=== PATIENT | male | born 1940 | race Caucasian/White ===

== ENCOUNTER → 2017-02-02 | Outpatient (REF) | payer MEDICARE, OTHER ==
[2017-02-02 15:57] LABS: BLOOD UREA NITROGEN 11 MG/DL (7-18); CREATININE FOR GFR 0.94 MG/DL (0.70-1.30); GLOMERULAR FILTRATION RATE > 60.0 (>42)
== END ==
LOC: M LABDRWAD 15:32
PROVIDERS: ATTEND Surgery Vascular Surgery
DX: R94.4 Abnormal results of kidney function studies (principal)

== ENCOUNTER → 2017-05-02 | Outpatient (REF) | payer MEDICARE, OTHER ==
[2017-05-02 14:24] LABS: ALBUMIN 3.5 GM/DL (3.2-5.2); ALBUMIN/GLOBULIN RATIO 1.13 (1.00-1.93); ALKALINE PHOSPHATASE 110 U/L (45-117); ALT/SGPT 22 U/L (12-78); ANION GAP 9 MEQ/L (8-16); AST/SGOT 16 U/L (15-37); BLOOD UREA NITROGEN 10 MG/DL (7-18); CALCIUM LEVEL 9.2 MG/DL (8.8-10.2); CARBON DIOXIDE LEVEL 31 MEQ/L (21-32); CHLORIDE LEVEL 93 MEQ/L (98-107); CHOLESTEROL LEVEL 127 MG/DL (<200); CREATININE FOR GFR 1.02 MG/DL (0.70-1.30); GLOMERULAR FILTRATION RATE > 60.0 (>42); GLUCOSE, FASTING 117 MG/DL (83-110); POTASSIUM SERUM 4.6 MEQ/L (3.5-5.1); SODIUM LEVEL 133 MEQ/L (136-145); TOTAL PROTEIN 6.6 GM/DL (6.4-8.2); TRIGLYCERIDES LEVEL 124 MG/DL (<150)
== END ==
LOC: M LABDRWAD 12:09
PROVIDERS: ATTEND Emergency Medicine
DX: I10 Essential (primary) hypertension (principal); E78.2 Mixed hyperlipidemia; E55.9 Vitamin D deficiency, unspecified; R73.01 Impaired fasting glucose; N18.3 Chronic kidney disease, stage 3 (moderate)

== ENCOUNTER 2017-07-26 07:16 | Inpatient (IN) | payer MEDICARE, OTHER ==
[~2017-07-26] VITALS: Ht 177.8 cm; Wt 99.0 kg
[2017-07-26] MEDS ORDERED: AMIT25TA PO ×2 (07:33→09:34)
[2017-07-26] MEDS ORDERED: SIMV20TA2 PO ×2 (07:33→09:34)
[2017-07-26] MEDS ORDERED: ASPI325T28 PO (07:33)
[2017-07-26] MEDS ORDERED: POTA1TAB23 PO (07:33)
[2017-07-26] MEDS ORDERED: GLUC500T53 PO (07:33)
[2017-07-26] MEDS ORDERED: ADV250INH INH ×2 (07:33→09:34)
[2017-07-26] MEDS ORDERED: GABA600T PO ×2 (07:33→09:34)
[2017-07-26] MEDS ORDERED: LISI-538 PO ×2 (07:33→09:34)
[2017-07-26] MEDS ORDERED: MULTCAP11 PO (07:33)
[2017-07-26 08:33] LABS: BASO % 0.2 % (0.0-1.0); EOS # 0.2 K/mm3 (0.0-0.50); EOS % 1.5 % (0.0-3.0); LARGE UNSTAINED CELL # 0.2 K/mm3 (0.0-0.4); LARGE UNSTAINED CELL % 1.4 % (0.0-4.0); LYMPH # 0.7 K/mm3 (1.5-4.5); LYMPH % 6.3 % (24.0-44.0); MEAN CORPUSCULAR HEMOGLOBIN 34.2 pg (27.0-33.0); MEAN CORPUSCULAR HGB CONC 35.5 g/dl (32.0-36.5); MEAN CORPUSCULAR VOLUME 96.3 fl (80.0-96.0); MONO # 0.8 K/mm3 (0.0-0.8); MONO % 7.6 % (0.0-5.0); NEUTROPHILS # 9.1 K/mm3 (1.8-7.7); PLATELET COUNT, AUTOMATED 187 k/mm3 (150-450); RED CELL DISTRIBUTION WIDTH 11.7 % (11.5-14.5); WHITE BLOOD COUNT 10.9 K/mm3 (4.0-10.0)
--- NOTE | 2017-07-26 08:53 | REP ---
Clinical: Acute abdominal pain. Findings: Small bowel obstruction is appreciated with dilated fluid-filled small bowel measuring up to 4.4 cm diameter with an area of transition along the nondependent midline anterior abdominal wall suggesting adhesions from prior surgery (images 95 - 105). The more distal small bowel extending to the right lower quadrant and terminal ileum appear collapsed and relatively normal. Small amount of ascites is appreciated. No free air to suggest perforation. No drainable collection/abscess. Large bowel demonstrate scattered diverticulosis without acute diverticulitis. Liver demonstrates multiple hypodensities likely representing cysts. Spleen, pancreas, gallbladder, bilateral adrenal glands are normal. The left kidney is severely atrophic and the right kidney demonstrates renovascular calcifications as well as at 2 cm complex hypodense lesion along the lateral aspect which cannot be further characterized. Pelvis demonstrates normal bladder. Prostate gland is mildly enlarged and includes parenchymal calcifications. 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 Skeletal structures demonstrate degenerative changes without focal osseous abnormality. Surgical clips are identified in the anterior abdominal wall and right groin suggesting prior surgery. Impression: 1. Acute small bowel obstruction as described above with transition along the lower midline anterior abdominal wall suggesting adhesions related to prior surgeries. 2. 2 cm right renal lesion requires further investigation and differential diagnosis includes complex cyst and small mass. Consider ultrasound examination as first line of follow-up. 3. Further chronic and postsurgical changes as described above. Signed by Jose Francisco Raymundo MD 07/26/2017 08:44 A
[2017-07-26] MEDS ORDERED: SODIUM CHLORIDE 0.9% 1000 ML IV ONE (09:00)
[2017-07-26 09:14] LABS: ALBUMIN/GLOBULIN RATIO 0.83 (1.00-1.93); ALKALINE PHOSPHATASE 85 U/L (45-117); ALT/SGPT 17 U/L (12-78); ANION GAP 11 MEQ/L (8-16); AST/SGOT 15 U/L (15-37); BILIRUBIN,DIRECT 0.4 MG/DL (0.0-0.2); BILIRUBIN,TOTAL 1.5 MG/DL (0.2-1.0); BLOOD UREA NITROGEN 18 MG/DL (7-18); CALCIUM LEVEL 8.8 MG/DL (8.8-10.2); CARBON DIOXIDE LEVEL 32 MEQ/L (21-32); CHLORIDE LEVEL 91 MEQ/L (98-107); CREATININE FOR GFR 1.21 MG/DL (0.70-1.30); GLOMERULAR FILTRATION RATE > 60.0 (>42); GLUCOSE, FASTING 152 MG/DL (83-110); POTASSIUM SERUM 3.7 MEQ/L (3.5-5.1); SODIUM LEVEL 134 MEQ/L (136-145); TOTAL PROTEIN 6.6 GM/DL (6.4-8.2)
[2017-07-26] MEDS ORDERED: ASPI325T PO (09:34)
[2017-07-26] MEDS ORDERED: VITMTA PO (09:34)
[2017-07-26] MEDS ORDERED: POTA10CA PO (09:34)
[2017-07-26] MEDS: LR 1,000 ML IV SCH ×2 (13:41→21:41)
[2017-07-26] MEDS ORDERED: ONDANSETRON 4MG/2ML VIAL (J2405) IV PRN (13:45)
[2017-07-26] MEDS ORDERED: MORPHINE 2 MG/ML 1ML SYRINGE IV PRN (13:45)
[2017-07-26] MEDS ORDERED: METOCLOPRAMIDE INJ 10MG/2ML VIAL (J2765) IV PRN (13:45)
[2017-07-26 16:15] VITALS: BP 121/58
[2017-07-26] MEDS: PANTOPRAZOLE 40MG INJ (PROTONIX) (C9113) IV SCH (17:18)
[2017-07-26 22:00] VITALS: BP 147/71
[2017-07-27 02:00] VITALS: BP 141/67
[2017-07-27 06:00] VITALS: BP 142/73
[2017-07-27 06:43] LABS: BASO % 0.4 % (0.0-1.0); EOS # 0.4 K/mm3 (0.0-0.50); EOS % 5.7 % (0.0-3.0); LARGE UNSTAINED CELL # 0.1 K/mm3 (0.0-0.4); LYMPH # 0.8 K/mm3 (1.5-4.5); LYMPH % 11.6 % (24.0-44.0); MEAN CORPUSCULAR HGB CONC 34.6 g/dl (32.0-36.5); MEAN CORPUSCULAR VOLUME 98.3 fl (80.0-96.0); MONO # 0.7 K/mm3 (0.0-0.8); MONO % 9.8 % (0.0-5.0); NEUTROPHILS % 70.6 % (36.0-66.0); PLATELET COUNT, AUTOMATED 153 k/mm3 (150-450); RED CELL DISTRIBUTION WIDTH 11.7 % (11.5-14.5); WHITE BLOOD COUNT 7.1 K/mm3 (4.0-10.0)
[2017-07-27 06:56] LABS: ANION GAP 8 MEQ/L (8-16); BLOOD UREA NITROGEN 12 MG/DL (7-18); CALCIUM LEVEL 8.1 MG/DL (8.8-10.2); CARBON DIOXIDE LEVEL 32 MEQ/L (21-32); CHLORIDE LEVEL 101 MEQ/L (98-107); CREATININE FOR GFR 0.83 MG/DL (0.70-1.30); GLOMERULAR FILTRATION RATE > 60.0 (>42); GLUCOSE, FASTING 110 MG/DL (83-110); SODIUM LEVEL 141 MEQ/L (136-145)
[2017-07-27] MEDS: PANTOPRAZOLE 40MG INJ (PROTONIX) (C9113) IV SCH (08:16)
[2017-07-27] MEDS: LR 1,000 ML IV SCH (08:16)
[2017-07-27 10:00] VITALS: BP 144/65
[2017-07-27] MEDS: LISINOPRIL 20 MG TAB PO SCH (10:21)
[2017-07-27] MEDS: GABAPENTIN 400 MG CAP PO SCH ×2 (10:21→21:06)
[2017-07-27] MEDS: ADVAIR HFA 230/21MCG INHALER INH SCH ×2 (10:22→19:49)
--- NOTE | 2017-07-27 13:06 | IPN ---
DATE: 07/27/2017 Patient reports that he is feeling pretty good this morning. He denies any significant abdominal pain. He reports that he has been passing much flatus and his urine output has picked up with the IV fluid. He has had no nausea or vomiting. Vital signs reveal that he has been afebrile all night. Pulses ranged between 68-75 with a respiratory rate 18 and a good blood pressure. Room air saturations are fine. Intake and output is incomplete. Yesterday it shows 700 mL of IV intake and there is no urine output recorded. Overnight, he has had 650 mL of urine output recorded. Physical exam: Patient is alert and appears comfortable. Skin is warm and dry. The abdomen is mildly protuberant and obese. He has active bowel sounds present. The abdomen is soft throughout and there is no discrete tenderness. Laboratory studies: His CBC today shows a white count of 7, which is diminished from 11,000 yesterday. Hemoglobin and hematocrit of 15 and 44 with a platelet count of 153,000. Differential shows 71% neutrophils, 12% lymphocytes and 10% monocytes. Chemistry profile shows normal electrolytes with a BUN of 12 and a creatinine of 0.83. Impression is improved from possible partial small bowel obstruction. He has no nausea or vomiting. He has been passing flatus and his abdomen is soft and less distended today with active bowel sounds. I suspect that his symptoms yesterday represented a partial obstruction, which has improved. Plan: Patient will be started on clear liquids. His IV fluids will be diminished. He will be started back on his lisinopril, gabapentin and Advair as per his usual routine. We will monitor him as to his response to the clear liquids and if he tolerates these his diet will be advanced. SUPA
[2017-07-27 14:00] VITALS: BP 153/86
[2017-07-27 18:00] VITALS: BP 151/93
[2017-07-27 20:00] VITALS: BP 161/82
[2017-07-27] MEDS: AMITRIPTYLINE 25 MG TAB PO SCH (21:06)
[2017-07-28] VITALS: BP 118/62
[2017-07-28 04:00] VITALS: BP 120/60
[2017-07-28] MEDS: ADVAIR HFA 230/21MCG INHALER INH SCH ×2 (08:15→19:37)
[2017-07-28] MEDS: GABAPENTIN 400 MG CAP PO SCH ×2 (08:31→21:26)
[2017-07-28] MEDS: LISINOPRIL 20 MG TAB PO SCH (08:31)
[2017-07-28] MEDS: PANTOPRAZOLE 40MG INJ (PROTONIX) (C9113) IV SCH (08:31)
[2017-07-28 10:00] VITALS: BP 123/61
[2017-07-28 14:00] VITALS: BP 140/84
[2017-07-28 18:00] VITALS: BP 145/80
[2017-07-28] MEDS: LR 1,000 ML IV SCH (18:39)
[2017-07-28] MEDS: MORPHINE 4 MG/ML 1ML SYRINGE IV PRN (18:40)
[2017-07-28 20:00] VITALS: BP 162/84
[2017-07-28] MEDS: AMITRIPTYLINE 25 MG TAB PO SCH (21:27)
[2017-07-29] MEDS: LR 1,000 ML IV SCH ×2 (05:50→18:30)
[2017-07-29 06:00] VITALS: BP 113/67
[2017-07-29 06:46] LABS: BASO % 0.3 % (0.0-1.0); EOS # 0.1 K/mm3 (0.0-0.50); EOS % 0.9 % (0.0-3.0); LARGE UNSTAINED CELL # 0.1 K/mm3 (0.0-0.4); LARGE UNSTAINED CELL % 1.6 % (0.0-4.0); LYMPH # 0.7 K/mm3 (1.5-4.5); LYMPH % 7.9 % (24.0-44.0); MEAN CORPUSCULAR HEMOGLOBIN 33.3 pg (27.0-33.0); MEAN CORPUSCULAR HGB CONC 33.5 g/dl (32.0-36.5); MEAN CORPUSCULAR VOLUME 99.6 fl (80.0-96.0); MONO # 0.7 K/mm3 (0.0-0.8); MONO % 9.4 % (0.0-5.0); NEUTROPHILS # 5.9 K/mm3 (1.8-7.7); NEUTROPHILS % 79.8 % (36.0-66.0); PLATELET COUNT, AUTOMATED 206 k/mm3 (150-450); WHITE BLOOD COUNT 7.4 K/mm3 (4.0-10.0)
[2017-07-29 07:03] LABS: ALBUMIN 2.8 GM/DL (3.2-5.2); ALKALINE PHOSPHATASE 75 U/L (45-117); ALT/SGPT 18 U/L (12-78); ANION GAP 11 MEQ/L (8-16); AST/SGOT 20 U/L (15-37); BILIRUBIN,TOTAL 1.2 MG/DL (0.2-1.0); BLOOD UREA NITROGEN 12 MG/DL (7-18); CALCIUM LEVEL 8.5 MG/DL (8.8-10.2); CARBON DIOXIDE LEVEL 28 MEQ/L (21-32); CHLORIDE LEVEL 98 MEQ/L (98-107); CREATININE FOR GFR 0.76 MG/DL (0.70-1.30); GLOMERULAR FILTRATION RATE > 60.0 (>42); GLUCOSE, FASTING 134 MG/DL (83-110); POTASSIUM SERUM 3.4 MEQ/L (3.5-5.1); SODIUM LEVEL 137 MEQ/L (136-145); TOTAL PROTEIN 6.3 GM/DL (6.4-8.2)
[2017-07-29] MEDS: ADVAIR HFA 230/21MCG INHALER INH SCH ×2 (08:09→19:58)
[2017-07-29] MEDS: LISINOPRIL 20 MG TAB PO SCH (09:39)
[2017-07-29] MEDS: GABAPENTIN 400 MG CAP PO SCH ×2 (09:39→21:03)
[2017-07-29] MEDS: PANTOPRAZOLE 40MG INJ (PROTONIX) (C9113) IV SCH (09:39)
[2017-07-29 10:00] VITALS: BP 147/75
[2017-07-29] MEDS: ACETAMINOPHEN TAB 650MG DOSE (2X325MG) PO PRN (10:59)
--- NOTE | 2017-07-29 11:11 | IPN ---
DATE: 07/28/2017 SUBJECTIVE: The patient had started clear liquids on July 27. He tolerated these well with an excellent intake. His urine output was excellent and he also reported two bowel movements during the course of the day on 07/27. Vital signs showed that he remained afebrile. His pulse ranged from the mid 60s up to about 80. Blood pressure was good and his room air oxygen saturations were fine. Physical exam in the morning showed that his abdomen was soft. He had active bowel sounds. There was no significant tenderness to palpation. There were no new laboratories obtained on 07/28. IMPRESSION Small bowel obstruction with evidence for improvement. PLAN: The patient was advanced to a regular diet. His intravenous (IV) had been saline locked when he tolerated his liquids well. Unfortunately, during the course of the day on 07/28, after eating a full breakfast and a full lunch he developed some significant abdominal pain in the afternoon of the 07/28. He developed some nausea and vomited at least once. Because of this, he was converted back to nothing by mouth status and his IV fluids were restarted. He was offered Zofran for nausea. We will continue to monitor him see if he will again resolve his bowel obstruction. A KUB will be obtained on the morning of the 07/29, and we can consider obtaining a small bowel follow-through study. SUPA
--- NOTE | 2017-07-29 11:46 | REP ---
Clinical: Small bowel obstruction. Technique: Two supine views of the abdomen and pelvis. Findings: Dilated air filled loops of small bowel are appreciated and consistent with high-grade obstruction. No obvious free air. Surgical clips overlie the abdomen and right groin as well as embolic device in the region of the left iliac vessels. Skeletal structures demonstrate age-related changes. Impression: Findings suggest high-grade small bowel obstruction. Signed by Jose Francisco Raymundo MD 07/29/2017 11:38 A
[2017-07-29 14:00] VITALS: BP 147/90
[2017-07-29 18:00] VITALS: BP 114/77
[2017-07-29 20:00] VITALS: BP 141/68
[2017-07-29] MEDS: AMITRIPTYLINE 25 MG TAB PO SCH (21:03)
[2017-07-30] VITALS: BP 97/39
[2017-07-30 04:11] VITALS: BP 111/54
[2017-07-30 06:49] LABS: BASO % 0.4 % (0.0-1.0); EOS # 0.2 K/mm3 (0.0-0.50); EOS % 3.2 % (0.0-3.0); LARGE UNSTAINED CELL # 0.1 K/mm3 (0.0-0.4); LARGE UNSTAINED CELL % 1.9 % (0.0-4.0); LYMPH % 13.7 % (24.0-44.0); MEAN CORPUSCULAR HEMOGLOBIN 34.7 pg (27.0-33.0); MEAN CORPUSCULAR HGB CONC 34.9 g/dl (32.0-36.5); MEAN CORPUSCULAR VOLUME 99.6 fl (80.0-96.0); MONO # 0.7 K/mm3 (0.0-0.8); MONO % 10.9 % (0.0-5.0); NEUTROPHILS # 4.4 K/mm3 (1.8-7.7); NEUTROPHILS % 69.8 % (36.0-66.0); PLATELET COUNT, AUTOMATED 201 k/mm3 (150-450); WHITE BLOOD COUNT 6.3 K/mm3 (4.0-10.0)
[2017-07-30 07:26] LABS: ANION GAP 10 MEQ/L (8-16); BLOOD UREA NITROGEN 16 MG/DL (7-18); CALCIUM LEVEL 8.6 MG/DL (8.8-10.2); CARBON DIOXIDE LEVEL 27 MEQ/L (21-32); CHLORIDE LEVEL 101 MEQ/L (98-107); CREATININE FOR GFR 0.71 MG/DL (0.70-1.30); GLOMERULAR FILTRATION RATE > 60.0 (>42); GLUCOSE, FASTING 97 MG/DL (83-110); POTASSIUM SERUM 3.3 MEQ/L (3.5-5.1); SODIUM LEVEL 138 MEQ/L (136-145)
[2017-07-30] MEDS: ADVAIR HFA 230/21MCG INHALER INH SCH ×2 (07:30→21:00)
--- NOTE | 2017-07-30 08:08 | REP ---
Clinical: Small bowel obstruction. Technique: Two supine views of the abdomen and pelvis. Comparison: 07/29/2017. Findings: Continued evidence for significantly dilated loops of small bowel are appreciated. Small bowel obstruction as well as ileus cannot definitively be excluded. No obvious free air. A nasogastric tube is identified with its side port above the level of the diaphragm and requiring repositioning. Remainder examination appears stable. Impression: 1. Continued evidence for dilated air filled small bowel suggesting small bowel obstruction. Ileus cannot be excluded. No free air identified. 2. Nasogastric tube requires reevaluation and repositioning. Signed by Jose Francisco Raymundo MD 07/30/2017 08:00 A
[2017-07-30] MEDS: PANTOPRAZOLE 40MG INJ (PROTONIX) (C9113) IV SCH (08:15)
[2017-07-30] MEDS: GABAPENTIN 400 MG CAP PO SCH ×2 (08:15→20:52)
[2017-07-30] MEDS: LISINOPRIL 20 MG TAB PO SCH (08:16)
[2017-07-30] MEDS: LR 1,000 ML IV SCH (08:16)
[2017-07-30] MEDS: KCL 10MEQ IN 100ML SWI (KRUN) 10 MEQ in APPROPRIATE DILUENT 1 EA IV SCH ×8 (08:59→11:56)
[2017-07-30 10:00] VITALS: BP 146/84
[2017-07-30 14:00] VITALS: BP 145/84
--- NOTE | 2017-07-30 17:12 | IPN ---
DATE: 07/30/2017 SUBJECTIVE: The patient reports again that his symptoms have resolved. He has been passing a lot of gas. He has no abdominal pain now. His nasogastric (NG) tube has had some output but decreased from yesterday. OBJECTIVE: Vital signs this morning show a temperature of 99 with a pulse of 82, respirations of 18 and a blood pressure of 146/84. Room air saturation is 94%. Intake and output shows intake yesterday of 1060, with output of 2675 from his NG tube and 400 of emesis. He had 1000 mL from the NG tube today overnight. PHYSICAL EXAMINATION: Physical exam reveals a pleasant man lying quietly on the hospital bed. Skin is warm and dry. Sclerae are anicteric. Heart exam shows a regular rhythm. Lungs are clear. The abdomen shows his old midline scar. The abdomen is flatter than yesterday. He has positive bowel sounds in all four quadrants. The abdomen is soft and without significant tenderness throughout. LABORATORY DATA: White count is six with hemoglobin 15, hematocrit 42 and platelet count of 201,000. Differential shows 70% neutrophils. Chemistry shows normal electrolytes except for a potassium of 3.3. KUB today shows improvement but not complete resolution of his pattern of distended small bowel loops. This appears improved to me from 07/29. There is still no free air. IMPRESSION: Resolved symptoms of obstruction with large nasogastric output yesterday. PLAN: The patient was counseled that he appears to be resolving his obstruction again. I recommended that we continue the NG tube for today and monitor for continuing resolution. If he continues to do well with persistent flatus and an absence of pain, we will discontinue the NG tube and start him on liquids. He had an opportunity to ask questions and these were answered to the best my ability. SUPA
--- NOTE | 2017-07-30 17:16 | IPN ---
DATE: 07/29/2017 The patient had continued problems with vomiting on the evening of 07/28/2017 and a nasogastric tube was ordered by the covering physician. He was placed back on some intravenous (IV) fluids. He complains of abdominal pain and distension again this morning. Vital signs show that he has had a temperature of 101.3 in 10 o'clock. Pulse is 94, respirations are 20 and his blood pressure is 147/75. Room air oxygen saturations are fine. Intake and output on 07/28/2017: He had 720 oral, and no IV fluid recorded, though he had received an IV. His urine output was 850 with emesis recorded of 500. PHYSICAL EXAMINATION: The patient appears a little bit more uncomfortable and apprehensive. SKIN: Is warm and dry. Sclerae are anicteric. HEART EXAM: Shows a regular rhythm. LUNGS: Clear. ABDOMEN: Mildly distended. The abdomen is somewhat firm and he has some fairly diffuse mild to moderate tenderness across the lower abdomen. He does have some bowel sounds present. His laboratory studies show a white count of 7, with a hemoglobin 15, hematocrit 45, with a platelet count of 206,000. Chemistry shows sodium 137, potassium 3.4, chloride 98, CO2 of 28, BUN of 12, creatinine 0.7 and a glucose of 134. Total protein is 6.3, with an albumin of 2.8. Kidneys, ureter, bladder (KUB) shows a fairly distinct pattern of dilated loops of small bowel, particularly in the left mid and upper abdomen. There is no free air. Surgical mary are noted in the abdominal wall consistent with his prior hernia repair. The nasogastric (NG) tube remains in place. IMPRESSION: Recurrent obstructive symptoms with abdominal discomfort, nausea and vomiting and x-ray consistent with small-bowel obstruction. PLAN: The patient and I discussed options for management. Because he had done so well with initial resolution of his obstruction, I have recommended that we give him a little time to see if he will again resolve. His nasogastric (NG) tube will be continued to low intermittent suction. He will be kept on IV fluids. I will order a repeat KUB in the morning. We will see if this resolves, and if not, we will need to proceed with an exploratory laparotomy. SUPA
[2017-07-30 20:00] VITALS: BP 150/80
[2017-07-30] MEDS: AMITRIPTYLINE 25 MG TAB PO SCH (20:52)
[2017-07-31] MEDS: LR 1,000 ML IV SCH ×2 (01:18→15:00)
[2017-07-31] MEDS: MORPHINE 4 MG/ML 1ML SYRINGE IV PRN (01:27)
[2017-07-31] MEDS: ADVAIR HFA 230/21MCG INHALER INH SCH ×2 (07:40→20:14)
--- NOTE | 2017-07-31 07:59 | REP ---
Clinical: Follow up small bowel obstruction. Technique: Two supine views of the abdomen and pelvis. Comparison: 07/30/2017. Findings: Current examination demonstrates improved appearance of the bowel gas pattern with decreased distension to the small bowel approaching a relatively normal and nonspecific appearance. The nasogastric tube is again identified with its side port in the distal esophagus and may warrant repositioning. Impression: 1. Improved appearance to the small bowel with the current examination approaching a relatively normal, nonspecific appearance. 2. Nasogastric tube warrants reevaluation and possible repositioning. Signed by Jose Francisco Raymundo MD 07/31/2017 07:50 A
[2017-07-31 08:55] VITALS: BP 121/59
[2017-07-31] MEDS: PANTOPRAZOLE 40MG INJ (PROTONIX) (C9113) IV SCH (08:57)
[2017-07-31] MEDS: GABAPENTIN 400 MG CAP PO SCH ×2 (08:57→20:44)
[2017-07-31] MEDS: LISINOPRIL 20 MG TAB PO SCH (08:57)
[2017-07-31] MEDS: ACETAMINOPHEN TAB 650MG DOSE (2X325MG) PO PRN (08:58)
[2017-07-31 14:15] VITALS: BP 151/60
[2017-07-31 20:00] VITALS: BP 160/84
[2017-07-31] MEDS: POTASSIUM CHLORIDE 10 MEQ SR TABLET PO SCH (20:44)
--- NOTE | 2017-07-31 21:32 | IPN ---
DATE: 07/31/2017 SUBJECTIVE: The patient has done well overnight. He reports that he continues to pass flatus and denies any abdominal pain. He has remained afebrile over the last 24 hours. Vital signs most recently show a temperature of 98 degrees with a pulse is 66, respirations of 18 and blood pressure of 151/60. Pulse oximetry on room air is 95%. Intake and output yesterday showed an intake of 895, though this would seem to under report the intravenous (IV) intake, and output of 3100. PHYSICAL EXAMINATION: The patient is sitting up on the side of the bed with his nasogastric (NG) tube clamped at the moment, talking with his spouse. Sclerae are anicteric. Neck is supple. Heart exam shows a regular rhythm in the 60s. Lungs are clear to auscultation bilaterally. The abdomen shows active bowel sounds. The abdomen is soft and without tenderness. LABORATORY DATA: He had no new labs today. KUB was done this morning which showed decreased distension of small bowel loops in the left upper quadrant, still with some fairly normal-size appearing air-filled loops present but with more air on the right side of the abdomen. IMPRESSION: Resolved small bowel obstruction with positive flatus and resolution of abdominal pain. The patient has had good bowel function with flatus and resolution of his discomfort and distension over the last day. PLAN I have advised the patient that I would recommend removing his nasogastric tube and starting him back on clear liquids. If he tolerates these well. I may be a little slower to advance him to a regular diet than we did several days ago when he showed rapid evidence of recurrent obstruction. I have also recommended that we obtain a small bowel follow-through study to see if there is any persistent narrowing that we should be concerned about. I will also order a renal ultrasound because of the finding of a small nodule on the right kidney. This could be particularly important given the fact that the patient appears on CT to have only one functional kidney with basically complete atrophy of the left kidney. We will repeat laboratory studies in the morning. SUPA
[2017-07-31] MEDS: AMITRIPTYLINE 25 MG TAB PO SCH (22:07)
[2017-08-01] VITALS: BP 164/78
[2017-08-01 04:00] VITALS: BP 148/66
[2017-08-01] MEDS: LR 1,000 ML IV SCH ×2 (05:47→16:14)
[2017-08-01] MEDS: ACETAMINOPHEN TAB 650MG DOSE (2X325MG) PO PRN ×2 (06:03→16:14)
[2017-08-01 07:33] LABS: BASO % 0.2 % (0.0-1.0); EOS # 0.2 K/mm3 (0.0-0.50); EOS % 2.6 % (0.0-3.0); LARGE UNSTAINED CELL # 0.1 K/mm3 (0.0-0.4); LARGE UNSTAINED CELL % 1.6 % (0.0-4.0); LYMPH # 0.7 K/mm3 (1.5-4.5); LYMPH % 7.1 % (24.0-44.0); MEAN CORPUSCULAR HEMOGLOBIN 33.8 pg (27.0-33.0); MEAN CORPUSCULAR HGB CONC 34.1 g/dl (32.0-36.5); MONO # 0.7 K/mm3 (0.0-0.8); MONO % 8.2 % (0.0-5.0); NEUTROPHILS # 6.8 K/mm3 (1.8-7.7); NEUTROPHILS % 80.3 % (36.0-66.0); PLATELET COUNT, AUTOMATED 235 k/mm3 (150-450); RED CELL DISTRIBUTION WIDTH 11.7 % (11.5-14.5); WHITE BLOOD COUNT 8.5 K/mm3 (4.0-10.0)
[2017-08-01 08:00] VITALS: BP 153/71
[2017-08-01 08:15] LABS: ALBUMIN 2.4 GM/DL (3.2-5.2); ALBUMIN/GLOBULIN RATIO 0.65 (1.00-1.93); ALKALINE PHOSPHATASE 70 U/L (45-117); ALT/SGPT 13 U/L (12-78); ANION GAP 11 MEQ/L (8-16); AST/SGOT 12 U/L (15-37); BILIRUBIN,TOTAL 0.8 MG/DL (0.2-1.0); BLOOD UREA NITROGEN 9 MG/DL (7-18); CALCIUM LEVEL 8.2 MG/DL (8.8-10.2); CARBON DIOXIDE LEVEL 25 MEQ/L (21-32); CHLORIDE LEVEL 100 MEQ/L (98-107); CREATININE FOR GFR 0.55 MG/DL (0.70-1.30); GLOMERULAR FILTRATION RATE > 60.0 (>42); GLUCOSE, FASTING 104 MG/DL (83-110); POTASSIUM SERUM 3.5 MEQ/L (3.5-5.1); SODIUM LEVEL 136 MEQ/L (136-145); TOTAL PROTEIN 6.1 GM/DL (6.4-8.2)
--- NOTE | 2017-08-01 09:44 | REP ---
URINARY TRACT SONOGRAPHY: HISTORY: Nodule in the right kidney on CT study from July 26, 2017. That CT study also showed marked atrophy of the left kidney. SONOGRAPHIC FINDINGS: Scanning at the level of the urinary bladder shows no abnormality. There is no evidence of hydronephrosis on either side. Renal cortical echogenicity pattern is normal. The left kidney is markedly atrophic as seen on CT measuring 5.9 x 3.7 x 3.7 cm sonographically. No mass lesion is seen on the left. The right kidney has dimensions of 12.6 x 7.0 x 5.6 cm. There is a 1.9 x 1.5 x 1.2 cm cyst in the right kidney which appears benign by ultrasound. There are vascular calcifications in the right renal hilus. No perirenal disease is seen. IMPRESSION: 1.9 cm cyst lower pole right kidney. Vascular calcification. Marked atrophy left kidney. Signed by Merrill Sadler MD 08/01/2017 03:50 P
[2017-08-01] MEDS: GABAPENTIN 400 MG CAP PO SCH ×2 (09:53→20:38)
[2017-08-01] MEDS: PANTOPRAZOLE 40MG INJ (PROTONIX) (C9113) IV SCH (09:53)
[2017-08-01] MEDS: POTASSIUM CHLORIDE 10 MEQ SR TABLET PO SCH (09:53)
[2017-08-01] MEDS: LISINOPRIL 20 MG TAB PO SCH (09:55)
[2017-08-01] MEDS ORDERED: E-Z-PAQUE 96% w/w SUSP 176GM BTL As Ordered ONE (11:48)
[2017-08-01 14:15] VITALS: BP 136/78
[2017-08-01] MEDS: ADVAIR HFA 230/21MCG INHALER INH SCH ×2 (14:17→21:09)
[2017-08-01 16:00] VITALS: BP 134/85
--- NOTE | 2017-08-01 16:40 | REP ---
Clinical: Resolving small bowel obstruction evaluate for possible stricture. Technique: Single contrast barium small bowel follow-through. Findings: Distended loops of small bowel are appreciated in the left mid abdomen. However, contrast passes through the entire small bowel into the colon over an appropriate and normal duration. No definitive stricture or fixed narrowing was appreciated during the examination or during compression spot view evaluation. Total fluoroscopic time 1 minute 11 seconds. Impression: Distended loops of small bowel in the left mid abdomen with appropriate passage through the colon suggests a chronic partial bowel obstruction possibly related to adhesions for multiple prior surgical interventions. No discrete fixed narrowing or stricture was appreciated. Signed by Jose Francisco Raymundo MD 08/01/2017 04:32 P
[2017-08-01] MEDS ORDERED: MORPHINE 4 MG/ML 1ML SYRINGE IV PRN (18:15)
--- NOTE | 2017-08-01 18:52 | IPN ---
DATE: 08/01/2017 The patient has been down for his right renal ultrasound to assess the CT abnormality and also has had a small bowel follow-through study. He has been on clear liquids today and has tolerated those without problem. His urine output has been excellent. He denies any pain currently. Vital signs show he has been afebrile for the last 24 hours. MOST RECENT VITALS: Temperature 98, pulse 87, respirations 20, blood pressure 134/85 with a room air pulse oximetry of 96. Intake and output yesterday 1815 in and 1550 out with a bowel movement listed and two additional voids. Intake so far today is 1320. PHYSICAL EXAMINATION: The patient is alert, oriented and comfortable. Heart exam shows a regular rhythm. The lungs are clear and his abdomen is mildly obese, but soft with active bowel sounds and he is nontender to palpation. LABORATORY STUDIES: White count 8.5, hemoglobin 14, hematocrit 41 and his platelet count 235,000. Differential count shows 80% neutrophils, 7 lymphocytes and 8 monocytes. Chemistry profile: Shows normal electrolytes with BUN of 9, creatinine 0.55 and a glucose of 104. Total protein is 6.1 with an albumin of 2.4. IMAGING: Renal ultrasound: Showed that the nodule seen in the right kidney on CT of July 26 is a small cyst maximally 1.9 cm in diameter. Marked atrophy of the left kidney was confirmed. The small bowel study showed some distended loops of small bowel in the left midabdomen although the contrast passed through the entire small bowel and into the colon in an appropriate and normal duration as described by the radiologist. No definite stricture or fixed narrowing was identified. IMPRESSION: Small bowel obstruction secondary to adhesions, now resolving with good tolerance of clear liquids. No definite stricture was identified on small-bowel follow-through study, although he did have some persistent mild enlargement of his proximal jejunum. PLAN: The patient will be advanced to full liquids. His IV will be saline locked. We will see how he does with the full liquids and if he does well with these for a time we will advance him to regular diet. SUPA
[2017-08-01 20:00] VITALS: BP 158/74
[2017-08-01] MEDS: AMITRIPTYLINE 25 MG TAB PO SCH (20:38)
[2017-08-01] MEDS: ENOXAPARIN 30 MG/0.3 ML SYR (J1650) SC SCH (20:39)
[2017-08-02] VITALS: BP 149/70
[2017-08-02 04:00] VITALS: BP 152/70
[2017-08-02] MEDS: ACETAMINOPHEN TAB 650MG DOSE (2X325MG) PO PRN ×3 (04:28→23:13)
[2017-08-02] MEDS: ADVAIR HFA 230/21MCG INHALER INH SCH ×2 (07:36→19:26)
[2017-08-02 08:00] VITALS: BP 155/70
--- NOTE | 2017-08-02 08:20 | REP ---
Supine abdomen single AP view: Comparison 07/31/2017. There is barium throughout the ascending colon, transverse colon and descending colon, not present on the comparison study. Barium is also noted in distal nondistended small bowel loops and in the appendix. Numerous surgical mary are noted throughout the abdomen as previously. There is no bowel distension or obstruction. However, there is luminal narrowing of bowel loops in the left lower quadrant. I cannot determine whether these are colonic or small bowel loops that are narrowed. The narrowing is nonspecific and could be peristalsis, stricture or neoplasm. Signed by Kimo Thao MD 08/02/2017 08:12 A
[2017-08-02] MEDS: GABAPENTIN 400 MG CAP PO SCH ×2 (09:38→20:20)
[2017-08-02] MEDS: PANTOPRAZOLE 40MG TAB (PROTONIX) PO SCH (09:38)
[2017-08-02] MEDS: LISINOPRIL 20 MG TAB PO SCH (09:40)
[2017-08-02 12:00] VITALS: BP 150/72
[2017-08-02 16:00] VITALS: BP 154/80
[2017-08-02 20:00] VITALS: BP 165/72
[2017-08-02] MEDS: ENOXAPARIN 30 MG/0.3 ML SYR (J1650) SC SCH (20:20)
[2017-08-02] MEDS: AMITRIPTYLINE 25 MG TAB PO SCH (20:20)
--- NOTE | 2017-08-02 20:46 | IPN ---
DATE: 08/02/2017 The patient reports that he is feeling fine. He is sitting up on the edge of the bed and has been taking full liquids without difficulty since yesterday evening. Most recent vital signs: Temperature 97.5, pulse 81, respirations 18, blood pressure 154/80 and pulse oximetry is 98%. Intake and output yesterday showed 3800 in and 2800 out with one bowel movement and two unrecorded voids. PHYSICAL EXAMINATION: Physical exam reveals a pleasant, older man in no distress. Heart and lung exam is unremarkable. The abdomen is mildly protuberant but soft with active bowel sounds and it is nontender. LABORATORY STUDIES: He has no new labs today. A KUB was done this morning and shows that the contrast from his small bowel follow-through study has all progressed into the colon and extends all the way to the distal sigmoid at least. IMPRESSION: Resolved small bowel obstruction. PLAN: The patient and I discussed our approach to advancing his diet. When we had advanced his diet previously, he rapidly reobstructed. We will advance him to a soft diet. He was encouraged to chew his foods well and to avoid stringy vegetables, like green beans or snow peas. We will see how he does for a meal or two and then consider discharge. SUPA
[2017-08-03] VITALS: BP 174/85
[2017-08-03] MEDS: ADVAIR HFA 230/21MCG INHALER INH SCH ×2 (07:40→22:12)
[2017-08-03 08:00] VITALS: BP 139/74
[2017-08-03] MEDS: GABAPENTIN 400 MG CAP PO SCH ×2 (08:44→21:25)
[2017-08-03] MEDS: PANTOPRAZOLE 40MG TAB (PROTONIX) PO SCH (08:44)
[2017-08-03] MEDS: LISINOPRIL 20 MG TAB PO SCH (08:45)
[2017-08-03] MEDS: ACETAMINOPHEN TAB 650MG DOSE (2X325MG) PO PRN ×2 (09:16→21:31)
[2017-08-03 12:00] VITALS: BP 139/75
[2017-08-03 15:28] VITALS: BP 144/65
[2017-08-03 20:00] VITALS: BP 141/85
[2017-08-03] MEDS: ENOXAPARIN 30 MG/0.3 ML SYR (J1650) SC SCH (21:24)
[2017-08-03] MEDS: AMITRIPTYLINE 25 MG TAB PO SCH (21:25)
[2017-08-04] VITALS: BP 166/83
[2017-08-04 04:00] VITALS: BP 144/68
[2017-08-04] MEDS: ADVAIR HFA 230/21MCG INHALER INH SCH (08:02)
[2017-08-04 09:20] VITALS: BP 148/78
[2017-08-04 09:21] VITALS: BP 148/78
[2017-08-04] MEDS: PANTOPRAZOLE 40MG TAB (PROTONIX) PO SCH (09:21)
[2017-08-04] MEDS: LISINOPRIL 20 MG TAB PO SCH (09:21)
[2017-08-04] MEDS: GABAPENTIN 400 MG CAP PO SCH (09:21)
--- NOTE | 2017-08-04 12:34 | IPN ---
DATE: 08/03/2017 The patient has tolerated his soft diet for the last several meals. He denies any significant abdominal pain. He has had bowel movements recorded. Vital signs showed that he has been afebrile for the past 24 hours. His pulse ranges from the 60s into the 70s. Blood pressure has been within normal limits. His intake and output on 08/02/2017 was 2400 in and 3700 out. Physical exam shows a pleasant older man in no distress. He is alert, oriented and cooperative. Sclerae are anicteric. Heart exam shows a regular rhythm. The lungs are clear, and his abdomen remains somewhat obese but soft and without tenderness and with active bowel sounds. He has no new laboratory studies this morning and no imaging. Impression is resolved small bowel obstruction secondary to adhesions. Plan: As patient had a recurrence of his obstruction on initial attempts at re-feeding last week, I will keep him in the hospital until tomorrow and monitor him further while on a soft diet. If he is doing well tomorrow, he will be discharged. SUPA
--- NOTE | 2017-08-04 12:52 | IPN ---
DATE: 08/04/2017 The patient has done well in the last 24 hours. He has eaten a regular diet without any recurrence of his abdominal pain. He reports having had a good bowel movement this morning. Vital signs show a T-max of 100.1 only and he has been afebrile today. His pulse is in the 60s to 90s and his respiratory rate is 18 with a good blood pressure. Intake and output yesterday showed 2900 mL in and 3700 mL out. PHYSICAL EXAMINATION: The patient is alert, oriented and cooperative. Sclerae are anicteric. He appears in no discomfort. Abdomen is mildly obese but soft and nontender. There are no new labs or imaging. IMPRESSION: Resolved bowel obstruction, tolerating a regular diet. PLAN: The patient will be discharged home. He and his daughter were counseled that there is no way to predict if or when he might have a recurrence and there is also nothing to do to prevent recurrent obstruction. I did advise him to try avoiding stringy vegetables for the next week or so. He can return to the emergency department as needed if he notes a recurrence of symptoms. There is no need for him to followup in my office. He should continue his preadmission medications and followup with his primary physician. SUPA
--- NOTE | 2017-09-21 17:01 | DSES ---
DATE OF ADMISSION: 07/26/2017 DATE OF DISCHARGE: 08/04/2017 ADMITTING DIAGNOSIS: Small intestinal obstruction secondary to adhesions. HISTORY OF PRESENT ILLNESS: The patient is a 76-year-old man who presented to the emergency department with signs and symptoms consistent with a small intestinal obstruction. 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 He had physical exam and radiologic evidence for intestinal obstruction. His white count was minimally elevated at the time of admission, though his neutrophil count was high. A CT scan showed what the radiologist described as an acute small-bowel obstruction with transition along the lower midline anterior abdominal wall. There was a 2 cm lesion in the right kidney with evidence for chronic atrophy of the left kidney. The patient had an nasogastric (NG) tube placed and was maintained on intravenous hydration. He was monitored closely, primarily by clinical means. He passed some flatus, and his abdominal distension diminished and then resolved. His pain resolved. His NG tube was discontinued, and he was started on clear liquids and his diet was advanced. Unfortunately, the patient had a recurrence of abdominal pain with nausea and vomiting. His nasogastric tube was reinserted. He was monitored closely, and his pain again resolved. He had a return of bowel function. His NG tube was again discontinued, and his diet was more slowly advanced. He was encouraged to chew his foods well and avoid particularly fibrous or stringy foods. His symptoms completely resolved, and he tolerated a diet well and was discharged home on August 04. FINAL DIAGNOSES: 1. Small intestinal obstruction secondary to adhesions. 2. Status post abdominal aortic aneurysm repair. 3. Hypertension. 4. Hypercholesterolemia. 5. Asthma and chronic obstructive pulmonary disease. DISPOSITION: The patient was discharged home in good condition on August 04. He was advised to return to the hospital as needed for any recurrence of his obstructive symptoms. He was to resume his usual medications as before admission. He was to follow a regular diet and was to avoid stringy fibrous vegetables for the next week. DISCHARGE MEDICATIONS: Included amitriptyline, aspirin, gabapentin, lisinopril, a multivitamin, potassium chloride, Advair Diskus, and simvastatin.
== END 2017-08-04 13:40 | disposition home or self-care (01) | DRG 390 ==
LOC: M ED 07:16 → M ED INP 13:41 → M MS4PR 16:15 → M PED 07-31 18:35
PROVIDERS: ADMIT Surgery; ATTEND Surgery
DX: K56.5 Intestinal adhesions [bands] with obstruction (postinfection) (principal); Z79.899 Other long term (current) drug therapy

== ENCOUNTER → 2017-11-15 | Outpatient (REF) | payer MEDICARE, OTHER ==
[~2017-11-15] MED LIST: ADV250INH INH; AMIT25TA PO; ASPI325T PO; ASPI325T28 PO; GABA600T PO; GLUC500T53 PO; LISI-538 PO; MULTCAP11 PO; POTA10CA PO; POTA1TAB23 PO; SIMV20TA2 PO; VITMTA PO
[2017-11-15 13:00] LABS: ALBUMIN 3.8 GM/DL (3.2-5.2); ALBUMIN/GLOBULIN RATIO 1.27 (1.00-1.93); ALKALINE PHOSPHATASE 101 U/L (45-117); ALT/SGPT 20 U/L (12-78); ANION GAP 7 MEQ/L (8-16); AST/SGOT 15 U/L (7-37); BILIRUBIN,TOTAL 0.6 MG/DL (0.2-1.0); BLOOD UREA NITROGEN 13 MG/DL (7-18); CARBON DIOXIDE LEVEL 32 MEQ/L (21-32); CHLORIDE LEVEL 101 MEQ/L (98-107); CHOLESTEROL LEVEL 140 MG/DL (<200); CREATININE FOR GFR 0.92 MG/DL (0.70-1.30); GLOMERULAR FILTRATION RATE > 60.0 (>42); GLUCOSE, FASTING 125 MG/DL (83-110); POTASSIUM SERUM 4.2 MEQ/L (3.5-5.1); SODIUM LEVEL 140 MEQ/L (136-145); TOTAL PROTEIN 6.8 GM/DL (6.4-8.2); TRIGLYCERIDES LEVEL 160 MG/DL (<150)
== END ==
LOC: M LAB REF 12:25
PROVIDERS: ATTEND Emergency Medicine
DX: E78.2 Mixed hyperlipidemia (principal); I10 Essential (primary) hypertension; R73.01 Impaired fasting glucose; E55.9 Vitamin D deficiency, unspecified

== ENCOUNTER 2017-12-03 20:18 | Emergency (ER) | payer MEDICARE, OTHER ==
[2017-12-03 21:16] LABS: BEDSIDE GLUCOSE 120 MG/DL (83-110)
== END 2017-12-03 21:27 | disposition home or self-care (01) ==
LOC: M ED 20:18
DX: S00.83XA Contusion of other part of head, initial encounter (principal); W01.0XXA Fall on same level from slipping, tripping and stumbling without subsequent striking against object, initial encounter; Y92.018 Other place in single-family (private) house as the place of occurrence of the external cause; F10.220 Alcohol dependence with intoxication, uncomplicated; J44.9 Chronic obstructive pulmonary disease, unspecified; N28.9 Disorder of kidney and ureter, unspecified; Z79.899 Other long term (current) drug therapy; Z79.82 Long term (current) use of aspirin
CPT/HCPCS: 70450

== ENCOUNTER → 2018-05-15 | Outpatient (REF) | payer MEDICARE, OTHER ==
[2018-05-16 09:29] LABS: ALBUMIN 3.5 GM/DL (3.2-5.2); ALBUMIN/GLOBULIN RATIO 1.09 (1.00-1.93); ALKALINE PHOSPHATASE 109 U/L (45-117); ALT/SGPT 35 U/L (12-78); ANION GAP 9 MEQ/L (8-16); AST/SGOT 45 U/L (7-37); BILIRUBIN,TOTAL 0.8 MG/DL (0.2-1.0); BLOOD UREA NITROGEN 10 MG/DL (7-18); CALCIUM LEVEL 8.3 MG/DL (8.8-10.2); CARBON DIOXIDE LEVEL 31 MEQ/L (21-32); CHLORIDE LEVEL 104 MEQ/L (98-107); CHOLESTEROL LEVEL 139 MG/DL (<200); CHOLESTEROL RISK RATIO 2.673 (<5); CREATININE FOR GFR 0.96 MG/DL (0.70-1.30); GLOMERULAR FILTRATION RATE > 60.0 (>42); GLUCOSE, FASTING 119 MG/DL (70-100); HDL CHOLESTEROL 52 MG/DL (>40); NON-HDL-C 87 MG/DL; POTASSIUM SERUM 4.1 MEQ/L (3.5-5.1); SODIUM LEVEL 144 MEQ/L (136-145); TOTAL PROTEIN 6.7 GM/DL (6.4-8.2); TRIGLYCERIDES LEVEL 160 MG/DL (<150)
[2018-05-16 09:32] LABS: TOTAL 25(OH) VITAMIN D 36.1 NG/ML (30.0-100.0)
[2018-05-16 09:43] LABS: ESTIMATED AVERAGE GLUCOSE 123 MG/DL (60-110); HEMOGLOBIN A1c 5.9 %
== END ==
LOC: M LABDRWAD 08:58
DX: E78.2 Mixed hyperlipidemia (principal); I10 Essential (primary) hypertension; R73.01 Impaired fasting glucose; E55.9 Vitamin D deficiency, unspecified; Z79.899 Other long term (current) drug therapy
CPT/HCPCS: 80053

== ENCOUNTER → 2018-09-11 | Outpatient (REF) | payer MEDICARE, OTHER ==
[2018-09-11 14:36] LABS: FOLATE 7.4 NG/ML; TOTAL PROTEIN 6.1 GM/DL (6.4-8.2)
[2018-09-13 09:51] LABS: ALBUMIN 3.22 GM/DL (3.29-5.55); ALBUMIN % 52.8 % (55.8-66.1); ALPHA-1-GLOBULINS 0.37 GM/DL (0.17-0.41); ALPHA-2-GLOBULINS 0.74 GM/DL (0.42-0.99); ALPHA-2-GLOBULINS % 12.1 % (7.1-11.8); BETA-1-GLOBULINS 0.37 GM/DL (0.28-0.60); BETA-2-GLOBULINS 0.43 GM/DL (0.19-0.55); GAMMA GLOBULIN % 16.1 % (11.1-18.8); GAMMA GLOBULINS 0.98 GM/DL (0.65-1.58)
[2018-09-14 17:43] LABS: CERULOPLASMIN 16.8 mg/dL (16.0-31.0); COPPER PLASMA 66 ug/dL (72-166); VITAMIN B1 LEVEL WHOLE BLOOD 139.6 nmol/L (66.5-200.0); VITAMIN B6,PYRIDOXAL PHOSPHATE 3.4 ug/L (5.3-46.7); VITAMIN E(ALPHA TOCOPHEROL) 12.7 mg/L (9.0-29.0); VITAMIN E(GAMMA TOCOPHEROL) 1.7 mg/L (0.5-4.9)
== END ==
LOC: M LABNEURO 09:37
DX: G62.9 Polyneuropathy, unspecified (principal); E51.9 Thiamine deficiency, unspecified; E53.8 Deficiency of other specified B group vitamins; E61.0 Copper deficiency
CPT/HCPCS: 82525

== ENCOUNTER 2018-12-01 15:43 | Inpatient (IN) | payer MEDICARE, OTHER ==
[~2018-12-01] VITALS: Ht 170.2 cm; Wt 98.4 kg
[~2018-12-01 15:43] MED LIST changes: +ASPI-222 PO; -ASPI325T28 PO; -GABA600T PO; +GABA600T4 PO; +KLOR10TA76 PO; -POTA10CA PO
[2018-12-01] MEDS ORDERED: NS 1,000 ML IV SCH ×2 (16:01→21:15)
[2018-12-01] MEDS ORDERED: AMOX-CLAV (16:07)
[2018-12-01 16:37] LABS: BASO % 0.4 % (0.0-1.0); EOS # 0.4 10^3/uL (0.0-0.50); EOS % 5.3 % (0.0-3.0); HEMATOCRIT 31.5 % (42.0-52.0); HEMOGLOBIN 11.1 g/dl (13.5-17.5); LYMPH # 0.6 10^3/uL (1.5-4.5); MEAN CORPUSCULAR HEMOGLOBIN 36.4 pg (27.0-33.0); MEAN CORPUSCULAR HGB CONC 35.2 g/dl (32.0-36.5); MEAN CORPUSCULAR VOLUME 103.3 fl (80.0-96.0); MONO # 0.8 10^3/uL (0.0-0.8); MONO % 10.5 % (0.0-5.0); NEUTROPHILS # 5.4 10^3/uL (1.8-7.7); NEUTROPHILS % 75.2 % (36.0-66.0); PLATELET COUNT, AUTOMATED 127 10^3/uL (150-450); RED BLOOD COUNT 3.05 10^6/uL (4.30-6.10); WHITE BLOOD COUNT 7.2 10^3/uL (4.0-10.0)
[2018-12-01 17:06] LABS: INR 1.1; PROTHROMBIN TIME 14.4 SECONDS (12.1-14.4)
[2018-12-01 17:09] LABS: ALBUMIN 2.3 GM/DL (3.2-5.2); ALT/SGPT 41 U/L (12-78); BILIRUBIN,DIRECT 0.8 MG/DL (0.0-0.2); BILIRUBIN,TOTAL 1.2 MG/DL (0.2-1.0); BLOOD UREA NITROGEN 23 MG/DL (7-18); CALCIUM LEVEL 7.8 MG/DL (8.8-10.2); CARBON DIOXIDE LEVEL 29 MEQ/L (21-32); CHLORIDE LEVEL 90 MEQ/L (98-107); CPK CREATINE PHOSPHOKINASE 68 U/L (39-308); CREATININE FOR GFR 1.76 MG/DL (0.70-1.30); ETHYL ALCOHOL (ETHANOL) < 0.003 % (0.000-0.010); GLUCOSE, FASTING 159 MG/DL (70-100); MB/CK RELATIVE INDEX 1.47 (< OR =4); POTASSIUM SERUM 3.6 MEQ/L (3.5-5.1); SODIUM LEVEL 127 MEQ/L (136-145); TROPONIN I < 0.02 NG/ML (< 0.10)
[2018-12-01] MEDS ORDERED: AUGM875T28 PO (19:40)
[2018-12-01] MEDS ORDERED: TESS100C PO (19:42)
[2018-12-01] MEDS ORDERED: THIAMINE 100 MG TAB PO STA (19:52)
--- NOTE | 2018-12-01 19:53 | REP ---
Oral chest x-ray: Single view. History: Altered mental status. Comparison chest x-ray: 10/11/2007. Findings: EKG monitoring electrodes overlie the chest. The lungs are symmetrically aerated and free of infiltrate. Interstitial markings are prominent in the bases suggesting some degree of interstitial fibrosis. Heart is not enlarged. Pulmonary vasculature is not increased. No significant bony abnormality. Impression: No acute disease. Bibasilar interstitial prominence consistent with fibrosis. Electronically Signed by Merrill Sadler MD 12/02/2018 08:12 A
[2018-12-01] MEDS: AMITRIPTYLINE 25 MG TAB PO SCH (21:00)
[2018-12-01] MEDS: THIAMINE 100 MG TAB PO SCH (21:00)
--- NOTE | 2018-12-01 21:05 | REPVR ---
EXAM: CT Head Without Contrast EXAM DATE/TIME: 12/01/2018 8:34 PM CLINICAL HISTORY: 77 years old, male; Injury or trauma; Fall; Initial encounter; Blunt trauma (contusions or hematomas); Consciousness not specified; Additional info: Frequent falls TECHNIQUE: Axial computed tomography images of the head/brain without contrast. All CT scans at this facility use at least one of these dose optimization techniques: automated exposure control; mA and/or kV adjustment per patient size (includes targeted exams where dose is matched to clinical indication); or iterative reconstruction. COMPARISON: CT Head without contrast 12/03/2017 8:38 PM FINDINGS: Brain: Periventricular and deep white matter hypodensities are in keeping with of chronic microvascular ischemic changes. There is age-related diffuse cortical atrophy with compensatory ventricular and sulcal enlargement. Ventricles: Normal. No ventriculomegaly. Bones/joints: Normal. No acute fracture. Sinuses: There is mucosal thickening of the paranasal sinuses. Mastoid air cells: Normal as visualized. No mastoid effusion. Soft tissues: Normal. Vasculature: Intracranial vascular calcifications are present. IMPRESSION: No acute intracranial abnormality. Electronically signed by: Ellie Krause On 12/01/2018 21:04:56 PM
[2018-12-01] MEDS ORDERED: LORazepam 2 MG TAB PO PRN (21:15)
[2018-12-01] MEDS: ASPIRIN 325 MG TAB PO SCH (22:05)
[2018-12-01] MEDS: GABAPENTIN 400 MG CAP PO SCH (22:05)
[2018-12-02] LABS: CPK CREATINE PHOSPHOKINASE 109 U/L (39-308); MB/CK RELATIVE INDEX 1.28 (< OR =4); TROPONIN I < 0.02 NG/ML (< 0.10)
[2018-12-02] MEDS ORDERED: LORazepam 2 MG/ML VIAL (J2060) IV STA (00:01)
[2018-12-02] MEDS: ADVAIR HFA 115/21MCG INHALER INH SCH ×3 (00:41→20:48)
[2018-12-02] MEDS: LORazepam 2 MG/ML VIAL (J2060) IV PRN ×4 (01:47→07:43)
[2018-12-02 06:45] LABS: BASO % 0.4 % (0.0-1.0); EOS # 0.4 10^3/uL (0.0-0.50); EOS % 7.9 % (0.0-3.0); HEMATOCRIT 31.5 % (42.0-52.0); HEMOGLOBIN 10.9 g/dl (13.5-17.5); LYMPH # 0.8 10^3/uL (1.5-4.5); LYMPH % 16.9 % (24.0-44.0); MEAN CORPUSCULAR HEMOGLOBIN 36.1 pg (27.0-33.0); MEAN CORPUSCULAR HGB CONC 34.6 g/dl (32.0-36.5); MEAN CORPUSCULAR VOLUME 104.3 fl (80.0-96.0); MONO # 0.5 10^3/uL (0.0-0.8); MONO % 11.3 % (0.0-5.0); NEUTROPHILS % 62.7 % (36.0-66.0); PLATELET COUNT, AUTOMATED 101 10^3/uL (150-450); RED BLOOD COUNT 3.02 10^6/uL (4.30-6.10); WHITE BLOOD COUNT 4.8 10^3/uL (4.0-10.0)
[2018-12-02 07:11] LABS: ALBUMIN 2.1 GM/DL (3.2-5.2); ALT/SGPT 33 U/L (12-78); BLOOD UREA NITROGEN 17 MG/DL (7-18); CALCIUM LEVEL 7.3 MG/DL (8.8-10.2); CARBON DIOXIDE LEVEL 26 MEQ/L (21-32); CHLORIDE LEVEL 100 MEQ/L (98-107); CPK CREATINE PHOSPHOKINASE 153 U/L (39-308); CREATININE FOR GFR 1.15 MG/DL (0.70-1.30); GLOMERULAR FILTRATION RATE > 60.0 (>42); GLUCOSE, FASTING 95 MG/DL (70-100); MAGNESIUM LEVEL 1.3 MG/DL (1.8-2.4); MB/CK RELATIVE INDEX 1.05 (< OR =4); POTASSIUM SERUM 3.3 MEQ/L (3.5-5.1); SODIUM LEVEL 136 MEQ/L (136-145); TOTAL PROTEIN 4.7 GM/DL (6.4-8.2); TROPONIN I < 0.02 NG/ML (< 0.10)
--- NOTE | 2018-12-02 07:58 | ECGEPIP ---
Stationary ECG Study [facility] - ED Test Date: 2018-12-01 Pat Name: NOE VEGA Department: Room: 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
[2018-12-02] MEDS ORDERED: LORazepam 2 MG TAB PO PRN (09:00)
[2018-12-02] MEDS ORDERED: LISINOPRIL 20 MG TAB PO SCH (09:00)
[2018-12-02 09:15] LABS: C REACTIVE PROTEIN QUANTITATIV 6.82 MG/DL (0.00-0.30); FERRITIN 569 NG/ML (26-388); FREE T3 2.6 PG/ML (2.2-4.0); FREE T4 1.01 NG/DL (0.76-1.46); IRON (FE) 46 UG/DL (65-175); TOTAL IRON BINDING CAPACITY 121 UG/DL (250-450)
[2018-12-02] MEDS: MAG SULF 1GM/100ML (MAG RUN) 1 GM in APPROPRIATE DILUENT 1 EA IV SCH ×3 (09:28→23:37)
[2018-12-02] MEDS: ENOXAPARIN 40 MG/0.4 ML SYRINGE (J1650) SC SCH (09:28)
[2018-12-02 09:39] LABS: ABG BASE EXCESS 1.4 (-2.0-2.0); ABG HCO3 27.6 MEQ/L (22.0-26.0); ABG O2 SATURATION 98.8 % (95.0-99.0); ABG PARTIAL PRESSURE CO2 50.5 mmHg (35.0-45.0); ABG PARTIAL PRESSURE O2 133.4 mmHg (75.0-100.0); ABG STANDARD HCO3 25.8 MEQ/L (22.0-26.0); ABG TOTAL CO2 29.2 MEQ/L (23.0-31.0); ABG pH (ARTERIAL) 7.356 UNITS (7.350-7.450)
[2018-12-02] MEDS: THIAMINE 100 MG TAB PO SCH ×2 (11:29→20:53)
[2018-12-02] MEDS: GABAPENTIN 400 MG CAP PO SCH ×3 (11:29→20:54)
[2018-12-02] MEDS: MULTIVITAMINS/MINERALS THERAP 1 TAB PO SCH (11:29)
[2018-12-02] MEDS: FOLIC ACID 1 MG TAB PO SCH (11:29)
[2018-12-02] MEDS: POTASSIUM CHLORIDE 10 MEQ SR TABLET PO SCH (11:29)
[2018-12-02] MEDS: OXAZEPAM 15 MG CAP PO SCH ×3 (11:35→20:55)
[2018-12-02 14:25] VITALS: BP 142/70
[2018-12-02 15:14] VITALS: BP 142/70
[2018-12-02 15:44] LABS: CPK CREATINE PHOSPHOKINASE 128 U/L (39-308); MB/CK RELATIVE INDEX 1.09 (< OR =4); TROPONIN I < 0.02 NG/ML (< 0.10)
--- NOTE | 2018-12-02 16:40 | IPNPDOC ---
Text Note Date of Service The patient was seen on 12/02/18. NOTE Subjective: Patient confused this morning, with intermittent hallucinations, with last drink 4 days ago. This discussed with daughter bedside, patient was abstinent from alcohol for greater than 40 years, however his and he was remarried, and his second recently . He recently also lost his dog. He is back to drinking again. Objective: Vitals: (see below) General: No acute distress, laying comfortably in bed. HEENT: Moist mucous membranes. Neck: No JVD or lymphadenopathy Cardiac: RRR, No murmurs Pulm: Clear to auscultation b/l. No wheezing, rhonchi Abd: NT/ND + BS Ext: No edema or cyanosis Tremulous, disoriented, moving all extremities, no focal weakness. Labs (see below) Images: Chest x-ray on 12/01/18 Impression: No acute disease. Bibasilar interstitial prominence consistent with fibrosis. CT head on 12/01/18 IMPRESSION: No acute intracranial abnormality. Assessment/Plan 1. Delirium tremens- patient with heavy alcohol abuse, last drink 4 days prior to admission. On Serax/Ativan as needed. CIWA protocol. Thiamine/MVI/folate a nat. 2. Recurrent falls- ? Secondary to alcohol withdrawal. We will obtain CT of the lumbar spine. Daughter noted that patient has "metal" in his abdomen, which may be referring to the abdominal aortic aneurysm repair, and stenting. She is also concerned that the patient may have Parkinson's as the patient is tremulous at times. The patient will need a thorough evaluation once he has improved. 3. Hypertension controlled continue current meds 4. History of COPD continue nebs as needed 5. History of AAA repair and stenting- no abdominal pain at this point. Will need outpatient follow-up. DVT prophy: Enoxaparin Daughter is undecided on whether she would like to make her father DNR/DNI, and would like to hold off on filling out the MOLST form at this time. Will proceed with Full code for now. Prognosis guarded. VS,Fishbone, I+O VS, Fishbone, I+O Laboratory Tests 12/02/18 05:59 Red Blood Count 3.02 L, Mean Corpuscular Volume 104.3 H, Mean Corpuscular Hemoglobin 36.1 H, Mean Corpuscular Hemoglobin Concent 34.6, Red Cell Distribution Width 11.9, Neutrophils (%) (Auto) 62.7, Lymphocytes (%) (Auto) 16.9 L, Monocytes (%) (Auto) 11.3 H, Eosinophils (%) (Auto) 7.9 H, Basophils (%) (Auto) 0.4, Neutrophils # (Auto) 3.0, Lymphocytes # (Auto) 0.8 L, Monocytes # (Auto) 0.5, Eosinophils # (Auto) 0.4, Basophils # (Auto) 0.0, Calcium Level 7.3 L, Aspartate Amino Transf (AST/SGOT) 45 H, Alanine Aminotransferase (ALT/SGPT) 33, Total Creatine Kinase 153, Alkaline Phosphatase 140 H, Total Bilirubin 1.0, Total Protein 4.7 L, Albumin 2.1 L Vital Signs Date Time Temp Pulse Resp B/P (MAP) Pulse Ox O2 Delivery O2 Flow Rate FiO2 12/02/18 15:14 81 142/70 12/02/18 14:25 98.6 18 100 Nasal Cannula 2.0 I&O- Last 24 Hours up to 6 AM 12/02/18 06:00 Intake Total 1360 ml Balance 1360 ml JERMAINE MAX MD Dec 02, 2018 16:40
[2018-12-02 20:00] VITALS: BP 153/87
[2018-12-02] MEDS ORDERED: LORazepam 1 MG TAB PO ONE (20:30)
[2018-12-02] MEDS: ASPIRIN 325 MG TAB PO SCH (20:54)
[2018-12-02 22:28] LABS: BLOOD UREA NITROGEN 13 MG/DL (7-18); CALCIUM LEVEL 7.5 MG/DL (8.8-10.2); CARBON DIOXIDE LEVEL 28 MEQ/L (21-32); CHLORIDE LEVEL 101 MEQ/L (98-107); CREATININE FOR GFR 0.88 MG/DL (0.70-1.30); GLOMERULAR FILTRATION RATE > 60.0 (>42); GLUCOSE, FASTING 148 MG/DL (70-100); POTASSIUM SERUM 3.6 MEQ/L (3.5-5.1); SODIUM LEVEL 136 MEQ/L (136-145)
--- NOTE | 2018-12-02 22:32 | REPVR ---
EXAM: CT Head Without Contrast EXAM DATE/TIME: 12/02/2018 10:21 PM CLINICAL HISTORY: 77 years old, male; Signs and symptoms; Altered mental status/memory loss; Confusion or disorientation; Additional info: AMS, unequal pupils TECHNIQUE: Axial computed tomography images of the head/brain without contrast. All CT scans at this facility use at least one of these dose optimization techniques: automated exposure control; mA and/or kV adjustment per patient size (includes targeted exams where dose is matched to clinical indication); or iterative reconstruction. COMPARISON: CT Head without contrast 12/01/2018 8:28 PM FINDINGS: Brain: There is volume loss. There is white matter lucency indicating chronic microvascular disease. There is no acute infarct. There is no hemorrhage or extra-axial collection. There is no mass. Ventricles: Ventricular size is proportionate to the prominence of the sulci. Bones/joints: Normal. No acute fracture. Sinuses: There is right frontal sinus opacification with an air-fluid level unchanged from prior scan. Mastoid air cells: Normal as visualized. No mastoid effusion. Soft tissues: Normal. Vasculature: There are carotid and vertebral artery calcifications. IMPRESSION: There is chronic microvascular disease. There is no acute lesion or injury. There is no change from prior scan. Electronically signed by: Stevo Mark On 12/02/2018 22:32:14 PM
[2018-12-02] MEDS: AMITRIPTYLINE 25 MG TAB PO SCH (23:03)
[2018-12-02 23:09] LABS: MAGNESIUM LEVEL 1.4 MG/DL (1.8-2.4)
[2018-12-02 23:59] VITALS: BP 125/58
[2018-12-03] VITALS (9 sets, daily range): BP systolic 112–180; BP diastolic 60–88
[2018-12-03] MEDS: MAG SULF 1GM/100ML (MAG RUN) 1 GM in APPROPRIATE DILUENT 1 EA IV SCH (00:51)
[2018-12-03] MEDS: NYSTATIN 100,000 UNITS/GM TOPICAL PWD 15 GM TOP PRN ×2 (03:51→10:06)
[2018-12-03] MEDS: OXAZEPAM 15 MG CAP PO SCH ×3 (05:09→21:42)
[2018-12-03 05:18] LABS: BASO # 0.1 10^3/uL (0.0-0.2); BASO % 0.9 % (0.0-1.0); EOS # 0.5 10^3/uL (0.0-0.50); EOS % 8.3 % (0.0-3.0); LYMPH # 0.9 10^3/uL (1.5-4.5); LYMPH % 15.6 % (24.0-44.0); MEAN CORPUSCULAR HEMOGLOBIN 36.1 pg (27.0-33.0); MEAN CORPUSCULAR HGB CONC 33.3 g/dl (32.0-36.5); MEAN CORPUSCULAR VOLUME 108.4 fl (80.0-96.0); MONO # 0.8 10^3/uL (0.0-0.8); MONO % 14.3 % (0.0-5.0); NEUTROPHILS # 3.3 10^3/uL (1.8-7.7); NEUTROPHILS % 59.8 % (36.0-66.0); PLATELET COUNT, AUTOMATED 117 10^3/uL (150-450); RED BLOOD COUNT 3.32 10^6/uL (4.30-6.10); WHITE BLOOD COUNT 5.5 10^3/uL (4.0-10.0)
[2018-12-03 05:50] LABS: ALBUMIN 2.1 GM/DL (3.2-5.2); ALT/SGPT 34 U/L (12-78); BILIRUBIN,TOTAL 0.9 MG/DL (0.2-1.0); BLOOD UREA NITROGEN 11 MG/DL (7-18); CALCIUM LEVEL 7.7 MG/DL (8.8-10.2); CARBON DIOXIDE LEVEL 26 MEQ/L (21-32); CHLORIDE LEVEL 103 MEQ/L (98-107); CREATININE FOR GFR 0.88 MG/DL (0.70-1.30); GLOMERULAR FILTRATION RATE > 60.0 (>42); GLUCOSE, FASTING 132 MG/DL (70-100); POTASSIUM SERUM 3.9 MEQ/L (3.5-5.1); SODIUM LEVEL 139 MEQ/L (136-145); TOTAL PROTEIN 5.8 GM/DL (6.4-8.2)
--- NOTE | 2018-12-03 06:48 | REP ---
CT study of the lumbar spine without contrast: History: Falls. Lower extremity weakness. Comparison is made with imaging from CT study of the abdomen dated July 26, 2017. Findings: Lumbar vertebral body heights are preserved. Alignment is normal. There are degenerative disc disease changes at L4-5, L2-3, and L1-2 with vacuum phenomenon at each of these levels. Reactive anterior spurring is seen. No fracture or collapse is seen. Pedicles and posterior elements are intact. There is no evidence of spondylolysis or spondylolisthesis. There is diffuse bulging of the L4-5 disc with central canal stenosis, moderate in degree and right-sided neural foraminal encroachment. There is mild central canal stenosis at L3-4 and L2-3. Diffuse disc bulging is seen at the L2-3 disc level and at L1-2. Impression: No traumatic bony abnormality. Degenerative disc disease at multiple levels most pronounced at L4-5. At L4-5, there is moderate central canal stenosis and right-sided neural foraminal narrowing due to disc bulging. Electronically Signed by Merrill Sadler MD 12/03/2018 09:06 A
[2018-12-03 06:54] LABS: MAGNESIUM LEVEL 1.8 MG/DL (1.8-2.4)
[2018-12-03] MEDS: ADVAIR HFA 115/21MCG INHALER INH SCH ×2 (07:43→22:32)
[2018-12-03] MEDS ORDERED: D5W 1,000 ML IV ONE (07:45)
[2018-12-03] MEDS ORDERED: D5W 1,000 ML IV SCH (08:45)
[2018-12-03] MEDS: ENOXAPARIN 40 MG/0.4 ML SYRINGE (J1650) SC SCH (10:04)
[2018-12-03] MEDS: POTASSIUM CHLORIDE 10 MEQ SR TABLET PO SCH (10:04)
[2018-12-03] MEDS: FOLIC ACID 1 MG TAB PO SCH (10:04)
[2018-12-03] MEDS: MULTIVITAMINS/MINERALS THERAP 1 TAB PO SCH (10:05)
[2018-12-03] MEDS: THIAMINE 100 MG TAB PO SCH ×2 (10:05→20:19)
[2018-12-03] MEDS: GABAPENTIN 400 MG CAP PO SCH ×3 (10:05→20:19)
--- NOTE | 2018-12-03 11:27 | IPNPDOC ---
Text Note Date of Service The patient was seen on 12/03/18. NOTE Subjective: Patient is awake and oriented this morning, still tremulous. Denies any active complaints. No radiculopathy or back pain today. Objective: Vitals: (see below) General: No acute distress, laying comfortably in bed. HEENT: Moist mucous membranes. Neck: No JVD or lymphadenopathy Cardiac: RRR, No murmurs Pulm: Clear to auscultation b/l. No wheezing, rhonchi Abd: NT/ND + BS Ext: No edema or cyanosis. Tremulous. Fungal rash groin/folds. Neuro: Strength 5/5 BUE and BLE. CN 2-12 intact. F to N intact Negative pronator drift. Alert and oriented 3. Labs (see below) Images: Chest x-ray on 12/01/18 Impression: No acute disease. Bibasilar interstitial prominence consistent with fibrosis. CT head on 12/01/18 IMPRESSION: No acute intracranial abnormality. CT lumbar spine on 12/02/18 Impression: No traumatic bony abnormality. Degenerative disc disease at multiple levels most pronounced at L4-5. At L4-5, there is moderate central canal stenosis and right-sided neural foraminal narrowing due to disc bulging. Assessment/Plan 1. Delirium tremens- patient with heavy alcohol abuse, last drink 4 days prior to admission. Improving. On Serax/Ativan as needed. CIWA protocol. Thiamine/MVI/folate acid. 2. Recurrent falls- ? Secondary to alcohol withdrawal. CT of the lumbar spine. (See above). Daughter noted that patient has "metal" in his abdomen, which may be referring to the abdominal aortic aneurysm repair, and stenting. Patient states he has been evaluated by Dr. Olivo outpatient for Parkinson's however notes that he does not have it. We will obtain physical therapy consult when patient is more stable on his feet. 3. Hypertension controlled continue current meds 4. History of COPD continue nebs as needed 5. History of AAA repair and stenting- no abdominal pain at this point. Will need outpatient follow-up. 6. Groin/skinfold fungal - nystatin powder DVT prophy: Enoxaparin . Full code Prognosis guarded, daughter aware. I have had an extensive conversation with the daughter bedside, and answered her questions her satisfaction. VS,Fishbone, I+O VS, Fishbone, I+O Laboratory Tests 12/02/18 22:02 Calcium Level 7.5 L 12/03/18 04:34 Calcium Level 7.7 L, Red Blood Count 3.32 L, Mean Corpuscular Volume 108.4 H, Mean Corpuscular Hemoglobin 36.1 H, Mean Corpuscular Hemoglobin Concent 33.3, Red Cell Distribution Width 12.1, Neutrophils (%) (Auto) 59.8, Lymphocytes (%) (Auto) 15.6 L, Monocytes (%) (Auto) 14.3 H, Eosinophils (%) (Auto) 8.3 H, Basophils (%) (Auto) 0.9, Neutrophils # (Auto) 3.3, Lymphocytes # (Auto) 0.9 L, Monocytes # (Auto) 0.8, Eosinophils # (Auto) 0.5, Basophils # (Auto) 0.1, Aspartate Amino Transf (AST/SGOT) 55 H, Alanine Aminotransferase (ALT/SGPT) 34, Alkaline Phosphatase 142 H, Total Bilirubin 0.9, Total Protein 5.8 #L, Albumin 2.1 L Vital Signs Date Time Temp Pulse Resp B/P (MAP) Pulse Ox O2 Delivery O2 Flow Rate FiO2 12/03/18 08:00 97.9 65 20 152/88 (109) 94 Nasal Cannula 2.0 I&O- Last 24 Hours up to 6 AM 12/03/18 06:00 Intake Total 2100 ml Output Total 1890 ml Balance 210 ml JERMAINE MAX MD Dec 03, 2018 11:27
[2018-12-03 12:05] LABS: BLOOD UREA NITROGEN 9 MG/DL (7-18); CALCIUM LEVEL 7.4 MG/DL (8.8-10.2); CARBON DIOXIDE LEVEL 32 MEQ/L (21-32); CHLORIDE LEVEL 97 MEQ/L (98-107); CREATININE FOR GFR 0.86 MG/DL (0.70-1.30); GLOMERULAR FILTRATION RATE > 60.0 (>42); GLUCOSE, FASTING 170 MG/DL (70-100); POTASSIUM SERUM 3.3 MEQ/L (3.5-5.1); SODIUM LEVEL 134 MEQ/L (136-145)
[2018-12-03] MEDS ORDERED: POTASSIUM CHLORIDE 10 MEQ SR TABLET PO ONE ×2 (12:45→15:00)
--- NOTE | 2018-12-03 15:57 | ECGEPIP ---
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
[2018-12-03] MEDS: AMITRIPTYLINE 25 MG TAB PO SCH (20:19)
[2018-12-03] MEDS: ASPIRIN 325 MG TAB PO SCH (20:19)
[2018-12-04] VITALS: BP 128/64
[2018-12-04 04:00] VITALS: BP 126/67
[2018-12-04 05:09] LABS: BASO # 0.1 10^3/uL (0.0-0.2); BASO % 0.8 % (0.0-1.0); EOS # 0.5 10^3/uL (0.0-0.50); EOS % 7.2 % (0.0-3.0); HEMATOCRIT 32.3 % (42.0-52.0); HEMOGLOBIN 10.9 g/dl (13.5-17.5); LYMPH % 15.5 % (24.0-44.0); MEAN CORPUSCULAR HEMOGLOBIN 36.2 pg (27.0-33.0); MEAN CORPUSCULAR HGB CONC 33.7 g/dl (32.0-36.5); MEAN CORPUSCULAR VOLUME 107.3 fl (80.0-96.0); MONO # 1.1 10^3/uL (0.0-0.8); MONO % 16.6 % (0.0-5.0); NEUTROPHILS # 3.9 10^3/uL (1.8-7.7); NEUTROPHILS % 59.1 % (36.0-66.0); PLATELET COUNT, AUTOMATED 124 10^3/uL (150-450); RED BLOOD COUNT 3.01 10^6/uL (4.30-6.10); WHITE BLOOD COUNT 6.6 10^3/uL (4.0-10.0)
[2018-12-04 05:41] LABS: ALT/SGPT 30 U/L (12-78); BILIRUBIN,TOTAL 0.8 MG/DL (0.2-1.0); BLOOD UREA NITROGEN 8 MG/DL (7-18); CALCIUM LEVEL 7.7 MG/DL (8.8-10.2); CARBON DIOXIDE LEVEL 28 MEQ/L (21-32); CHLORIDE LEVEL 101 MEQ/L (98-107); CREATININE FOR GFR 0.76 MG/DL (0.70-1.30); GLOMERULAR FILTRATION RATE > 60.0 (>42); GLUCOSE, FASTING 113 MG/DL (70-100); POTASSIUM SERUM 4.2 MEQ/L (3.5-5.1); SODIUM LEVEL 134 MEQ/L (136-145); TOTAL PROTEIN 5.2 GM/DL (6.4-8.2)
[2018-12-04] MEDS: OXAZEPAM 15 MG CAP PO SCH ×2 (05:44→20:46)
[2018-12-04] MEDS: ADVAIR HFA 115/21MCG INHALER INH SCH ×2 (07:36→21:30)
--- NOTE | 2018-12-04 07:56 | HPE ---
DATE OF ADMISSION: 12/01/2018 CHIEF COMPLAINT: Weakness of legs, frequent falls. HISTORY OF PRESENT ILLNESS: This is a 77-year-old male who states that over the last several days he has been having increasing falls and his legs have felt weakened. He has had some edema of his lower extremities. He was feeling unsteady and shakiness. He came to the emergency room. Upon arrival, he had an electrocardiogram (EKG) done that showed sinus rhythm with occasional supraventricular premature complex, moderate intraventricular conduction delay, nonspecific ST-T wave abnormality, rate was 71. Initial blood pressure was low at (muffled), recheck was 83/39. Pulse was 81. Respirations 16. Temperature 98.3. IV fluids was started. Blood pressure improved to 114/ (muffled). Pulse was 88. White count was 7.2, hemoglobin/hematocrit 11.1 and 31.5. Platelets slightly low at 127. Sodium was low at 127. Chloride 90. BUN 23 and creatinine 1.76. Total bilirubin 1.2, direct bilirubin 0.8. TSH was slightly elevated at 6.57. ETOH was less than 0.03. IV fluids were given normal saline. CT of the head was ordered and done stat with no acute intracranial abnormality. No acute disease on chest x-ray, bibasilar (muffled). The patient had difficulty standing and was unsteady. Assessment was done. The patient stated that he had been a heavy drinker years ago and then he quit and then four or five years ago his second passed and he started drinking again. He states he has been drinking at least a pint of nevaeh denise every day and he quit approximately four days ago. Assessment was done and the patient will be admitted to the hospitalist service for hyponatremia, (muffled). ETOH was drawn. ALLERGIES: No known allergies. SOCIAL HISTORY: He is a . He quit drinking a pint of denise a day four to five days ago and he had been doing it for the last four to five years. Smoking - He quit in 1999. Recreational drug - he states none. PAST MEDICAL HISTORY: Unsteady gait. Weakness in his legs. Peripheral neuropathy. Hypertension. Chronic obstructive pulmonary disease (COPD). (muffled). Alcoholism. PAST SURGICAL HISTORY: Four aneurysm repairs, one an aortic aneurysm repair. Right inguinal hernia repair. Removal of skin cancer from face. Removal of melanoma from breast. He sees a specialist in [place] for followup every 6 months. HOME MEDICATIONS: - (muffled) - gabapentin 600 mg by mouth four times a day which I will taper to 400 mg three times a day, it may be part of the cause of his 2+ pitting lower extremity pedal and ankle edema - multivitamin one a day - simvastatin 20 mg by mouth daily - amitriptyline 25 mg by mouth at bedtime - aspirin 325 mg by mouth at bedtime - lisinopril 20 mg by mouth daily - potassium chloride 10 mEq by mouth daily - Advair Diskus 250/50 one inhalation twice a day REVIEW OF SYSTEMS: Was done and was positive for some slight tremors of the hands. Complaint of weakness of the legs. No loss of bowel or bladder control, tingling or numbness of his feet and legs. Lower extremity edema. Otherwise unremarkable. No chest pain, shortness of breath, or palpitations. PHYSICAL EXAMINATION: Blood pressure 90/53. Pulse 80. Respirations 20. Oxygen saturation 96% on room air. The patient is currently alert and oriented times three. Pupils equal and react to light. Extraocular movements intact. Cornea and sclera clear. Conjunctiva normal. No facial asymmetry. Pharynx, tongue and gums pink and moist. Tongue is midline. Neck is supple, without lymphadenopathy. No thyromegaly. No goiter. Carotids 2+, without bruit. Chest clear to auscultation, without wheeze or retraction. Heart is regular. Abdomen benign. Bowel sounds positive. Extremities show 1-2+ pitting pedal and ankle edema bilaterally. Peripheral pulses equal and palpable bilaterally. (muffled). He will be admitted to the hospitalist service, Dr. Saunders. IMPRESSION AND PLAN: 1. Admit for hyponatremia, weakness of legs, ETOH withdrawal. Monitor for withdrawal. Patient last drank four days prior to admission, before that was drinking at least a pint of denise a day if not more. Place on CIWA protocol. 2. Recurrent falls. Possibly secondary to alcohol withdrawal. CT of the brain was negative. Get physical therapy (PT), occupational therapy (OT) evaluation. 3. History of hypertension. Currently controlled. 4. History of COPD. Continue Nebs. 5. History of abdominal aortic aneurysm repair and stenting. No abdominal pain. 6. Deep vein thrombosis (DVT) prophylaxis, on Lovenox. 7. Elevated liver function tests. Followup hepatic panel. 8. Elevated TSH. Will get a thyroid panel. 9. Chest pain, no return at present. Will get serial enzymes.
[2018-12-04 08:00] VITALS: BP 143/68
[2018-12-04] MEDS: FOLIC ACID 1 MG TAB PO SCH (09:46)
[2018-12-04] MEDS: THIAMINE 100 MG TAB PO SCH (09:46)
[2018-12-04] MEDS: MULTIVITAMINS/MINERALS THERAP 1 TAB PO SCH (09:46)
[2018-12-04] MEDS: GABAPENTIN 400 MG CAP PO SCH ×3 (09:46→20:46)
[2018-12-04] MEDS: ENOXAPARIN 40 MG/0.4 ML SYRINGE (J1650) SC SCH (09:47)
--- NOTE | 2018-12-04 10:55 | IPNPDOC ---
Text Note Date of Service The patient was seen on 12/04/18. NOTE Subjective: Patient is awake and oriented this morning. Less tremulous. Denies any active complaints. No acute changes overnight. Objective: Vitals: (see below) General: No acute distress, laying comfortably in bed. HEENT: Moist mucous membranes. Neck: No JVD or lymphadenopathy Cardiac: RRR, No murmurs Pulm: Clear to auscultation b/l. No wheezing, rhonchi Abd: NT/ND + BS Ext: No edema or cyanosis. Tremulous. Fungal rash groin/folds. Neuro: Strength 5/5 BUE and BLE. Mild pain left foot. No significant swelling. Full ROM. CN 2-12 intact. F to N intact Negative pronator drift. Alert and oriented 3. Less tremulous today. Labs (see below) Images: Chest x-ray on 12/01/18 Impression: No acute disease. Bibasilar interstitial prominence consistent with fibrosis. CT head on 12/01/18 IMPRESSION: No acute intracranial abnormality. CT lumbar spine on 12/02/18 Impression: No traumatic bony abnormality. Degenerative disc disease at multiple levels most pronounced at L4-5. At L4-5, there is moderate central canal stenosis and right-sided neural foraminal narrowing due to disc bulging. Assessment/Plan 1. s/p Delirium tremens- patient with heavy alcohol abuse, last drink 4 days prior to admission. Improving. Taper Serax. Not requiring Ativan. CIWA protocol. Thiamine/MVI/folate acid. 2. Recurrent falls- ? Secondary to alcohol withdrawal. CT of the lumbar spine. (See above). Daughter noted that patient has "metal" in his abdomen, which may be referring to the abdominal aortic aneurysm repair, and stenting. Patient states he has been evaluated by Dr. Olivo outpatient for Parkinson's however notes that he does not have it. We will obtain physical therapy consult today as pt is less tremulous. 3. Hypertension controlled continue current meds 4. History of COPD continue nebs as needed 5. History of AAA repair and stenting- no abdominal pain at this point. Will need outpatient follow-up. 6. Groin/skinfold fungal - nystatin powder 7. Left foot pain with ambulation. X ray foot/ankle pending. DVT prophy: Enoxaparin . Full code Prognosis guarded, daughter aware. I have had an extensive conversation with the daughter bedside, and answered her questions her satisfaction. Daughter would like eval for parkinson's once he is weaned off serax and back to his baseline. VS,Fishbone, I+O VS, Fishbone, I+O Laboratory Tests 12/03/18 11:24 Calcium Level 7.4 L 12/04/18 04:26 Calcium Level 7.7 L, Red Blood Count 3.01 L, Mean Corpuscular Volume 107.3 H, Mean Corpuscular Hemoglobin 36.2 H, Mean Corpuscular Hemoglobin Concent 33.7, Red Cell Distribution Width 12.2, Neutrophils (%) (Auto) 59.1, Lymphocytes (%) (Auto) 15.5 L, Monocytes (%) (Auto) 16.6 H, Eosinophils (%) (Auto) 7.2 H, B asophils (%) (Auto) 0.8, Neutrophils # (Auto) 3.9, Lymphocytes # (Auto) 1.0 L, Monocytes # (Auto) 1.1 H, Eosinophils # (Auto) 0.5, Basophils # (Auto) 0.1, Aspartate Amino Transf (AST/SGOT) 35, Alanine Aminotransferase (ALT/SGPT) 30, Alkaline Phosphatase 143 H, Total Bilirubin 0.8, Total Protein 5.2 L, Albumin 2.0 L Vital Signs Date Time Temp Pulse Resp B/P (MAP) Pulse Ox O2 Delivery O2 Flow Rate FiO2 12/04/18 08:03 2.0 12/04/18 08:00 99.5 80 22 143/68 (93) 96 Nasal Cannula I&O- Last 24 Hours up to 6 AM 12/04/18 05:59 Intake Total 4010 ml Output Total 2800 ml Balance 1210 ml JERMAINE MAX MD Dec 04, 2018 10:55
[2018-12-04 11:05] LABS: VITAMIN B12 LEVEL 596 PG/ML
[2018-12-04 11:06] LABS: FOLATE 7.1 NG/ML
--- NOTE | 2018-12-04 14:07 | REP ---
LEFT ANKLE: Four views. HISTORY: Left ankle and foot pain. FINDINGS: Four views of the left ankle demonstrate plantar and Achilles calcaneal spurring. Vascular calcifications noted. Ankle mortise is intact. No fracture is seen. There is diffuse soft tissue swelling. Soft tissue swelling is seen involving the pre-Achilles fat and disrupting interface of the Achilles tendon. This should be correlated clinically for evidence of Achilles tendon rupture or tendinosis. IMPRESSION: Heel spurring. Vascular calcification. Diffuse posterior swelling question Achilles tendon disruption. Electronically Signed by Merrill Sadler MD 12/04/2018 08:14 P
--- NOTE | 2018-12-04 14:07 | REP ---
LEFT FOOT SERIES: Four views. HISTORY: Foot pain. FINDINGS: Four views of the left foot demonstrate overall normal mineralization. There is osteoarthritis at the 1st MTP joint. Achilles calcaneal spurring is noted. No fracture or subluxation is seen. IMPRESSION: Achilles calcaneal spurring. Vascular calcification. 1st MTP joint osteoarthritis. Electronically Signed by Merrill Sadler MD 12/04/2018 08:17 P
[2018-12-04 16:00] VITALS: BP 139/65
--- NOTE | 2018-12-04 18:35 | ECHO ---
DATE OF PROCEDURE: 12/04/2018 Date of : 1940 Age: 77 Gender: Male Height: 67 inches Weight: 218 pounds Body surface area: 2.1 meters squared Inpatient: U, room 3229 REFERRING PHYSICIAN: Dr. Saulo Saunders INDICATION: Abnormal EKG. MEASUREMENTS: 2D measurements: RV: 5.0 cm LV: 4.4 cm Septum: 1.2 cm Posterior wall: 1.2 cm Aortic root: 3.4 cm LA: 4.1 cm LVEF: 65%. Doppler measurements: AV: 2.18 meters per second LVOT: 0.96 meters per second LVOT diameter: 2.0 cm Mean AV systolic gradient: 11 mmHg Dimensionless index: 0.46 MV-E: 72, A: 79, EA ratio: 0.9 Early mitral deceleration time: 211 milliseconds E prime: 7.1, A prime: 10, E/E prime ratio: 10 Pulmonary capillary wedge pressure: 12.5 mmHg PV: 0.75 meters per second PA acceleration time: 100 milliseconds RVSP: 38 mmHg IVC: 2.2 cm COMMENTS: Normal sinus rhythm without intraventricular conduction disturbance. Technically difficult study in light of the patient's body habitus but diagnostically useful information was still obtained. M-mode and two-dimensional echocardiography was performed with pulsed, continuous wave, color flow and tissue Doppler studies. Borderline concentric left ventricular hypertrophy with normal wall motion. Mildly dilated left atrium with impairment of LV diastolic function and current mean left atrial pressure upper limits of normal. Mild to moderately dilated right heart chambers with normal wall motion and Doppler evidence of at least mild pulmonary hypertension. Normal IVC size and collapse against an elevated central venous pressure. Aortic valvular thickening with three equal size cusps and mild aortic stenosis but no insufficiency. Normal aortic root size. Mild degenerative changes of the mitral valvular apparatus without functional abnormality. Normal appearing tricuspid valve with at least mild insufficiency. No apparent intracardiac mass or pericardial effusion.
[2018-12-04 20:00] VITALS: BP 156/70
[2018-12-04] MEDS: ASPIRIN 325 MG TAB PO SCH (20:46)
[2018-12-04] MEDS: AMITRIPTYLINE 25 MG TAB PO SCH (20:46)
[2018-12-04] MEDS ORDERED: SLF 3 ML SYR IV PRN (23:45)
[2018-12-04 23:59] VITALS: BP 131/63
[2018-12-05] VITALS (8 sets, daily range): BP systolic 127–168; BP diastolic 62–80
[2018-12-05] MEDS: SLF 3 ML SYR IV SCH ×3 (05:29→20:37)
[2018-12-05 05:42] LABS: BASO % 0.7 % (0.0-1.0); EOS # 0.5 10^3/uL (0.0-0.50); EOS % 7.5 % (0.0-3.0); HEMATOCRIT 31.8 % (42.0-52.0); HEMOGLOBIN 10.8 g/dl (13.5-17.5); LYMPH % 17.2 % (24.0-44.0); MEAN CORPUSCULAR HEMOGLOBIN 35.3 pg (27.0-33.0); MEAN CORPUSCULAR VOLUME 103.9 fl (80.0-96.0); MONO # 1.1 10^3/uL (0.0-0.8); MONO % 18.7 % (0.0-5.0); NEUTROPHILS # 3.3 10^3/uL (1.8-7.7); NEUTROPHILS % 55.4 % (36.0-66.0); PLATELET COUNT, AUTOMATED 154 10^3/uL (150-450); RED BLOOD COUNT 3.06 10^6/uL (4.30-6.10)
[2018-12-05 06:06] LABS: ALT/SGPT 25 U/L (12-78); BLOOD UREA NITROGEN 8 MG/DL (7-18); CALCIUM LEVEL 7.6 MG/DL (8.8-10.2); CARBON DIOXIDE LEVEL 27 MEQ/L (21-32); CHLORIDE LEVEL 103 MEQ/L (98-107); CREATININE FOR GFR 0.75 MG/DL (0.70-1.30); GLOMERULAR FILTRATION RATE > 60.0 (>42); GLUCOSE, FASTING 105 MG/DL (70-100); SODIUM LEVEL 138 MEQ/L (136-145); TOTAL PROTEIN 5.3 GM/DL (6.4-8.2)
--- NOTE | 2018-12-05 07:15 | ECGEPIP ---
Stationary ECG Study [facility] - ED Test Date: 2018-12-01 Pat Name: NOE VEGA Department: Room: [facility] Gender: M Technical Translator: kolby : 1940 Requested By: MITALI LAZO Order Number: [id number] Reading MD: Ruby Jung Measurements Intervals [place] Rate: 74 P: OK: 0 QRS: 32 QRSD: 122 T: 63 QT: 385 QTc: 429 Interpretive Statements PROBABLE NSR W PACS MODERATE INTRAVENTRICULAR CONDUCTION DELAY ABNORMAL RHYTHM ECG LOW QRS VOLTAGE DELAYED R WAVE PROGRESSION CW 12/02/18 RATE DECREASED QRS DURATION LONGER NONSPECIFIC ST T WAVE CHANGES Electronically Signed On 12-05-2018 7:14:57 EST by Ruby Jung
[2018-12-05] MEDS: ADVAIR HFA 115/21MCG INHALER INH SCH ×2 (08:43→21:42)
[2018-12-05] MEDS: AUGMENTIN 875 MG TAB PO SCH ×2 (09:00→20:36)
[2018-12-05] MEDS: OXAZEPAM 15 MG CAP PO SCH ×2 (09:19→20:36)
[2018-12-05] MEDS: FOLIC ACID 1 MG TAB PO SCH (09:19)
[2018-12-05] MEDS: MULTIVITAMINS/MINERALS THERAP 1 TAB PO SCH (09:19)
[2018-12-05] MEDS: ENOXAPARIN 40 MG/0.4 ML SYRINGE (J1650) SC SCH (09:19)
[2018-12-05] MEDS: GABAPENTIN 400 MG CAP PO SCH ×3 (09:19→20:36)
--- NOTE | 2018-12-05 14:00 | REPVR ---
EXAM: CT Left Lower Extremity Without IV Contrast, Ankle EXAM DATE/TIME: 12/04/2018 5:57 PM CLINICAL HISTORY: 77 years old, male; Pain; Ankle; Left; Additional info: Without contrast please. Achilles tendon, swelling/ pain TECHNIQUE: CT of the Left lower extremity without intravenous contrast was performed. Exam focused on the ankle. All CT scans at this facility use at least one of these dose optimization techniques: automated exposure control; mA and/or kV adjustment per patient size (includes targeted exams where dose is matched to clinical indication); or iterative reconstruction. Coronal and sagittal reformatted images were created and reviewed. COMPARISON: CR Ankle, complete 12/04/2018 1:08 PM FINDINGS: Bones/joints: There is no acute fracture. Chopart and Lisfranc joint alignment is anatomic. No joint dislocation. Enthesopathy is present at the dorsal calcaneus. Minor enthesopathy is present at the medial plantar calcaneus. The peroneal tubercle is atypically enlarged with a linear or rectangular rather than rounded morphology, and concavity at the posterior margin. Soft tissues: At the distal leg, the peroneus longus and brevis tendons are anatomically located and are intact. At the inframalleolar segment, the peroneus brevis tendon is thickened and indistinct with hypodense attenuation. The brevis tendon courses atypically anterior to the enlarged peroneal tubercle and intrasubstance tear is apparent at the segment just distal to the tubercle. There is no complete peroneus brevis tendon tear and the tendon is seen in continuity to the insertion. The peroneus longus tendon courses posteriorly along the concave portion of the peroneal tubercle. There is subtle induration of the peritendinous fat planes but the tendon is not torn. Generalized subcutaneous edema is present near circumferentially at the distal leg, ankle, and visualized foot. The Achilles tendon is thickened and there is peritendinous edema, with punctate subtle foci of intratendinous mineralization at the insertion however the tendon is not torn. Dorsal extensor tendons are intact. Flexor tendons are intact. Trace perimuscular edema is seen within the visualized plantar hind foot musculature. The Lisfranc ligament is intact. As visualized the anterior and posterior talofibular ligaments are intact. Visualized anterior and posterior tibiofibular ligaments are intact. Vasculature: Superficial venous varicosities are present in the medial distal leg. Peroneal, anterior, and posterior tibial artery atherosclerotic calcifications are noted. IMPRESSION: 1. Findings consistent with Achilles tendinopathy with thickened appearance of the tendon and peritendinous edema but no evidence of tendon tear. Enthesopathy involves the Achilles tendon insertion at the calcaneus. 2. Partial thickness tear of the peroneus brevis tendon in association with an anatomically enlarged peroneal tubercle, and with anterior dislocation of the tendon relative to the tubercle as described. 3. Mild peroneus longus tendinosis. 4. Nonspecific subcutaneous edema of the distal leg, ankle, and hindfoot. 5. Atherosclerotic calcification of the trifurcation arteries at the ankle. Electronically signed by: Selin Worley On 12/05/2018 14:00:33 PM
--- NOTE | 2018-12-05 17:20 | CR ---
DATE OF CONSULTATION: 12/05/2018 REASON FOR CONSULTATION: Left foot pain. HISTORY OF PRESENT ILLNESS: He is a 77-year-old male who has been admitted for apparently hyponatremia and possible delirium tremens and alcohol withdrawal with weakness in his legs, who was recovering. He has been in the hospital since 12/01/2018. He was being advanced with physical therapy yesterday when he went to step down and he felt a sharp pain in his foot area and ankle area on the left side. He was unable to bear weight for awhile, so the pain studies of x-rays of his foot and ankle and CT scans, and I was asked to see him to evaluate these studies and give advice on diagnosis and recommendations for treatment. Since he has been in the hospital, he says his weakness has improved. He is feeling better but he still has some soreness. When I ask him where the localized pain is, he predominantly feels that it is in his foot and he points to the outside part of his foot. He does not have heel pain or pain in his Achilles tendon per se or the bottom of his foot necessarily. He does not describe pain in the ankle. 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 Coleman in [facility] is his vascular surgeon. He has recently seen him a few months ago and is due to go back in few weeks. He also has a history of high blood pressure, hypercholesterolemia, chronic obstructive pulmonary disease (COPD), and chronic back pain. HOME MEDICATIONS: Vitamins, simvastatin, amitriptyline, baby aspirin, lisinopril, potassium, Advair Diskus. He also takes gabapentin. PAST SURGICAL HISTORY: He has had a right inguinal hernia repair in the 1960s. 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 Other surgical history, he has had melanoma excised and skin cancer from a breast as well as skin cancer of his face removed. 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 Otherwise, he has not had any loss of bowel or bladder problems and he does not describe having tingling or numbness into his toes or feet consistent with a neuropathy. No recent chest pains or shortness of breath. REVIEW OF SYSTEMS: Otherwise unremarkable. The note from Tiesha Santos NP, the admitting provider was reviewed. When I examine him, he is a pleasant, alert male. He is lying in his bed with his daughter and friend. His temperature is 99.2, blood pressure 127/73, oxygen saturation is 96% on room air, respiratory rate of 20. His pulse most recently was 100. His upper extremity examination is unremarkable. He has a healed large abdominal scare and some scars in both groins. Nontender belly. Lower extremity examination: His feet are actually well-perfused and warm. However, I was unable to palpate dorsalis or posterior tibialis pulses. I was able to obtain a Doppler and I was able to get monophasic dopplerable pulses, dorsalis pedis and a posterior tibialis bilaterally. He could dorsiflex and plantar flex his ankles fine without any obvious weakness and he had a negative Roman's sign bilaterally. No tenderness over his Achilles tendons posteriorly on either side. His left foot, however, did have tenderness with medial and lateral squeeze of the forefoot and tenderness over the lateral border of his foot, not medially. Again, sensation to light touch was intact. He could do straight leg raises bilaterally. There is no focal weakness in the proximal hip flexors or quadriceps tendons. STUDIES: Radiographic studies were reviewed showing on the CT scan of his foot there appears to be some tearing of the peroneus brevis tendon, some subluxation dorsally near the peroneal tubercle. No fractures are noted. There is some spurring of his calcaneal insertion of the Achilles tendon. Ankle and foot x-rays showed some mid foot arthritis but no acute fractures are noted. LABORATORY STUDIES: He has an elevated CRP at 6.82 on 12/02/2018. White count has been normal. Sodium has corrected now to 138, it was 127 on admission. Hematocrit is 31.8, platelets are 154, white count 6. 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 This could be a chronic condition that has been exacerbated. I think to help him with pain, with weightbearing, it may be best to have a equalizer-type CAM walking boot and allow weightbearing as pain allows with the assistance of therapy to advance him from bedrest for overall generalized conditioning and health and follow this along clinically. I discussed this with him and he is happy with that plan. We will consult our marketing program manager to see if we can get that arranged.
--- NOTE | 2018-12-05 18:59 | IPN ---
DATE: 12/05/2018 Patient seen and examined. Reported pain left foot with any ambulation. Denies any chest pain, pressure, or discomfort. Denies any nausea or vomiting. VITAL SIGNS: Temperature 99.2, pulse 108, respirations 20, blood pressure 127/73, pulse oximetry 96% on room air. LABORATORY DATA: WBC 6, hemoglobin and hematocrit 10.8 over 31.8, platelets 154. Chemistry: Sodium 138, potassium 4, chloride 103, bicarbonate 27, BUN 8, creatinine 0.75. PHYSICAL EXAMINATION: GENERAL: Patient in no acute distress, comfortable. HEENT: Moist mucous membranes. NECK: Supple. CARDIAC: Regular, S1, S2. PULMONARY: Bilateral clear. ABDOMEN: Soft, nontender. Positive bowel sounds. EXTREMITIES: Tremulous. Lower - mild left foot pain. No significant swelling. Full range of motion. ASSESSMENT AND PLAN: This is a 77-year-old male patient with underlying medical history of alcohol abuse, unsteady gait, hypertension, chronic obstructive pulmonary disease (COPD), presented with bilateral lower extremity weakness and frequent falls. PROBLEMS: 1. Status post Delirium Tremens. Patient has a history of heavy alcohol use. Last drink was 4 days prior to admission. Taper Serax. Not requiring Ativan. Clinical [place] Withdrawal Assessment (CIWA) protocol. Add thiamine, folate, multivitamin. 2. Recurrent falls. Alcohol withdrawal versus gait instability, versus lumbar spine disease. Patient has symmetrical strength bilateral lower extremities with no numbness or tingling sensation. CT of the lumbar spine has been appreciated with degenerative disc disease. X-ray of the left ankle shows possible Achilles tendon disease. CT of the left ankle has been appreciated. Orthopedics has been on consult, was diagnosed with probable peroneus brevis partial tendon rupture. CAM walking boot and weightbearing as tolerated, as recommended by orthopedics. Further recommendation as per orthopedics. 3. Hypertension. Continue current medication. 4. Chronic obstructive pulmonary disease (COPD). Continue current medication. 5. History of abdominal aortic aneurysm repair and stenting. Currently does not have any pain. Outpatient followup. 6. Skin candidiasis, superficial candidiasis. Nystatin powder. 7. Gait instability. Physical therapy has been ordered. 8. Dental infection. Continue Augmentin as per recommended by patient's outpatient dentist. 9. Deep vein thrombosis (DVT) prophylaxis. Lovenox subcu. DISPOSITION: Pending physical therapy. MTDD
[2018-12-05] MEDS: ASPIRIN 325 MG TAB PO SCH (20:35)
[2018-12-05] MEDS: AMITRIPTYLINE 25 MG TAB PO SCH (20:36)
[2018-12-05] MEDS ORDERED: IBUPROFEN 600 MG TAB PO ONE (23:45)
[2018-12-06 03:48] VITALS: BP 142/82
[2018-12-06] MEDS: SLF 3 ML SYR IV SCH ×3 (05:29→20:46)
[2018-12-06 06:22] LABS: HEMOGLOBIN 10.9 g/dl (13.5-17.5); MEAN CORPUSCULAR HEMOGLOBIN 35.5 pg (27.0-33.0); MEAN CORPUSCULAR HGB CONC 34.1 g/dl (32.0-36.5); MEAN CORPUSCULAR VOLUME 104.2 fl (80.0-96.0); PLATELET COUNT, AUTOMATED 162 10^3/uL (150-450); RED BLOOD COUNT 3.07 10^6/uL (4.30-6.10); WHITE BLOOD COUNT 6.2 10^3/uL (4.0-10.0)
[2018-12-06 06:51] LABS: BLOOD UREA NITROGEN 7 MG/DL (7-18); CALCIUM LEVEL 7.5 MG/DL (8.8-10.2); CARBON DIOXIDE LEVEL 25 MEQ/L (21-32); CHLORIDE LEVEL 102 MEQ/L (98-107); GLOMERULAR FILTRATION RATE > 60.0 (>42); GLUCOSE, FASTING 125 MG/DL (70-100); MAGNESIUM LEVEL 1.3 MG/DL (1.8-2.4); POTASSIUM SERUM 3.8 MEQ/L (3.5-5.1); SODIUM LEVEL 138 MEQ/L (136-145)
[2018-12-06] MEDS: OXAZEPAM 15 MG CAP PO SCH ×2 (08:29→20:44)
[2018-12-06] MEDS: MAG SULF 1GM/100ML (MAG RUN) 1 GM in APPROPRIATE DILUENT 1 EA IV SCH ×2 (08:29→10:07)
[2018-12-06] MEDS: MULTIVITAMINS/MINERALS THERAP 1 TAB PO SCH (08:29)
[2018-12-06] MEDS: GABAPENTIN 400 MG CAP PO SCH ×3 (08:29→20:45)
[2018-12-06] MEDS: AUGMENTIN 875 MG TAB PO SCH ×2 (08:29→20:45)
[2018-12-06] MEDS: FOLIC ACID 1 MG TAB PO SCH (08:29)
[2018-12-06] MEDS: ENOXAPARIN 40 MG/0.4 ML SYRINGE (J1650) SC SCH (08:29)
[2018-12-06 08:41] VITALS: BP 118/70
[2018-12-06] MEDS: ADVAIR HFA 115/21MCG INHALER INH SCH ×2 (09:16→21:30)
[2018-12-06] MEDS ORDERED: ONDANSETRON 4MG/2ML VIAL (J2405) IV PRN (11:15)
[2018-12-06 16:00] VITALS: BP 143/76
[2018-12-06] MEDS ORDERED: ACETAMINOPHEN 325 MG TAB PO PRN (16:45)
--- NOTE | 2018-12-06 18:13 | IPNPDOC ---
Text Note Date of Service The patient was seen on 12/06/18. NOTE Patient seen and examined. Reported pain left foot with any ambulation. Denies any chest pain, pressure, or discomfort. Denies any nausea or vomiting. Awaiting cam boots. one episode of fever. PHYSICAL EXAMINATION: GENERAL: Patient in no acute distress, comfortable. HEENT: Moist mucous membranes. NECK: Supple. CARDIAC: Regular, S1, S2. PULMONARY: Bilateral clear. ABDOMEN: Soft, nontender. Positive bowel sounds. EXTREMITIES: Tremulous resolved. mild left foot pain. No significant swelling. Full range of motion. ASSESSMENT AND PLAN: This is a 77-year-old male patient with underlying medical history of alcohol abuse, unsteady gait, hypertension, chronic obstructive pulmonary disease (COPD), presented with bilateral lower extremity weakness and frequent falls. PROBLEMS: 1. Status post Delirium Tremens. Patient has a history of heavy alcohol use. Last drink was 4 days prior to admission. Taper Serax. Not requiring Ativan. Clinical [place] Withdrawal Assessment (CIWA) protocol. c/w thiamine, folate, multivitamin. 2. Recurrent falls. Alcohol withdrawal versus gait instability, vs left peroneus brevis partial tendon rupture. CT of the lumbar spine has been appreciated with degenerative disc disease CT of the left ankle has been appreciated. Orthopedics has been on consult, was diagnosed with peroneus brevis partial tendon rupture. CAM walking boot and weightbearing as tolerated, as recommended by orthopedics. Further recommendation as per orthopedics. PT 3. Hypertension. Continue current medication. 4. Chronic obstructive pulmonary disease (COPD). Continue current medication. 5. History of abdominal aortic aneurysm repair and stenting. Currently does not have any pain. Outpatient followup. 6. Skin candidiasis, superficial candidiasis. Nystatin powder. 7. Gait instability. Physical therapy has been ordered. 8. Dental infection. Continue Augmentin as per recommended by patient's outpatient dentist. 9. Deep vein thrombosis (DVT) prophylaxis. Lovenox subcu. DISPOSITION: Pending physical therapy. SABRINA,Krishna, I+O VS, Krishna, I+O Laboratory Tests 12/06/18 06:04 Red Blood Count 3.07 L, Mean Corpuscular Volume 104.2 H, Mean Corpuscular Hemoglobin 35.5 H, Mean Corpuscular Hemoglobin Concent 34.1, Red Cell Distribution Width 11.8, Calcium Level 7.5 L Vital Signs Date Time Temp Pulse Resp B/P (MAP) Pulse Ox O2 Delivery O2 Flow Rate FiO2 12/06/18 08:41 98.0 71 20 118/70 (86) 95 Room Air 12/04/18 08:03 2.0 I&O- Last 24 Hours up to 6 AM 12/06/18 06:00 Intake Total 2240 ml Output Total 2275 ml Balance -35 ml HEMAL CORTES MD Dec 06, 2018 18:13
[2018-12-06 20:00] VITALS: BP 109/57
[2018-12-06] MEDS: AMITRIPTYLINE 25 MG TAB PO SCH (20:45)
[2018-12-06] MEDS: ASPIRIN 325 MG TAB PO SCH (20:45)
[2018-12-06] MEDS ORDERED: RAMELTEON 8 MG TAB (ROZEREM) PO SCH (21:00)
[2018-12-06 23:59] VITALS: BP 113/55
[2018-12-07 04:00] VITALS: BP 129/64
[2018-12-07] MEDS: SLF 3 ML SYR IV SCH (05:26)
[2018-12-07 06:04] LABS: HEMATOCRIT 32.2 % (42.0-52.0); MEAN CORPUSCULAR HEMOGLOBIN 35.8 pg (27.0-33.0); MEAN CORPUSCULAR HGB CONC 34.2 g/dl (32.0-36.5); MEAN CORPUSCULAR VOLUME 104.9 fl (80.0-96.0); PLATELET COUNT, AUTOMATED 171 10^3/uL (150-450); RED BLOOD COUNT 3.07 10^6/uL (4.30-6.10); WHITE BLOOD COUNT 6.6 10^3/uL (4.0-10.0)
[2018-12-07 06:38] LABS: BLOOD UREA NITROGEN 6 MG/DL (7-18); CALCIUM LEVEL 7.2 MG/DL (8.8-10.2); CARBON DIOXIDE LEVEL 24 MEQ/L (21-32); CHLORIDE LEVEL 100 MEQ/L (98-107); CREATININE FOR GFR 0.68 MG/DL (0.70-1.30); GLOMERULAR FILTRATION RATE > 60.0 (>42); GLUCOSE, FASTING 109 MG/DL (70-100); MAGNESIUM LEVEL 1.6 MG/DL (1.8-2.4); POTASSIUM SERUM 3.6 MEQ/L (3.5-5.1); SODIUM LEVEL 132 MEQ/L (136-145)
[2018-12-07] MEDS ORDERED: MAG SULF 1GM/100ML (MAG RUN) 1 GM in APPROPRIATE DILUENT 1 EA IV ONE (07:30)
[2018-12-07] MEDS: ADVAIR HFA 115/21MCG INHALER INH SCH (07:33)
[2018-12-07] MEDS: GABAPENTIN 400 MG CAP PO SCH (08:59)
[2018-12-07] MEDS: ENOXAPARIN 40 MG/0.4 ML SYRINGE (J1650) SC SCH (08:59)
[2018-12-07] MEDS: AUGMENTIN 875 MG TAB PO SCH (08:59)
[2018-12-07] MEDS: MULTIVITAMINS/MINERALS THERAP 1 TAB PO SCH (08:59)
[2018-12-07] MEDS: OXAZEPAM 15 MG CAP PO SCH (08:59)
[2018-12-07] MEDS: FOLIC ACID 1 MG TAB PO SCH (08:59)
[2018-12-07] MEDS ORDERED: POTASSIUM CHLORIDE 10 MEQ SR TABLET PO SCH (09:00)
[2018-12-07 12:00] VITALS: BP 103/60
[2018-12-07] MEDS ORDERED: MAGIC MOUTHWASH SUSPENSION BTL SSP SCH (12:00)
[2018-12-07] MEDS ORDERED: FOLI1TAB11 PO (12:50)
--- NOTE | 2018-12-08 05:50 | DSES ---
DATE OF ADMISSION: 12/01/2018 DATE OF DISCHARGE: 12/07/2018 PRIMARY CARE PROVIDER: Dimitrios Beebe MD ORTHOPEDIC SURGEON: Tru Rock MD FINAL DIAGNOSES: Delirium tremens (DT). Recurrent falls with gait instability with partial peroneus brevis tendon rupture. History of hypertension. History of chronic obstructive pulmonary disease (COPD). Dental infection. History of abdominal aortic aneurysm. Skin candidiasis. HISTORY OF PRESENT ILLNESS: This is a 77-year-old male patient with underlying medical history of heavy alcohol use, gait instability, COPD, hypertension, peripheral neuropathy, presented with recurrent falls, bilateral lower extremity weakness, he was unsteady, who initially presented hypotensive. Subsequently, patient was admitted to the hospital. Patient went in to DT while in the hospital. Clinical [place] Withdrawal Assessment for Alcohol (CIWA) protocol was observed. Patient was given Serax, thiamine, folate, multivitamin. Physical therapy was ordered. Multiple images have also been done, including CT head, CT lumbar spine, repeat CT head, x-ray of the foot, x-ray of the ankle, and CT of the patient's foot. Initially, patient was thought to have Achilles tendon injury, but orthopedics was consulted. Upon further evaluation, it was determined that patient has partial left peroneus brevis tendon rupture. CAM boot was prescribed by orthopedics. Patient was prescribed oral antibiotics for a dental infection, which was continued. Patient was prescribed oral antibiotics by patient's oral surgeon, which was continued. Patient has an appointment with oral surgeon already for tooth removal. Physical therapy was done. Patient was having gait instability due to the tendon injury mentioned above. Acute rehabilitation evaluation was done. Patient currently is not in withdrawal, comfortable, ready to be transferred to acute rehabilitation for further physical therapy. Patient tolerates oral, and Serax has been tapered off. Patient currently is only on minimum dose. VITAL SIGNS: Temperature 98, pulse 81, respirations 20, blood pressure 103/60, pulse oximetry 95% on room air. LABORATORY: WBC 6.6, hemoglobin and hematocrit 11/32.2, platelets 171. Chemistry: Sodium 132, potassium 3.6, chloride 100, bicarbonate 26, BUN 6, creatinine 0.68. GENERAL: Patient alert, comfortable, in no acute distress. HEENT: Normocephalic, atraumatic. Poor dentition. Moist mucous membranes. NECK: Supple. CARDIAC: Regular, S1, S2. PULMONARY: Bilateral clear. ABDOMEN: Soft, nontender. Positive bowel sounds. EXTREMITIES: Tremulousness has resolved. Mild left foot pain. No significant swelling. DISCHARGE MEDICATION: - folic acid 1 mg by mouth daily - amitriptyline 25 mg by mouth nightly - Augmentin 875 and 125 mg combination by mouth twice a day - aspirin 325 mg by mouth nightly - Tessalon Perles 100 mg by mouth three times a day as needed - gabapentin 600 mg by mouth four times a day - lisinopril 20 mg by mouth daily - multivitamin one tablet by mouth daily - potassium chloride 10 mEq by mouth daily - Advair Diskus 250 and 50 mcg inhalation twice a day - Zocor 20 mg by mouth daily DISCHARGE INSTRUCTIONS: Please see primary care provider in 7 days. Please see oral surgeon in 2 weeks. Patient already has an appointment. Please see orthopedics in 2-4 weeks for followup after discharge. CAM boot as per orthopedics. Avoid alcohol. Return if symptoms worsen. Further care as per acute rehabilitation provider. Patient will also need obstructive sleep apnea workup given patient was placed on obstructive sleep apnea (THERESA) with nocturnal hypoxic episodes. DISPOSITION: Further treatment as per acute rehabilitation provider.
== END 2018-12-07 15:07 | DRG 897 ==
LOC: M ED 15:43 → EDBD 15:43 → M ED INP 22:40 → M PCU 12-02 14:30
PROVIDERS: ADMIT Hospitalist; ATTEND Hospitalist
DX: F10.231 Alcohol dependence with withdrawal delirium (principal); E87.1 Hypo-osmolality and hyponatremia; I10 Essential (primary) hypertension; R53.1 Weakness; J44.9 Chronic obstructive pulmonary disease, unspecified; S86.312A Strain of muscle(s) and tendon(s) of peroneal muscle group at lower leg level, left leg, initial encounter; R29.6 Repeated falls; R26.89 Other abnormalities of gait and mobility; G62.9 Polyneuropathy, unspecified; K04.7 Periapical abscess without sinus; I71.4 Abdominal aortic aneurysm, without rupture; Z79.899 Other long term (current) drug therapy; Z79.82 Long term (current) use of aspirin; Z87.891 Personal history of nicotine dependence; B36.9 Superficial mycosis, unspecified; W18.30XA Fall on same level, unspecified, initial encounter; Y92.009 Unspecified place in unspecified non-institutional (private) residence as the place of occurrence of the external cause

== ENCOUNTER 2018-12-07 14:25 | Inpatient (IN) | payer MEDICARE, OTHER ==
[~2018-12-07] VITALS: Ht 170.2 cm; Wt 96.0 kg
[~2018-12-07 14:25] MED LIST changes: +AMOX-CLAV; +AUGM875T28 PO; +FOLI1TAB11 PO; +TESS100C PO
[2018-12-07 15:15] VITALS: BP 140/68
[2018-12-07] MEDS ORDERED: MAGIC MOUTHWASH SUSPENSION BTL SSP PRN (16:15)
[2018-12-07] MEDS ORDERED: NYSTATIN 100,000 UNITS/GM TOPICAL PWD 15 GM TOP PRN (16:15)
[2018-12-07] MEDS ORDERED: LORazepam 2 MG/ML VIAL (J2060) IV PRN (16:15)
[2018-12-07] MEDS: MAGNESIUM GLUCONATE 500 MG TAB PO SCH ×2 (18:09→20:35)
[2018-12-07] MEDS: ADVAIR HFA 115/21MCG INHALER INH SCH (19:34)
[2018-12-07 20:00] VITALS: BP 126/59
[2018-12-07] MEDS: GABAPENTIN 400 MG CAP PO SCH (20:34)
[2018-12-07] MEDS: SIMVASTATIN 20 MG TAB PO SCH (20:34)
[2018-12-07] MEDS: AMITRIPTYLINE 25 MG TAB PO SCH (20:35)
[2018-12-07] MEDS: ACETAMINOPHEN TAB 650MG DOSE (2X325MG) PO PRN (20:35)
[2018-12-07] MEDS: ASPIRIN 325 MG TAB PO SCH (20:35)
[2018-12-07] MEDS: AUGMENTIN 875 MG TAB PO SCH (20:35)
[2018-12-07] MEDS: RAMELTEON 8 MG TAB (ROZEREM) PO SCH (20:35)
[2018-12-07 22:22] LABS: APPEARANCE, URINE CLEAR (CLEAR); BACTERIA, URINE AUTO NEGATIVE (NEGATIVE); BILIRUBIN, URINE AUTO NEGATIVE (NEGATIVE); BLOOD, URINE BLOOD NEGATIVE (NEGATIVE); COLOR, URINE YELLOW (YELLOW); GLUCOSE, URINE (UA) AUTO NEGATIVE (NEGATIVE); KETONE, URINE AUTO NEGATIVE (NEGATIVE); LEUKOCYTE ESTERASE, URINE AUTO NEGATIVE (NEGATIVE); NITRITE, URINE AUTO NEGATIVE (NEGATIVE); PROTEIN, URINE AUTO NEGATIVE (NEGATIVE); RBC, URINE AUTO 0 /HPF (0-3); SPECIFIC GRAVITY URINE AUTO 1.004 (1.002-1.035); SQUAMOUS EPITHELIAL CELL UR AU 0 /HPF (0-6); UROBILINOGEN, URINE AUTO 0.2 mg/dL (0.0-2.0); WBC, URINE AUTO 0 /HPF (0-3)
[2018-12-08 06:22] VITALS: BP 151/73
[2018-12-08 07:41] LABS: BASO % 0.5 % (0.0-1.0); EOS # 0.7 10^3/uL (0.0-0.50); HEMATOCRIT 35.2 % (42.0-52.0); HEMOGLOBIN 11.7 g/dl (13.5-17.5); LYMPH # 0.8 10^3/uL (1.5-4.5); LYMPH % 12.2 % (24.0-44.0); MEAN CORPUSCULAR HEMOGLOBIN 35.6 pg (27.0-33.0); MEAN CORPUSCULAR HGB CONC 33.2 g/dl (32.0-36.5); MONO # 0.7 10^3/uL (0.0-0.8); MONO % 10.1 % (0.0-5.0); NEUTROPHILS # 4.2 10^3/uL (1.8-7.7); NEUTROPHILS % 65.1 % (36.0-66.0); PLATELET COUNT, AUTOMATED 207 10^3/uL (150-450); RED BLOOD COUNT 3.29 10^6/uL (4.30-6.10); WHITE BLOOD COUNT 6.5 10^3/uL (4.0-10.0)
[2018-12-08] MEDS: IPRATROPIUM 0.5MG/ALBUTEROL 2.5MG INH SOL UD 3ML (DUONEB)(J7620) NEB SCH ×2 (08:00→21:04)
[2018-12-08] MEDS: ADVAIR HFA 115/21MCG INHALER INH SCH ×2 (08:13→21:04)
[2018-12-08] MEDS: THIAMINE HCL 200 MG/2 ML VIAL (J3411) IM SCH (08:50)
[2018-12-08] MEDS: ENOXAPARIN 40 MG/0.4 ML SYRINGE (J1650) SC SCH (08:51)
[2018-12-08] MEDS: MAGNESIUM GLUCONATE 500 MG TAB PO SCH ×4 (08:51→20:39)
[2018-12-08] MEDS: POTASSIUM CHLORIDE 10 MEQ SR TABLET PO SCH (08:52)
[2018-12-08] MEDS: GABAPENTIN 400 MG CAP PO SCH ×3 (08:52→20:39)
[2018-12-08] MEDS: FOLIC ACID 1 MG TAB PO SCH (08:52)
[2018-12-08] MEDS: AUGMENTIN 875 MG TAB PO SCH ×2 (08:52→20:40)
[2018-12-08 08:56] LABS: ALBUMIN 2.1 GM/DL (3.2-5.2); ALT/SGPT 20 U/L (12-78); BILIRUBIN,TOTAL 0.6 MG/DL (0.2-1.0); BLOOD UREA NITROGEN 7 MG/DL (7-18); CALCIUM LEVEL 7.8 MG/DL (8.8-10.2); CARBON DIOXIDE LEVEL 26 MEQ/L (21-32); CHLORIDE LEVEL 104 MEQ/L (98-107); CREATININE FOR GFR 0.73 MG/DL (0.70-1.30); GLOMERULAR FILTRATION RATE > 60.0 (>42); GLUCOSE, FASTING 110 MG/DL (70-100); POTASSIUM SERUM 3.9 MEQ/L (3.5-5.1); SODIUM LEVEL 136 MEQ/L (136-145); TOTAL PROTEIN 5.6 GM/DL (6.4-8.2)
[2018-12-08] MEDS: FLUTICASONE PROP 0.05% NASAL SPRAY 16 GM (FLONASE) NARES SCH (09:00)
[2018-12-08] MEDS: SODIUM CHLORIDE NASAL 0.65% SPRAY BTL (OCEAN) SCH ×3 (09:00→20:40)
[2018-12-08] MEDS: LISINOPRIL 20 MG TAB PO SCH (09:00)
--- NOTE | 2018-12-08 12:32 | IPNPDOC ---
Date Seen The patient was seen on 12/08/18. Progress Note HPI: This is a 77-year-old male who admitted to [facility] 12/01/18-12/07/18 with recurrent falls, bilateral lower extremity weakness, unsteady gait, who initially presented hypotensive. Patient subsequently went in to DT while in the hospital. Clinical [place] Withdrawal Assessment for Alcohol (CIWA) protocol was observed. Patient was given Serax, thiamine, folate, multivitamin. Multiple images were done, including CT head, CT lumbar spine, repeat CT head, x-ray of the foot, x-ray of the ankle, and CT of the patient's foot.Orthopedics was consulted,it was determined that patient has partial left peroneus brevis tendon rupture. CAM boot was prescribed by orthopedics. The pt was started on course of Augmentin for dental infection with plan for F/U with oral surgery as outpt. The pt was transferred to the care of ARU, Dr Estrella, 12/07/18. No acute medical complaints today. The pt states he is eating and drinking well. Denies any fevers, chills, weakness, fatigue, Headache, Chest Pain, Shortness of breath, cough, palpitations, abdominal pain, N/V/D or changes in bowel or bladder habits. PMH Unsteady gait. Weakness in his legs. Peripheral neuropathy. Hypertension. Chronic obstructive pulmonary disease (COPD). Alcohol use TTE 12/09 EF 65%, DD. PAST SURGICAL HISTORY: right inguinal hernia repair in the 1960s. He has had an abdominal aortic aneurysm repair and bilateral groin repair, follows with Dr Coleman [facility]. Removal of skin cancer from face. Removal of melanoma from breast. He sees a specialist in [place] for followup every 6 months,. PE: GEN: 77yoM, appears stated age. . No acute distress. Alert and oriented x 3. HEENT: Normocephalic, atraumatic. Sclera are nonicteric. Conjunctiva without injection. No facial asymmetry. Moist mucous membranes. CHEST: Regular rate and rhythm, +S1, +S2 LUNGS: Clear to auscultation bilaterally. No wheezes, rales, or rhonchi. Breathing appears symmetric and easy. ABD: Round, soft, non-tender, non-distended. +Bowel sounds throughout. No rebound or guarding. EXT: No lower extremity edema appreciated. Orthopedic boot in place LLE. SKIN: [place], dry, warm. No rashes. NEURO: Alert and oriented x 3. No focal deficits appreciated. EKG 12/02/18 SINUS TACHYCARDIA LOW QRS VOLTAGE NON-SPECIFIC STT ABNORMALITIES SIMILAR TO 12/01/18 No acute disease. Bibasilar interstitial prominence consistent with fibrosis. CT head on 12/01/18 No acute intracranial abnormality. CT lumbar spine on 12/02/18 No traumatic bony abnormality. Degenerative disc disease at multiple levels most pronounced at L4-5. At L4-5, there is moderate central canal stenosis and right-sided neural foraminal narrowing due to disc bulging. A&P: This is a 77-year-old male who admitted to [facility] 12/01/18-12/07/18 with recurrent falls, bilateral lower extremity weakness, unsteady gait, who initially presented hypotensive. Patient subsequently went in to DT while in the hospital. Clinical [place] Withdrawal Assessment for Alcohol (CIWA) protocol was observed. Patient was given Serax, thiamine, folate, multivitamin. Multiple images were done, including CT head, CT lumbar spine, repeat CT head, x-ray of the foot, x-ray of the ankle, and CT of the patient's foot.Orthopedics was consulted,it was determined that patient has partial left peroneus brevis tendon rupture. CAM boot was prescribed by orthopedics. The pt was started on course of Augmentin for dental infection with plan for F/U with oral surgery as outpt. The pt was transferred to the care of ARU, Dr Estrella, 12/07/18. 1. Debility. Mgmt as per ARU. PT/OT/ST as per ARU. Pain control as per ARU. Bowel care as per ARU. Disposition as per ARU. DVT prophylaxis as per ARU. Lovenox SQ. 2. Status post Delirium Tremens. Patient has a history of heavy alcohol use. Last drink was 4 days prior to admission 12/01/18. Continue thiamine, folate, multivitamin. Ativan prn. Continue to encourage cessation 2. Recurrent falls. Alcohol withdrawal versus gait instability, vs left peroneus brevis partial tendon rupture. CT of the lumbar spine has been appreciated with degenerative disc disease CT of the left ankle has been appreciated. Orthopedics has been on consult, was diagnosed with peroneus brevis partial tendon rupture. CAM walking boot and weightbearing as tolerated, as recommended by orthopedics. Further recommendation as per orthopedics. Outpt F/U with Orthopedics. 3. Hypertension. Monitor 4. Chronic obstructive pulmonary disease (COPD). Advair Duoneb as needed. 5. History of abdominal aortic aneurysm repair and stenting. Outpatient followup with Dr Coleman. ASA 325 mg daily. 6. Skin candidiasis, superficial candidiasis. Nystatin powder. 7. Peripheral Neuropathy. Elavil 25 mg HS Gabapentin 400mg TID. 8. Dental infection. Continue Augmentin as per recommended by patient's outpatient dentist. Outpt dental appt. 9. DLP. Zocor 10. Hyponatremia. Resolved. Monitor BMP. Continue with F.R. 11. hypokalemia. Continue supplement. Monitor BMP. 12. Obesity. Complicates care. BMI 34.0 TSH elevated 12/02/18. Will recheck TSH/FT4. Add A1c to labs. Patient will also need obstructive sleep apnea workup given patient was placed on obstructive sleep apnea (THERESA) protocol with nocturnal hypoxic episodes. VS, I&O, 24H, [facility] Vital Signs/I&O Vital Signs Date Time Temp Pulse Resp B/P (MAP) Pulse Ox O2 Delivery O2 Flow Rate FiO2 12/08/18 06:22 98.3 73 16 151/73 (99) 96 Room Air I&O- Last 24 Hours up to 6 AM 12/08/18 06:00 Intake Total 300 ml Output Total 800 ml Balance -500 ml Laboratory Data 24H LABS Laboratory Tests 2 12/07/18 22:08: Urine Appearance CLEAR, Urine Color YELLOW, Urine pH 6.0, Urine Specific [place] 1.004, Urine Protein NEGATIVE, Urine Glucose (UA) NEGATIVE, Urine Ketones NEGATIVE, Urine Urobilinogen 0.2, Urine Bilirubin NEGATIVE, Urine Leukocyte Esterase NEGATIVE, Urine Blood NEGATIVE, Urine Nitrite NEGATIVE, Urine WBC (A uto) 0, Urine RBC (Auto) 0, Urine Hyaline Casts (Auto) 0, Urine Bacteria (Auto) NEGATIVE, Urine Squamous Epithelial Cells 0, Urine Sperm (Auto) 12/08/18 07:02: Immature Granulocyte % (Auto) 1.1, White Blood Count 6.5, Red Blood Count 3.29L, Hemoglobin 11.7L, Hematocrit 35.2L, Mean Corpuscular Volume 107.0H, Mean Corpuscular Hemoglobin 35.6H, Mean Corpuscular Hemoglobin Concent 33.2, Red Cell Distribution Width 11.8, Platelet Count 207, Neutrophils (%) (Auto) 65.1, Lymphocytes (%) (Auto) 12.2L, Monocytes (%) (Auto) 10.1H, Eosinophils (%) (Auto) 11.0H, Basophils (%) (Auto) 0.5, Neutrophils # (Auto) 4.2, Lymphocytes # (Auto) 0.8L, Monocytes # (Auto) 0.7, Eosinophils # (Auto) 0.7H, Basophils # (Auto) 0.0, Nucleated Red Blood Cells % (auto) 0.0, Anion Gap 6L, Glomerular Filtration Rate > 60.0, Blood Urea Nitrogen 7, Creatinine 0.73, Sodium Level 136, Potassium Level 3.9, Chloride Level 104, Carbon Dioxide Level 26, Calcium Level 7.8L, Aspartate Amino Transf (AST/SGOT) 26, Alanine Aminotransferase (ALT/SGPT) 20, Alkaline Phosphatase 117, Total Bilirubin 0.6, Total Protein 5.6L, Albumin 2.1L, Albumin/Globulin Ratio 0.60L CBC/BMP Laboratory Tests 12/08/18 07:02 Red Blood Count 3.29 L, Mean Corpuscular Volume 107.0 H, Mean Corpuscular Hemoglobin 35.6 H, Mean Corpuscular Hemoglobin Concent 33.2, Red Cell Distribution Width 11.8, Neutrophils (%) (Auto) 65.1, Lymphocytes (%) (Auto) 12.2 L, Monocytes (%) (Auto) 10.1 H, Eosinophils (%) (Auto) 11.0 H, Basophils (%) (Auto) 0.5, Neutrophils # (Auto) 4.2, Lymphocytes # (Auto) 0.8 L, Monocytes # (Auto) 0.7, Eosinophils # (Auto) 0.7 H, Basophils # (Auto) 0.0, Calcium Level 7.8 L, Aspartate Amino Transf (AST/SGOT) 26, Alanine Aminotransferase (ALT/SGPT) 20, Alkaline Phosphatase 117, Total Bilirubin 0.6, Total Protein 5.6 L, Albumin 2.1 L Microbiology Microbiology 1/17/19 Urine Culture, Received Pending Sugar Robles Dec 08, 2018 12:32
--- NOTE | 2018-12-08 12:39 | REP ---
BILATERAL LOWER EXTREMITY DOPPLER VENOUS ULTRASOUND: Comparison: None. Clinical history: Immobility. Evaluate for DVT. Technique: The deep venous system of the bilateral lower extremities is evaluated with darling scale imaging, compression ultrasound, color imaging and duplex Doppler interrogation. Examination from the groin through the popliteal fossa into the proximal calf. Findings: There is full compressibility from the common femoral vein in the inguinal region through the popliteal vein on both sides. Color imaging confirms patency throughout the course of the deep venous system. There is respiratory variation and augmented flow at all levels. Impression: 1. No Doppler venous ultrasound evidence of DVT in the bilateral lower extremities. Electronically Signed by Harsh Manuel MD 12/08/2018 12:31 P
[2018-12-08] MEDS ORDERED: LORazepam 2 MG/ML VIAL (J2060) IM PRN (14:15)
--- NOTE | 2018-12-08 14:21 | HPEPDOC ---
[employer] Sander Note DATE OF ADMISSION: Dec 07, 2018 at 15:10 SOURCE OF ADMISSION INFORMATION: patient and [facility] records CHIEF COMPLAINT: falls with debility HISTORY OF PRESENT ILLNESS: 77M pmh HTN, COPD, and EOTH abuse with increasing unsteadiness at home with multiple falls presented to [facility] ED on 12-02-18 complaining of feeling unsteady. Initial EKG showed non-specific ST changes with supraventricular premature complexes with CTH showing There is chronic microvascular disease. There is no acute lesion or injury. He reported having had his last drink 5 days prior and was started on Serax and given thiamine, folate, and multivitamins for Delirium Tremens prevention. ECHO showed, Borderline concentric left ventricular hypertrophy with normal wall motion. Mildly dilated left atrium with impairment of LV diastolic function. He complained of left ankle pain, and ankle X-ray revealed a Heel spurring. Vascular calcification. Diffuse posterior swelling question Achilles tendon disruption. CT of the lower extremity showed, Achilles tendinopathyno evidence of tendon tearPartial thickness tear of the peroneus brevis tendon in association with an anatomically enlarged peroneal tubercle, and with anterior dislocation of the tendon relative to the tubercle as described Mild peroneus longus tendinosis. He was evaluated y orthopedics who recommended a CAM boot and WBAT. He had low serum magnesium levels and hyponatremia for which his was given supplementation and fluids. Of note he is also being treated with Augmentin for a dental infection. He was evaluated by therapy and found to have difficulty with ambulation and some ADLs and deemed appropriate for discharge to ARU on 12-07-18. REVIEW OF SYSTEMS: The following is a completed review of systems and has been reviewed. Review of systems otherwise unremarkable. PAIN: Patient self reports no pain EYES: Negative for recent vision changes EARS, NOSE, & THROAT: mild nasal congestion, no dysphagia, no ear pain/hearing loss CARDIOVASCULAR: denies chest pain or palpitations PULMONARY: Negative. Denies shortness of breath. GASTROINTESTINAL: Negative for constipation or diarrhea GENITOURINARY: Negative for dysuria MUSCULOSKELETAL: left Achilles and peroneal tendinopathy NEUROLOGICAL: bilateral essential tremor SKIN: intact PSYCHIATRIC: Unremarkable All other review of systems found to be negative. PAST MEDICAL HISTORY: HTN, ETOH abuse PAST SURGICAL HISTORY: aortic aneurysm repair, inguinal hernia repair , melanoma removal ALLERGIES: Please see below. MEDICATIONS: Please see below. 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 GENERAL: Pleasant and cooperative. No acute distress. HEENT: PERRL. Extraocular movements intact. Clear conjunctiva CARDIOVASCULAR: Regular rate and rhythm. No murmurs, rubs, or gallops LUNGS: Clear to auscultation bilaterally. +scattered wheezes. No rhonchi ABDOMEN: Soft, nontender, nondistended. Positive bowel sounds. Normal active bowel sounds NEUROLOGICAL: Alert and oriented times three. Cranial nerves II through XII grossly intact. Sensation grossly intact EXTREMITIES: 5\5 strength bilateral upper extremities. 5\5 strength right lower extremity. 5/5 strength in left lower extremity. Mild TTP right lateral malleoli SKIN: intact IMAGING: Imaging documentation personally reviewed by record FUNCTIONAL STATUS: Premorbid: Independent with all activities of daily life as well as mobility, occasionally uses a cane. On Admission: Min Assist-Contact Guard ambulation with RW [id number], Min assist for bd mobility and toileting, Max assist for lower body dressing. GOALS: Modified Independent with RW or Cane for ambulation, stairs, dressing, showering, toileting, improve dynamic balance, medical optimization, assess for DME needs, family training. ASSESSMENT:77-year-old M with past medical history of who presents status post falls with left ankle tendinitis and debility. PLAN: 1. Rehab: PT/OT, mechanical soft due to poor dentition, assess for DME needs 2. Ortho: left Achillis and peroneal tendinopathy, CAM boot and WBAT, ortho consulted 3. Neuro: pmh ETOH abuse, Ativan ordered prn, s/p Serax taper, continue folic acid and will start IM thiamine 4. CV: pmh HTN and diastolic CHF, continue Lisinopril and ASA 325mg, medicine consulted 5. Resp: pmh COPD, continue home meds, will add DUonebs and Incentive spirometry 6. : f/u admission UA and Ucx, monitor PVRs 7. DVT ppx: Terrie ryan, will order admission Dopplers and start Lovenox 40mg daily 8. GI ppx: Protonix 9. Electrolyte: will monitor sodium levels, start oral Magnesium 10. Pain: Elavil qHS for pain and/anxiety, on Gabapentin, will consider a taper while here 11. DI- dental infection, continue Augmentin 12. Dispo: TBD POST ADMISSION PHYSICIAN EVALUATION: Medical and functional status: Description of medical status, medical assessment: As above. Rehabilitation diagnosis and current and prior cold morbid medical conditions as above. Risk of complications and plans to mitigate them as above. Description of functional status current status is as above. Prior status as above. Status compared to preadmission: There are no clinically significant differences between the patient's current status and the information described on the preadmission screening document. Treatment plan anticipated: Treatment plan is as described above. Required disciplines including physical therapy, occupational therapy, others as noted above. Intensity of services: 3 hours a day, 6 days a week. Special considerations: There are no specific special or safety considerations that would likely preclude immediate implementation of an intensive rehabilitation program or subsequently influence the plan of care ATTESTATION: Considering all the information above, it is my best judgment that this patient requires intensive rehabilitation therapy as described above and an inpatient hospital environment due to the complexity of nursing, medical, and rehabilitation needs required by the patient. Furthermore, this patient can reasonably be expected to participate in an benefit from an inpatient rehabilitation stay with an interdisciplinary team approach to the delivery of rehabilitation care under the direction and supervision of rehabilitation physician. PROGNOSIS: Excellent ESTIMATED LENGTH OF STAY:7-10 days. PROJECTED DISCHARGE DESTINATION: Home with family support and any durable medical equipment required to increase functional safety and mobility TIME SPENT COUNSELING AND COORDINATING INITIAL CARE: Greater than 70 minutes. Vital Signs Vital Sign - Last 24 Hours 12/07/18 12/07/18 12/08/18 15:15 20:00 06:22 Temp 97.8 98.3 98.3 Pulse 73 72 73 Resp 16 18 16 B/P (MAP) 140/68 (92) 126/59 (81) 151/73 (99) Pulse Ox 97 97 96 O2 Delivery Room Air Room Air Room Air Laboratory Data CBC/BMP Laboratory Tests 12/08/18 07:02 Red Blood Count 3.29 L, Mean Corpuscular Volume 107.0 H, Mean Corpuscular Hemoglobin 35.6 H, Mean Corpuscular Hemoglobin Concent 33.2, Red Cell Distribution Width 11.8, Neutrophils (%) (Auto) 65.1, Lymphocytes (%) (Auto) 12.2 L, Monocytes (%) (Auto) 10.1 H, Eosinophils (%) (Auto) 11.0 H, Basophils (%) (Auto) 0.5, Neutrophils # (Auto) 4.2, Lymphocytes # (Auto) 0.8 L, Monocytes # (Auto) 0.7, Eosinophils # (Auto) 0.7 H, Basophils # (Auto) 0.0, Calcium Level 7.8 L, Aspartate Amino Transf (AST/SGOT) 26, Alanine Aminotransferase (ALT/SGPT) 20, Alkaline Phosphatase 117, Total Bilirubin 0.6, Total Protein 5.6 L, Albumin 2.1 L Labs 24H Laboratory Tests 2 12/07/18 22:08: Urine Appearance CLEAR, Urine Color YELLOW, Urine pH 6.0, Urine Specific [place] 1.004, Urine Protein NEGATIVE, Urine Glucose (UA) NEGATIVE, Urine Ketones NEGATIVE, Urine Urobilinogen 0.2, Urine Bilirubin NEGATIVE, Urine Leukocyte Esterase NEGATIVE, Urine Blood NEGATIVE, Urine Nitrite NEGATIVE, Urine WBC (Auto) 0, Urine RBC (Auto) 0, Urine Hyaline Casts (Auto) 0, Urine Bacteria (Auto) NEGATIVE, Urine Squamous Epithelial Cells 0, Urine Sperm (Auto) 12/08/18 07:02: Immature Granulocyte % (Auto) 1.1, White Blood Count 6.5, Red Blood Count 3.29L, Hemoglobin 11.7L, Hematocrit 35.2L, Mean Corpuscular Volume 107.0H, Mean Corpuscular Hemoglobin 35.6H, Mean Corpuscular Hemoglobin Concent 33.2, Red Cell Distribution Width 11.8, Platelet Count 207, Neutrophils (%) (Auto) 65.1, Lymphocytes (%) (Auto) 12.2L, Monocytes (%) (Auto) 10.1H, Eosinophils (%) (Auto) 11.0H, Basophils (%) (Auto) 0.5, Neutrophils # (Auto) 4.2, Lymphocytes # (Auto) 0.8L, Monocytes # (Auto) 0.7, Eosinophils # (Auto) 0.7H, Basophils # (Auto) 0.0, Nucleated Red Blood Cells % (auto) 0.0, Anion Gap 6L, Glomerular Filtration Rate > 60.0, Blood Urea Nitrogen 7, Creatinine 0.73, Sodium Level 136, Potassium Level 3.9, Chloride Level 104, Carbon Dioxide Level 26, Calcium Level 7.8L, Aspartate Amino Transf (AST/SGOT) 26, Alanine Aminotransferase (ALT/SGPT) 20, Alkaline Phosphatase 117, Total Bilirubin 0.6, Total Protein 5.6L, Albumin 2.1L, Albumin/Globulin Ratio 0.60L Microbiology Microbiology 12/07/18 Urine Culture, Received Pending Home Medications Scheduled Amitriptyline HCl (Amitriptyline HCl) 25 Mg Tab, 25 MG PO QHS, (Reported) Amoxicillin/Clavulanate Potas (Augmentin 875-125 mg) 1 Tab Tab, 875 MG PO BID, (Reported) Aspirin (Aspirin) 325 Mg Tab, 325 MG PO QHS, (Reported) Folic Acid (Folic Acid) 1 Mg Tab, 1 MG PO DAILY Gabapentin (Gabapentin) 600 Mg Tab, 600 MG PO QID, (Reported) Lisinopril (Lisinopril) 20 Mg Tab, 20 MG PO DAILY, (Reported) Multivitamins *[facility] STOCKED* (Thera M Plus *[facility] STOCKED*) 1 Tab Tab, 1 TAB PO DAILY, (Reported) Potassium Chloride (Klor-Con M10) 10 Meq Tabcr, 10 MEQ PO DAILY, (Reported) Salmeterol/Fluticasone (Advair Diskus 250-50 Mcg/Dose) 14 Puff/Inhaler Aerp, 1 PUFF INH BID, (Reported) Simvastatin (Simvastatin) 20 Mg Tab, 20 MG PO DAILY, (Reported) Scheduled PRN Benzonatate (Tessalon Perles) 100 Mg Cap, 100 MG PO TID PRN for COUGH, (Reported) Allergies Coded Allergies: No Known Allergies (Verified , 07/14/04) IGLESIA TIMMONS MD Dec 08, 2018 13:17
[2018-12-08 14:25] VITALS: BP 133/66
[2018-12-08 20:00] VITALS: BP 111/68
[2018-12-08] MEDS: ASPIRIN 325 MG TAB PO SCH (20:39)
[2018-12-08] MEDS: RAMELTEON 8 MG TAB (ROZEREM) PO SCH (20:39)
[2018-12-08] MEDS: SIMVASTATIN 20 MG TAB PO SCH (20:40)
[2018-12-08] MEDS: AMITRIPTYLINE 25 MG TAB PO SCH (20:40)
[2018-12-09 06:00] VITALS: BP 123/59
[2018-12-09 07:31] LABS: HEMATOCRIT 32.2 % (42.0-52.0); HEMOGLOBIN 10.8 g/dl (13.5-17.5); MEAN CORPUSCULAR HEMOGLOBIN 35.3 pg (27.0-33.0); MEAN CORPUSCULAR HGB CONC 33.5 g/dl (32.0-36.5); MEAN CORPUSCULAR VOLUME 105.2 fl (80.0-96.0); PLATELET COUNT, AUTOMATED 212 10^3/uL (150-450); RED BLOOD COUNT 3.06 10^6/uL (4.30-6.10); WHITE BLOOD COUNT 7.3 10^3/uL (4.0-10.0)
[2018-12-09 07:53] LABS: BLOOD UREA NITROGEN 9 MG/DL (7-18); CALCIUM LEVEL 7.6 MG/DL (8.8-10.2); CARBON DIOXIDE LEVEL 27 MEQ/L (21-32); CHLORIDE LEVEL 104 MEQ/L (98-107); GLOMERULAR FILTRATION RATE > 60.0 (>42); GLUCOSE, FASTING 119 MG/DL (70-100); MAGNESIUM LEVEL 1.7 MG/DL (1.8-2.4); POTASSIUM SERUM 4.5 MEQ/L (3.5-5.1); SODIUM LEVEL 136 MEQ/L (136-145)
[2018-12-09] MEDS: IPRATROPIUM 0.5MG/ALBUTEROL 2.5MG INH SOL UD 3ML (DUONEB)(J7620) NEB SCH ×2 (08:00→20:00)
[2018-12-09] MEDS: AUGMENTIN 875 MG TAB PO SCH ×2 (08:49→21:01)
[2018-12-09] MEDS: LISINOPRIL 20 MG TAB PO SCH (08:49)
[2018-12-09] MEDS: GABAPENTIN 400 MG CAP PO SCH ×3 (08:49→21:01)
[2018-12-09] MEDS: ENOXAPARIN 40 MG/0.4 ML SYRINGE (J1650) SC SCH (08:49)
[2018-12-09] MEDS: POTASSIUM CHLORIDE 10 MEQ SR TABLET PO SCH (08:50)
[2018-12-09] MEDS: FOLIC ACID 1 MG TAB PO SCH (08:50)
[2018-12-09] MEDS: MAGNESIUM GLUCONATE 500 MG TAB PO SCH ×4 (08:50→21:01)
[2018-12-09] MEDS: THIAMINE HCL 200 MG/2 ML VIAL (J3411) IM SCH (08:50)
[2018-12-09] MEDS: FLUTICASONE PROP 0.05% NASAL SPRAY 16 GM (FLONASE) NARES SCH (08:51)
[2018-12-09] MEDS: SODIUM CHLORIDE NASAL 0.65% SPRAY BTL (OCEAN) SCH ×3 (08:52→21:02)
[2018-12-09] MEDS: ADVAIR HFA 115/21MCG INHALER INH SCH ×2 (12:02→20:10)
[2018-12-09 14:00] VITALS: BP 118/56
--- NOTE | 2018-12-09 16:13 | IPNPDOC ---
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 He is interested in a trial of a cane. REVIEW OF SYSTEMS: The following is a completed review of systems and has been reviewed. Review of systems otherwise unremarkable. PAIN: Patient self reports no pain EYES: Negative for recent vision changes EARS, NOSE, & THROAT: mild nasal congestion, no dysphagia, no ear pain/hearing loss CARDIOVASCULAR: denies chest pain or palpitations PULMONARY: Negative. Denies shortness of breath. GASTROINTESTINAL: Negative for constipation or diarrhea GENITOURINARY: Negative for dysuria MUSCULOSKELETAL: left Achilles and peroneal tendinopathy NEUROLOGICAL: bilateral essential tremor SKIN: intact PSYCHIATRIC: Unremarkable All other review of systems found to be negative. PHYSICAL EXAMINATION: VITAL SIGNS: Please see below. GENERAL: Pleasant and cooperative. No acute distress. HEENT: PERRL. Extraocular movements intact. Clear conjunctiva CARDIOVASCULAR: Regular rate and rhythm. No murmurs, rubs, or gallops LUNGS: Clear to auscultation bilaterally. +scattered wheezes. No rhonchi ABDOMEN: Soft, nontender, nondistended. Positive bowel sounds. Normal active bowel sounds NEUROLOGICAL: Alert and oriented times three. Cranial nerves II through XII grossly intact. Sensation grossly intact EXTREMITIES: 5\5 strength bilateral upper extremities. 5\5 strength right lower extremity. 5/5 strength in left lower extremity. Mild TTP right lateral malleoli SKIN: intact ASSESSMENT:77-year-old M with past medical history of who presents status post falls with left ankle tendinitis and debility. PLAN: 1. Rehab: PT/OT, mechanical soft due to poor dentition, assess for DME needs, ambulating well with RW 2. Ortho: left Achillis and peroneal tendinopathy, CAM boot and WBAT, ortho consulted 3. Neuro: pmh ETOH abuse, Ativan ordered prn, s/p Serax taper, continue folic acid and will start IM thiamine 4. CV: pmh HTN and diastolic CHF, continue Lisinopril and ASA 325mg, medicine consulted 5. Resp: pmh COPD, continue home meds, will add DUonebs and Incentive spirometry 6. : admission UA and Ucx negative, monitor PVRs 7. DVT ppx: Terrie stocking,admission Dopplers negative, continue Lovenox 40mg daily 8. GI ppx: Protonix 9. Electrolyte: will monitor sodium levels, start oral Magnesium and add vitamin Dto enhance absorption 10. Pain: Elavil qHS for pain and/anxiety, on Gabapentin, will consider a taper while here 11. DI- dental infection, continue Augmentin 12. Dispo: TBD Allergies Coded Allergies: No Known Allergies (Verified , 07/14/04) Vital Signs Vital Signs Date Time Temp Pulse Resp B/P (MAP) Pulse Ox O2 Delivery O2 Flow Rate FiO2 12/09/18 14:00 97.5 81 18 118/56 (76) 94 Room Air Laboratory Data CBC/BMP Laboratory Tests 12/09/18 06:55 Red Blood Count 3.06 L, Mean Corpuscular Volume 105.2 H, Mean Corpuscular Hemoglobin 35.3 H, Mean Corpuscular Hemoglobin Concent 33.5, Red Cell Dis tribution Width 11.7, Calcium Level 7.6 L Labs 24H Laboratory Tests 2 12/09/18 06:55: Nucleated Red Blood Cells % (auto) 0.0, Anion Gap 5L, Glomerular Filtration Rate > 60.0, Blood Urea Nitrogen 9, Creatinine 0.80, Sodium Level 136, Potassium Level 4.5, Chloride Level 104, Carbon Dioxide Level 27, Calcium Level 7.6L, Magnesium Level 1.7L Microbiology Microbiology 12/07/18 Urine Culture - Final, Complete Current Medications Current Medications Current Medications Acetaminophen (Tylenol Tab) 650 mg Q4HP PRN PO MILD PAIN (PS 1-4) Last administered on 12/07/18at 20:35; Start 12/07/18 at 15:30 Albuterol/ Ipratropium (Duoneb (Ipr 0.5mg/Alb 2.5mg)) 3 ml RBID NEB Last administered on 12/08/18at 21:04; Start 12/08/18 at 08:00 Amitriptyline HCl (Elavil) 25 mg QHS PO Last administered on 12/08/18at 20:40; Start 12/07/18 at 21:00 Amoxicillin/ Clavulanate Potassium (Augmentin) 875 mg BID PO Last administered on 12/09/18at 08:49; Start 12/07/18 at 21:00 Aspirin (Aspirin) 325 mg QHS PO Last administered on 12/08/18 20:39; Start 12/07/18 at 21:00 Enoxaparin Sodium (Lovenox) 40 mg DAILY SC Last administered on 12/09/18 08:49; Start 12/08/18 at 09:00 Fluticasone Propionate (Flonase 0.05% Nasal [place]) 2 spray DAILY NARES Last administered on 12/09/18 08:51; Start 12/08/18 at 09:00 Folic Acid (Folic Acid) 1 mg DAILY PO Last administered on 12/09/18 08:50; Start 12/08/18 at 09:00 Gabapentin (Neurontin) 400 mg TID PO Last administered on 12/09/18 08:49; Start 12/07/18 at 21:00 Lidocaine/ Diphenhydr/Alum/ Mg/Simeth (Magic Mouthwash) 5ML TIDP PRN SSP DISCOMFORT; Start 12/07/18 at 16:15 Lisinopril (Prinivil) 20 mg DAILY PO Last administered on 12/09/18 08:49; Start 12/08/18 at 09:00 Lorazepam (Ativan) 2 mg Q4HP PRN IM SEIZURES; Start 12/08/18 at 14:15 Lorazepam (Ativan) 2 mg Q4HP PRN IV SEIZURES; Start 12/07/18 at 16:15; Stop 12/08/18 at 14:15; Status DC Magnesium Gluconate (Magnesium Gluconate) 500 mg QID PO Last administered on 12/09/18at 13:09; Start 12/07/18 at 17:00 Nystatin (Mycostatin Powder, Nystop) groin BIDP PRN TOP RASH; Start 12/07/18 at 16:15 Potassium Chloride (Micro-K Extencaps) 40 meq DAILY PO Last administered on 12/09/18 08:50; Start 12/08/18 at 09:00 Ramelteon (Rozerem) 8 mg QHS PO Last administered on 12/08/18 20:39; Start 12/07/18 at 21:00 Salmeterol Xinafoate/ Fluticasone (Advair Hfa 115/ 21) 2 puff BID INH Last administered on 12/09/18at 12:02; Start 12/07/18 at 21:00 Simvastatin (Zocor) 20 mg QHS PO Last administered on 12/08/18at 20:40; Start 12/07/18 at 21:00 Sodium Chloride ([place] Nasal [place]) 2 spray TID NA Last administered on 12/09/18at 08:52; Start 12/08/18 at 09:00 Thiamine HCl (VITAMIN B1 INJection) 100 mg DAILY IM Last administered on 12/09/18at 08:50; Start 12/08/18 at 09:00 IGLESIA TIMMONS MD Dec 09, 2018 16:13
--- NOTE | 2018-12-09 19:24 | IPNPDOC ---
Text Note Date of Service The patient was seen on 12/09/18. NOTE Patient seen and examined. Denies any chest pain, pressure, or discomfort. Denies any nausea or vomiting. PHYSICAL EXAMINATION: GENERAL: Patient in no acute distress, comfortable. HEENT: Moist mucous membranes. poor dentition NECK: Supple. CARDIAC: Regular, S1, S2. PULMONARY: Bilateral clear. ABDOMEN: Soft, nontender. Positive bowel sounds. EXTREMITIES: Tremulous resolved. mild left foot pain. No significant swelling. Full range of motion. ASSESSMENT AND PLAN: This is a 77-year-old male patient with underlying medical history of alcohol abuse, unsteady gait, hypertension, chronic obstructive pulmonary disease (COPD), presented with bilateral lower extremity weakness and frequent falls. PROBLEMS: 1. gait instability and debility PT, OT as per aru Pain control as per ARU Bowel care as per ARU provider DVT ppx as per ARU provider pt on lovenox SQ 2. Status post Delirium Tremens. Patient has a history of heavy alcohol use. Last drink was 4 days prior to admission 12/01. counseling provided thiamine, folate, multivitamin. 3. Recurrent falls. Alcohol withdrawal versus gait instability, vs left peroneus brevis partial tendon rupture. CT of the lumbar spine has been appreciated with degenerative disc disease CT of the left ankle has been appreciated. Orthopedics has been on consult, was diagnosed with peroneus brevis partial tendon rupture. CAM walking boot and weightbearing as tolerated, as recommended by orthopedics. f/u orthopedic as outpatient further care as per ARU provider 4. Hypertension. Continue current medication. 5. Chronic obstructive pulmonary disease (COPD). Continue current medication. 6. History of abdominal aortic aneurysm repair and stenting. Currently does not have any pain. Outpatient followup Dr Coleman 7. Skin candidiasis, superficial candidiasis. Nystatin powder. 8. Dental infection. Continue Augmentin as per recommended by patient's outpatient dentist. 9. Deep vein thrombosis (DVT) prophylaxis. Lovenox subcu. DISPOSITION: as per ARU provider Krishna BENNETT, I+O VSKrishna, I+O Laboratory Tests 12/09/18 06:55 Red Blood Count 3.06 L, Mean Corpuscular Volume 105.2 H, Mean Corpuscular Hemoglobin 35.3 H, Mean Corpuscular Hemoglobin Concent 33.5, Red Cell Di stribution Width 11.7, Calcium Level 7.6 L Vital Signs Date Time Temp Pulse Resp B/P (MAP) Pulse Ox O2 Delivery O2 Flow Rate FiO2 12/09/18 14:00 97.5 81 18 118/56 (76) 94 Room Air I&O- Last 24 Hours up to 6 AM 12/09/18 06:00 Intake Total 1020 ml Output Total 525 ml Balance 495 ml HEMAL CORTES MD Dec 09, 2018 19:24
[2018-12-09 20:00] VITALS: BP 117/63
[2018-12-09] MEDS: ASPIRIN 325 MG TAB PO SCH (21:01)
[2018-12-09] MEDS: AMITRIPTYLINE 25 MG TAB PO SCH (21:01)
[2018-12-09] MEDS: RAMELTEON 8 MG TAB (ROZEREM) PO SCH (21:01)
[2018-12-09] MEDS: VITAMIN D 1,000 INTERNATIONAL UNITS TABLET PO SCH (21:01)
[2018-12-09] MEDS: SIMVASTATIN 20 MG TAB PO SCH (21:01)
[2018-12-10 06:00] VITALS: BP 127/68
[2018-12-10] MEDS: IPRATROPIUM 0.5MG/ALBUTEROL 2.5MG INH SOL UD 3ML (DUONEB)(J7620) NEB SCH ×2 (08:00→20:00)
[2018-12-10] MEDS: ADVAIR HFA 115/21MCG INHALER INH SCH ×2 (08:14→20:10)
[2018-12-10] MEDS: AUGMENTIN 875 MG TAB PO SCH ×2 (11:16→21:17)
[2018-12-10] MEDS: ENOXAPARIN 40 MG/0.4 ML SYRINGE (J1650) SC SCH (11:17)
[2018-12-10] MEDS: POTASSIUM CHLORIDE 10 MEQ SR TABLET PO SCH (11:17)
[2018-12-10] MEDS: VITAMIN D 1,000 INTERNATIONAL UNITS TABLET PO SCH ×2 (11:17→21:17)
[2018-12-10] MEDS: THIAMINE HCL 200 MG/2 ML VIAL (J3411) IM SCH (11:18)
[2018-12-10] MEDS: FOLIC ACID 1 MG TAB PO SCH (11:18)
[2018-12-10] MEDS: GABAPENTIN 400 MG CAP PO SCH ×3 (11:18→21:17)
[2018-12-10] MEDS: MAGNESIUM GLUCONATE 500 MG TAB PO SCH ×4 (11:18→21:17)
[2018-12-10] MEDS: FLUTICASONE PROP 0.05% NASAL SPRAY 16 GM (FLONASE) NARES SCH (11:19)
[2018-12-10] MEDS: SODIUM CHLORIDE NASAL 0.65% SPRAY BTL (OCEAN) SCH ×3 (11:19→21:18)
[2018-12-10] MEDS: LISINOPRIL 20 MG TAB PO SCH (11:21)
--- NOTE | 2018-12-10 13:17 | IPNPDOC ---
Text Note Date of Service The patient was seen on 12/10/18. NOTE Patient seen and examined. Denies any chest pain, pressure, or discomfort. Denies any nausea or vomiting. showered this am. wanted to be discharged prior to his birthday next week. PHYSICAL EXAMINATION: GENERAL: Patient in no acute distress, comfortable. HEENT: Moist mucous membranes. poor dentition NECK: Supple. CARDIAC: Regular, S1, S2. PULMONARY: Bilateral clear. ABDOMEN: Soft, nontender. Positive bowel sounds. EXTREMITIES: No significant swelling. Full range of motion. CAM boot in place, left LE ASSESSMENT AND PLAN: This is a 77-year-old male patient with underlying medical history of alcohol abuse, unsteady gait, hypertension, chronic obstructive pulmonary disease (COPD), presented with bilateral lower extremity weakness and frequent falls. PROBLEMS: 1. gait instability and debility PT, OT as per aru Pain control as per ARU Bowel care as per ARU provider DVT ppx as per ARU provider pt on lovenox SQ 2. Status post Delirium Tremens. Patient has a history of heavy alcohol use. Last drink was 4 days prior to admission 12/01. counseling provided thiamine, folate, multivitamin. 3. Recurrent falls. Alcohol withdrawal versus gait instability, vs left peroneus brevis partial tendon rupture. CT of the lumbar spine has been appreciated with degenerative disc disease, CT of the left ankle has been appreciated. Orthopedics has been on consult, was diagnosed with peroneus brevis partial tendon rupture. CAM walking boot and weightbearing as tolerated, as recommended by orthopedics. f/u orthopedic as outpatient further care as per ARU provider 4. Hypertension. Continue current medication. 5. Chronic obstructive pulmonary disease (COPD). Continue current medication. 6. History of abdominal aortic aneurysm repair and stenting. Currently does not have any pain. Outpatient followup Dr Coleman 7. Skin candidiasis, superficial candidiasis. Nystatin powder. 8. Dental infection. Continue Augmentin as per recommended by patient's outpatient dentist. f/u oral surgeon as outpatient 9. Deep vein thrombosis (DVT) prophylaxis. Lovenox subcu. DISPOSITION: as per ARU provider VS,Fishbone, I+O VS, Fishbone, I+O Vital Signs Date Time Temp Pulse Resp B/P (MAP) Pulse Ox O2 Delivery O2 Flow Rate FiO2 12/10/18 11:21 126/71 12/10/18 06:00 98.0 71 18 98 Room Air I&O- Last 24 Hours up to 6 AM 12/10/18 05:59 Intake Total 880 ml Output Total 865 ml Balance 15 ml HEMAL CORTES MD Dec 10, 2018 13:17
[2018-12-10 14:00] VITALS: BP 125/64
[2018-12-10] MEDS: AMITRIPTYLINE 25 MG TAB PO SCH (21:17)
[2018-12-10] MEDS: RAMELTEON 8 MG TAB (ROZEREM) PO SCH (21:17)
[2018-12-10] MEDS: SIMVASTATIN 20 MG TAB PO SCH (21:17)
[2018-12-10] MEDS: ASPIRIN 325 MG TAB PO SCH (21:17)
[2018-12-10 22:00] VITALS: BP 134/63
[2018-12-11 06:11] LABS: BASO % 0.4 % (0.0-1.0); EOS % 13.5 % (0.0-3.0); HEMATOCRIT 33.8 % (42.0-52.0); HEMOGLOBIN 11.4 g/dl (13.5-17.5); LYMPH # 1.3 10^3/uL (1.5-4.5); LYMPH % 17.3 % (24.0-44.0); MEAN CORPUSCULAR HEMOGLOBIN 35.2 pg (27.0-33.0); MEAN CORPUSCULAR HGB CONC 33.7 g/dl (32.0-36.5); MEAN CORPUSCULAR VOLUME 104.3 fl (80.0-96.0); MONO # 0.7 10^3/uL (0.0-0.8); MONO % 8.9 % (0.0-5.0); NEUTROPHILS # 4.4 10^3/uL (1.8-7.7); NEUTROPHILS % 59.4 % (36.0-66.0); PLATELET COUNT, AUTOMATED 254 10^3/uL (150-450); RED BLOOD COUNT 3.24 10^6/uL (4.30-6.10); WHITE BLOOD COUNT 7.3 10^3/uL (4.0-10.0)
[2018-12-11 06:27] VITALS: BP 123/68
[2018-12-11 06:42] LABS: BLOOD UREA NITROGEN 6 MG/DL (7-18); CALCIUM LEVEL 8.1 MG/DL (8.8-10.2); CARBON DIOXIDE LEVEL 24 MEQ/L (21-32); CHLORIDE LEVEL 105 MEQ/L (98-107); CREATININE FOR GFR 0.84 MG/DL (0.70-1.30); GLOMERULAR FILTRATION RATE > 60.0 (>42); GLUCOSE, FASTING 103 MG/DL (70-100); MAGNESIUM LEVEL 1.6 MG/DL (1.8-2.4); POTASSIUM SERUM 4.1 MEQ/L (3.5-5.1); SODIUM LEVEL 137 MEQ/L (136-145)
[2018-12-11] MEDS: ADVAIR HFA 115/21MCG INHALER INH SCH ×2 (07:28→20:18)
[2018-12-11] MEDS: IPRATROPIUM 0.5MG/ALBUTEROL 2.5MG INH SOL UD 3ML (DUONEB)(J7620) NEB SCH ×2 (07:28→20:00)
[2018-12-11] MEDS: ENOXAPARIN 40 MG/0.4 ML SYRINGE (J1650) SC SCH (09:19)
[2018-12-11] MEDS: MAGNESIUM GLUCONATE 500 MG TAB PO SCH ×4 (09:19→20:23)
[2018-12-11] MEDS: GABAPENTIN 400 MG CAP PO SCH ×3 (09:19→20:22)
[2018-12-11] MEDS: THIAMINE HCL 200 MG/2 ML VIAL (J3411) IM SCH (09:19)
[2018-12-11] MEDS: LISINOPRIL 20 MG TAB PO SCH (09:20)
[2018-12-11] MEDS: VITAMIN D 1,000 INTERNATIONAL UNITS TABLET PO SCH ×2 (09:20→20:22)
[2018-12-11] MEDS: AUGMENTIN 875 MG TAB PO SCH ×2 (09:20→20:22)
[2018-12-11] MEDS: FOLIC ACID 1 MG TAB PO SCH (09:20)
[2018-12-11] MEDS: POTASSIUM CHLORIDE 10 MEQ SR TABLET PO SCH (09:20)
[2018-12-11] MEDS: SODIUM CHLORIDE NASAL 0.65% SPRAY BTL (OCEAN) SCH ×3 (09:21→20:23)
[2018-12-11] MEDS: FLUTICASONE PROP 0.05% NASAL SPRAY 16 GM (FLONASE) NARES SCH (09:21)
--- NOTE | 2018-12-11 12:04 | IPNPDOC ---
Date Seen The patient was seen on 12/11/18. Progress Note HPI: This is a 77-year-old male who admitted to [facility] 12/01/18-12/07/18 with recurrent falls, bilateral lower extremity weakness, unsteady gait, who initially presented hypotensive. Patient subsequently went in to DT while in the hospital. Clinical [place] Withdrawal Assessment for Alcohol (CIWA) protocol was observed. Patient was given Serax, thiamine, folate, multivitamin. Multiple images were done, including CT head, CT lumbar spine, repeat CT head, x-ray of the foot, x-ray of the ankle, and CT of the patient's foot.Orthopedics was consulted,it was determined that patient has partial left peroneus brevis tendon rupture. CAM boot was prescribed by orthopedics. The pt was started on course of Augmentin for dental infection with plan for F/U with oral surgery as outpt. The pt was transferred to the care of ARU, Dr Estrella, 12/07/18. No acute medical complaints today. The pt states he is eating and drinking well. Denies any fevers, chills, weakness, fatigue, Headache, Chest Pain, Shortness of breath, cough, palpitations, abdominal pain, N/V/D or changes in bowel or bladder habits. PMH Unsteady gait. Weakness in his legs. Peripheral neuropathy. Hypertension. Chronic obstructive pulmonary disease (COPD). Alcohol use TTE 12/09 EF 65%, DD. PAST SURGICAL HISTORY: right inguinal hernia repair in the 1960s. He has had an abdominal aortic aneurysm repair and bilateral groin repair, follows with Dr Coleman [facility]. Removal of skin cancer from face. Removal of melanoma from breast. He sees a specialist in [place] for followup every 6 months,. PE: GEN: 77yoM, appears stated age. . No acute distress. Alert and oriented x 3. HEENT: Normocephalic, atraumatic. Sclera are nonicteric. Conjunctiva without injection. No facial asymmetry. Moist mucous membranes. CHEST: Regular rate and rhythm, +S1, +S2 LUNGS: Clear to auscultation bilaterally. No wheezes, rales, or rhonchi. Breathing appears symmetric and easy. ABD: Round, soft, non-tender, non-distended. +Bowel sounds throughout. No rebound or guarding. EXT: No lower extremity edema appreciated. Orthopedic boot in place LLE. SKIN: [employer], dry, warm. No rashes. NEURO: Alert and oriented x 3. No focal deficits appreciated. EKG 12/02/18 SINUS TACHYCARDIA LOW QRS VOLTAGE NON-SPECIFIC STT ABNORMALITIES SIMILAR TO 12/01/18 No acute disease. Bibasilar interstitial prominence consistent with fibrosis. CT head on 12/01/18 No acute intracranial abnormality. CT lumbar spine on 12/02/18 No traumatic bony abnormality. Degenerative disc disease at multiple levels most pronounced at L4-5. At L4-5, there is moderate central canal stenosis and right-sided neural foraminal narrowing due to disc bulging. A&P: This is a 77-year-old male who admitted to [facility] 12/01/18-12/07/18 with recurrent falls, bilateral lower extremity weakness, unsteady gait, who initially presented hypotensive. Patient subsequently went in to DT while in the hospital. Clinical [place] Withdrawal Assessment for Alcohol (CIWA) protocol was observed. Patient was given Serax, thiamine, folate, multivitamin. Multiple images were done, including CT head, CT lumbar spine, repeat CT head, x-ray of the foot, x-ray of the ankle, and CT of the patient's foot.Orthopedics was consulted,it was determined that patient has partial left peroneus brevis tendon rupture. CAM boot was prescribed by orthopedics. The pt was started on course of Augmentin for dental infection with plan for F/U with oral surgery as outpt. The pt was transferred to the care of ARU, Dr Estrella, 12/07/18. 1. Debility. Mgmt as per ARU. PT/OT/ST as per ARU. Pain control as per ARU. Bowel care as per ARU. Disposition as per ARU. DVT prophylaxis as per ARU. Lovenox SQ. 2. Status post Delirium Tremens. Patient has a history of heavy alcohol use. Last drink was 4 days prior to admission 12/01/18. Continue thiamine, folate, multivitamin. Ativan prn. Continue to encourage cessation 2. Recurrent falls. Alcohol withdrawal versus gait instability, vs left peroneus brevis partial tendon rupture. CT of the lumbar spine has been appreciated with degenerative disc disease CT of the left ankle has been appreciated. Orthopedics has been on consult, was diagnosed with peroneus brevis partial tendon rupture. CAM walking boot and weightbearing as tolerated, as recommended by orthopedics. Further recommendation as per orthopedics. Outpt F/U with Orthopedics. 3. Hypertension. Monitor 4. Chronic obstructive pulmonary disease (COPD). Advair Duoneb as needed. 5. History of abdominal aortic aneurysm repair and stenting. Outpatient followup with Dr Coleman. ASA 325 mg daily. 6. Skin candidiasis, superficial candidiasis. Nystatin powder. 7. Peripheral Neuropathy. Elavil 25 mg HS Gabapentin 400mg TID. 8. Dental infection. Continue Augmentin as per recommended by patient's outpatient dentist. Outpt dental appt. 9. DLP. Zocor 10. Hyponatremia. Resolved. Monitor BMP. Continue with F.R. 11. hypokalemia. Continue supplement. Monitor BMP. 12. Hypomagnesemia. Supplement po QID. Recheck Mag level AM. VS, I&O, 24H, [facility] Vital Signs/I&O Vital Signs Date Time Temp Pulse Resp B/P (MAP) Pulse Ox O2 Delivery O2 Flow Rate FiO2 12/11/18 09:20 123/68 12/11/18 06:27 97.5 64 18 97 Room Air I&O- Last 24 Hours up to 6 AM 12/11/18 06:00 Intake Total 840 ml Output Total 650 ml Balance 190 ml Laboratory Data 24H LABS Laboratory Tests 2 12/11/18 05:45: Immature Granulocyte % (Auto) 0.5, White Blood Count 7.3, Red Blood Count 3.24L, Hemoglobin 11.4L, Hematocrit 33.8L, Mean Corpuscular Volume 104.3H, Mean Corpuscular Hemoglobin 35.2H, Mean Corpuscular Hemoglobin Concent 33.7, Red Cell Distribution Width 11.4L, Platelet Count 254, Neutrophils (%) (Auto) 59.4, Lymphocytes (%) (Auto) 17.3L, Monocytes (%) (Auto) 8.9H, Eosinophils (%) (Auto) 13.5H, Basophils (%) (Auto) 0.4, Neutrophils # (Auto) 4.4, Lymphocytes # (Auto) 1.3L, Monocytes # (Auto) 0.7, Eosinophils # (Auto) 1.0H, Basophils # (Auto) 0.0, Nucleated Red Blood Cells % (auto) 0.0, Anion Gap 8, Glomerular Filtration Rate > 60.0, Blood Urea Nitrogen 6L, Creatinine 0.84, Sodium Level 137, Potassium Level 4.1, Chloride Level 105, Carbon Dioxide Level 24, Calcium Level 8.1L, Ma gnesium Level 1.6L CBC/BMP Laboratory Tests 12/11/18 05:45 Red Blood Count 3.24 L, Mean Corpuscular Volume 104.3 H, Mean Corpuscular Hemoglobin 35.2 H, Mean Corpuscular Hemoglobin Concent 33.7, Red Cell Distribution Width 11.4 L, Neutrophils (%) (Auto) 59.4, Lymphocytes (%) (Auto) 17.3 L, Monocytes (%) (Auto) 8.9 H, Eosinophils (%) (Auto) 13.5 H, Basophils (%) (Auto) 0.4, Neutrophils # (Auto) 4.4, Lymphocytes # (Auto) 1.3 L, Monocytes # (Auto) 0.7, Eosinophils # (Auto) 1.0 H, Basophils # (Auto) 0.0, Calcium Level 8.1 L Microbiology Microbiology 12/07/18 Urine Culture - Final, Complete Sugar Robles Dec 11, 2018 12:04
[2018-12-11 14:00] VITALS: BP 110/58
--- NOTE | 2018-12-11 19:49 | IPNPDOC ---
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 REVIEW OF SYSTEMS: The following is a completed review of systems and has been reviewed. Review of systems otherwise unremarkable. PAIN: Patient self reports no pain EYES: Negative for recent vision changes EARS, NOSE, & THROAT: mild nasal congestion, no dysphagia, no ear pain/hearing loss CARDIOVASCULAR: denies chest pain or palpitations PULMONARY: Negative. Denies shortness of breath. GASTROINTESTINAL: Negative for constipation or diarrhea GENITOURINARY: Negative for dysuria MUSCULOSKELETAL: left Achilles and peroneal tendinopathy NEUROLOGICAL: bilateral essential tremor SKIN: intact PSYCHIATRIC: Unremarkable All other review of systems found to be negative. PHYSICAL EXAMINATION: VITAL SIGNS: Please see below. GENERAL: Pleasant and cooperative. No acute distress. HEENT: PERRL. Extraocular movements intact. Clear conjunctiva CARDIOVASCULAR: Regular rate and rhythm. No murmurs, rubs, or gallops LUNGS: Clear to auscultation bilaterally. +scattered wheezes. No rhonchi ABDOMEN: Soft, nontender, nondistended. Positive bowel sounds. Normal active bowel sounds NEUROLOGICAL: Alert and oriented times three. Cranial nerves II through XII grossly intact. Sensation grossly intact EXTREMITIES: 5\5 strength bilateral upper extremities. 5\5 strength right lower extremity. 5/5 strength in left lower extremity. Mild TTP right lateral malleoli SKIN: intact ASSESSMENT:77-year-old M with past medical history of who presents status post falls with left ankle tendinitis and debility. PLAN: 1. Rehab: PT/OT, mechanical soft due to poor dentition, assess for DME needs, ambulating well with RW- room privileges today 2. Ortho: left Achillis and peroneal tendinopathy, CAM boot and WBAT, ortho consulted 3. Neuro: pmh ETOH abuse, Ativan ordered prn, s/p Serax taper, continue folic acid and will start IM thiamine 4. CV: pmh HTN and diastolic CHF, continue Lisinopril and ASA 325mg, medicine consulted 5. Resp: pmh COPD, continue home meds, will add Duonebs and Incentive spirometry 6. : admission UA and Ucx negative, monitor PVRs 7. DVT ppx: Terrie stocking,admission Dopplers negative, continue Lovenox 40mg daily 8. GI ppx: Protonix 9. Electrolyte: will monitor sodium levels, start oral Magnesium and add vitamin D to enhance absorption 10. Pain: Elavil qHS for pain and/anxiety, on Gabapentin, will consider a taper while here 11. DI- dental infection, continue Augmentin 12. Dispo: 12/14/18, progressing towards goals Allergies Coded Allergies: No Known Allergies (Verified , 07/14/04) Vital Signs Vital Signs Date Time Temp Pulse Resp B/P (MAP) Pulse Ox O2 Delivery O2 Flow Rate FiO2 12/11/18 14:00 98.1 73 20 110/58 (75) 96 12/11/18 06:27 Room Air Laboratory Data CBC/BMP Laboratory Tests 12/11/18 05:45 Red Blood Count 3.24 L, Mean Corpuscular Volume 104.3 H, Mean Corpuscular Hemoglobin 35.2 H, Mean Corpuscular Hemoglobin Concent 33.7, Red Cell Distribution Width 11.4 L, Neutrophils (%) (Auto) 59.4, Lymphocytes (%) (Auto) 17.3 L, Monocytes (%) (Auto) 8.9 H, Eosinophils (%) (Auto) 13.5 H, Basophils (%) (Auto) 0.4, Neutrophils # (Auto) 4.4, Lymphocytes # (Auto) 1.3 L, Monocytes # (Auto) 0.7, Eosinophils # (Auto) 1.0 H, Basophils # (Auto) 0.0, Calcium Level 8.1 L Labs 24H Laboratory Tests 2 12/11/18 05:45: Immature Granulocyte % (Auto) 0.5, White Blood Count 7.3, Red Blood Count 3.24L, Hemoglobin 11.4L, Hematocrit 33.8L, Mean Corpuscular Volume 104.3H, Mean Corpuscular Hemoglobin 35.2H, Mean Corpuscular Hemoglobin Concent 33.7, Red Cell Distribution Width 11.4L, Platelet Count 254, Neutrophils (%) (Auto) 59.4, Lymphocytes (%) (Auto) 17.3L, Monocytes (%) (Auto) 8.9H, Eosinophils (%) (Auto) 13.5H, Basophils (%) (Auto) 0.4, Neutrophils # (Auto) 4.4, Lymphocytes # (Auto) 1.3L, Monocytes # (Auto) 0.7, Eosinophils # (Auto) 1.0H, Basophils # (Auto) 0.0, Nucleated Red Blood Cells % (auto) 0.0, Anion Gap 8, Glomerular Filtration Rate > 60.0, Blood Urea Nitrogen 6L, Creatinine 0.84, Sodium Level 137, Potassium Level 4.1, Chloride Level 105, Carbon Dioxide Level 24, Calcium Level 8.1L, Magnesium Level 1.6L Microbiology Microbiology 12/07/18 Urine Culture - Final, Complete Current Medications Current Medications Current Medications Acetaminophen (Tylenol Tab) 650 mg Q4HP PRN PO MILD PAIN (PS 1-4) Last administered on 12/07/18at 20:35; Start 12/07/18 at 15:30 Albuterol/ Ipratropium (Duoneb (Ipr 0.5mg/Alb 2.5mg)) 3 ml RBID NEB Last a dministered on 12/08/18at 21:04; Start 12/08/18 at 08:00 Amitriptyline HCl (Elavil) 25 mg QHS PO Last administered on 12/10/18at 21:17; Start 12/07/18 at 21:00 Amoxicillin/ Clavulanate Potassium (Augmentin) 875 mg BID PO Last administered on 12/11/18 09:20; Start 12/07/18 at 21:00 Aspirin (Aspirin) 325 mg QHS PO Last administered on 12/10/18 21:17; Start 12/07/18 at 21:00 Enoxaparin Sodium (Lovenox) 40 mg DAILY SC Last administered on 12/11/18 09:19; Start 12/08/18 at 09:00 Fluticasone Propionate (Flonase 0.05% Nasal [place]) 2 spray DAILY NARES Last administered on 12/11/18 09:21; Start 12/08/18 at 09:00 Folic Acid (Folic Acid) 1 mg DAILY PO Last administered on 12/11/18 09:20; Start 12/08/18 at 09:00 Gabapentin (Neurontin) 400 mg TID PO Last administered on 12/11/18at 16:01; Start 12/07/18 at 21:00 Lidocaine/ Diphenhydr/Alum/ Mg/Simeth (Magic Mouthwash) 5ML TIDP PRN SSP DISCOMFORT; Start 12/07/18 at 16:15 Lisinopril (Prinivil) 20 mg DAILY PO Last administered on 12/11/18 09:20; Start 12/08/18 at 09:00 Lorazepam (Ativan) 2 mg Q4HP PRN IM SEIZURES; Start 12/08/18 at 14:15 Lorazepam (Ativan) 2 mg Q4HP PRN IV SEIZURES; Start 12/07/18 at 16:15; Stop 12/08/18 at 14:15; Status DC Magnesium Gluconate (Magnesium Gluconate) 500 mg QID PO Last administered on 12/11/18 18:16; Start 12/07/18 at 17:00 Nystatin (Mycostatin Powder, Nystop) groin BIDP PRN TOP RASH; Start 12/07/18 at 16:15 Potassium Chloride (Micro-K Extencaps) 40 meq DAILY PO Last administered on 12/11/18 09:20; Start 12/08/18 at 09:00 Ramelteon (Rozerem) 8 mg QHS PO Last administered on 12/10/18at 21:17; Start 12/07/18 at 21:00 Salmeterol Xinafoate/ Fluticasone (Advair Hfa 115/ 21) 2 puff BID INH Last administered on 12/11/18 07:28; Start 12/07/18 at 21:00 Simvastatin (Zocor) 20 mg QHS PO Last administered on 12/10/18 21:17; Start 12/07/18 at 21:00 Sodium Chloride ([place] Nasal [place]) 2 spray TID NA Last administered on 12/11/18 09:21; Start 12/08/18 at 09:00 Thiamine HCl (Thiamine HCl) 100 mg DAILY PO ; Start 12/12/18 at 09:00 Thiamine HCl (VITAMIN B1 INJection) 100 mg DAILY IM Last administered on 12/11/18 09:19; Start 12/08/18 at 09:00; Stop 12/11/18 at 10:42; Status DC Vitamin D (Vitamin D) 2,000 units BID PO Last administered on 12/11/18 09:20; Start 12/09/18 at 21:00 IGLESIA TIMMONS MD Dec 11, 2018 19:49
[2018-12-11] MEDS: AMITRIPTYLINE 25 MG TAB PO SCH (20:22)
[2018-12-11] MEDS: ASPIRIN 325 MG TAB PO SCH (20:22)
[2018-12-11] MEDS: SIMVASTATIN 20 MG TAB PO SCH (20:22)
[2018-12-11] MEDS: ACETAMINOPHEN TAB 650MG DOSE (2X325MG) PO PRN (20:22)
[2018-12-11] MEDS: RAMELTEON 8 MG TAB (ROZEREM) PO SCH (20:23)
[2018-12-11 20:30] VITALS: BP 108/53
[2018-12-12 05:56] VITALS: BP 112/56
[2018-12-12 07:21] LABS: HEMATOCRIT 34.7 % (42.0-52.0); HEMOGLOBIN 11.5 g/dl (13.5-17.5); MEAN CORPUSCULAR HEMOGLOBIN 35.8 pg (27.0-33.0); MEAN CORPUSCULAR HGB CONC 33.1 g/dl (32.0-36.5); MEAN CORPUSCULAR VOLUME 108.1 fl (80.0-96.0); PLATELET COUNT, AUTOMATED 252 10^3/uL (150-450); RED BLOOD COUNT 3.21 10^6/uL (4.30-6.10); WHITE BLOOD COUNT 9.1 10^3/uL (4.0-10.0)
[2018-12-12] MEDS: IPRATROPIUM 0.5MG/ALBUTEROL 2.5MG INH SOL UD 3ML (DUONEB)(J7620) NEB SCH ×2 (07:26→20:00)
[2018-12-12] MEDS: ADVAIR HFA 115/21MCG INHALER INH SCH ×2 (07:26→19:30)
[2018-12-12 07:38] LABS: BLOOD UREA NITROGEN 9 MG/DL (7-18); CARBON DIOXIDE LEVEL 25 MEQ/L (21-32); CHLORIDE LEVEL 106 MEQ/L (98-107); CREATININE FOR GFR 1.08 MG/DL (0.70-1.30); GLOMERULAR FILTRATION RATE > 60.0 (>42); GLUCOSE, FASTING 105 MG/DL (70-100); MAGNESIUM LEVEL 1.5 MG/DL (1.8-2.4); POTASSIUM SERUM 4.5 MEQ/L (3.5-5.1); SODIUM LEVEL 136 MEQ/L (136-145)
[2018-12-12] MEDS: THIAMINE 100 MG TAB PO SCH (09:21)
[2018-12-12] MEDS: ENOXAPARIN 40 MG/0.4 ML SYRINGE (J1650) SC SCH (09:21)
[2018-12-12] MEDS: GABAPENTIN 400 MG CAP PO SCH ×3 (09:21→20:01)
[2018-12-12] MEDS: VITAMIN D 1,000 INTERNATIONAL UNITS TABLET PO SCH ×2 (09:21→20:01)
[2018-12-12] MEDS: MAGNESIUM GLUCONATE 500 MG TAB PO SCH ×4 (09:21→20:01)
[2018-12-12] MEDS: FOLIC ACID 1 MG TAB PO SCH (09:21)
[2018-12-12] MEDS: AUGMENTIN 875 MG TAB PO SCH ×2 (09:21→20:01)
[2018-12-12] MEDS: POTASSIUM CHLORIDE 10 MEQ SR TABLET PO SCH (09:22)
[2018-12-12] MEDS: FLUTICASONE PROP 0.05% NASAL SPRAY 16 GM (FLONASE) NARES SCH (09:22)
[2018-12-12] MEDS: LISINOPRIL 20 MG TAB PO SCH ×2 (09:22→09:23)
[2018-12-12] MEDS: SODIUM CHLORIDE NASAL 0.65% SPRAY BTL (OCEAN) SCH ×3 (09:22→20:02)
[2018-12-12 14:00] VITALS: BP 124/62
[2018-12-12] MEDS ORDERED: LOPERAMIDE 2 MG CAP PO PRN (18:15)
--- NOTE | 2018-12-12 19:07 | IPNPDOC ---
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 REVIEW OF SYSTEMS: The following is a completed review of systems and has been reviewed. Review of systems otherwise unremarkable. PAIN: Patient self reports no pain EYES: Negative for recent vision changes EARS, NOSE, & THROAT: mild nasal congestion, no dysphagia, no ear pain/hearing loss CARDIOVASCULAR: denies chest pain or palpitations PULMONARY: Negative. Denies shortness of breath. GASTROINTESTINAL: Negative for constipation or diarrhea GENITOURINARY: Negative for dysuria MUSCULOSKELETAL: left Achilles and peroneal tendinopathy NEUROLOGICAL: bilateral essential tremor SKIN: intact PSYCHIATRIC: Unremarkable All other review of systems found to be negative. PHYSICAL EXAMINATION: VITAL SIGNS: Please see below. GENERAL: Pleasant and cooperative. No acute distress. HEENT: PERRL. Extraocular movements intact. Clear conjunctiva CARDIOVASCULAR: Regular rate and rhythm. No murmurs, rubs, or gallops LUNGS: Clear to auscultation bilaterally. +scattered wheezes. No rhonchi ABDOMEN: Soft, nontender, nondistended. Positive bowel sounds. Normal active bowel sounds NEUROLOGICAL: Alert and oriented times three. Cranial nerves II through XII grossly intact. Sensation grossly intact EXTREMITIES: 5\5 strength bilateral upper extremities. 5\5 strength right lower extremity. 5/5 strength in left lower extremity. Mild TTP right lateral malleoli SKIN: intact ASSESSMENT:77-year-old M with past medical history of who presents status post falls with left ankle tendinitis and debility. PLAN: 1. Rehab: PT/OT, mechanical soft due to poor dentition, assess for DME needs, ambulating Raji-I with RW- will advance to the apartment today 2. Ortho: left Achillis and peroneal tendinopathy, CAM boot and WBAT, ortho con sulted, will need outpatient follow-up and outpatient PT once his boot is removed 3. Neuro: pmh ETOH abuse, Ativan ordered prn, s/p Serax taper, continue folic acid and will start IM thiamine 4. CV: pmh HTN and diastolic CHF, continue Lisinopril and ASA 325mg, medicine consulted, recs appreciated 5. Resp: pmh COPD, continue home meds, will add Duonebs and Incentive spirometry 6. : admission UA and Ucx negative, monitor PVRs 7. DVT ppx: Terrie stocking,admission Dopplers negative, continue Lovenox 40mg daily 8. GI ppx: Protonix-patient reporting loos stool for a few days, will order C. diff assay 9. Electrolyte: will monitor sodium levels, will decrease oral Magnesium as this can cause diarrhea, and continue vitamin D to enhance absorption 10. Pain: Elavil qHS for pain and/anxiety, on Gabapentin, will consider a taper while here 11. DI- dental infection, continue Augmentin 12. Dispo: 12/14/18, progressing towards goals Allergies Coded Allergies: No Known Allergies (Verified , 07/14/04) Vital Signs Vital Signs Date Time Temp Pulse Resp B/P (MAP) Pulse Ox O2 Delivery O2 Flow Rate FiO2 12/12/18 14:00 98.5 67 20 124/62 (82) 97 Room Air Laboratory Data CBC/BMP Laboratory Tests 12/12/18 06:29 Red Blood Count 3.21 L, Mean Corpuscular Volume 108.1 H, Mean Corpuscular Hemoglobin 35.8 H, Mean Corpuscular Hemoglobin Concent 33.1, Red Cell Distribution Width 11.7, Calcium Level 8.0 L Labs 24H Laboratory Tests 2 12/12/18 06:29: Nucleated Red Blood Cells % (auto) 0.0, Anion Gap 5L, Glomerular Filtration Rate > 60.0, Blood Urea Nitrogen 9, Creatinine 1.08, Sodium Level 136, Potassium Level 4.5, Chloride Level 106, Carbon Dioxide Level 25, Calcium Level 8.0L, Magnesium Level 1.5L Microbiology Microbiology 12/07/18 Urine Culture - Final, Complete Current Medications Current Medications Current Medications Acetaminophen (Tylenol Tab) 650 mg Q4HP PRN PO MILD PAIN (PS 1-4) Last administered on 12/11/18at 20:22; Start 12/07/18 at 15:30 Albuterol/ Ipratropium (Duoneb (Ipr 0.5mg/Alb 2.5mg)) 3 ml RBID NEB Last administered on 12/08/18at 21:04; Start 12/08/18 at 08:00 Amitriptyline HCl (Elavil) 25 mg QHS PO Last administered on 12/11/18at 20:22; Start 12/07/18 at 21:00 Amoxicillin/ Clavulanate Potassium (Augmentin) 875 mg BID PO Last administered on 12/12/18 09:21; Start 12/07/18 at 21:00 Aspirin (Aspirin) 325 mg QHS PO Last administered on 12/11/18 20:22; Start 12/07/18 at 21:00 Enoxaparin Sodium (Lovenox) 40 mg DAILY SC Last administered on 12/12/18 09:21; Start 12/08/18 at 09:00 Fluticasone Propionate (Flonase 0.05% Nasal [place]) 2 spray DAILY NARES Last administered on 12/11/18 09:21; Start 12/08/18 at 09:00 Folic Acid (Folic Acid) 1 mg DAILY PO Last administered on 12/12/18 09:21; Start 12/08/18 at 09:00 Gabapentin (Neurontin) 400 mg TID PO Last administered on 12/12/18at 17:35; Start 12/07/18 at 21:00 Lidocaine/ Diphenhydr/Alum/ Mg/Simeth (Magic Mouthwash) 5ML TIDP PRN SSP DISCOMFORT; Start 12/07/18 at 16:15 Lisinopril (Prinivil) 20 mg DAILY PO Last administered on 12/11/18at 09:20; Start 12/08/18 at 09:00 Loperamide HCl (Imodium) 2 mg ASDIRECTED PRN PO DIARRHEA; Start 12/12/18 at 18:15 Lorazepam (Ativan) 2 mg Q4HP PRN IM SEIZURES; Start 12/08/18 at 14:15 Lorazepam (Ativan) 2 mg Q4HP PRN IV SEIZURES; Start 12/07/18 at 16:15; Stop 12/08/18 at 14:15; Status DC Magnesium Gluconate (Magnesium Gluconate) 500 mg QID PO Last administered on 12/12/18at 17:35; Start 12/07/18 at 17:00 Nystatin (Mycostatin Powder, Nystop) groin BIDP PRN TOP RASH; Start 12/07/18 at 16:15 Potassium Chloride (Micro-K Extencaps) 40 meq DAILY PO Last administered on 12/12/18at 09:22; Start 1/18/19 at 09:00 Ramelteon (Rozerem) 8 mg QHS PO Last administered on 12/11/18 20:23; Start 12/07/18 at 21:00 Salmeterol Xinafoate/ Fluticasone (Advair Hfa 115/ 21) 2 puff BID INH Last administered on 12/12/18 07:26; Start 12/07/18 at 21:00 Simvastatin (Zocor) 20 mg QHS PO Last administered on 12/11/18at 20:22; Start 12/07/18 at 21:00 Sodium Chloride ([place] Nasal [place]) 2 spray TID NA Last administered on 12/11/18 20:23; Start 12/08/18 at 09:00 Thiamine HCl (Thiamine HCl) 100 mg DAILY PO Last administered on 12/12/18 09:21; Start 12/12/18 at 09:00 Thiamine HCl (VITAMIN B1 INJection) 100 mg DAILY IM Last administered on 12/11/18 09:19; Start 12/08/18 at 09:00; Stop 12/11/18 at 10:42; Status DC Vitamin D (Vitamin D) 2,000 units BID PO Last administered on 12/12/18 09:21; Start 12/09/18 at 21:00 IGLESIA TIMMONS MD Dec 12, 2018 19:07
[2018-12-12 20:00] VITALS: BP 135/67
[2018-12-12] MEDS: AMITRIPTYLINE 25 MG TAB PO SCH (20:01)
[2018-12-12] MEDS: SIMVASTATIN 20 MG TAB PO SCH (20:01)
[2018-12-12] MEDS: RAMELTEON 8 MG TAB (ROZEREM) PO SCH (20:01)
[2018-12-12] MEDS: ASPIRIN 325 MG TAB PO SCH (20:01)
[2018-12-13 06:00] VITALS: BP 121/61
[2018-12-13] MEDS: IPRATROPIUM 0.5MG/ALBUTEROL 2.5MG INH SOL UD 3ML (DUONEB)(J7620) NEB SCH ×2 (06:16→20:00)
[2018-12-13] MEDS: ADVAIR HFA 115/21MCG INHALER INH SCH ×2 (06:16→21:00)
[2018-12-13 06:43] LABS: BASO # 0.1 10^3/uL (0.0-0.2); BASO % 0.7 % (0.0-1.0); EOS # 1.1 10^3/uL (0.0-0.50); EOS % 15.8 % (0.0-3.0); HEMATOCRIT 33.7 % (42.0-52.0); HEMOGLOBIN 11.1 g/dl (13.5-17.5); LYMPH # 1.1 10^3/uL (1.5-4.5); LYMPH % 15.1 % (24.0-44.0); MEAN CORPUSCULAR HGB CONC 32.9 g/dl (32.0-36.5); MEAN CORPUSCULAR VOLUME 106.3 fl (80.0-96.0); MONO # 0.7 10^3/uL (0.0-0.8); MONO % 9.4 % (0.0-5.0); NEUTROPHILS # 4.1 10^3/uL (1.8-7.7); NEUTROPHILS % 58.3 % (36.0-66.0); PLATELET COUNT, AUTOMATED 261 10^3/uL (150-450); RED BLOOD COUNT 3.17 10^6/uL (4.30-6.10)
[2018-12-13 06:59] LABS: BLOOD UREA NITROGEN 8 MG/DL (7-18); CARBON DIOXIDE LEVEL 22 MEQ/L (21-32); CHLORIDE LEVEL 107 MEQ/L (98-107); GLOMERULAR FILTRATION RATE > 60.0 (>42); GLUCOSE, FASTING 86 MG/DL (70-100); POTASSIUM SERUM 4.6 MEQ/L (3.5-5.1); SODIUM LEVEL 137 MEQ/L (136-145)
[2018-12-13] MEDS: FOLIC ACID 1 MG TAB PO SCH (08:20)
[2018-12-13] MEDS: AUGMENTIN 875 MG TAB PO SCH ×2 (08:21→20:26)
[2018-12-13] MEDS: POTASSIUM CHLORIDE 10 MEQ SR TABLET PO SCH (08:21)
[2018-12-13] MEDS: THIAMINE 100 MG TAB PO SCH (08:21)
[2018-12-13] MEDS: LISINOPRIL 20 MG TAB PO SCH (08:21)
[2018-12-13] MEDS: VITAMIN D 1,000 INTERNATIONAL UNITS TABLET PO SCH ×2 (08:21→20:26)
[2018-12-13] MEDS: GABAPENTIN 400 MG CAP PO SCH ×3 (08:21→20:26)
[2018-12-13] MEDS: ENOXAPARIN 40 MG/0.4 ML SYRINGE (J1650) SC SCH (08:21)
[2018-12-13] MEDS: MAGNESIUM GLUCONATE 500 MG TAB PO SCH (08:21)
[2018-12-13] MEDS: FLUTICASONE PROP 0.05% NASAL SPRAY 16 GM (FLONASE) NARES SCH (08:22)
[2018-12-13] MEDS: SODIUM CHLORIDE NASAL 0.65% SPRAY BTL (OCEAN) SCH ×3 (08:22→20:28)
[2018-12-13 14:00] VITALS: BP 113/55
--- NOTE | 2018-12-13 15:05 | IPNPDOC ---
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 REVIEW OF SYSTEMS: The following is a completed review of systems and has been reviewed. Review of systems otherwise unremarkable. PAIN: Patient self reports no pain EYES: Negative for recent vision changes EARS, NOSE, & THROAT: mild nasal congestion, no dysphagia, no ear pain/hearing loss CARDIOVASCULAR: denies chest pain or palpitations PULMONARY: Negative. Denies shortness of breath. GASTROINTESTINAL: Negative for constipation or diarrhea GENITOURINARY: Negative for dysuria MUSCULOSKELETAL: left Achilles and peroneal tendinopathy NEUROLOGICAL: bilateral essential tremor SKIN: intact PSYCHIATRIC: Unremarkable All other review of systems found to be negative. PHYSICAL EXAMINATION: VITAL SIGNS: Please see below. GENERAL: Pleasant and cooperative. No acute distress. HEENT: PERRL. Extraocular movements intact. Clear conjunctiva CARDIOVASCULAR: Regular rate and rhythm. No murmurs, rubs, or gallops LUNGS: Clear to auscultation bilaterally. +scattered wheezes. No rhonchi ABDOMEN: Soft, nontender, nondistended. Positive bowel sounds. Normal active bowel sounds NEUROLOGICAL: Alert and oriented times three. Cranial nerves II through XII grossly intact. Sensation grossly intact EXTREMITIES: 5\5 strength bilateral upper extremities. 5\5 strength right lower extremity. 5/5 strength in left lower extremity. Mild TTP right lateral malleoli SKIN: intact ASSESSMENT:77-year-old M with past medical history of who presents status post falls with left ankle tendinitis and debility. PLAN: 1. Rehab: PT/OT, mechanical soft due to poor dentition, assess for DME needs, ambulating Raji-I with RW- will advance to the apartment today 2. Ortho: left Achillis and peroneal tendinopathy, CAM boot and WBAT, ortho con sulted, will need outpatient follow-up and outpatient PT once his boot is removed 3. Neuro: pmh ETOH abuse, Ativan ordered prn, s/p Serax taper, continue folic acid and will start IM thiamine 4. CV: pmh HTN and diastolic CHF, continue Lisinopril and ASA 325mg, medicine consulted, recs appreciated 5. Resp: pmh COPD, continue home meds, will add Duonebs and Incentive spirometry 6. : admission UA and Ucx negative, monitor PVRs 7. DVT ppx: Terrie stocking,admission Dopplers negative, continue Lovenox 40mg daily 8. GI ppx: Protonix-patient reporting loos stool for a few days, will order C. diff assay 9. Electrolyte: will monitor sodium levels, will decrease oral Magnesium as this can cause diarrhea, and continue vitamin D to enhance absorption 10. Pain: Elavil qHS for pain and/anxiety, on Gabapentin, will consider a taper while here 11. DI- dental infection, continue Augmentin 12. Dispo: 12/14/18, progressing towards goals Allergies Coded Allergies: No Known Allergies (Verified , 07/14/04) Vital Signs Vital Signs Date Time Temp Pulse Resp B/P (MAP) Pulse Ox O2 Delivery O2 Flow Rate FiO2 12/13/18 14:00 97.0 73 16 113/55 (74) 98 Room Air Laboratory Data CBC/BMP Laboratory Tests 12/13/18 05:22 Red Blood Count 3.17 L, Mean Corpuscular Volume 106.3 H, Mean Corpuscular Hemoglobin 35.0 H, Mean Corpuscular Hemoglobin Concent 32.9, Red Cell Distribution Width 11.3 L, Neutrophils (%) (Auto) 58.3, Lymphocytes (%) (Auto) 15.1 L, Monocytes (%) (Auto) 9.4 H, Eosinophils (%) (Auto) 15.8 H, Basophils (%) (Auto) 0.7, Neutrophils # (Auto) 4.1, Lymphocytes # (Auto) 1.1 L, Monocytes # (Auto) 0.7, Eosinophils # (Auto) 1.1 H, Basophils # (Auto) 0.1, Calcium Level 8.0 L Labs 24H Laboratory Tests 2 12/13/18 05:22: Immature Granulocyte % (Auto) 0.7, White Blood Count 7.0, Red Blood Count 3.17L, Hemoglobin 11.1L, Hematocrit 33.7L, Mean Corpuscular Volume 106.3H, Mean Corpuscular Hemoglobin 35.0H, Mean Corpuscular Hemoglobin Concent 32.9, Red Cell Distribution Width 11.3L, Platelet Count 261, Neutrophils (%) (Auto) 58.3, Lymphocytes (%) (Auto) 15.1L, Monocytes (%) (Auto) 9.4H, Eosinophils (%) (Auto) 15.8H, Basophils (%) (Auto) 0.7, Neutrophils # (Auto) 4.1, Lymphocytes # (Auto) 1.1L, Monocytes # (Auto) 0.7, Eosinophils # (Auto) 1.1H, Basophils # (Auto) 0.1, Nucleated Red Blood Cells % (auto) 0.0, Anion Gap 8, Glomerular Filtration Rate > 60.0, Blood Urea Nitrogen 8, Creatinine 0.90, Sodium Level 137, Potassium Level 4.6, Chloride Level 107, Carbon Dioxide Level 22, Calcium Level 8.0L Microbiology Microbiology 12/12/18 Clostridium difficile (PCR) - Final, Complete 12/07/18 Urine Culture - Final, Complete Current Medications Current Medications Current Medications Acetaminophen (Tylenol Tab) 650 mg Q4HP PRN PO MILD PAIN (PS 1-4) Last administered on 12/11/18 20:22; Start 12/07/18 at 15:30 Albuterol/ Ipratropium (Duoneb (Ipr 0.5mg/Alb 2.5mg)) 3 ml RBID NEB Last administered on 12/08/18 21:04; Start 12/08/18 at 08:00 Amitriptyline HCl (Elavil) 25 mg QHS PO Last administered on 12/12/18 20:01; Start 12/07/18 at 21:00 Amoxicillin/ Clavulanate Potassium (Augmentin) 875 mg BID PO Last administered on 12/13/18 08:21; Start 12/07/18 at 21:00 Aspirin (Aspirin) 325 mg QHS PO Last administered on 12/12/18 20:01; Start 12/07/18 at 21:00 Enoxaparin Sodium (Lovenox) 40 mg DAILY SC Last administered on 12/13/18 08:21; Start 12/08/18 at 09:00; Stop 12/13/18 at 10:26; Status DC Fluticasone Propionate (Flonase 0.05% Nasal [place]) 2 spray DAILY NARES Last administered on 12/13/18 08:22; Start 12/08/18 at 09:00 Folic Acid (Folic Acid) 1 mg DAILY PO Last administered on 12/13/18 08:20; Start 12/08/18 at 09:00 Gabapentin (Neurontin) 400 mg TID PO Last administered on 12/13/18 08:21; Start 12/07/18 at 21:00 Lidocaine/ Diphenhydr/Alum/ Mg/Simeth (Magic Mouthwash) 5ML TIDP PRN SSP DISCOMFORT; Start 12/07/18 at 16:15 Lisinopril (Prinivil) 20 mg DAILY PO Last administered on 12/13/18 08:21; Start 12/08/18 at 09:00 Loperamide HCl (Imodium) 2 mg ASDIRECTED PRN PO DIARRHEA; Start 12/12/18 at 18:15 Lorazepam (Ativan) 2 mg Q4HP PRN IM SEIZURES; Start 12/08/18 at 14:15 Lorazepam (Ativan) 2 mg Q4HP PRN IV SEIZURES; Start 12/07/18 at 16:15; Stop 12/08/18 at 14:15; Status DC Magnesium Gluconate (Magnesium Gluconate) 500 mg DAILY PO ; Start 12/14/18 at 09:00 Magnesium Gluconate (Magnesium Gluconate) 500 mg QID PO Last administered on 12/13/18 08:21; Start 12/07/18 at 17:00; Stop 12/13/18 at 10:26; Status DC Nystatin (Mycostatin Powder, Nystop) groin BIDP PRN TOP RASH; Start 12/07/18 at 16:15 Potassium Chloride (Micro-K Extencaps) 40 meq DAILY PO Last administered on 12/13/18 08:21; Start 12/08/18 at 09:00 Ramelteon (Rozerem) 8 mg QHS PO Last administered on 12/12/18 20:01; Start 12/07/18 at 21:00 Salmeterol Xinafoate/ Fluticasone (Advair Hfa 115/ 21) 2 puff BID INH Last administered on 12/13/18 06:16; Start 12/07/18 at 21:00 Simvastatin (Zocor) 20 mg QHS PO Last administered on 12/12/18 20:01; Start 12/07/18 at 21:00 Sodium Chloride ([place] Nasal [place]) 2 spray TID NA Last administered on 12/13/18 08:22; Start 1/18/19 at 09:00 Thiamine HCl (Thiamine HCl) 100 mg DAILY PO Last administered on 12/13/18at 08:21; Start 12/12/18 at 09:00 Thiamine HCl (VITAMIN B1 INJection) 100 mg DAILY IM Last administered on 12/11/18at 09:19; Start 12/08/18 at 09:00; Stop 12/11/18 at 10:42; Status DC Vitamin D (Vitamin D) 2,000 units BID PO Last administered on 12/13/18at 08:21; Start 12/09/18 at 21:00 IGLESIA TIMMONS MD Dec 13, 2018 15:05
--- NOTE | 2018-12-13 15:38 | IPNPDOC ---
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 REVIEW OF SYSTEMS: The following is a completed review of systems and has been reviewed. Review of systems otherwise unremarkable. PAIN: Patient self reports no pain EYES: Negative for recent vision changes EARS, NOSE, & THROAT: mild nasal congestion, no dysphagia, no ear pain/hearing loss CARDIOVASCULAR: denies chest pain or palpitations PULMONARY: Negative. Denies shortness of breath. GASTROINTESTINAL: Negative for constipation or diarrhea GENITOURINARY: Negative for dysuria MUSCULOSKELETAL: left Achilles and peroneal tendinopathy NEUROLOGICAL: bilateral essential tremor SKIN: intact PSYCHIATRIC: Unremarkable All other review of systems found to be negative. PHYSICAL EXAMINATION: VITAL SIGNS: Please see below. GENERAL: Pleasant and cooperative. No acute distress. HEENT: PERRL. Extraocular movements intact. Clear conjunctiva CARDIOVASCULAR: Regular rate and rhythm. No murmurs, rubs, or gallops LUNGS: Clear to auscultation bilaterally. +scattered wheezes. No rhonchi ABDOMEN: Soft, nontender, nondistended. Positive bowel sounds. Normal active bowel sounds NEUROLOGICAL: Alert and oriented times three. Cranial nerves II through XII grossly intact. Sensation grossly intact EXTREMITIES: 5\5 strength bilateral upper extremities. 5\5 strength right lower extremity. 5/5 strength in left lower extremity. Mild TTP right lateral malleoli SKIN: intact ASSESSMENT:77-year-old M with past medical history of who presents status post falls with left ankle tendinitis and debility. PLAN: 1. Rehab: PT/OT, mechanical soft due to poor dentition, assess for DME needs, ambulating Raji-I with RW- continue apartment stay 2. Ortho: left Achillis and peroneal tendinopathy, CAM boot and WBAT, ortho consulted, will need outpatient follow-up and outpatient PT once his boot is removed 3. Neuro: pmh ETOH abuse, Ativan ordered prn, s/p Serax taper, continue folic acid and will start IM thiamine 4. CV: pmh HTN and diastolic CHF, continue Lisinopril and ASA 325mg, medicine consulted, recs appreciated 5. Resp: pmh COPD, continue home meds, will add Duonebs and Incentive spirometry 6. : admission UA and Ucx negative, monitor PVRs 7. DVT ppx: Terrie stocking,admission Dopplers negative, continue Lovenox 40mg daily 8. GI ppx: Protonix- loose stools resolved, and C diff assay negative, patient reports he stopped drinking prune juice in the morning 9. Electrolyte: will monitor sodium levels, continue lower dose of oral Magnesium continue vitamin D to enhance absorption 10. Pain: Elavil qHS for pain and/anxiety, on Gabapentin, will consider a taper while here 11. DI- dental infection, continue Augmentin 12. Dispo: 12/14/18, progressing towards goals Allergies Coded Allergies: No Known Allergies (Verified , 07/14/04) Vital Signs Vital Signs Date Time Temp Pulse Resp B/P (MAP) Pulse Ox O2 Delivery O2 Flow Rate FiO2 12/13/18 14:00 97.0 73 16 113/55 (74) 98 Room Air Laboratory Data CBC/BMP Laboratory Tests 12/13/18 05:22 Red Blood Count 3.17 L, Mean Corpuscular Volume 106.3 H, Mean Corpuscular Hemoglobin 35.0 H, Mean Corpuscular Hemoglobin Concent 32.9, Red Cell Distribution Width 11.3 L, Neutrophils (%) (Auto) 58.3, Lymphocytes (%) (Auto) 15.1 L, Monocytes (%) (Auto) 9.4 H, Eosinophils (%) (Auto) 15.8 H, Basophils (%) (Auto) 0.7, Neutrophils # (Auto) 4.1, Lymphocytes # (Auto) 1.1 L, Monocytes # (Auto) 0.7, Eosinophils # (Auto) 1.1 H, Basophils # (Auto) 0.1, Calcium Level 8.0 L Labs 24H Laboratory Tests 2 12/13/18 05:22: Immature Granulocyte % (Auto) 0.7, White Blood Count 7.0, Red Blood Count 3.17L, Hemoglobin 11.1L, Hematocrit 33.7L, Mean Corpuscular Volume 106.3H, Mean Corpuscular Hemoglobin 35.0H, Mean Corpuscular Hemoglobin Concent 32.9, Red Cell Distribution Width 11.3L, Platelet Count 261, Neutrophils (%) (Auto) 58.3, Lymphocytes (%) (Auto) 15.1L, Monocytes (%) (Auto) 9.4H, Eosinophils (%) (Auto) 15.8H, Basophils (%) (Auto) 0.7, Neutrophils # (Auto) 4.1, Lymphocytes # (Auto) 1.1L, Monocytes # (Auto) 0.7, Eosinophils # (Auto) 1.1H, Basophils # (Auto) 0.1, Nucleated Red Blood Cells % (auto) 0.0, Anion Gap 8, Glomerular Filtration Rate > 60.0, Blood Urea Nitrogen 8, Creatinine 0.90, Sodium Level 137, Potassium Level 4.6, Chloride Level 107, Carbon Dioxide Level 22, Calcium Level 8.0L Microbiology Microbiology 12/12/18 Clostridium difficile (PCR) - Final, Complete 12/07/18 Urine Culture - Final, Complete Current Medications Current Medications Current Medications Acetaminophen (Tylenol Tab) 650 mg Q4HP PRN PO MILD PAIN (PS 1-4) Last administered on 12/11/18at 20:22; Start 12/07/18 at 15:30 Albuterol/ Ipratropium (Duoneb (Ipr 0.5mg/Alb 2.5mg)) 3 ml RBID NEB Last administered on 12/08/18at 21:04; Start 12/08/18 at 08:00 Amitriptyline HCl (Elavil) 25 mg QHS PO Last administered on 12/12/18 20:01; Start 12/07/18 at 21:00 Amoxicillin/ Clavulanate Potassium (Augmentin) 875 mg BID PO Last administered on 12/13/18 08:21; Start 12/07/18 at 21:00 Aspirin (Aspirin) 325 mg QHS PO Last administered on 12/12/18at 20:01; Start 12/07/18 at 21:00 Enoxaparin Sodium (Lovenox) 40 mg DAILY SC Last administered on 12/13/18 08:21; Start 12/08/18 at 09:00; Stop 12/13/18 at 10:26; Status DC Fluticasone Propionate (Flonase 0.05% Nasal [place]) 2 spray DAILY NARES Last administered on 12/13/18 08:22; Start 12/08/18 at 09:00 Folic Acid (Folic Acid) 1 mg DAILY PO Last administered on 12/13/18at 08:20; Start 12/08/18 at 09:00 Gabapentin (Neurontin) 400 mg TID PO Last administered on 12/13/18 08:21; Start 12/07/18 at 21:00 Lidocaine/ Diphenhydr/Alum/ Mg/Simeth (Magic Mouthwash) 5ML TIDP PRN SSP DISCOMFORT; Start 12/07/18 at 16:15 Lisinopril (Prinivil) 20 mg DAILY PO Last administered on 12/13/18 08:21; Start 12/08/18 at 09:00 Loperamide HCl (Imodium) 2 mg ASDIRECTED PRN PO DIARRHEA; Start 12/12/18 at 18:15 Lorazepam (Ativan) 2 mg Q4HP PRN IM SEIZURES; Start 12/08/18 at 14:15 Lorazepam (Ativan) 2 mg Q4HP PRN IV SEIZURES; Start 12/07/18 at 16:15; Stop 12/08/18 at 14:15; Status DC Magnesium Gluconate (Magnesium Gluconate) 500 mg DAILY PO ; Start 12/14/18 at 09:00 Magnesium Gluconate (Magnesium Gluconate) 500 mg QID PO Last administered on 12/13/18 08:21; Start 12/07/18 at 17:00; Stop 12/13/18 at 10:26; Status DC Nystatin (Mycostatin Powder, Nystop) groin BIDP PRN TOP RASH; Start 12/07/18 at 16:15 Potassium Chloride (Micro-K Extencaps) 40 meq DAILY PO Last administered on 12/13/18 08:21; Start 12/08/18 at 09:00 Ramelteon (Rozerem) 8 mg QHS PO Last administered on 12/12/18 20:01; Start 12/07/18 at 21:00 Salmeterol Xinafoate/ Fluticasone (Advair Hfa 115/ 21) 2 puff BID INH Last administered on 12/13/18 06:16; Start 12/07/18 at 21:00 Simvastatin (Zocor) 20 mg QHS PO Last administered on 12/12/18 20:01; Start 12/07/18 at 21:00 Sodium Chloride ([place] Nasal [place]) 2 spray TID NA Last administered on 12/13/18 08:22; Start 12/08/18 at 09:00 Thiamine HCl (Thiamine HCl) 100 mg DAILY PO Last administered on 12/13/18at 08:21; Start 12/12/18 at 09:00 Thiamine HCl (VITAMIN B1 INJection) 100 mg DAILY IM Last administered on 12/11/18at 09:19; Start 12/08/18 at 09:00; Stop 12/11/18 at 10:42; Status DC Vitamin D (Vitamin D) 2,000 units BID PO Last administered on 12/13/18at 08:21; Start 12/09/18 at 21:00 IGLESIA TIMMONS MD Dec 13, 2018 15:38
[2018-12-13] MEDS: ASPIRIN 325 MG TAB PO SCH (20:26)
[2018-12-13] MEDS: SIMVASTATIN 20 MG TAB PO SCH (20:26)
[2018-12-13] MEDS: AMITRIPTYLINE 25 MG TAB PO SCH (20:26)
[2018-12-13] MEDS: RAMELTEON 8 MG TAB (ROZEREM) PO SCH (20:26)
[2018-12-13] MEDS: ACETAMINOPHEN TAB 650MG DOSE (2X325MG) PO PRN (20:32)
[2018-12-13 21:00] VITALS: BP 117/60
[2018-12-14 06:00] VITALS: BP 143/77
[2018-12-14] MEDS: IPRATROPIUM 0.5MG/ALBUTEROL 2.5MG INH SOL UD 3ML (DUONEB)(J7620) NEB SCH (08:00)
[2018-12-14] MEDS: ADVAIR HFA 115/21MCG INHALER INH SCH (08:10)
[2018-12-14] MEDS ORDERED: MAGNESIUM GLUCONATE 500 MG TAB PO SCH (09:00)
[2018-12-14 09:39] VITALS: BP 143/77
[2018-12-14] MEDS: SODIUM CHLORIDE NASAL 0.65% SPRAY BTL (OCEAN) SCH (09:39)
[2018-12-14] MEDS: FOLIC ACID 1 MG TAB PO SCH (09:39)
[2018-12-14] MEDS: POTASSIUM CHLORIDE 10 MEQ SR TABLET PO SCH (09:39)
[2018-12-14] MEDS: THIAMINE 100 MG TAB PO SCH (09:39)
[2018-12-14] MEDS: LISINOPRIL 20 MG TAB PO SCH (09:39)
[2018-12-14] MEDS: GABAPENTIN 400 MG CAP PO SCH (09:39)
[2018-12-14] MEDS: VITAMIN D 1,000 INTERNATIONAL UNITS TABLET PO SCH (09:39)
[2018-12-14] MEDS: AUGMENTIN 875 MG TAB PO SCH (09:39)
[2018-12-14] MEDS: FLUTICASONE PROP 0.05% NASAL SPRAY 16 GM (FLONASE) NARES SCH (09:40)
[2018-12-14] MEDS ORDERED: GABA-845 PO (11:14)
[2018-12-14] MEDS ORDERED: AUGM875T28 PO (11:14)
[2018-12-14] MEDS ORDERED: FOLI1TAB11 PO (11:14)
[2018-12-14] MEDS ORDERED: LISI-538 PO (11:14)
[2018-12-14] MEDS ORDERED: VITAD1000T PO (11:14)
[2018-12-14] MEDS ORDERED: MAGN50TA PO (11:14)
[2018-12-14] MEDS ORDERED: AMIT25TA PO (11:14)
[2018-12-14] MEDS ORDERED: THIA100TA PO (11:14)
[2018-12-14] MEDS ORDERED: KLOR10TA76 PO (11:14)
[2018-12-14] MEDS ORDERED: SIMV20TA2 PO (11:14)
[2018-12-14] MEDS ORDERED: ASPI325T PO (11:14)
--- NOTE | 2018-12-25 14:58 | PMRDS ---
DATE OF ADMISSION: 12/07/2018 DATE OF DISCHARGE: 12/14/2018 CHIEF COMPLAINT/DISCHARGE DIAGNOSIS: Falls with debility. HISTORY OF PRESENT ILLNESS: This is a 77-year-old man with past medical history of hypertension, chronic obstructive pulmonary disease (COPD), and EtOH abuse with increasing unsteadiness at home with multiple falls, who presents to [facility] emergency department on 12/02/2018 complaining of feeling unsteady. Initial EKG showed nonspecific ST changes with supraventricular premature complexes with CT head showing "there is chronic microvascular disease. There is no acute lesion or injury." He reported having had his last drink five days prior and was started on Serax and given thiamine, folate and multivitamins for delirium tremens prevention. Echocardiogram showed "borderline concentric left ventricular hypertrophy with normal wall motion. Mildly dilated left atrium with impairment of LV diastolic function. He complained of left ankle pain and x-ray revealed "heel spurring. Vascular calcification. Diffuse thickness tear of the peroneus brevis tendon in association with an anatomically enlarged peroneal tubercle and with anterior dislocation of the tendon relative to the tubercle as described.... mild peroneus longus tendinosis." He was evaluated by orthopedics who recommended at CAM boot and weightbearing as tolerated precautions. He had low serum magnesium levels and hyponatremia for which he was given supplementation and fluids. Of note, he was also being treated with Augmentin for a dental infection. He was evaluated by therapy and found to have difficulty with ambulation and activities of daily living (ADL) and deemed medically appropriate for discharge to ARU on 12/07/2018. PAST MEDICAL HISTORY: Hypertension. EtOH abuse. Systolic and diastolic heart failure. HOSPITAL COURSE: Patient was admitted and enrolled in a comprehensive physical therapy/occupational therapy (PT/OT) program. He received 24 hour nursing supervision and weekly team meetings were held. During his hospital course he maintained his weightbearing status with a CAM boot and ambulated with a rolling walker. He was maintained on folic acid and IM thiamine for his history of EtOH abuse. He did not demonstrate any signs of delirium tremens during his hospital course. He was maintained on aspirin and lisinopril for his hypertension and diastolic heart failure. Medicine was consulted to assist with management. He received DuoNebs and was encouraged to use incentive spirometry for his history of chronic obstructive pulmonary disease (COPD). Admission urinalysis and urine culture were negative and he voided well. He was started on Lovenox daily for deep vein thrombosis (DVT) prophylaxis and maintained on oral magnesium. DISCHARGE MEDICATIONS: - gabapentin - magnesium - potassium - thiamine - vitamin D - Elavil - Augmentin - aspirin - folic acid - lisinopril - Advair - simvastatin FUNCTIONAL HISTORY UPON DISCHARGE: The patient was modified independent with all functional transfers and ambulation using a rolling walker. He is able to ambulate 300 feet without fatiguing and was able to spend two nights in the apartment. He was also modified independent in all of his activities of daily living. He was discharged to home with a script for outpatient physical therapy and with home services.
== END 2018-12-14 12:50 | disposition home or self-care (01) | DRG 92 ==
LOC: M PM&R 15:10
PROVIDERS: ADMIT Physical Medicine & Rehabilitation; ATTEND Physical Medicine & Rehabilitation
DX: R26.81 Unsteadiness on feet (principal); I50.42 Chronic combined systolic (congestive) and diastolic (congestive) heart failure; E87.1 Hypo-osmolality and hyponatremia; I11.0 Hypertensive heart disease with heart failure; M76.62 Achilles tendinitis, left leg; F10.10 Alcohol abuse, uncomplicated; J44.9 Chronic obstructive pulmonary disease, unspecified; R29.6 Repeated falls; B37.2 Candidiasis of skin and nail; E87.6 Hypokalemia; E66.9 Obesity, unspecified; M77.32 Calcaneal spur, left foot; K04.7 Periapical abscess without sinus; Z79.82 Long term (current) use of aspirin; Z79.899 Other long term (current) drug therapy

== ENCOUNTER → 2018-12-26 | Outpatient (REF) | payer MEDICARE, OTHER ==
[~2018-12-26] MED LIST changes: +GABA-845 PO; +MAGN50TA PO; +THIA100TA PO; +VITAD1000T PO
[2018-12-26 15:11] LABS: BASO # 0.1 10^3/uL (0.0-0.2); BASO % 1.6 % (0.0-1.0); EOS # 1.5 10^3/uL (0.0-0.50); EOS % 19.2 % (0.0-3.0); HEMATOCRIT 42.1 % (42.0-52.0); HEMOGLOBIN 13.6 g/dl (13.5-17.5); LYMPH # 1.6 10^3/uL (1.5-4.5); LYMPH % 21.3 % (24.0-44.0); MEAN CORPUSCULAR HEMOGLOBIN 34.4 pg (27.0-33.0); MEAN CORPUSCULAR HGB CONC 32.3 g/dl (32.0-36.5); MEAN CORPUSCULAR VOLUME 106.6 fl (80.0-96.0); MONO # 0.7 10^3/uL (0.0-0.8); MONO % 9.3 % (0.0-5.0); NEUTROPHILS # 3.7 10^3/uL (1.8-7.7); NEUTROPHILS % 48.3 % (36.0-66.0); PLATELET COUNT, AUTOMATED 245 10^3/uL (150-450); RED BLOOD COUNT 3.95 10^6/uL (4.30-6.10); WHITE BLOOD COUNT 7.7 10^3/uL (4.0-10.0)
[2018-12-26 15:34] LABS: ALT/SGPT 27 U/L (12-78); BILIRUBIN,TOTAL 0.6 MG/DL (0.2-1.0); BLOOD UREA NITROGEN 9 MG/DL (7-18); CALCIUM LEVEL 8.5 MG/DL (8.8-10.2); CARBON DIOXIDE LEVEL 29 MEQ/L (21-32); CHLORIDE LEVEL 104 MEQ/L (98-107); CREATININE FOR GFR 0.94 MG/DL (0.70-1.30); FREE T4 1.03 NG/DL (0.76-1.46); GLOMERULAR FILTRATION RATE > 60.0 (>35); GLUCOSE, FASTING 98 MG/DL (70-100); POTASSIUM SERUM 4.3 MEQ/L (3.5-5.1); SODIUM LEVEL 140 MEQ/L (136-145); TOTAL PROTEIN 6.4 GM/DL (6.4-8.2)
== END ==
LOC: M LABDRWAD 12:12
PROVIDERS: ATTEND Physician Assistant
DX: R53.1 Weakness (principal); R94.6 Abnormal results of thyroid function studies

== ENCOUNTER → 2019-01-10 | Outpatient (REF) | payer MEDICARE, OTHER ==
[2019-01-10 17:29] LABS: INR 0.94; PROTHROMBIN TIME 12.7 SECONDS (12.1-14.4)
[2019-01-10 17:31] LABS: PARTIAL THROMBOPLASTIN TIME 74.5 SECONDS (25.4-37.6)
== END ==
LOC: M LABDRWAD 15:22
PROVIDERS: ATTEND Physician Assistant
DX: K02.9 Dental caries, unspecified (principal)

== ENCOUNTER → 2019-02-25 | Outpatient (CLI) | payer MEDICARE, OTHER ==
[~2019-02-25] MED LIST changes: +ASPI-1 PO; -ASPI325T PO
[2019-02-25 18:58] LABS: BASO % 0.6 % (0.0-1.0); EOS # 0.2 10^3/uL (0.0-0.50); EOS % 3.5 % (0.0-3.0); HEMATOCRIT 43.9 % (42.0-52.0); HEMOGLOBIN 14.1 g/dl (13.5-17.5); LYMPH # 1.3 10^3/uL (1.5-4.5); LYMPH % 19.4 % (24.0-44.0); MEAN CORPUSCULAR HGB CONC 32.1 g/dl (32.0-36.5); MEAN CORPUSCULAR VOLUME 99.5 fl (80.0-96.0); MONO # 0.7 10^3/uL (0.0-0.8); MONO % 11.4 % (0.0-5.0); NEUTROPHILS # 4.2 10^3/uL (1.8-7.7); NEUTROPHILS % 64.8 % (36.0-66.0); PLATELET COUNT, AUTOMATED 201 10^3/uL (150-450); RED BLOOD COUNT 4.41 10^6/uL (4.30-6.10); WHITE BLOOD COUNT 6.5 10^3/uL (4.0-10.0)
[2019-02-25 19:02] LABS: MONO REFLEX EBV COMP NEGATIVE (NEGATIVE)
[2019-02-25 19:10] LABS: ALBUMIN 3.2 GM/DL (3.2-5.2); ALT/SGPT 15 U/L (12-78); BILIRUBIN,TOTAL 0.5 MG/DL (0.2-1.0); BLOOD UREA NITROGEN 6 MG/DL (7-18); CALCIUM LEVEL 8.6 MG/DL (8.8-10.2); CARBON DIOXIDE LEVEL 33 MEQ/L (21-32); CHLORIDE LEVEL 103 MEQ/L (98-107); CREATININE FOR GFR 0.79 MG/DL (0.70-1.30); GLOMERULAR FILTRATION RATE > 60.0 (>35); GLUCOSE, FASTING 195 MG/DL (70-100); POTASSIUM SERUM 4.1 MEQ/L (3.5-5.1); SODIUM LEVEL 140 MEQ/L (136-145); TOTAL PROTEIN 6.5 GM/DL (6.4-8.2)
[2019-02-28 00:07] LABS: EBV VIRAL CAPSID AG IgG >600.0 U/mL (0.0-17.9); EBV VIRAL CAPSID AG IgM <36.0 U/mL (0.0-35.9); Lyme Disease IgG/IgM Antibodie <0.91 ISR (0.00-0.90); Lyme Disease IgM Ab Quantitati <0.80 index (0.00-0.79)
== END ==
LOC: M LABDRWAD 13:33
PROVIDERS: ATTEND Physician Assistant Medical
DX: R42 Dizziness and giddiness (principal)

== ENCOUNTER → 2019-03-05 | Outpatient (REF) | payer MEDICARE, OTHER ==
[2019-03-05 20:46] LABS: FREE T4 0.96 NG/DL (0.76-1.46); THYROID STIMULATING HORMONE 4.93 uIU/ML (0.358-3.740)
== END ==
LOC: M LAB REF 15:15
PROVIDERS: ATTEND Physician Assistant
DX: R94.6 Abnormal results of thyroid function studies (principal)

== ENCOUNTER → 2019-03-22 | Outpatient (REF) | payer MEDICARE, OTHER ==
[2019-03-22 19:34] LABS: BLOOD UREA NITROGEN 7 MG/DL (7-18); CREATININE FOR GFR 0.76 MG/DL (0.70-1.30); GLOMERULAR FILTRATION RATE > 60.0 (>35)
== END ==
LOC: M LABDRWAD 18:59
PROVIDERS: ATTEND Physician Assistant
DX: Z01.812 Encounter for preprocedural laboratory examination (principal)

== ENCOUNTER → 2019-04-30 | Outpatient (REF) | payer MEDICARE, OTHER ==
[2019-04-30 13:40] LABS: HEMOGLOBIN A1c 6.8 %
[2019-04-30 13:51] LABS: ALBUMIN 3.2 GM/DL (3.2-5.2); ALT/SGPT 18 U/L (12-78); BILIRUBIN,TOTAL 1.3 MG/DL (0.2-1.0); BLOOD UREA NITROGEN 11 MG/DL (7-18); CALCIUM LEVEL 9.4 MG/DL (8.8-10.2); CARBON DIOXIDE LEVEL 31 MEQ/L (21-32); CHLORIDE LEVEL 97 MEQ/L (98-107); CREATININE FOR GFR 0.98 MG/DL (0.70-1.30); GLOMERULAR FILTRATION RATE > 60.0 (>35); GLUCOSE, FASTING 115 MG/DL (70-100); POTASSIUM SERUM 4.6 MEQ/L (3.5-5.1); SODIUM LEVEL 135 MEQ/L (136-145); TOTAL PROTEIN 6.8 GM/DL (6.4-8.2)
== END ==
LOC: M LABDRWAD 12:27
PROVIDERS: ATTEND Physician Assistant
DX: R73.01 Impaired fasting glucose (principal); E03.9 Hypothyroidism, unspecified

== ENCOUNTER → 2019-06-21 | Outpatient (REF) | payer MEDICARE, OTHER ==
[2019-06-23 00:06] LABS: Lyme Disease IgG/IgM Antibodie <0.91 ISR (0.00-0.90); Lyme Disease IgM Ab Quantitati <0.80 index (0.00-0.79)
== END ==
LOC: M LABDRWAD 12:13
PROVIDERS: ATTEND Physician Assistant
DX: M12.9 Arthropathy, unspecified (principal)

== ENCOUNTER → 2019-08-27 | Outpatient (REF) | payer MEDICARE, OTHER ==
[~2019-08-27] MED LIST changes: -ASPI-222 PO; +ASPI-527 PO; +CHOL100029 PO; +CIDA500T2 PO; +MAGN1CAP PO; -SIMV20TA2 PO; +SIMV20TA22 PO; -VITAD1000T PO
[2019-08-27 14:02] LABS: ALBUMIN 3.3 GM/DL (3.2-5.2); ALT/SGPT 71 U/L (12-78); BILIRUBIN,TOTAL 1.3 MG/DL (0.2-1.0); BLOOD UREA NITROGEN 11 MG/DL (7-18); CALCIUM LEVEL 9.1 MG/DL (8.8-10.2); CARBON DIOXIDE LEVEL 30 MEQ/L (21-32); CHLORIDE LEVEL 97 MEQ/L (98-107); CHOLESTEROL LEVEL 136 MG/DL (<200); CHOLESTEROL RISK RATIO 2.615 (<5); CREATININE FOR GFR 1.05 MG/DL (0.70-1.30); FREE T4 0.84 NG/DL (0.76-1.46); GLOMERULAR FILTRATION RATE > 60.0 (>35); GLUCOSE, FASTING 138 MG/DL (70-100); HDL CHOLESTEROL 52 MG/DL (>40); LDL CHOLESTEROL 41 MG/DL (<100); NON-HDL-C 84 MG/DL; POTASSIUM SERUM 4.4 MEQ/L (3.5-5.1); SODIUM LEVEL 136 MEQ/L (136-145); TOTAL PROTEIN 6.8 GM/DL (6.4-8.2); TRIGLYCERIDES LEVEL 213 MG/DL (<150)
[2019-08-27 14:03] LABS: HEMOGLOBIN A1c 6.7 %
== END ==
LOC: M LABDRWAD 13:03
PROVIDERS: ATTEND Physician Assistant
DX: R73.01 Impaired fasting glucose (principal); E03.9 Hypothyroidism, unspecified; E78.2 Mixed hyperlipidemia

== ENCOUNTER 2019-10-08 18:58 | Emergency (ER) | payer MEDICARE, OTHER ==
[~2019-10-08] VITALS: Ht 175.3 cm; Wt 104.5 kg
[~2019-10-08 18:58] MED LIST changes: -CIDA500T2 PO; -MAGN1CAP PO; +SIMV20TA2 PO; -SIMV20TA22 PO
[2019-10-08] MEDS ORDERED: GABA600T4 PO (19:21)
[2019-10-08] MEDS ORDERED: CIDA500T2 PO (19:23)
[2019-10-08] MEDS ORDERED: MAGN1CAP PO (19:23)
[2019-10-08 19:50] LABS: BASO # 0.1 10^3/uL (0.0-0.2); EOS # 0.6 10^3/uL (0.0-0.5); EOS % 8.8 % (0.0-3.0); HEMATOCRIT 40.9 % (42.0-52.0); HEMOGLOBIN 13.6 g/dl (13.5-17.5); LYMPH # 1.3 10^3/uL (1.5-5.0); LYMPH % 21.4 % (24.0-44.0); MEAN CORPUSCULAR HEMOGLOBIN 34.8 pg (27.0-33.0); MEAN CORPUSCULAR HGB CONC 33.3 g/dl (32.0-36.5); MEAN CORPUSCULAR VOLUME 104.6 fl (80.0-96.0); MONO # 0.8 10^3/uL (0.0-0.8); MONO % 12.4 % (0.0-5.0); NEUTROPHILS # 3.5 10^3/uL (1.5-8.5); NEUTROPHILS % 55.6 % (36.0-66.0); PLATELET COUNT, AUTOMATED 173 10^3/uL (150-450); RED BLOOD COUNT 3.91 10^6/uL (4.30-6.10); WHITE BLOOD COUNT 6.3 10^3/uL (4.0-10.0)
[2019-10-08 20:00] LABS: INR 1.13; PROTHROMBIN TIME 14.2 SECONDS (11.8-14.0)
[2019-10-08 20:02] LABS: PARTIAL THROMBOPLASTIN TIME 64.8 SECONDS (25.0-38.4)
[2019-10-08 20:20] LABS: BLOOD UREA NITROGEN 14 MG/DL (7-18); CALCIUM LEVEL 8.5 MG/DL (8.8-10.2); CARBON DIOXIDE LEVEL 29 MEQ/L (21-32); CHLORIDE LEVEL 99 MEQ/L (98-107); CK-MB VALUE MASS 1.6 NG/ML (<3.6); CPK CREATINE PHOSPHOKINASE 79 U/L (39-308); CREATININE FOR GFR 1.44 MG/DL (0.70-1.30); FREE T4 0.75 NG/DL (0.76-1.46); GLOMERULAR FILTRATION RATE 50.2 (>35); GLUCOSE, FASTING 166 MG/DL (70-100); MB/CK RELATIVE INDEX 2.03 (< OR =4); POTASSIUM SERUM 4.2 MEQ/L (3.5-5.1); SODIUM LEVEL 137 MEQ/L (136-145); TROPONIN I < 0.02 NG/ML (< 0.10)
[2019-10-08 21:12] LABS: NT-PRO BNP 153 PG/ML (<450)
--- NOTE | 2019-10-08 21:54 | REPVR ---
PROCEDURE INFORMATION: Exam: CT Chest Without Contrast Exam date and time: 10/08/2019 9:01 PM Clinical history: 78 years old, male; Cough; Additional info: Chf TECHNIQUE: Imaging protocol: Computed tomography of the chest without contrast. 3D rendering: MIP reconstructed images were created and reviewed. Radiation optimization: All CT scans at this facility use at least one of these dose optimization techniques: automated exposure control; mA and/or kV adjustment per patient size (includes targeted exams where dose is matched to clinical indication); or iterative reconstruction. COMPARISON: CR Chest, 2 view PA, Lat 10/08/2019 7:53 PM FINDINGS: Lungs: Chronic interstitial changes in lungs. No airspace infiltrates or masses. Pleural space: Unremarkable. No pneumothorax. No pleural effusion. Heart: Advanced coronary artery atherosclerotic disease is present. Aorta: Unremarkable. No aortic aneurysm. Lymph nodes: Unremarkable. No enlarged lymph nodes. Liver: The liver is low attenuation indicating hepatic steatosis. Kidneys and ureters: Left kidney is atrophic. Bones/joints: Skeletal degenerative changes are noted. Soft tissues: Unremarkable. IMPRESSION: 1. Hepatic steatosis. 2. Chronic interstitial lung disease. 3. Atrophic left kidney. 4. Coronary artery disease. 5. No acute findings. Electronically signed by: Javier Thacker On 10/08/2019 21:54:10 PM
[2019-10-08] MEDS ORDERED: NS 500 ML IV ONE (22:45)
[2019-10-08 23:30] VITALS: BP 147/78
--- NOTE | 2019-10-09 07:39 | ECGEPIP ---
[facility] - ED Test Date: 2019-10-08 Pat Name: NOE VEGA Department: Room: - Gender: Male [employer]: [place] : 1940 Requested By: DANIEL Ott Order Number: [id number] Reading MD: Niall Recinos Measurements Intervals [place] Rate: 72 P: 21 MD: 171 QRS: 29 QRSD: 109 T: 63 QT: 380 QTc: 417 Interpretive Statements SINUS RHYTHM LOW QRS VOLTAGE NSTTW ABNORMALITIES SIMILAR TO 12/02/18 Electronically Signed on 10-09-2019 7:38:51 EST by Niall Recinos
--- NOTE | 2019-10-09 08:47 | REP ---
Chest x-ray: Two views: History: Syncope. Comparison chest x-ray: December 01, 2018. Findings: Left hemidiaphragm is somewhat elevated as before. Interstitial markings are diffusely prominent. Consistent with fibrosis. Today's views exposed at a lesser level of inspiration. No definite focal infiltrate is seen. Borderline heart size. Impression: Interstitial fibrosis pattern. Borderline heart size. Somewhat decreased level of inspiration. No focal infiltrate. Electronically Signed by Merrill Sadler MD 10/09/2019 03:30 P
== END 2019-10-08 23:50 | disposition home or self-care (01) ==
LOC: EDBD 18:58 → M ED 18:58
DX: I95.1 Orthostatic hypotension (principal); J44.9 Chronic obstructive pulmonary disease, unspecified; K76.0 Fatty (change of) liver, not elsewhere classified; J84.9 Interstitial pulmonary disease, unspecified; N26.1 Atrophy of kidney (terminal); I25.10 Atherosclerotic heart disease of native coronary artery without angina pectoris; Z79.82 Long term (current) use of aspirin; Z79.899 Other long term (current) drug therapy

== ENCOUNTER → 2019-12-13 | Outpatient (REF) | payer MEDICARE, OTHER ==
[~2019-12-13] MED LIST changes: +CIDA500T2 PO; +MAGN1CAP PO; -SIMV20TA2 PO; +SIMV20TA22 PO
[2019-12-13 13:16] LABS: ALBUMIN 3.2 GM/DL (3.2-5.2); ALT/SGPT 18 U/L (12-78); BILIRUBIN,TOTAL 0.7 MG/DL (0.2-1.0); BLOOD UREA NITROGEN 11 MG/DL (7-18); CALCIUM LEVEL 8.9 MG/DL (8.8-10.2); CARBON DIOXIDE LEVEL 28 MEQ/L (21-32); CHLORIDE LEVEL 102 MEQ/L (98-107); CHOLESTEROL LEVEL 124 MG/DL (<200); CHOLESTEROL RISK RATIO 3.351 (<5); FREE T4 0.96 NG/DL (0.76-1.46); GLOMERULAR FILTRATION RATE > 60.0 (>35); GLUCOSE, FASTING 115 MG/DL (70-100); HDL CHOLESTEROL 37 MG/DL (>40); LDL CHOLESTEROL 56 MG/DL (<100); NON-HDL-C 87 MG/DL; POTASSIUM SERUM 4.4 MEQ/L (3.5-5.1); SODIUM LEVEL 139 MEQ/L (136-145); TOTAL PROTEIN 6.4 GM/DL (6.4-8.2); TRIGLYCERIDES LEVEL 154 MG/DL (<150)
[2019-12-13 13:29] LABS: HEMOGLOBIN A1c 6.2 %
== END ==
LOC: M LABDRWAD 12:21
PROVIDERS: ATTEND Physician Assistant
DX: I10 Essential (primary) hypertension (principal); E03.9 Hypothyroidism, unspecified; E78.2 Mixed hyperlipidemia; R73.01 Impaired fasting glucose

== ENCOUNTER → 2020-01-15 | Outpatient (CLI) | payer MEDICARE, OTHER ==
[~2020-01-15] MED LIST changes: +ISOVUE-370 76% 100ML VIAL (Q9967) As Ordered ONE
--- NOTE | 2020-01-15 18:10 | REPVR ---
PROCEDURE INFORMATION: Exam: CT Angiography Head With Contrast Exam date and time: 01/15/2020 5:52 PM Age: 79 years old Clinical indication: Dizziness and giddiness TECHNIQUE: Imaging protocol: Computed tomography angiography of the head with intravenous contrast. 3D rendering: MIP and/or 3D reconstructed images were created by the technologist. Radiation optimization: All CT scans at this facility use at least one of these dose optimization techniques: automated exposure control; mA and/or kV adjustment per patient size (includes targeted exams where dose is matched to clinical indication); or iterative reconstruction. Contrast material: ISO 370; Contrast volume: 100 ml; Contrast route: IV; COMPARISON: CT Head without contrast 12/02/2018 10:14 PM FINDINGS: Right internal carotid artery: Unremarkable. Intracranial segment is patent with no significant stenosis. No aneurysm. Right anterior cerebral artery: Unremarkable. No occlusion or significant stenosis. No aneurysm. Right middle cerebral artery: Unremarkable. No occlusion or significant stenosis. No aneurysm. Right posterior cerebral artery: Unremarkable. No occlusion or significant stenosis. No aneurysm. Right vertebral artery: Mild to moderate stenosis of the right vertebral artery with calcified plaque. Left internal carotid artery: Unremarkable. Intracranial segment is patent with no significant stenosis. No aneurysm. Left anterior cerebral artery: Unremarkable. No occlusion or significant stenosis. No aneurysm. Left middle cerebral artery: Unremarkable. No occlusion or significant stenosis. No aneurysm. Left posterior cerebral artery: Unremarkable. No occlusion or significant stenosis. No aneurysm. Left vertebral artery: Unremarkable. No occlusion or significant stenosis. No aneurysm. Basilar artery: Unremarkable. No occlusion or significant stenosis. No aneurysm. Other vasculature: Moderate stenosis of bilateral internal carotid arteries in the cavernous portion by calcified plaque. IMPRESSION: No acute abnormality. Electronically signed by: Joe Mccarthy On 01/15/2020 18:10:33 PM
--- NOTE | 2020-01-15 18:12 | REPVR ---
PROCEDURE INFORMATION: Exam: CT Angiography Neck With Contrast Exam date and time: 01/15/2020 5:52 PM Age: 79 years old Clinical indication: Dizziness and giddiness TECHNIQUE: Imaging protocol: Computed tomography angiography of the neck with intravenous contrast. 3D rendering: MIP and/or 3D reconstructed images were created by the technologist. Radiation optimization: All CT scans at this facility use at least one of these dose optimization techniques: automated exposure control; mA and/or kV adjustment per patient size (includes targeted exams where dose is matched to clinical indication); or iterative reconstruction. Contrast material: ISO 370; Contrast volume: 75 ml; Contrast route: IV; COMPARISON: No relevant prior studies available. FINDINGS: VASCULATURE: Right common carotid artery: Unremarkable. No stenosis. No dissection or occlusion. Right internal carotid artery: Unremarkable extracranial segment. No stenosis. No dissection or occlusion. Right external carotid artery: Unremarkable. No occlusion or stenosis of the origin. Right vertebral artery: Unremarkable. No stenosis. No dissection or occlusion. Left common carotid artery: Unremarkable. No stenosis. No dissection or occlusion. Left internal carotid artery: Unremarkable extracranial segment. No stenosis. No dissection or occlusion. Left external carotid artery: Unremarkable. No occlusion or stenosis of the origin. Left vertebral artery: Unremarkable. No stenosis. No dissection or occlusion. NECK: Bones/joints: No acute fracture. Soft tissues: Normal. No significant soft tissue swelling. IMPRESSION: No acute abnormality. COMMENTS: Using NASCET method for measuring degree of carotid artery stenosis: Mild is less than 50% stenosis. Moderate is 50-69% stenosis. Severe is 70-94% stenosis. Near occlusion is 95-99% stenosis. Electronically signed by: Joe Mccarthy On 01/15/2020 18:12:33 PM
== END ==
LOC: M RAD 17:03
PROVIDERS: ATTEND Psychiatry & Neurology Neurology
DX: R42 Dizziness and giddiness (principal); G45.0 Vertebro-basilar artery syndrome
CPT/HCPCS: 70496; 70498; Q9967

== ENCOUNTER → 2020-05-19 | Outpatient (REF) | payer MEDICARE, OTHER ==
[~2020-05-19] MED LIST changes: -ISOVUE-370 76% 100ML VIAL (Q9967) As Ordered ONE
[2020-05-19 13:25] LABS: ALBUMIN 2.8 GM/DL (3.2-5.2); ALT/SGPT 14 U/L (12-78); BILIRUBIN,TOTAL 0.6 MG/DL (0.2-1.0); BLOOD UREA NITROGEN 9 MG/DL (7-18); CALCIUM LEVEL 8.8 MG/DL (8.8-10.2); CARBON DIOXIDE LEVEL 35 MEQ/L (21-32); CHLORIDE LEVEL 97 MEQ/L (98-107); CREATININE FOR GFR 0.89 MG/DL (0.70-1.30); FREE T4 1.18 NG/DL (0.76-1.46); GLOMERULAR FILTRATION RATE > 60.0 (>35); GLUCOSE, FASTING 143 MG/DL (70-100); POTASSIUM SERUM 3.4 MEQ/L (3.5-5.1); SODIUM LEVEL 138 MEQ/L (136-145); TOTAL 25(OH) VITAMIN D 39.6 NG/ML (30.0-100.0); TOTAL PROTEIN 6.1 GM/DL (6.4-8.2)
[2020-05-19 15:00] LABS: HEMOGLOBIN A1c 7.1 %
== END ==
LOC: M LABDRWAD 12:47
PROVIDERS: ATTEND Physician Assistant
DX: E03.9 Hypothyroidism, unspecified (principal); R73.01 Impaired fasting glucose; E55.9 Vitamin D deficiency, unspecified

== ENCOUNTER 2020-10-27 19:14 | Emergency (ER) | payer MEDICARE, OTHER ==
[~2020-10-27] VITALS: Ht 180.3 cm; Wt 104.5 kg
[2020-10-27] MEDS ORDERED: LIDOCAINE 1% MDV 20ML VIAL SC ONE (20:15)
--- NOTE | 2020-10-27 20:42 | REPVR ---
PROCEDURE INFORMATION: Exam: CT Head Without Contrast Exam date and time: 10/27/2020 8:22 PM Age: 79 years old Clinical indication: Injury or trauma; Fall; Blunt trauma (contusions or hematomas); Additional info: Fall, hit head, lac R eyebrow TECHNIQUE: Imaging protocol: Computed tomography of the head without contrast. Radiation optimization: All CT scans at this facility use at least one of these dose optimization techniques: automated exposure control; mA and/or kV adjustment per patient size (includes targeted exams where dose is matched to clinical indication); or iterative reconstruction. COMPARISON: CT ANGIO HEAD 01/15/2020 5:37 PM FINDINGS: Brain: No intracranial mass, focal mass effect or midline shift. No acute intracranial hemorrhage. Mild decreased attenuation in periventricular/centrum semiovale white matter. No focal effacement of cortical sulci to indicate acute cortical infarct. Prominent ventricles and CSF spaces suggest parenchymal volume loss. Bones/joints: No calvarial fracture or destructive process. Paranasal sinuses: Mucosal thickening or fluid is present in the right maxillary sinus. Mastoid air cells: Mastoid air cells are normally aerated. Orbital cavity: Visualized globes and orbits are unremarkable. Soft tissues: No focal extracranial soft tissue swelling. IMPRESSION: 1. No acute intracranial abnormality. 2. Atrophy and chronic microangiopathic change in supratentorial white matter. Electronically signed by: Bernabe Rubio On 10/27/2020 20:42:42 PM
[2020-10-27 21:00] VITALS: BP 146/75
[2020-10-27] MEDS ORDERED: NEOSPORIN OINT 0.9 GM PKT TOP ONE (21:00)
== END 2020-10-27 21:07 | disposition home or self-care (01) ==
LOC: M ED 19:14
DX: S01.111A Laceration without foreign body of right eyelid and periocular area, initial encounter (principal); W01.190A Fall on same level from slipping, tripping and stumbling with subsequent striking against furniture, initial encounter; Y92.22 Religious institution as the place of occurrence of the external cause; Y93.9 Activity, unspecified; Y99.9 Unspecified external cause status; Z79.82 Long term (current) use of aspirin; Z79.899 Other long term (current) drug therapy

== ENCOUNTER → 2020-11-27 | Outpatient (REF) | payer MEDICARE, OTHER ==
[2020-11-27 13:54] LABS: ALBUMIN 2.9 GM/DL (3.2-5.2); ALT/SGPT 19 U/L (12-78); BILIRUBIN,TOTAL 0.7 MG/DL (0.2-1.0); BLOOD UREA NITROGEN 7 MG/DL (7-18); CALCIUM LEVEL 8.9 MG/DL (8.8-10.2); CARBON DIOXIDE LEVEL 32 MEQ/L (21-32); CHLORIDE LEVEL 102 MEQ/L (98-107); CHOLESTEROL LEVEL 110 MG/DL (<200); CHOLESTEROL RISK RATIO 2.558 (<5); CREATININE FOR GFR 0.96 MG/DL (0.70-1.30); FREE T4 0.99 NG/DL (0.76-1.46); GLOMERULAR FILTRATION RATE > 60.0 (>35); GLUCOSE, FASTING 130 MG/DL (70-100); HDL CHOLESTEROL 43 MG/DL (>40); LDL CHOLESTEROL 27 MG/DL (<100); NON-HDL-C 67 MG/DL; POTASSIUM SERUM 3.8 MEQ/L (3.5-5.1); SODIUM LEVEL 141 MEQ/L (136-145); TOTAL PROTEIN 6.4 GM/DL (6.4-8.2); TRIGLYCERIDES LEVEL 199 MG/DL (<150)
[2020-11-27 13:56] LABS: HEMOGLOBIN A1c 5.6 %
[2020-11-27 17:40] LABS: CREATININE, URINE 78.9 MG/DL; MAU/CREAT RATIO 30.4 MCG/MG (0.0-30.0)
== END ==
LOC: M LABDRWAD 12:33
PROVIDERS: ATTEND Nurse Practitioner Family
DX: I10 Essential (primary) hypertension (principal); E03.9 Hypothyroidism, unspecified; R73.01 Impaired fasting glucose; E55.9 Vitamin D deficiency, unspecified

== ENCOUNTER 2021-05-30 11:03 | Inpatient (IN) | payer MEDICARE, OTHER ==
[~2021-05-30] VITALS: Ht 180.3 cm; Wt 92.3 kg
[~2021-05-30 11:03] MED LIST changes: -AMIT25TA PO; +AMIT25TA17 PO; +GABA-283 PO; -GABA-845 PO; -LISI-538 PO; +LISI20TA33 PO
--- NOTE | 2021-05-30 11:34 | REP ---
INDICATION: Altered Mental Status COMPARISON: 12/02/2018 TECHNIQUE: Axial noncontrast images from the skull base to the thoracic inlet with coronal reformations. This CT examination was performed using the following dose reduction techniques: Automated exposure control, adjustment of mA and/or kv according to the patient's size, and use of iterative reconstruction technique. FINDINGS: Atrophy with periventricular leukomalacia and microvascular ischemic changes are appreciated. The ventricles and sulci are symmetric. Bah-white differentiation is maintained. There is no evidence for acute intracranial hemorrhage, mass/mass effect, pathology or infarction. No extra-axial fluid collection. Calvarium is intact. Nonspecific fluid identified in the visualized right maxillary sinus. Remainder of the sinuses and mastoid air cells are clear. IMPRESSION: Atrophy and microvascular ischemic changes. No acute intracranial hemorrhage, infarction, or mass/mass effect. <Electronically signed by Jose Francisco Raymundo > 05/30/21 [id number]
--- NOTE | 2021-05-30 11:35 | REP ---
INDICATION: Altered Mental Status COMPARISON: 10/08/2019 TECHNIQUE: Portable AP view of the chest FINDINGS: Mediastinum and cardiac silhouette are stable with mild cardiomegaly suspected. Lung naidu demonstrate diffuse chronic interstitial changes similar to prior examination. No focal consolidation, effusion, or pneumothorax. IMPRESSION: Chronic appearing changes. No focal consolidation or effusion. <Electronically signed by Jose Francisco Raymundo > 05/30/21 [id number]
[2021-05-30 12:37] LABS: BASO % 0.7 % (0.0-1.0); EOS # 0.5 10^3/uL (0.0-0.5); HEMOGLOBIN 13.9 g/dl (13.5-17.5); LYMPH # 1.1 10^3/uL (1.5-5.0); LYMPH % 18.3 % (24.0-44.0); MEAN CORPUSCULAR HEMOGLOBIN 33.3 pg (27.0-33.0); MEAN CORPUSCULAR HGB CONC 33.1 g/dl (32.0-36.5); MEAN CORPUSCULAR VOLUME 100.5 fl (80.0-96.0); MONO # 0.6 10^3/uL (0.0-0.8); MONO % 9.1 % (2.0-8.0); NEUTROPHILS # 3.8 10^3/uL (1.5-8.5); NEUTROPHILS % 63.6 % (36.0-66.0); PLATELET COUNT, AUTOMATED 248 10^3/uL (150-450); RED BLOOD COUNT 4.18 10^6/uL (4.30-6.10)
[2021-05-30 13:03] LABS: OSMOLALITY SERUM 285 MOSM/KG (280-301)
[2021-05-30 13:13] LABS: ALBUMIN 2.7 GM/DL (3.2-5.2); ALT/SGPT 18 U/L (12-78); BILIRUBIN,DIRECT 0.3 MG/DL (0.0-0.2); BILIRUBIN,TOTAL 0.7 MG/DL (0.2-1.0); BLOOD UREA NITROGEN 7 MG/DL (7-18); CALCIUM LEVEL 8.3 MG/DL (8.8-10.2); CARBON DIOXIDE LEVEL 30 MEQ/L (21-32); CHLORIDE LEVEL 102 MEQ/L (98-107); CK-MB VALUE MASS < 1.0 NG/ML (<3.6); CPK CREATINE PHOSPHOKINASE 24 U/L (39-308); CREATININE FOR GFR 0.84 MG/DL (0.70-1.30); GLOMERULAR FILTRATION RATE > 60.0 (>35); GLUCOSE, FASTING 117 MG/DL (70-100); MB/CK RELATIVE INDEX 4.17 (< OR =4); POTASSIUM SERUM 3.6 MEQ/L (3.5-5.1); SODIUM LEVEL 141 MEQ/L (136-145); TOTAL PROTEIN 6.2 GM/DL (6.4-8.2); TROPONIN I < 0.02 NG/ML (< 0.10)
[2021-05-30 14:03] LABS: ETHYL ALCOHOL (ETHANOL) < 0.003 % (0.000-0.010)
[2021-05-30 14:31] LABS: AMPHETAMINES LEVEL URINE NEGATIVE (NEGATIVE); BARBITURATES URINE NEGATIVE (NEGATIVE); BENZODIAZEPINES URINE NEGATIVE (NEGATIVE); CANNABINOIDS URINE NEGATIVE (NEGATIVE); COCAINE METABOLITE URINE NEGATIVE (NEGATIVE); METHADONE URINE NEGATIVE (NEGATIVE); OPIATES URINE NEGATIVE (NEGATIVE); PHENCYCLIDINE URINE NEGATIVE (NEGATIVE)
[2021-05-30] MEDS ORDERED: LISI20TA33 PO (14:38)
[2021-05-30] MEDS ORDERED: AMIT25TA17 PO (14:38)
[2021-05-30] MEDS ORDERED: GABA600T4 PO (14:38)
[2021-05-30] MEDS ORDERED: MAGN400T3 PO (14:38)
[2021-05-30] MEDS ORDERED: POTA1TAB23 PO (14:38)
[2021-05-30] MEDS ORDERED: SIMV20TA22 PO (14:38)
[2021-05-30] MEDS ORDERED: BAYE325T16 PO (14:38)
[2021-05-30] MEDS ORDERED: COMMENTS (14:47)
[2021-05-30 15:12] LABS: RSV AMPLIFICATION NEGATIVE (NEGATIVE)
[2021-05-30] MEDS ORDERED: LORazepam 1 MG TAB PO STA (15:27)
[2021-05-30] MEDS ORDERED: LORazepam 2 MG TAB PO PRN (15:30)
[2021-05-30 15:34] LABS: FREE T4 0.85 NG/DL (0.76-1.46)
[2021-05-30] MEDS ORDERED: THIAMINE 100 MG TAB PO SCH (16:00)
[2021-05-30] MEDS ORDERED: LABETALOL 100MG/20ML VIAL IV STA (16:45)
[2021-05-30] MEDS ORDERED: ISOVUE-370 76% 100ML VIAL As Ordered ONE (16:47)
[2021-05-30] MEDS ORDERED: MOM 30ML SUSPENSION UDC PO PRN (16:50)
[2021-05-30] MEDS ORDERED: ACETAMINOPHEN TAB 650MG DOSE (2X325MG) PO PRN (16:50)
[2021-05-30] MEDS ORDERED: MAALOX 30 ML SUSP *UDC PO PRN (16:50)
--- NOTE | 2021-05-30 16:59 | HPEPDOC ---
[facility] Medical History & Physical Date of Admission May 30, 2021 Date of Service: May 30, 2021 History and Physical CHIEF COMPLAINT: Altered mental status HISTORY OF PRESENT ILLNESS: 80-year-old gentleman with a past medical history of COPD, hypercholesterolemia, alcohol use disorder, bilateral leg weakness, unsteady gait as well as aortic aneurysm repair, inguinal hernia repair, melanoma removal. Brought to the ER by his grandson states that for the past 36 hours. His grandfather was very confused and disoriented, which is a departure from his baseline. At baseline, states that he is alert and oriented and independent, living alone. He states that he has not had a drink of alcohol for the past several months, and has not found evidence of active drinking at home. No history of recent falls. Per report, patient has had a hoarse voice for the past days and was advised to take enup-htb-abuqxet Robitussin-DM which cured her voice, but may have precipitated his altered mental status. Further, patient takes several medications reviewed, which can cause alteration in mental status, which include amitriptyline, as well as gabapentin, which he takes 1200 mg of twice per day. The patient manages his own medications and has visits from his family occasionally to help assist with cleaning and cooking for him. In the ER, patient was found to be hypertensive with systolic blood pressure 179. Initial CT noncontrast head was without evidence for hemorrhage or acute ischemic stroke. Patient denies any chest pain, shortness of breath, palpitations, nausea, vomiting, diarrhea or dysuria. PAST MEDICAL HISTORY: COPD Peripheral neuropathy HTN Alcohol use disorder PAST SURGICAL HISTORY: AAA repair R inguinal hernia repair Removal of melanoma SOCIAL HISTORY: Patient lives alone Has a history of prolonged alcohol use disorder, quit several months ago Smoker, quit at some point in the 90s according to grandson FAMILY HISTORY: Attention to review the patient, however, disoriented and unable to provide. Grandson reported history of TIA in his mother ALLERGIES: Please see below. REVIEW OF SYSTEMS: 10 point ROS conducted relevant findings are noted in the HPI HOME MEDICATIONS: Please see below. PHYSICAL EXAMINATION: VITAL SIGNS: please see below General: NAD, comfortable HEENT: PERRLA, EOMI, sclerae clear Neck: supple, normal ROM, no JVD Respiratory: lungs CTAB, no wheeze, no rales, no crackles CVS: RRR, normal S1, S2, no murmurs Abdo: soft, no masses, no hepatosplenomegaly, BS+, no rebound tenderness Extremities: no edema, pulses 2+ MSK: no joint deformities, normal ROM Neuro: no focal neuro deficits, moving all 4 extremities, CN2-12 intact. Strength 5/5 in all 4 extremities. No nystagmus. Psych: calm, cooperative, AAO x 3 LABORATORY DATA: See below. IMAGING: CT head (05/30/21); FINDINGS: Atrophy with periventricular leukomalacia and microvascular ischemic changes are appreciated. The ventricles and sulci are symmetric. Bah-white differentiation is maintained. There is no evidence for acute intracranial hemorrhage, mass/mass effect, pathology or infarction. No extra-axial fluid collection. Calvarium is intact. Nonspecific fluid identified in the visualized right maxillary sinus. Remainder of the sinuses and mastoid air cells are clear. IMPRESSION: Atrophy and microvascular ischemic changes. No acute intracranial hemorrhage, infarction, or mass/mass effect. CXR (05/30/21): IMPRESSION: Chronic appearing changes. No focal consolidation or effusion. MICROBIOLOGY: Please see below. ASSESSMENT: This is an 80-year-old male with a past medical history of hypertension, COPD, peripheral neuropathy, falling and prolonged alcohol use disorder. He presented to the ER with his grandson for acute altered mental status secondary to possibly polypharmacy with Robitussin gabapentin and amitriptyline or possibly CVA or hypertensive encephalopathy. PLAN: AMS possibly 2/2 polypharmacy vs CVA vs hypertensive encephalopathy - CT head in ER negative for bleed or ischemia - unable to obtain MRI at this time, as patient has possible abdominal aortic stent - will ordered CTA head and neck to r/o occlusion - will control BP with labetalol IV in ER, resume home meds - hold amitryptiline, gabapentin for now - avoid sedatives - fall precautions, sitter. - check b12, folate - given hx of prolonged etoh use disorder, consider posiblity of KS or WE. - will trial high dose thiamine 500 mg IV q8h x 3 days HTN urgency - SBP 179 in ER - given 20 mg IV labetalol in ER - resume home lisinopril - add amlodipine 5 mg daily COPD, not O2 dependent - resume advair - duonebs prn hx AAA, s/p repair and stenting - resume asa - outpatient surveillance by vascular surgery DVT ppx: SCDs. TEDs. Vital Signs Vital Signs Date Time Temp Pulse Resp B/P (MAP) Pulse Ox O2 Delivery O2 Flow Rate FiO2 05/30/21 11:46 97.4 82 16 173/89 (117) 99 Room Air Laboratory Data Labs 24H Laboratory Tests 2 05/30/21 12:18: Immature Granulocyte % (Auto) 0.3, Neutrophils (%) (Auto) 63.6, Lymphocytes (%) (Auto) 18.3L, Monocytes (%) (Auto) 9.1H, Eosinophils (%) (Auto) 8.0H, Basophils (%) (Auto) 0.7, Neutrophils # (Auto) 3.8, Lymphocytes # (Auto) 1.1L, Monocytes # (Auto) 0.6, Eosinophils # (Auto) 0.5, Basophils # (Auto) 0.0, Nucleated Red Blo od Cells % (auto) 0.0, Anion Gap 9, Glomerular Filtration Rate > 60.0, Osmolality 285, Lactic Acid Level 1.1, Calcium Level 8.3L, Total Bilirubin 0.7, Direct Bilirubin 0.3H, Aspartate Amino Transf (AST/SGOT) 18, Alanine Aminotransferase (ALT/SGPT) 18, Alkaline Phosphatase 108, Ammonia 14, Total Crea raghavendra Kinase 24L, Creatine Kinase MB < 1.0, Creatine Kinase MB Relative Index 4.17H, Troponin I < 0.02, Total Protein 6.2L, Albumin 2.7L, Albumin/Globulin Ratio 0.8, Thyroid Stimulating Hormone (TSH) 6.820H, Free Thyroxine 0.85, Ethyl Alcohol Level < 0.003 05/30/21 12:42: Urine Color YELLOW, Urine Appearance CLEAR, Urine pH 7.0, Urine Specific [place] 1.017, Urine Protein NEGATIVE, Urine Glucose (UA) NEGATIVE, Urine Ketones NEGATIVE, Urine Blood NEGATIVE, Urine Nitrite NEGATIVE, Urine Bilirubin NEGATIVE, Urine Urobilinogen 0.2, Urine Leukocyte Esterase NEGATIVE, Urine WBC ( Auto) 1, Urine RBC (Auto) 3, Urine Hyaline Casts (Auto) 4, Urine Bacteria (Auto) NEGATIVE, Urine Squamous Epithelial Cells 0, Urine Mucus (Auto) SMALL, Urine Sperm (Auto) 05/30/21 12:45: Urine Opiates Screen NEGATIVE, Urine Methadone Screen NEGATIVE, Urine Barbiturates Screen NEGATIVE, Urine Phencyclidine Screen NEGATIVE, Urine Amphetamines Screen NEGATIVE, Urine Benzodiazepines Screen NEGATIVE, Urine Cocaine Metabolite Screen NEGATIVE, Urine Cannabinoids Screen NEGATIVE 05/30/21 14:24: Coronavirus (COVID-19)(PCR) NEGATIVE, Influenza Type A (RT-PCR) NEGATIVE, Influenza Type B (RT-PCR) NEGATIVE, Respiratory Syncytial Virus (PCR) NEGATIVE CBC/BMP Laboratory Tests 05/30/21 12:18 Microbiology Microbiology 05/30/21 Blood Culture, Received Pending 05/30/21 Blood Culture, Received Pending Home Medications Scheduled Amitriptyline HCl (Amitriptyline HCl) 10 Mg Tablet, 10 MG PO QHS Amlodipine Besylate (Amlodipine Besylate) 5 Mg Tablet, 5 MG PO DAILY Aspirin (Aspirin) 325 Mg Tablet, 325 MG PO DAILY Folic Acid (Folic Acid) 1 Mg Tablet, 1 MG PO DAILY Gabapentin (Gabapentin) 300 Mg Capsule, 300 MG PO TID MORNING, DINNER, AND NIGHT Magnesium Oxide (Magnesium Oxide) 400 Mg Tablet, 400 MG PO BID Multivitamins (Thera M Plus Tablet) 1 Each Tablet, 1 TAB PO DAILY Potassium Chloride (Potassium Chloride) 10 Meq Tablet.er, 10 MEQ PO DAILY Salmeterol/Fluticasone (Advair 250-50 Diskus) 14 Puff/Inhaler Aerp, 1 PUFF INH BID Sildenafil Citrate (Sildenafil Citrate) 100 Mg Tablet, 100 MG PO DAILY Simvastatin (Simvastatin) 20 Mg Tablet, 20 MG PO DAILY Thiamine HCl (Thiamine HCl) 100 Mg Tablet, 100 MG PO DAILY Scheduled PRN Calcium Carbonate (Tums) 200 Mg Tab.chew, 400 MG PO BID PRN for INDIGESTION Allergies Coded Allergies: No Known Allergies (Verified , 06/05/21) A-FIB/CHADSVASC A-FIB History Current/History of A-Fib/PAF?: No CIRA SCHROEDER MD May 30, 2021 16:59
[2021-05-30] MEDS ORDERED: HOME MED LIST COMPLETE! XX SCH (17:20)
--- NOTE | 2021-05-30 17:51 | ECGEPIP ---
[facility] - ED Test Date: 2021-05-30 Pat Name: NOE VEGA Department: Room: - Gender: Male Front Services Agent: AKIRA : [id number] Requested By: Nancy Stewart Order Number: [id number] Reading MD: Jones Forrest Measurements Intervals [place] Rate: 79 P: 21 WA: 168 QRS: -9 QRSD: 94 T: 54 QT: 396 QTc: 454 Interpretive Statements Normal sinus rhythm Low QRS complex voltage in the limb leads Nonspecific ST-T wave abnormalities Similar to tracing done 10-08-19 Electronically Signed on 05-30-2021 17:51:26 EDT by Jones Forrest
[2021-05-30] MEDS ORDERED: IPRATROPIUM 0.5MG/ALBUTEROL 2.5MG INH SOL UD 3ML (DUONEB) NEB PRN (17:55)
--- NOTE | 2021-05-30 18:03 | REPVR ---
PROCEDURE INFORMATION: Exam: CT Angiography Head With Contrast, Arteriography Exam date and time: 05/30/2021 5:01 PM Age: 80 years old Clinical indication: Other: R. O stenosis, CVA TECHNIQUE: Imaging protocol: Computed tomography angiography of the head with contrast. Exam focused on the arteries. 3D rendering (Not supervised by radiologist): MIP and/or 3D reconstructed images were created by the technologist. Radiation optimization: All CT scans at this facility use at least one of these dose optimization techniques: automated exposure control; mA and/or kV adjustment per patient size (includes targeted exams where dose is matched to clinical indication); or iterative reconstruction. Contrast material: ISOVUE 370; Contrast volume: 75 ml; Contrast route: INTRAVENOUS (IV); COMPARISON: CT ANGIO HEAD 01/15/2020 5:37 PM FINDINGS: ANTERIOR CIRCULATION: Right internal carotid artery: Atherosclerotic changes demonstrated in the petrous and cavernous right carotid artery resulting in moderate stenosis. Right middle cerebral artery: Unremarkable. No occlusion or significant stenosis. No aneurysm. Right anterior cerebral artery: Unremarkable. No occlusion or significant stenosis. No aneurysm. Left internal carotid artery: Atherosclerotic changes demonstrated in the petrous and cavernous carotid artery resulting in moderate stenosis. Left middle cerebral artery: Unremarkable. No occlusion or significant stenosis. No aneurysm. Left anterior cerebral artery: Unremarkable. No occlusion or significant stenosis. No aneurysm. POSTERIOR CIRCULATION: Right vertebral artery: Atherosclerotic changes V4 segment right vertebral artery without evidence of a high-grade stenosis. Left vertebral artery: Mild atherosclerotic changes in the V4 segment of the left vertebral artery without significant stenosis. Basilar artery: Unremarkable. No occlusion or significant stenosis. No aneurysm. Right posterior cerebral artery: Unremarkable. No occlusion or significant stenosis. No aneurysm. Left posterior cerebral artery: Unremarkable. No occlusion or significant stenosis. No aneurysm. Brain: No definite mass, mass effect, or midline shift. Cerebral ventricles: No ventriculomegaly. Bones/joints: Unremarkable. No acute fracture. Soft tissues: Unremarkable. IMPRESSION: 1. Atherosclerotic changes demonstrated in the petrous and cavernous right carotid artery resulting in moderate stenosis. 2. Atherosclerotic changes demonstrated in the petrous and cavernous left carotid artery resulting in moderate stenosis. 3. Atherosclerotic changes V4 segment right vertebral artery without evidence of a high-grade stenosis. 4. Mild atherosclerotic changes in the V4 segment of the left vertebral artery without significant stenosis. 5. No large vessel occlusion. Electronically signed by: Haris Rodriguez On 05/30/2021 18:02:49 PM
--- NOTE | 2021-05-30 18:09 | REPVR ---
PROCEDURE INFORMATION: Exam: CT Angiography Neck With Contrast Exam date and time: 05/30/2021 5:01 PM Age: 80 years old Clinical indication: Other: R. O stenosis, CVA TECHNIQUE: Imaging protocol: Computed tomography angiography of the neck with contrast. 3D rendering (Not supervised by radiologist): MIP and/or 3D reconstructed images were created by the technologist. Radiation optimization: All CT scans at this facility use at least one of these dose optimization techniques: automated exposure control; mA and/or kV adjustment per patient size (includes targeted exams where dose is matched to clinical indication); or iterative reconstruction. Contrast material: ISOVUE 370; Contrast volume: 75 ml; Contrast route: INTRAVENOUS (IV); COMPARISON: CT ANGIO NECK 01/15/2020 5:37 PM FINDINGS: Right common carotid artery: No stenosis. No dissection or occlusion. Right internal carotid artery: There is mild atherosclerotic changes in the proximal right ICA estimated at less than 50 % narrowing which is consistent with a mild stenosis using NASCET criteria. Right external carotid artery: No occlusion or stenosis of the origin. Left common carotid artery: No stenosis. No dissection or occlusion. Left internal carotid artery: There is mild atherosclerotic changes in the proximal left ICA estimated at less than 50 % narrowing which is consistent with a mild stenosis using NASCET criteria. Left external carotid artery: No occlusion or stenosis of the origin. Right vertebral artery: Mild atherosclerotic changes in the V1, V2 and V3 segments of the right vertebral artery without significant stenosis. Left vertebral artery: Mild atherosclerotic changes in the V1, V2, V3 and V4 segments of the left vertebral artery without evidence of any significant stenosis. Brachiocephalic artery: Mild atherosclerotic changes at the origin of the left subclavian and in the brachiocephalic arteries without significant stenosis. Aorta: There is mild atherosclerosis in the thoracic aorta. Soft tissues: Normal. No significant soft tissue swelling. Bones/joints: The cervical spine demonstrates moderate degenerative changes. Lungs: Subpleural septal thickening demonstrated in both upper lobes, left greater than right with increased interstitial markings demonstrated bilaterally and geographic ground-glass opacities. Findings consistent with chronic interstitial lung disease. IMPRESSION: 1. There is mild atherosclerotic changes in the proximal right ICA estimated at less than 50 % narrowing which is consistent with a mild stenosis using NASCET criteria. 2. There is mild atherosclerotic changes in the proximal left ICA estimated at less than 50 % narrowing which is consistent with a mild stenosis using NASCET criteria. 3. Mild atherosclerotic changes in the V1, V2, V3 and V4 segments of the left vertebral artery without evidence of any significant stenosis. 4. Mild atherosclerotic changes in the V1, V2 and V3 segments of the right vertebral artery without significant stenosis. REFERENCES: NASCET CRITERIA. The degree of internal carotid artery stenosis is based on NASCET criteria. Normal is no stenosis. Mild is less than 50% stenosis. Moderate is 50-69% stenosis. Severe is 70% to 99% stenosis. Total occlusion is no detectable patent lumen. Electronically signed by: Haris Rodriguez On 05/30/2021 18:08:30 PM
[2021-05-30] MEDS: THIAMINE 200MG 2ML VIAL IV SCH (19:36)
[2021-05-30] MEDS: MULTIVITAMINS/MINERALS THERAP 1 TAB PO SCH (19:37)
[2021-05-30] MEDS: FOLIC ACID 1 MG TAB PO SCH (19:37)
[2021-05-30] MEDS: amLODIPine 5 MG TAB PO SCH (19:37)
[2021-05-30] MEDS: ADVAIR HFA 115/21MCG INHALER INH SCH (19:46)
[2021-05-30 20:24] VITALS: BP 157/90
[2021-05-30 21:00] VITALS: BP 154/90
[2021-05-30] MEDS: DOCUSATE SODIUM 100MG CAPSULE PO SCH (21:52)
[2021-05-30] MEDS: MAGNESIUM OXIDE 400MG TAB (MAG-OX) PO SCH (21:53)
[2021-05-31] MEDS: THIAMINE 200MG 2ML VIAL IV SCH ×2 (01:31→09:41)
[2021-05-31 05:56] VITALS: BP 135/78
[2021-05-31 06:00] VITALS: BP 135/78
[2021-05-31 07:00] LABS: BASO # 0.1 10^3/uL (0.0-0.2); BASO % 0.7 % (0.0-1.0); EOS # 0.6 10^3/uL (0.0-0.5); EOS % 8.3 % (0.0-3.0); HEMATOCRIT 40.3 % (42.0-52.0); HEMOGLOBIN 13.4 g/dl (13.5-17.5); LYMPH # 1.3 10^3/uL (1.5-5.0); LYMPH % 17.8 % (24.0-44.0); MEAN CORPUSCULAR HEMOGLOBIN 32.9 pg (27.0-33.0); MEAN CORPUSCULAR HGB CONC 33.3 g/dl (32.0-36.5); MONO # 0.7 10^3/uL (0.0-0.8); MONO % 10.3 % (2.0-8.0); NEUTROPHILS # 4.4 10^3/uL (1.5-8.5); NEUTROPHILS % 62.5 % (36.0-66.0); PLATELET COUNT, AUTOMATED 237 10^3/uL (150-450); RED BLOOD COUNT 4.07 10^6/uL (4.30-6.10); WHITE BLOOD COUNT 7.1 10^3/uL (4.0-10.0)
[2021-05-31 07:30] LABS: ALBUMIN 2.4 GM/DL (3.2-5.2); ALT/SGPT 15 U/L (12-78); BILIRUBIN,TOTAL 0.6 MG/DL (0.2-1.0); BLOOD UREA NITROGEN 6 MG/DL (7-18); CALCIUM LEVEL 7.8 MG/DL (8.8-10.2); CARBON DIOXIDE LEVEL 26 MEQ/L (21-32); CHLORIDE LEVEL 105 MEQ/L (98-107); CREATININE FOR GFR 0.68 MG/DL (0.70-1.30); GLOMERULAR FILTRATION RATE > 60.0 (>35); GLUCOSE, FASTING 105 MG/DL (70-100); MAGNESIUM LEVEL 1.7 MG/DL (1.8-2.4); POTASSIUM SERUM 3.3 MEQ/L (3.5-5.1); SODIUM LEVEL 140 MEQ/L (136-145); TOTAL PROTEIN 5.8 GM/DL (6.4-8.2)
[2021-05-31] MEDS: ADVAIR HFA 115/21MCG INHALER INH SCH (07:38)
[2021-05-31] MEDS: MULTIVITAMINS/MINERALS THERAP 1 TAB PO SCH (08:31)
[2021-05-31] MEDS: DOCUSATE SODIUM 100MG CAPSULE PO SCH (08:31)
[2021-05-31] MEDS: FOLIC ACID 1 MG TAB PO SCH (08:32)
[2021-05-31] MEDS: MAGNESIUM OXIDE 400MG TAB (MAG-OX) PO SCH (08:32)
[2021-05-31] MEDS: MAG SULF 1GM/100ML (MAG RUN) 1 GM in IV 1 EA IV SCH ×2 (08:32→10:39)
[2021-05-31 08:33] VITALS: BP 135/78
[2021-05-31] MEDS: amLODIPine 5 MG TAB PO SCH (08:33)
[2021-05-31] MEDS ORDERED: POTASSIUM CHLORIDE 10 MEQ SR TABLET PO SCH (09:00)
[2021-05-31] MEDS ORDERED: ASPIRIN 81MG ENTERIC TABLET PO SCH (09:00)
[2021-05-31] MEDS ORDERED: MULTIVITAMINS/MINERALS THERAP 1 TAB PO SCH (09:00)
[2021-05-31] MEDS ORDERED: SIMVASTATIN 20 MG TAB PO SCH (09:00)
--- NOTE | 2021-05-31 10:53 | REP ---
INDICATION: htn urgency COMPARISON: 08/01/2017 TECHNIQUE: Real time darling scale ultrasound examination using curved array transducer. FINDINGS: The left kidney appears isoechoic and atrophic measuring 8.9 x 4.0 x 4.4 cm without hydronephrosis, nephrolithiasis, cystic or renal mass lesion. The right kidney measures 12.3 x 6.3 x 6.5 cm and includes 2.3 cm and 1.5 cm lower pole cysts. No hydronephrosis, nephrolithiasis, or renal mass lesion. Bladder is grossly unremarkable and bilateral ureteral jets are identified. IMPRESSION: Atrophic appearance of the left kidney. Two simple cysts at the lower pole right kidney relatively new when compared with prior exam. <Electronically signed by Jose Francisco Raymundo > 05/31/21 1048
[2021-05-31] MEDS ORDERED: POTASSIUM CHLORIDE 10 MEQ SR TABLET PO ONE (11:00)
[2021-05-31 13:57] VITALS: BP 100/50
[2021-05-31] MEDS ORDERED: VITMTA PO (15:08)
[2021-05-31] MEDS ORDERED: THIA100T7 PO (15:08)
[2021-05-31] MEDS ORDERED: AMIT10TA7 PO (15:08)
[2021-05-31] MEDS ORDERED: FOLI1TAB11 PO (15:08)
[2021-05-31] MEDS ORDERED: GABA-282 PO (15:08)
--- NOTE | 2021-05-31 15:10 | DS.PDOC ---
Discharge Summary General Date of Admission May 30, 2021 at 16:49 Date of Discharge 05/31/21 Discharge Summary PROCEDURES PERFORMED DURING STAY: [None]. COMPLICATIONS/CHIEF COMPLAINT: Altered Mental Status. HISTORY OF PRESENT ILLNESS: 80-year-old gentleman with a past medical history of COPD, hypercholesterolemia, alcohol use disorder, bilateral leg weakness, unsteady gait as well as aortic aneurysm repair, inguinal hernia repair, melanoma removal. Brought to the ER by his grandson states that for the past 36 hours. His grandfather was very confused and disoriented, which is a departure from his baseline. At baseline, states that he is alert and oriented and independent, living alone. He states that he has not had a drink of alcohol for the past several months, and has not found evidence of active drinking at home. No history of recent falls. Per report, patient has had a hoarse voice for the past days and was advised to take lxfk-kjr-[id number] Robitussin-DM which cured her voice, but may have precipitated his altered mental status. Further, patient takes several medications reviewed, which can cause alteration in mental status, which include amitriptyline, as well as gabapentin, which he takes 1200 mg of twice per day. The patient manages his own medications and has visits from his family occasionally to help assist with cleaning and cooking for him. In the ER, patient was found to be hypertensive with systolic blood pressure 179. Initial CT noncontrast head was without evidence for hemorrhage or acute ischemic stroke. Patient denies any chest pain, shortness of breath, palpitations, nausea, vomiting, diarrhea or dysuria. HOSPITAL COURSE: AMS possibly 2/2 polypharmacy vs CVA vs hypertensive encephalopathy - CT head in ER negative for bleed or ischemia. Patient has no fevers, no chills. - unable to obtain MRI at this time, as patient has possible abdominal aortic stent - ordered CTA head and neck did not show occlusion. < 50% stenosis in bilateral carotid arteries. Atherosclerotic changes resulting in moderate stenosis without high grade occlusion in the vertebral, petrous and cavernous arteries - no focal neurologic deficits. D/w Dr. Olivo, does not believe there is need for MRI imagin. - will control BP with labetalol IV in ER, resume home meds - hold amitryptiline, gabapentin for now - avoid sedatives - fall precautions, sitter. - given hx of prolonged etoh use disorder, consider possibility of KS or WE. - will trial high dose thiamine 500 mg IV q8h, up to 3 days. - patient improved significantly overnight, is at baseline. Family at bedside who also confirm that mentation has returned to prior levels. - family advised to slowly taper gabapentin. Reduced dose from 1200 mg BID to 300 mg TID. I explained these instructions to family, and they verbalized un derstanding. I suspect his AMS had been caused by polypharmacy. I also reduced dose of amitriptyline to 10 mg qhs down from 25 mg qhs. HTN urgency - SBP 179 in ER - given 20 mg IV labetalol in ER - patient stated that he had been told to DC lisinopril by his PCP - add amlodipine 5 mg daily COPD, not O2 dependent - resume advair - duonebs prn hx AAA, s/p repair and stenting - resume asa - outpatient surveillance by vascular surgery DISCHARGE MEDICATIONS: Please see below. ALLERGIES: Please see below. PHYSICAL EXAMINATION ON DISCHARGE: VITAL SIGNS: please see below General: NAD, comfortable HEENT: PERRLA, EOMI, sclerae clear Neck: supple, normal ROM, no JVD Respiratory: lungs CTAB, no wheeze, no rales, no crackles CVS: RRR, normal S1, S2, no murmurs Abdo: soft, no masses, no hepatosplenomegaly, BS+, no rebound tenderness. No pain to palpation in all 4 quadrants, negative Soriano's sign. Extremities: no edema, pulses 2+ MSK: no joint deformities, normal ROM Neuro: no focal neuro deficits, moving all 4 extremities, CN2-12 intact. Strength 5/5 in all 4 extremities. No nystagmus. Psych: calm, cooperative, AAO x 3 LABORATORY DATA: Please see below. IMAGING: CXR (05/30/21); Chronic appearing changes. No focal consolidation or effusion CT head (05/30/21): IMPRESSION: Atrophy and microvascular ischemic changes. No acute intracranial hemorrhage, infarction, or mass/mass effect. CT angio head (05/30/21): IMPRESSION: 1. Atherosclerotic changes demonstrated in the petrous and cavernous right carotid artery resulting in moderate stenosis. 2. Atherosclerotic changes demonstrated in the petrous and cavernous left carotid artery resulting in moderate stenosis. 3. Atherosclerotic changes V4 segment right vertebral artery without evidence of a high-grade stenosis. 4. Mild atherosclerotic changes in the V4 segment of the left vertebral artery without significant stenosis. 5. No large vessel occlusion. CTA neck (06/12/21): IMPRESSION: 1. There is mild atherosclerotic changes in the proximal right ICA estimated at less than 50 % narrowing which is consistent with a mild stenosis using NASCET criteria. 2. There is mild atherosclerotic changes in the proximal left ICA estimated at less than 50 % narrowing which is consistent with a mild stenosis using NASCET criteria. 3. Mild atherosclerotic changes in the V1, V2, V3 and V4 segments of the left vertebral artery without evidence of any significant stenosis. 4. Mild atherosclerotic changes in the V1, V2 and V3 segments of the right vertebral artery without significant stenosis. Renal US (05/31/21): Atrophic appearance of the left kidney. Two simple cysts at the lower pole right kidney relatively new when compared with prior exam. PROGNOSIS: good ACTIVITY: use RW. Home PT services requested. DIET: as tolerated DISCHARGE PLAN: Close follow up with PCP in 3-5 days. Advised patient and family to reduce dose of gabapentin to 300 mg TID, tapering down from 1200 mg BID, as I suspect this was cause of his AMS with concurrent use of OTC cough medication. Further, reduced his dose of amitriptyline to 10 mg QHS down from 25 mg. Amlodipine started on DC for BP control. DISPOSITION: Home with services. DISCHARGE INSTRUCTIONS: 1. Follow up with PCP 3-5 days 2. Reduce dose of gabapentin to 300 mg three times per day, down from 1200 mg twice per day. I explained this to the patient and his grandson 3. If you develop worsening confusion, falling, chest pain, palpitations, shortness of breath or otherwise worsening of your symptoms, please call 911 or return to the nearest emergency room. DISCHARGE CONDITION: [Stable]. TIME SPENT ON DISCHARGE: 35 minutes Vital Signs/I&Os Vital Signs Date Time Temp Pulse Resp B/P (MAP) Pulse Ox O2 Delivery O2 Flow Rate FiO2 05/31/21 14:00 98.4 94 18 96 Room Air 05/31/21 13:57 100/50 (67) I&O- Last 24 Hours up to 6 AM 05/31/21 06:00 Intake Total 0 ml Output Total 275 ml Balance -275 ml Laboratory Data Labs 24H Laboratory Tests 2 05/31/21 06:23: Immature Granulocyte % (Auto) 0.4, Neutrophils (%) (Auto) 62.5, Lymphocytes (%) (Auto) 17.8L, Monocytes (%) (Auto) 10.3H, Eosinophils (%) (Auto) 8.3H, Basophils (%) (Auto) 0.7, Neutrophils # (Auto) 4.4, Lymphocytes # (Auto) 1.3L, Monocytes # (Auto) 0.7, Eosinophils # (Auto) 0.6H, Basophils # (Auto) 0.1, Nucleated Red Blood Cells % (auto) 0.0, Anion Gap 9, Glomerular Filtration Rate > 60.0, Calcium Level 7.8L, Magnesium Level 1.7L, Total Bilirubin 0.6, Aspartate Amino Transf (AST/SGOT) 17, Alanine Aminotransferase (ALT/SGPT) 15, Alkaline Phosphatase 99, Total Protein 5.8L, Albumin 2.4L, Albumin/Globulin Ratio 0.7 CBC/BMP Laboratory Tests 05/31/21 06:23 Microbiology Microbiology 05/30/21 Blood Culture - Preliminary, Resulted No growth after 24 hours . All specim... 05/30/21 Blood Culture - Preliminary, Resulted No growth after 24 hours . All specim... Discharge Medications Scheduled Amitriptyline HCl (Amitriptyline HCl) 10 Mg Tablet, 10 MG PO QHS, (Reported) Amlodipine Besylate (Amlodipine Besylate) 5 Mg Tablet, 5 MG PO DAILY, (Reported) Amoxicillin/Potassium Clav (Augmentin 500-125 Tablet) 1 Each Tablet, 1 TAB PO BID Aspirin (Aspirin) 325 Mg Tablet, 325 MG PO DAILY, (Reported) Folic Acid (Folic Acid) 1 Mg Tablet, 1 MG PO DAILY, (Reported) Gabapentin (Gabapentin) 300 Mg Capsule, 300 MG PO TID, (Reported) MORNING, DINNER, AND NIGHT Magnesium Oxide (Magnesium Oxide) 400 Mg Tablet, 400 MG PO BID, (Reported) Multivitamins (Thera M Plus Tablet) 1 Each Tablet, 1 TAB PO DAILY, (Reported) Potassium Chloride (Potassium Chloride) 10 Meq Tablet.er, 10 MEQ PO DAILY, (Reported) Salmeterol/Fluticasone (Advair 250-50 Diskus) 14 Puff/Inhaler Aerp, 1 PUFF INH BID, (Reported) Sildenafil Citrate (Sildenafil Citrate) 100 Mg Tablet, 100 MG PO DAILY, (Reported) Simvastatin (Simvastatin) 20 Mg Tablet, 20 MG PO DAILY, (Reported) Thiamine HCl (Thiamine HCl) 100 Mg Tablet, 100 MG PO DAILY, (Reported) Scheduled PRN Calcium Carbonate (Tums) 200 Mg Tab.chew, 400 MG PO BID PRN for INDIGESTION, (Reported) Allergies Coded Allergies: No Known Allergies (Verified , 06/05/21) CIRA SCHROEDER MD May 31, 2021 15:10
[2021-05-31 16:15] VITALS: BP 108/60
[2021-05-31] MEDS ORDERED: AMLO1TAB24 PO (16:15)
[2021-05-31 16:30] VITALS: BP 108/60
[2021-07-14] MEDS ORDERED: THERTAB21 (06:58)
[2021-07-14] MEDS ORDERED: B-1100TA2 (06:58)
== END 2021-05-31 17:03 | disposition home health service (06) | DRG 79 ==
LOC: EDBD 11:03 → M ED 11:03 → ENRESERV 16:03 → M ED INP 16:49 → ENRESERV 19:03 → M MSPAV 20:23
PROVIDERS: ADMIT Family Medicine; ATTEND Family Medicine
DX: I67.4 Hypertensive encephalopathy (principal); I16.0 Hypertensive urgency; J44.9 Chronic obstructive pulmonary disease, unspecified; E78.00 Pure hypercholesterolemia, unspecified; F10.10 Alcohol abuse, uncomplicated; Z85.820 Personal history of malignant melanoma of skin; Z79.899 Other long term (current) drug therapy; Z79.82 Long term (current) use of aspirin; G62.9 Polyneuropathy, unspecified; Z87.891 Personal history of nicotine dependence

== ENCOUNTER 2021-06-05 16:49 | Inpatient (IN) | payer MEDICARE, OTHER ==
[~2021-06-05] VITALS: Ht 177.8 cm; Wt 92.5 kg
[~2021-06-05 16:49] MED LIST changes: +AMIT10TA7 PO; +AMLO1TAB24 PO; +BAYE325T16 PO; +COMMENTS; +GABA-282 PO; +MAGN400T3 PO; +THIA100T7 PO
[2021-06-05 17:47] LABS: BASO # 0.1 10^3/uL (0.0-0.2); BASO % 0.3 % (0.0-1.0); EOS % 0.1 % (0.0-3.0); HEMATOCRIT 39.7 % (42.0-52.0); HEMOGLOBIN 13.6 g/dl (13.5-17.5); LYMPH # 0.9 10^3/uL (1.5-5.0); MEAN CORPUSCULAR HEMOGLOBIN 33.3 pg (27.0-33.0); MEAN CORPUSCULAR HGB CONC 34.3 g/dl (32.0-36.5); MEAN CORPUSCULAR VOLUME 97.3 fl (80.0-96.0); MONO # 1.9 10^3/uL (0.0-0.8); NEUTROPHILS # 15.7 10^3/uL (1.5-8.5); NEUTROPHILS % 83.9 % (36.0-66.0); PLATELET COUNT, AUTOMATED 234 10^3/uL (150-450); RED BLOOD COUNT 4.08 10^6/uL (4.30-6.10)
[2021-06-05 18:22] LABS: ALBUMIN 2.4 GM/DL (3.2-5.2); ALT/SGPT 16 U/L (12-78); BILIRUBIN,DIRECT 0.5 MG/DL (0.0-0.2); BILIRUBIN,TOTAL 1.4 MG/DL (0.2-1.0); BLOOD UREA NITROGEN 11 MG/DL (7-18); CALCIUM LEVEL 9.2 MG/DL (8.8-10.2); CARBON DIOXIDE LEVEL 26 MEQ/L (21-32); CHLORIDE LEVEL 95 MEQ/L (98-107); CK-MB VALUE MASS < 1.0 NG/ML (<3.6); CPK CREATINE PHOSPHOKINASE 46 U/L (39-308); CREATININE FOR GFR 0.94 MG/DL (0.70-1.30); GLOMERULAR FILTRATION RATE > 60.0 (>35); GLUCOSE, FASTING 173 MG/DL (70-100); MB/CK RELATIVE INDEX 2.17 (< OR =4); POTASSIUM SERUM 4.1 MEQ/L (3.5-5.1); SODIUM LEVEL 131 MEQ/L (136-145); TOTAL PROTEIN 6.1 GM/DL (6.4-8.2); TROPONIN I < 0.02 NG/ML (< 0.10)
[2021-06-05 18:29] LABS: WHITE BLOOD COUNT 18.7 10^3/uL (4.0-10.0)
--- NOTE | 2021-06-05 19:30 | REPVR ---
PROCEDURE INFORMATION: Exam: CT Cervical Spine Without Contrast Exam date and time: 06/05/2021 6:21 PM Age: 80 years old Clinical indication: Injury or trauma; Fall; Blunt trauma TECHNIQUE: Imaging protocol: Computed tomography images of the cervical spine without contrast. Radiation optimization: All CT scans at this facility use at least one of these dose optimization techniques: automated exposure control; mA and/or kV adjustment per patient size (includes targeted exams where dose is matched to clinical indication); or iterative reconstruction. COMPARISON: CT ANGIO NECK 05/30/2021 5:00 PM FINDINGS: Bones/joints: Slight grade 1 degenerative anterolisthesis of C3 on C4 and C4 on C5. No acute fracture seen. Moderate disc height loss and spondylosis with uncovertebral arthropathy at C5-C6 and C6-C7. Moderate degenerative changes at C1-C2. Discs/Spinal canal/Neural foramina: No significant disc protrusion. No severe spinal canal stenosis. No significant neural foraminal narrowing. Auditory system: There is material in the left external auditory canal which presumably represents cerumen. Lungs: Lung apices are normal. Vasculature: [id number] calcified atherosclerosis at the carotid bifurcations. Soft tissues: Unremarkable. There is nuchal ligament calcification. Other findings: Images are motion degraded. IMPRESSION: Considering motion artifacts, no obvious cervical spine fracture identified. Electronically signed by: Hallie Henderson On 06/05/2021 19:29:44 PM
--- NOTE | 2021-06-05 19:35 | REPVR ---
PROCEDURE INFORMATION: Exam: CT Head Without Contrast Exam date and time: 06/05/2021 6:21 PM Age: 80 years old Clinical indication: Injury or trauma; Fall; Blunt trauma (contusions or hematomas) TECHNIQUE: Imaging protocol: Computed tomography of the head without contrast. Radiation optimization: All CT scans at this facility use at least one of these dose optimization techniques: automated exposure control; mA and/or kV adjustment per patient size (includes targeted exams where dose is matched to clinical indication); or iterative reconstruction. COMPARISON: CT Head without contrast 05/30/2021 11:18 AM FINDINGS: Brain: The brain demonstrates diffuse volume loss. There is white matter hypodensity most consistent with chronic small vessel ischemic change. No visible evolving territorial infarct. No hemorrhage. Cerebral ventricles: The ventricles are enlarged in keeping with volume loss. Paranasal sinuses: The right maxillary sinus is opacified by mucosal disease. No fluid levels. Mastoid air cells: Visualized mastoid air cells are well aerated. Bones/joints: No acute calvarial fracture seen. Chronic appearing nasal bone fracture. Soft tissues: Unremarkable. IMPRESSION: No acute intracranial abnormality seen. Electronically signed by: Hallie Henderson On 06/05/2021 19:34:38 PM
[2021-06-05] MEDS ORDERED: FOLI1TAB11 PO (19:50)
[2021-06-05] MEDS ORDERED: AMIT-253 PO (19:50)
[2021-06-05] MEDS ORDERED: AMLO1TAB24 PO (19:50)
[2021-06-05] MEDS ORDERED: SILD100T PO (19:50)
[2021-06-05] MEDS ORDERED: GABA-282 PO (19:50)
[2021-06-05] MEDS ORDERED: TUMS500C PO (19:50)
[2021-06-05] MEDS ORDERED: VITMTA PO (19:50)
[2021-06-05] MEDS ORDERED: THIA100T7 PO (19:50)
[2021-06-05] MEDS: MAGNESIUM OXIDE 400MG TAB (MAG-OX) PO SCH (21:00)
[2021-06-05] MEDS: GABAPENTIN 300 MG CAP PO SCH (21:00)
--- NOTE | 2021-06-05 22:20 | REPVR ---
PROCEDURE INFORMATION: Exam: XR Right Elbow Exam date and time: 06/05/21 (8:59pm) Age: 80 years old Clinical indication: Fall TECHNIQUE: Imaging protocol: XR Right elbow Views: 3 or more views COMPARISON: Right shoulder plain films of 11/17/16 FINDINGS: Bones/joints: Unremarkable. No acute fracture nor dislocation. Soft tissues: Unremarkable. IMPRESSION: No acute findings. Electronically signed by: Yarely Daly On 06/05/2021 22:20:25 PM
[2021-06-05] MEDS ORDERED: ISOVUE-370 76% 100ML VIAL As Ordered ONE (22:27)
--- NOTE | 2021-06-05 22:31 | REPVR ---
PROCEDURE INFORMATION: Exam: XR Chest Exam date and time: 06/05/21 (8:57pm) Age: 80 years old Clinical indication: Fever TECHNIQUE: Imaging protocol: Portable CXR Views: 1 view COMPARISON: Portable CXR of 05/30/21 Chest films of 10/08/19 FINDINGS: Comparison is made with chest films done on 05/30/21 and 10/08/19. Stable heart size. Uncoiled thoracic aorta. Diffuse coarse bilateral interstitial changes again noted. No consolidation. No significant pleural effusions. No pneumothorax. Mild elevation of the left hemidiaphragm (unchanged). IMPRESSION: No definite acute chest pathology. Chronic-appearing bilateral interstitial lung changes again seen. No focal infiltrates. No pleural effusions. Electronically signed by: Yarely Daly On 06/05/2021 22:31:41 PM
--- NOTE | 2021-06-05 23:24 | REPVR ---
PROCEDURE INFORMATION: Exam: CTA Chest with Contrast Exam date and time: 06/05/21 (10:40pm) Age: 80 years old Clinical indication: Fever of unknown origin TECHNIQUE: Imaging protocol: Computed tomographic angiography of the chest with contrast. 3D rendering (Not supervised by radiologist): MIP and/or 3D reconstructed images were created by the technologist. Radiation optimization: All CT scans at this facility use at least one of these dose optimization techniques: automated exposure control; mA and/or kV adjustment per patient size (includes targeted exams where dose is matched to clinical indication); or iterative reconstruction. Contrast material: Isovue 370 Contrast volume: 100 ml Contrast route: IV COMPARISON: CT CHEST of 10/08/19 CT ABDOMEN PELVIS of 07/26/17 FINDINGS: Pulmonary arteries: Normal. No pulmonary emboli. Aorta: Scattered atherosclerotic calcifications. No aortic aneurysm. No aortic dissection. Lungs: Scattered areas of interstitial disease are again noted, bilaterally (similar appearance and distribution in 2018). No consolidation. No masses. Pleural spaces: Unremarkable. No pneumothorax. No pleural effusions. Heart: Unremarkable. No cardiomegaly. No pericardial effusion. Lymph nodes: Unremarkable. No enlarged lymph nodes. Bones/joints: Unremarkable. No acute fracture. Soft tissues: Unremarkable. Upper abdomen: Diffuse fatty infiltration of the liver. Distended gallbladder, perhaps with wall inflammation / edema (partially imaged). Stable irregular right hepatic lobe cyst (2 cm size). Small hiatal hernia. Distended stomach, filled with fluid and air. IMPRESSION: Scattered chronic-appearing interstitial lung disease (similar appearance in 2018). No definite acute infiltrate. No pleural effusions. Distended, possibly inflamed and edematous gallbladder (partially imaged) Suggest correlation with CT scan and/or ultrasound. Electronically signed by: Yarely Daly On 06/05/2021 23:24:02 PM
--- NOTE | 2021-06-06 00:01 | REPVR ---
PROCEDURE INFORMATION: Exam: CT Abdomen And Pelvis With Contrast Exam date and time: 06/05/2021 10:38 PM Age: 80 years old Clinical indication: Other: Fever unknown origin TECHNIQUE: Imaging protocol: Computed tomography of the abdomen and pelvis with contrast. Radiation optimization: All CT scans at this facility use at least one of these dose optimization techniques: automated exposure control; mA and/or kV adjustment per patient size (includes targeted exams where dose is matched to clinical indication); or iterative reconstruction. Contrast material: ISOVUE 370; Contrast volume: 100 ml; Contrast route: INTRAVENOUS (IV); COMPARISON: CT ABD PELVIS W/O CONTRAST 07/26/2017 8:21 AM FINDINGS: Lungs: Clear appearing lung bases. Heart: There is mild cardiomegaly. Liver: There are 2 small cyst left lobe of the liver. There is a large cyst midportion of the right lobe of the liver. This appears very similar to the previous examination of 2016. Gallbladder and bile ducts: There is hydrops of the gallbladder with the lumen measuring 5.3 cm. There is thickening of the wall of the gallbladder and hazy margins. Hazy increased density in the fat surrounding the gallbladder all consistent with changes of acute cholecystitis. There is some inflammation along the margins of the duodenal bulb from the gallbladder. Pancreas: Normal pancreas. Normal pancreas. Spleen: Normal spleen. Adrenal glands: Normal adrenal glands Kidneys and ureters: There is hypertrophy of the right kidney with enhancement. The left kidney is very small and atrophic with a small amount of enhancement. There is a very small left renal artery. Stomach and bowel: There are numerous diverticula of the sigmoid colon but no evidence of diverticulitis. There are multiple air-fluid levels of small bowel consistent with ileus. The cecum is in the right abdomen and there is no evidence of inflammation. There are multiple surgical clips of the anterior abdominal wall. There is a diverticulum of the duodenal C loop at the head of the pancreas. There is moderate fatty infiltration of the liver. Intraperitoneal space: There is no evidence of pneumoperitoneum. There is no evidence of free fluid in the abdomen or pelvis. Vasculature: There is a dual lumen graft at the lower aspect of the aorta with opacification of the right and left lumen. There is aneurysmal dilatation of non-opacified right and left common iliac artery. There is opacification of the lower aspect of the right common iliac artery probably due to reflux of contrast from the nome right external iliac artery. There is opacification of the right femoral artery however severe stenosis of the distal right femoral artery. There is severe irregular atherosclerotic plaque formation of the lower abdominal aorta that is partially calcified. There is aneurysmal dilatation of the lower abdominal aorta measuring 3 cm. Normal spleen. Lymph nodes: Unremarkable. No enlarged lymph nodes. Urinary bladder: Normal urinary bladder. Reproductive: Calcifications of the prostate. Bones/joints: There is moderate scoliosis of the lumbar spine convexity to the right. There is a large area of disc extrusion right L4 neural foramina similar to 2017 causing severe neural foraminal narrowing. There is also disc extrusion right C5 neural foramina. IMPRESSION: 1. There is hydrops of the gallbladder. There is thickening of the gallbladder wall with inflammation and edema of the gallbladder wall and inflammation surrounding the margins of the gallbladder and contiguous with the duodenum. This is all consistent with acute changes of cholecystitis. 2. Mild ileus. Electronically signed by: Anthony Harvey On 06/06/2021 00:01:00 AM
[2021-06-06] MEDS ORDERED: PIPERACILLIN/TAZOBACTAM SOD 3.375 GM in D5W MINI-BAG PLUS 50 ML IV ONE (00:15)
[2021-06-06] MEDS ORDERED: NS 1,000 ML IV ONE (00:25)
[2021-06-06] MEDS ORDERED: ONDANSETRON 4MG/2ML VIAL IV PRN (00:35)
[2021-06-06] MEDS ORDERED: ACETAMINOPHEN TAB 650MG DOSE (2X325MG) PO PRN (00:35)
[2021-06-06] MEDS ORDERED: MOM 30ML SUSPENSION UDC PO PRN (00:35)
[2021-06-06] MEDS ORDERED: MAALOX 30 ML SUSP *UDC PO PRN (00:35)
--- NOTE | 2021-06-06 01:21 | HPEPDOC ---
[facility] Medical History & Physical Date of Admission Jun 06, 2021 Date of Service: Jun 06, 2021 Attending Physician: MCKINLEY SCHWAB MD History and Physical CHIEF COMPLAINT: Weakness, confusion and falls HISTORY OF PRESENT ILLNESS: Mr. Long is an 80-year-old male who presented to the ER with complaints of weakness and confusion with fall 2 yesterday. The patient is normally alert, oriented, and lives on his own. He was admitted last week with the same symptoms and went home after 24 hours with confusion apparently resolving. At that time. CT of the head was negative. His white count was within normal limits. There was some thought that this might be polypharmacy, but he was continued on the same medications at discharge. He states he's been doing well since he went home up until yesterday. At that point he said his legs "gave out from under me" twice. He fell against the coffee table and suffered some abrasions on the bilateral e lbows. X-ray of the elbow showed no acute fracture. On initial evaluation this evening. He was noted to have fever of 100.4. White blood cell count was elevated at greater than 18,000. CT of the head and cervical neck showed no acute pathophysiology. Chest x-ray and CTA of the chest confirmed chronic appearing interstitial lung disease which was similar to previous imaging. CT of the chest and CT of the abdomen and pelvis noted hydrops of the gallbladder with thickening of the gallbladder wall, including inflammation and edema of the surrounding margins of the gallbladder and contiguous with the duodenum. Allergy noted. This was all consistent with acute changes of cholecystitis. They also m entioned a mild ileus. The patient denied any nausea or vomiting. Denied right upper quadrant pain, but did note pain with palpation of the right upper quadrant. Patient has a long history of alcohol abuse but quit at the beginning of March. He confirmed he has not had a drink since that time. Sodium was decreased to 131. Glucose is elevated at 173 with no documented history of diabetes. Total bilirubin was elevated at 1.4 and direct bilirubin was 0.5. TSH was also high at 7.32. TSH was noted to be elevated last week at 6.8, but free T4 was 0.85. ER provider contacted Dr. Reagan, general surgery who recommended that the patient be admitted, kept nothing by mouth and started on antibiotics with plans to evaluate him in the morning. PAST MEDICAL HISTORY: 1. Obstructive sleep apnea. 2. COPD 3. Hypercholesterolemia. 4. Alcohol use disorder, having quit drinking 04/10. 5. Peripheral neuropathy. 6. Hypertension. 7. Chronic kidney disease. 8. Chronic back pain. 9. Basal cell carcinoma. 10. Congestive heart failure, diastolic with preserved ejection fraction per echocardiogram in 12/09. PAST SURGICAL HISTORY: 1. Abdominal aortic aneurysm repair. 2. Bilateral groin aneurysm repair. 3. Right inguinal hernia. 4. Excision of melanoma SOCIAL HISTORY: Tobacco use: Patient quit smoking in the . ETOH: States he stopped drinking in March 2021 Illicit drug use: Denies Patient lives with: Alone FAMILY HISTORY: Family history was thoroughly reviewed and found to be noncontributory REVIEW OF SYSTEMS: Complete 10 point review systems is negative except as noted above PHYSICAL EXAMINATION: Patient is seen in the ER, lying on the stretcher. Despite reports of confusion the patient is alert and oriented x 3. HEENT is WNL. Speech is a little difficult to understand at times, but appears to be baseline. Neck is supple. Lungs are clear to auscultation. Heart regular rate and rhythm without murmur. Abdomen is rounded, soft, tender to palpation in the right upper quadrant with bowel sounds positive. Extremities with good ROM and strength equal bilaterally. No lower extremity edema. Pedal pulses are positive. Skin is warm and dry with no obvious rash or lesion. Neuro: grossly intact. Psych: He is pleasant and cooperative. ASSESSMENT AND PLAN: 1. Sepsis secondary to Acute cholecystitis as evidenced by fever, leukocytosis and tachycardia. Patient will be continued on Zosyn with IV fluids. Will add when necessary pain medication and antiemetics. General surgery to evaluate the morning. Will keep patient nothing by mouth except meds for now. 2. Fever secondary to acute cholecystitis. Add antipyretics and monitor with routine vital signs. 3. Leukocytosis. Plan as outlined above. Recheck labs in the morning. 4. Falls at home with new onset weakness, probably secondary to sepsis with acute cholecystitis. Plan as outlined above. Would recommend physical and occupational therapy evaluation after any necessary interventions. Fall precautions. 5. Hypertension, essential. Continue amlodipine and monitor with routine vital signs. Will adjust medications as needed based on trends. 6. COPD no acute exacerbation. Continue Advair and encourage good pulmonary toilet. Oxygen available as needed. Will titrate to keep sats between 88, 92%. 7. Peripheral neuropathy. Continue gabapentin. 8. Hypercholesterolemia. Continue statin. 9. Congestive heart failure, diastolic, with no acute exacerbation. Monitor closely to avoid fluid overload. Will weigh daily. 10. DVT prophylaxis. Will hold anticoagulation with possible surgery. Will add SCDs. CODE STATUS: Patient will be considered full code. He states his grandson would act as a surrogate if he were unable to make his own decisions. Patient is considered high risk for further deterioration including possible septic shock. He is admitted as inpatient and expected to remain at least 2-3 midnights. Vital Signs Vital Signs Date Time Temp Pulse Resp B/P (MAP) Pulse Ox O2 Delivery O2 Flow Rate FiO2 06/05/21 23:45 107 18 94 Room Air 06/05/21 23:31 135/69 (91) 06/05/21 17:00 100.4 Laboratory Data Labs 24H Laboratory Tests 2 06/05/21 17:07: Immature Granulocyte % (Auto) 0.7, Neutrophils (%) (Auto) 83.9H, Lymphocytes (%) (Auto) 5.0L, Monocytes (%) (Auto) 10.0H, Eosinophils (%) (Auto) 0.1, Basophils (%) (Auto) 0.3, Neutrophils # (Auto) 15.7H, Lymphocytes # (Auto) 0.9L, Monocytes # (Auto) 1.9H, Eosinophils # (Auto) 0.0, Basophils # (Auto) 0.1, Nucleated Red Blood Cells % (auto) 0.0, Urine Color HERMAN, Urine Appearance HAZY, Urine pH 7.0, Urine Specific [place] 1.011, Urine Protein 1+H, Urine Glucose (UA) NEGATIVE, Urine Ketones NEGATIVE, Urine Blood 1+H, Urine Nitrite NEGATIVE, Urine Bilirubin NEGATIVE, Urine Urobilinogen 2.0H, Urine Leukocyte Esterase NEGATIVE, Urine WBC (Auto) 2, Urine RBC (Auto) 29H, Urine Hyaline Casts (Auto) 0, Urine Bacteria (Auto) NEGATIVE, Urine Squamous Epithelial Cells 0, Urine Sperm (Auto) , Anion Gap 10, Glomerular Filtration Rate > 60.0, Lactic Acid Level 1.7, Calcium Level 9.2, Total Bilirubin 1.4H, Direct Bilirubin 0.5H, Aspartate Amino Transf (AST/SGOT) 20, Alanine Aminotransferase (ALT/SGPT) 16, Alkaline Phosphatase 91, Total Creatine Kinase 46, Creatine Kinase MB < 1.0, Creatine Kinase MB Relative Index 2.17, Troponin I < 0.02, Total Protein 6.1L, Albumin 2.4L, Albumin/Globulin Ratio 0.6, Thyroid Stimulating Hormone (TSH) 7.320H 06/05/21 20:23: Urine Color HERMAN, Urine Appearance HAZY, Urine pH 7.0, Urine Specific [place] 1.011, Urine Protein 1+H, Urine Glucose (UA) NEGATIVE, Urine Ketones NEGATIVE, Urine Blood 1+H, Urine Nitrite NEGATIVE, Urine Bilirubin NEGATIVE, Urine Urobilinogen 2.0H, Urine Leukocyte Esterase NEGATIVE, Urine WBC (Auto) 1, Urine RBC (Auto) 28H, Urine Hyaline Casts (Auto) 0, Urine Bacteria (Auto) NEGATIVE, Urine Squamous Epithelial Cells 0, Urine Sperm (Auto) , Urine Mucus (Auto) SMALL CBC/BMP Laboratory Tests 06/05/21 17:07 Microbiology Microbiology 06/05/21 Blood Culture, Received Pending 06/05/21 Respiratory Virus Panel (PCR) ([facility]) - Final, Complete Home Medications Scheduled Amitriptyline HCl (Amitriptyline HCl) 10 Mg Tablet, 10 MG PO QHS Amlodipine Besylate (Amlodipine Besylate) 5 Mg Tablet, 5 MG PO DAILY Aspirin (Aspirin) 325 Mg Tablet, 325 MG PO DAILY Folic Acid (Folic Acid) 1 Mg Tablet, 1 MG PO DAILY Gabapentin (Gabapentin) 300 Mg Capsule, 300 MG PO TID MORNING, DINNER, AND NIGHT Magnesium Oxide (Magnesium Oxide) 400 Mg Tablet, 400 MG PO BID Multivitamins (Thera M Plus Tablet) 1 Each Tablet, 1 TAB PO DAILY Potassium Chloride (Potassium Chloride) 10 Meq Tablet.er, 10 MEQ PO DAILY Salmeterol/Fluticasone (Advair 250-50 Diskus) 14 Puff/Inhaler Aerp, 1 PUFF INH BID Sildenafil Citrate (Sildenafil Citrate) 100 Mg Tablet, 100 MG PO DAILY Simvastatin (Simvastatin) 20 Mg Tablet, 20 MG PO DAILY Thiamine HCl (Thiamine HCl) 100 Mg Tablet, 100 MG PO DAILY Scheduled PRN Calcium Carbonate (Tums) 200 Mg Tab.chew, 400 MG PO BID PRN for INDIGESTION Allergies Coded Allergies: No Known Allergies (Verified , 06/05/21) A-FIB/CHADSVASC A-FIB History Current/History of A-Fib/PAF?: No CADMUS,CARLOTTA T. WHNP Jun 06, 2021 01:21
[2021-06-06 01:51] LABS: VENOUS BASE EXCESS 4.6 (-2.0-2.0); VENOUS HCO3 29.8 MEQ/L (23.0-27.0); VENOUS O2 SATURATION 72.8 % (60.0-80.0); VENOUS PARTIAL PRESSURE CO2 46.3 mmHg (38.0-50.0); VENOUS PH 7.427 UNITS (7.330-7.430); VENOUS TOTAL CO2 31.3 MEQ/L (24.0-28.0)
[2021-06-06 02:50] VITALS: BP 142/74
[2021-06-06] MEDS: SODIUM CHLORIDE 0.9% 1000ML IV STA ×2 (03:23→03:45)
[2021-06-06] MEDS: AMITRIPTYLINE 10MG TABLET PO SCH ×2 (03:23→21:20)
[2021-06-06] MEDS: PIPERACILLIN/TAZOBACTAM SOD 3.375 GM in D5W MINI-BAG PLUS 50 ML IV SCH ×4 (03:44→21:20)
[2021-06-06] MEDS: NS 1,000 ML IV SCH ×2 (03:45→20:09)
[2021-06-06 06:00] VITALS: BP 142/70
[2021-06-06 06:11] VITALS: BP 142/70
[2021-06-06 06:32] LABS: HEMATOCRIT 39.3 % (42.0-52.0); HEMOGLOBIN 13.2 g/dl (13.5-17.5); MEAN CORPUSCULAR HEMOGLOBIN 33.2 pg (27.0-33.0); MEAN CORPUSCULAR HGB CONC 33.6 g/dl (32.0-36.5); PLATELET COUNT, AUTOMATED 232 10^3/uL (150-450); RED BLOOD COUNT 3.97 10^6/uL (4.30-6.10); WHITE BLOOD COUNT 16.6 10^3/uL (4.0-10.0)
[2021-06-06 06:59] LABS: ALBUMIN 2.2 GM/DL (3.2-5.2); ALT/SGPT 14 U/L (12-78); BILIRUBIN,TOTAL 1.5 MG/DL (0.2-1.0); BLOOD UREA NITROGEN 10 MG/DL (7-18); CALCIUM LEVEL 8.7 MG/DL (8.8-10.2); CARBON DIOXIDE LEVEL 27 MEQ/L (21-32); CHLORIDE LEVEL 97 MEQ/L (98-107); CREATININE FOR GFR 0.86 MG/DL (0.70-1.30); GLOMERULAR FILTRATION RATE > 60.0 (>35); GLUCOSE, FASTING 144 MG/DL (70-100); MAGNESIUM LEVEL 1.7 MG/DL (1.8-2.4); POTASSIUM SERUM 3.6 MEQ/L (3.5-5.1); SODIUM LEVEL 133 MEQ/L (136-145); TOTAL PROTEIN 5.8 GM/DL (6.4-8.2)
[2021-06-06] MEDS: ADVAIR HFA 115/21MCG INHALER INH SCH ×2 (07:45→19:37)
[2021-06-06] MEDS: amLODIPine 5 MG TAB PO SCH ×3 (09:00→09:27)
[2021-06-06] MEDS: SIMVASTATIN 20 MG TAB PO SCH (09:18)
[2021-06-06] MEDS: GABAPENTIN 300 MG CAP PO SCH ×3 (09:18→21:20)
[2021-06-06] MEDS: THIAMINE 100 MG TAB PO SCH (09:18)
[2021-06-06] MEDS: ASPIRIN 325 MG TAB PO SCH (09:19)
[2021-06-06] MEDS: MAGNESIUM OXIDE 400MG TAB (MAG-OX) PO SCH ×2 (09:19→21:20)
[2021-06-06] MEDS: FOLIC ACID 1 MG TAB PO SCH (09:25)
[2021-06-06 10:00] VITALS: BP 139/73
--- NOTE | 2021-06-06 10:56 | ECGEPIP ---
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
--- NOTE | 2021-06-06 13:24 | CR ---
CONSULTATION DATE: 06/06/2021 REASON FOR CONSULTATION: Cholecystitis. BRIEF HISTORY OF PRESENT ILLNESS: Patient is an 80-year-old male who was recently discharged a week ago for a fall and some questionable altered mental status, and now presents with having a fall about 24 hours prior to admission. He states that happened a couple of times on the day before he was admitted and then, the day of admission, he developed a fever, white count was elevated and the gallbladder was thickened and concerning for cholecystitis. However, no evidence of gallstones were appreciated. Bilirubin was slightly elevated. No other significant abnormalities were appreciated. He had tenderness in his upper abdomen and he states since being admitted last night, his abdominal pain has improved. MEDICAL HISTORY: Significant for: 1. History of obstructive sleep apnea. 2. Chronic obstructive pulmonary disease (COPD). 3. Hypercholesterolemia. 4. History of alcohol use disorder. 5. History of peripheral neuropathy. 6. History of hypertension. 7. History of chronic kidney disease. 8. History of chronic back pain. 9. History of basal cell carcinoma. 10. History of congestive heart failure. 11. History of abdominal aortic aneurysm repair. 12. History of bilateral groin aneurysm repair. 13. History of right inguinal hernia repair. 14. Melanoma excision. PHYSICAL EXAMINATION: GENERAL: Reveals an 80-year-old male who looks his stated age. HEENT: Unremarkable. NECK: Supple without adenopathy. LUNGS: Clear to auscultation anteriorly, although diminished posteriorly. HEART: Regular. ABDOMEN: Soft. Tender in the right upper quadrant with guarding. EXTREMITIES: Warm and well perfused. IMPRESSION: Patient has acute acalculous cholecystitis at this time with elevated white count, tachycardia. In general, it is an unusual presentation for cholecystitis and, especially with his issues of falls recently and some mental status changes. Typically, we see acalculous cholecystitis in somebody who has decreased perfusion or sepsis issues and I am wondering if this might be contributing to his falls and whether a hypotensive event was the etiology for his acalculous cholecystitis. In any case, it is hard to know at this time, but he feels a little bit better this morning, but he is still cleaner in the right upper quadrant. I would recommend that we keep him nothing by mouth (NPO) for right now, continue intravenous (IV) fluids, IV antibiotics, and we will see how he is doing over the next 24-48 hours. I would like him to have some of these issues resolved, including he may need further cardiac workup, et cetera, as an outpatient, but to start, what we will do is I anticipate that he should resolve this issue with antibiotic treatment and then we can start him on clear liquids, a regular diet, and then discharge him to home with further workup from a medical standpoint, clearance standpoint, and then we can plan on an outpatient laparoscopic cholecystectomy. However, if he has increasing pain, fever, chills, or increasing white count, we will plan on operative intervention for him while he is here.
[2021-06-06] MEDS ORDERED: IPRATROPIUM 0.5MG/ALBUTEROL 2.5MG INH SOL UD 3ML (DUONEB) NEB PRN (16:25)
--- NOTE | 2021-06-06 16:26 | IPNPDOC ---
Subjective Date Seen The patient was seen on 06/06/21. Subjective Chief Complaint/HPI Mr. Long is an 80 year old male with THERESA, COPD, HFpEF, and alcohol use disorder (quit 04/10) who present with weakness, falls, and confusion and found to have acalculous cholecystitis. This morning, he still has abdominal discomfort. Denies chest pain or dyspnea. Otherwise, discussed case with general surgery. Plan to continue NPO with IV antibiotics. Objective Physical Examination General Exam: Positive: Alert, Cooperative Neck Exam: Positive: Supple Chest Exam: Positive: Clear to auscultation Heart Exam: Positive: Rate Normal, Regular Rhythm Abdomen Exam: Positive: Normal bowel sounds, Soft, Tenderness Neuro Exam: Positive: Normal Speech Psych Exam: Positive: Mental status NL, Mood NL Assessment /Plan Assessment Mr. Long is an 80 year old male with THERESA, COPD, HFpEF, and alcohol use disorder (quit 04/10) who present with weakness, falls, and confusion and found to have acalculous cholecystitis. General surgery following, recommendations appreciated. Patient does have leukocytosis with fever and tachycardia. There is no hypotension, but patient does meet SIRS criteria. Possible intra-abdominal infection. Continue with NPO and Zosyn. Plan/VTE VTE Prophylaxis Ordered?: Yes VTE Exclusion Mechanical Proph: N/A:VTE Prophy Ordered VTE Exclusion Pharmacological: Other Plan 1. Sepsis secondary to intra-abdominal infection -Blood cultures x2 obtained UA not suspicious for infection. Chest x-ray not suspicious for pneumonia Patient does have acalculous cholecystitis Continue empiric Zosyn day 1 2. Acalculous cholecystitis General surgery consulted, recommendations appreciated Continue conservative management with n.p.o. and antibiotics 3. Hypertension Continue amlodipine 4. Peripheral neuropathy Continue gabapentin 5. COPD Not in exacerbation Added duonebs as needed 6. Hyperlipidemia Continue simvastatin 7. Heart failure with preserved ejection fraction Stable, not decompensated Monitor fluid status 8. DVT prophylaxis No chemical prophylaxis due to possible surgery SCDs and teds Disposition: Pending clinical improvement and general surgery recommendations VS, I&O, 24H, Fishbone Vital Signs/I&O Vital Signs Date Time Temp Pulse Resp B/P (MAP) Pulse Ox O2 Delivery O2 Flow Rate FiO2 06/06/21 10:00 97.2 78 18 139/73 (95) 94 Room Air I&O- Last 24 Hours up to 6 AM 06/06/21 05:59 Intake Total 0 ml Output Total 250 ml Balance -250 ml Laboratory Data 24H LABS Laboratory Tests 2 06/05/21 17:07: Immature Granulocyte % (Auto) 0.7, Neutrophils (%) (Auto) 83.9H, Lymphocytes (%) (Auto) 5.0L, Monocytes (%) (Auto) 10.0H, Eosinophils (%) (Auto) 0.1, Basophils (%) (Auto) 0.3, Neutrophils # (Auto) 15.7H, Lymphocytes # (Auto) 0.9L, Monocytes # (Auto) 1.9H, Eosinophils # (Auto) 0.0, Basophils # (Auto) 0.1, Nucleated Red Blood Cells % (auto) 0.0, Urine Color HERMAN, Urine Appearance HAZY, Urine pH 7.0, Urine Specific [place] 1.011, Urine Protein 1+H, Urine Glucose (UA) NEGATIVE, Urine Ketones NEGATIVE, Urine Blood 1+H, Urine Nitrite NEGATIVE, Urine Bilirubin NEGATIVE, Urine Urobilinogen 2.0H, Urine Leukocyte Esterase NEGATIVE, Urine WBC (Auto) 2, Urine RBC (Auto) 29H, Urine Hyaline Casts (Auto) 0, Urine Bacteria (Auto) NEGATIVE, Urine Squamous Epithelial Cells 0, Urine Sperm (Auto) , Anion Gap 10, Glomerular Filtration Rate > 60.0, Lactic Acid Level 1.7, Calcium Level 9.2, Total Bilirubin 1.4H, Direct Bilirubin 0.5H, Aspartate Amino Transf (AST/SGOT) 20, Alanine Aminotransferase (ALT/SGPT) 16, Alkaline Phosphatase 91, Total Creatine Kinase 46, Creatine Kinase MB < 1.0, Creatine Kinase MB Relative Index 2.17, Troponin I < 0.02, Total Protein 6.1L, Albumin 2.4L, Albumin/Globulin Ratio 0.6, Thyroid Stimulating Hormone (TSH) 7.320H 06/05/21 20:23: Urine Color HERMAN, Urine Appearance HAZY, Urine pH 7.0, Urine Specific [place] 1.011, Urine Protein 1+H, Urine Glucose (UA) NEGATIVE, Urine Ketones NEGATIVE, Urine Blood 1+H, Urine Nitrite NEGATIVE, Urine Bilirubin NEGATIVE, Urine Urobilinogen 2.0H, Urine Leukocyte Esterase NEGATIVE, Urine WBC (Auto) 1, Urine RBC (Auto) 28H, Urine Hyaline Casts (Auto) 0, Urine Bacteria (Auto) NEGATIVE, Urine Squamous Epithelial Cells 0, Urine Sperm (Auto) , Urine Mucus (Auto) SMALL 06/06/21 01:43: Lactic Acid Level 1.0, Blood Gas Bicarbonate Standard 28.0, Venous Blood pH 7.427, Venous Blood Partial Pressure CO2 46.3, Venous Blood Partial Pressure O2 37.0, Venous Blood Total Carbon Dioxide 31.3H, Venous Blood HCO3 29.8H, Venous Blood Oxygen Saturation 72.8, Venous Blood Base Excess 4.6H 06/06/21 05:43: Nucleated Red Blood Cells % (auto) 0.0, Anion Gap 9, Glomerular Filtration Rate > 60.0, Calcium Level 8.7L, Total Bilirubin 1.5H, Aspartate Amino Transf (AST/SGOT) 13, Alanine Aminotransferase (ALT/SGPT) 14, Alkaline Phosphatase 88, Total Protein 5.8L, Albumin 2.2L, Albumin/Globulin Ratio 0.6, Magnesium Level 1.7L CBC/BMP Laboratory Tests 06/05/21 17:07 06/06/21 05:43 Microbiology Microbiology 06/06/21 Blood Culture, Received Pending 06/05/21 Blood Culture, Received Pending 06/05/21 Respiratory Virus Panel (PCR) ([facility]) - Final, Complete BRYON MENDEZ DO Jun 06, 2021 16:26
[2021-06-06 18:00] VITALS: BP 128/59
[2021-06-06 22:00] VITALS: BP 140/56
[2021-06-07] VITALS (7 sets, daily range): BP systolic 110–149; BP diastolic 58–76
[2021-06-07] MEDS: PIPERACILLIN/TAZOBACTAM SOD 3.375 GM in D5W MINI-BAG PLUS 50 ML IV SCH ×4 (03:54→20:23)
[2021-06-07 06:12] LABS: HEMATOCRIT 37.1 % (42.0-52.0); HEMOGLOBIN 12.5 g/dl (13.5-17.5); MEAN CORPUSCULAR HEMOGLOBIN 33.2 pg (27.0-33.0); MEAN CORPUSCULAR HGB CONC 33.7 g/dl (32.0-36.5); MEAN CORPUSCULAR VOLUME 98.4 fl (80.0-96.0); PLATELET COUNT, AUTOMATED 242 10^3/uL (150-450); RED BLOOD COUNT 3.77 10^6/uL (4.30-6.10); WHITE BLOOD COUNT 14.4 10^3/uL (4.0-10.0)
[2021-06-07 06:36] LABS: ALBUMIN 1.9 GM/DL (3.2-5.2); ALT/SGPT 15 U/L (12-78); BILIRUBIN,TOTAL 1.1 MG/DL (0.2-1.0); BLOOD UREA NITROGEN 9 MG/DL (7-18); CALCIUM LEVEL 7.9 MG/DL (8.8-10.2); CARBON DIOXIDE LEVEL 28 MEQ/L (21-32); CHLORIDE LEVEL 102 MEQ/L (98-107); CREATININE FOR GFR 0.75 MG/DL (0.70-1.30); GLOMERULAR FILTRATION RATE > 60.0 (>35); GLUCOSE, FASTING 132 MG/DL (70-100); POTASSIUM SERUM 3.6 MEQ/L (3.5-5.1); SODIUM LEVEL 138 MEQ/L (136-145); TOTAL PROTEIN 5.4 GM/DL (6.4-8.2)
[2021-06-07] MEDS: ADVAIR HFA 115/21MCG INHALER INH SCH ×2 (08:01→20:17)
[2021-06-07] MEDS: MAGNESIUM OXIDE 400MG TAB (MAG-OX) PO SCH ×2 (08:48→20:23)
[2021-06-07] MEDS: FOLIC ACID 1 MG TAB PO SCH (08:48)
[2021-06-07] MEDS: GABAPENTIN 300 MG CAP PO SCH ×3 (08:48→20:23)
[2021-06-07] MEDS: THIAMINE 100 MG TAB PO SCH (08:48)
[2021-06-07] MEDS: ASPIRIN 325 MG TAB PO SCH (08:48)
[2021-06-07] MEDS: amLODIPine 5 MG TAB PO SCH (08:57)
[2021-06-07] MEDS: SIMVASTATIN 20 MG TAB PO SCH (08:57)
--- NOTE | 2021-06-07 11:43 | IPNPDOC ---
Subjective Date Seen The patient was seen on 06/07/21. Subjective Chief Complaint/HPI Mr. Long is an 80 year old male with THERESA, COPD, HFpEF, and alcohol use disorder (quit 04/10) who present with weakness, falls, and confusion and found to have acalculous cholecystitis. This morning, he denies any chest pain or dyspnea. Reports some abdominal tenderness. General surgery advanced diet to clear liquid diet. Objective Physical Examination General Exam: Positive: Alert, Cooperative Neck Exam: Positive: Supple Chest Exam: Positive: Clear to auscultation Heart Exam: Positive: Rate Normal, Regular Rhythm Abdomen Exam: Positive: Normal bowel sounds, Soft, Tenderness Neuro Exam: Positive: Normal Speech Psych Exam: Positive: Mental status NL, Mood NL Assessment /Plan Assessment Mr. Long is an 80 year old male with THERESA, COPD, HFpEF, and alcohol use disorder (quit 04/10) who present with weakness, falls, and confusion and found to have acalculous cholecystitis. General surgery following, recommendations appreciated. Patient does have leukocytosis with fever and tachycardia. There is no hypotension, but patient does meet SIRS criteria. Possible intra-abdominal infection. Plan/VTE VTE Prophylaxis Ordered?: Yes VTE Exclusion Mechanical Proph: N/A:VTE Prophy Ordered VTE Exclusion Pharmacological: Other Plan 1. Sepsis secondary to intra-abdominal infection -Blood cultures x2 obtained UA not suspicious for infection. Chest x-ray not suspicious for pneumonia Patient does have acalculous cholecystitis Continue empiric Zosyn day 2 -Of note, WBC tending downwards 2. Acalculous cholecystitis General surgery consulted, recommendations appreciated Continue antibiotics -General surgery advanced diet to clear liquid diet 3. Hypertension Continue amlodipine 4. Peripheral neuropathy Continue gabapentin 5. COPD Not in exacerbation Added duonebs as needed 6. Hyperlipidemia Continue simvastatin 7. Heart failure with preserved ejection fraction Stable, not decompensated Monitor fluid status 8. DVT prophylaxis No chemical prophylaxis due to possible surgery SCDs and teds Disposition: Pending clinical improvement and general surgery recommendations VS, I&O, 24H, Fishbone Vital Signs/I&O Vital Signs Date Time Temp Pulse Resp B/P (MAP) Pulse Ox O2 Delivery O2 Flow Rate FiO2 06/07/21 10:45 98.6 114/58 (76) 06/07/21 10:00 80 17 95 Room Air I&O- Last 24 Hours up to 6 AM 06/07/21 06:00 Intake Total 1150 ml Output Total 750 ml Balance 400 ml Laboratory Data 24H LABS Laboratory Tests 2 06/06/21 20:09: Bedside Glucose (Misc Panel) 128H 06/07/21 05:36: Nucleated Red Blood Cells % (auto) 0.0, Anion Gap 8, Glomerular Filtration Rate > 60.0, Calcium Level 7.9L, Total Bilirubin 1.1H, Aspartate Amino Transf (AST/SGOT) 17, Alanine Aminotransferase (ALT/SGPT) 15, Alkaline Phosphatase 84, Total Protein 5.4L, Albumin 1.9L, Albumin/Globulin Ratio 0.5 CBC/BMP Laboratory Tests 06/07/21 05:36 Microbiology Microbiology 06/06/21 Blood Culture - Preliminary, Resulted No growth after 24 hours . All specim... 06/05/21 Blood Culture - Preliminary, Resulted No growth after 24 hours . All specim... 06/05/21 Respiratory Virus Panel (PCR) ([facility]) - Final, Complete BRYON MENDEZ DO Jun 07, 2021 11:43
[2021-06-07] MEDS: NS 1,000 ML IV SCH ×2 (12:45→16:35)
--- NOTE | 2021-06-07 14:12 | IPN ---
PROGRESS NOTE DATE: 06/07/2021 SUBJECTIVE: Patient states that his abdominal pain is much better than it was yesterday. His white count is slowly dropping and it is down to 14.4 today and he has much less tenderness on his abdominal exam. He has had no fevers. No chills. He has had a low grade temperature this morning of 99.9, but otherwise seems to be making some slow progression, is hungry and is hoping to start on a clear liquid diet or, at least, progress his diet. PHYSICAL EXAMINATION: He has some mild distention and his right upper quadrant is mildly tender, but significantly improved to what it was previously. IMPRESSION/PLAN: Patient has resolving cholecystitis issues. At this point, my recommendation is that he continue on the antibiotics. We will start him on a clear liquid diet and if he tolerates this, then we will progress him to a low fat diet tomorrow and hopefully, discharge him to home the following day with plans on followup with medicine to determine what the etiology of these falls are associated with. If this is hypotension, then I am not sure if he needs an outpatient cardiology workup, and that can be better determined as an outpatient. But, from a surgical standpoint, he seems to be making some progress. We will continue with current recommendations.
[2021-06-07] MEDS: AMITRIPTYLINE 10MG TABLET PO SCH (20:23)
[2021-06-07] MEDS: CEPACOL LOZENGE PO PRN (21:08)
[2021-06-08 02:00] VITALS: BP 124/64
[2021-06-08] MEDS: NS 1,000 ML IV SCH ×2 (02:27→20:08)
[2021-06-08] MEDS: PIPERACILLIN/TAZOBACTAM SOD 3.375 GM in D5W MINI-BAG PLUS 50 ML IV SCH ×4 (02:31→20:07)
[2021-06-08 06:00] VITALS: BP 132/60
[2021-06-08 06:22] LABS: BASO % 0.3 % (0.0-1.0); EOS # 0.1 10^3/uL (0.0-0.5); EOS % 0.7 % (0.0-3.0); HEMATOCRIT 35.7 % (42.0-52.0); LYMPH # 0.6 10^3/uL (1.5-5.0); LYMPH % 5.7 % (24.0-44.0); MEAN CORPUSCULAR HEMOGLOBIN 33.4 pg (27.0-33.0); MEAN CORPUSCULAR HGB CONC 33.6 g/dl (32.0-36.5); MEAN CORPUSCULAR VOLUME 99.4 fl (80.0-96.0); MONO # 0.9 10^3/uL (0.0-0.8); NEUTROPHILS # 8.4 10^3/uL (1.5-8.5); NEUTROPHILS % 83.5 % (36.0-66.0); PLATELET COUNT, AUTOMATED 237 10^3/uL (150-450); RED BLOOD COUNT 3.59 10^6/uL (4.30-6.10)
[2021-06-08 06:51] LABS: ALBUMIN 1.6 GM/DL (3.2-5.2); ALT/SGPT 87 U/L (12-78); BLOOD UREA NITROGEN 7 MG/DL (7-18); CARBON DIOXIDE LEVEL 26 MEQ/L (21-32); CHLORIDE LEVEL 102 MEQ/L (98-107); CREATININE FOR GFR 0.83 MG/DL (0.70-1.30); GLOMERULAR FILTRATION RATE > 60.0 (>35); GLUCOSE, FASTING 163 MG/DL (70-100); POTASSIUM SERUM 3.3 MEQ/L (3.5-5.1); SODIUM LEVEL 135 MEQ/L (136-145); TOTAL PROTEIN 4.8 GM/DL (6.4-8.2)
[2021-06-08] MEDS ORDERED: POTASSIUM CHLORIDE 10 MEQ SR TABLET PO ONE (07:45)
[2021-06-08] MEDS: ADVAIR HFA 115/21MCG INHALER INH SCH ×2 (07:46→19:52)
[2021-06-08] MEDS: ASPIRIN 325 MG TAB PO SCH (08:55)
[2021-06-08] MEDS: FOLIC ACID 1 MG TAB PO SCH (08:59)
[2021-06-08] MEDS: GABAPENTIN 300 MG CAP PO SCH ×3 (08:59→20:07)
[2021-06-08] MEDS: MAGNESIUM OXIDE 400MG TAB (MAG-OX) PO SCH ×2 (08:59→20:07)
[2021-06-08] MEDS: amLODIPine 5 MG TAB PO SCH (08:59)
[2021-06-08] MEDS: THIAMINE 100 MG TAB PO SCH (08:59)
[2021-06-08] MEDS: SIMVASTATIN 20 MG TAB PO SCH (08:59)
[2021-06-08 10:00] VITALS: BP_SYST 120; BP_SYST 122; BP_DIAS 67; BP_DIAS 72
--- NOTE | 2021-06-08 10:47 | IPNPDOC ---
Subjective Date Seen The patient was seen on 06/08/21. Subjective Chief Complaint/HPI Mr. Long is an 80 year old male with THERESA, COPD, HFpEF, and alcohol use disorder (quit 04/10) who present with weakness, falls, and confusion and found to have acalculous cholecystitis. He was seen early this morning. He feels about the same as yesterday. His AST, ALT, and total bilirubin was elevated. General surgery ordered for MRCP Objective Physical Examination General Exam: Positive: Alert, Cooperative Neck Exam: Positive: Supple Chest Exam: Positive: Clear to auscultation Heart Exam: Positive: Rate Normal, Regular Rhythm Abdomen Exam: Positive: Normal bowel sounds, Soft, Tenderness Neuro Exam: Positive: Normal Speech Psych Exam: Positive: Mental status NL, Mood NL Assessment /Plan Assessment Mr. Long is an 80 year old male with THERESA, COPD, HFpEF, and alcohol use disorder (quit 04/10) who present with weakness, falls, and confusion and found to have acalculous cholecystitis. General surgery following, recommendations a ppreciated. Patient does have leukocytosis with fever and tachycardia. There is no hypotension, but patient does meet SIRS criteria. Possible intra-abdominal infection. On 06/08/21, patient's AST, ALT, and total bilirubin was elevated. MRCP pending Plan/VTE VTE Prophylaxis Ordered?: Yes VTE Exclusion Mechanical Proph: N/A:VTE Prophy Ordered VTE Exclusion Pharmacological: Other Plan 1. Sepsis secondary to intra-abdominal infection -Blood cultures x2 obtained UA not suspicious for infection. Chest x-ray not suspicious for pneumonia Patient does have acalculous cholecystitis Continue empiric Zosyn day 3 -Of note, WBC tending downwards 2. Acalculous cholecystitis General surgery consulted, recommendations appreciated Continue antibiotics -AST, ALT, and total bilirubin increasing. MRCP pending 3. Hypertension Continue amlodipine 4. Peripheral neuropathy Continue gabapentin 5. COPD Not in exacerbation Added duonebs as needed 6. Hyperlipidemia Continue simvastatin 7. Heart failure with preserved ejection fraction Stable, not decompensated Monitor fluid status 8. DVT prophylaxis No chemical prophylaxis due to possible surgery SCDs and teds Disposition: Pending MRCP results, clinical improvement, and general surgery recommendations VS, I&O, 24H, Fishbone Vital Signs/I&O Vital Signs Date Time Temp Pulse Resp B/P (MAP) Pulse Ox O2 Delivery O2 Flow Rate FiO2 06/08/21 10:00 97.6 80 18 120/67 (84) 97 Room Air I&O- Last 24 Hours up to 6 AM 06/08/21 06:00 Intake Total 3670 ml Output Total 1050 ml Balance 2620 ml Laboratory Data 24H LABS Laboratory Tests 2 06/08/21 05:33: Immature Granulocyte % (Auto) 0.8, Neutrophils (%) (Auto) 83.5H, Lymphocytes (%) (Auto) 5.7L, Monocytes (%) (Auto) 9.0H, Eosinophils (%) (Auto) 0.7, Basophils (%) (Auto) 0.3, Neutrophils # (Auto) 8.4, Lymphocytes # (Auto) 0.6L, Monocytes # (Auto) 0.9H, Eosinophils # (Auto) 0.1, Basophils # (Auto) 0.0, Nucleated Red Blood Cells % (auto) 0.0, Anion Gap 7L, Glomerular Filtration Rate > 60.0, Calcium Level 7.0L, Total Bilirubin 3.0#H, Aspartate Amino Transf (AST/SGOT) 236H, Alanine Aminotransferase (ALT/SGPT) 87H, Alkaline Phosphatase 169H, Total Protein 4.8L, Albumin 1.6L, Albumin/Globulin Ratio 0.5 CBC/BMP Laboratory Tests 06/08/21 05:33 Microbiology Microbiology 06/06/21 Blood Culture - Preliminary, Resulted No Growth after 48 hours. All Specime... 06/05/21 Blood Culture - Preliminary, Resulted No Growth after 48 hours. All Specime... 06/05/21 Respiratory Virus Panel (PCR) ([facility]) - Final, Complete BRYON MENDEZ DO Jun 08, 2021 10:47
[2021-06-08 14:00] VITALS: BP 123/67
[2021-06-08 18:00] VITALS: BP 136/76
--- NOTE | 2021-06-08 18:30 | REP ---
INDICATION: cholecystitis. COMPARISON: Comparison is made with abdominal CT study from June 05, 2021.. TECHNIQUE: Right upper quadrant sonography. FINDINGS: Scanning through the right upper quadrant of the abdomen demonstrates sludge a with shadowing echogenic foci in the gallbladder lumen. Consistent with cholelithiasis. Gallbladder somewhat distended. Its wall is quite thickened up to 7.5 mm. There is pericholecystic fluid. These findings in the gallbladder are similar to the CT findings from June 05, 2021 and may reflect acute cholecystitis. The common bile duct is normal measuring 0.6 cm in greatest diameter. Liver parenchyma is hyperechoic consistent with fatty infiltration. There is a 1 cm cyst in the left lobe and a 3.1 x 3.1 x 2.7 cm cyst is seen in the right lobe. The pancreas is obscured by abdominal gas. No right renal abnormality is seen. The right kidney measures 14.1 x 6.6 x 6.1 cm.. IMPRESSION: Moderate to marked gallbladder wall thickening. Gallbladder distension. Sludge and gallstones.. Question acute cholecystitis. Normal CBD. Findings similar to recent CT.. <Electronically signed by Sung Sadler > 06/08/21 [id number]
[2021-06-08] MEDS: AMITRIPTYLINE 10MG TABLET PO SCH (20:07)
[2021-06-08] MEDS: CEPACOL LOZENGE PO PRN (20:07)
[2021-06-08 22:00] VITALS: BP 114/58
[2021-06-09 02:00] VITALS: BP 125/67
[2021-06-09] MEDS: PIPERACILLIN/TAZOBACTAM SOD 3.375 GM in D5W MINI-BAG PLUS 50 ML IV SCH ×4 (03:29→20:09)
[2021-06-09 06:00] VITALS: BP 122/68
[2021-06-09 06:01] LABS: HEMOGLOBIN 12.3 g/dl (13.5-17.5); MEAN CORPUSCULAR HGB CONC 33.2 g/dl (32.0-36.5); MEAN CORPUSCULAR VOLUME 99.2 fl (80.0-96.0); PLATELET COUNT, AUTOMATED 241 10^3/uL (150-450); RED BLOOD COUNT 3.73 10^6/uL (4.30-6.10); WHITE BLOOD COUNT 7.6 10^3/uL (4.0-10.0)
[2021-06-09 06:31] LABS: ALBUMIN 1.6 GM/DL (3.2-5.2); ALT/SGPT 128 U/L (12-78); BILIRUBIN,TOTAL 2.3 MG/DL (0.2-1.0); BLOOD UREA NITROGEN 3 MG/DL (7-18); CALCIUM LEVEL 7.4 MG/DL (8.8-10.2); CARBON DIOXIDE LEVEL 29 MEQ/L (21-32); CHLORIDE LEVEL 107 MEQ/L (98-107); CREATININE FOR GFR 0.66 MG/DL (0.70-1.30); GLOMERULAR FILTRATION RATE > 60.0 (>35); GLUCOSE, FASTING 133 MG/DL (70-100); POTASSIUM SERUM 3.3 MEQ/L (3.5-5.1); SODIUM LEVEL 141 MEQ/L (136-145)
[2021-06-09] MEDS: ADVAIR HFA 115/21MCG INHALER INH SCH ×2 (08:19→20:29)
[2021-06-09 10:00] VITALS: BP 124/71
[2021-06-09] MEDS: THIAMINE 100 MG TAB PO SCH (10:06)
[2021-06-09] MEDS: amLODIPine 5 MG TAB PO SCH (10:06)
[2021-06-09] MEDS: NS 1,000 ML IV SCH (10:06)
[2021-06-09] MEDS: ASPIRIN 325 MG TAB PO SCH (10:06)
[2021-06-09] MEDS: POTASSIUM CHLORIDE 10 MEQ SR TABLET PO SCH ×2 (10:07→10:57)
[2021-06-09] MEDS: SIMVASTATIN 20 MG TAB PO SCH (10:07)
[2021-06-09] MEDS: MAGNESIUM OXIDE 400MG TAB (MAG-OX) PO SCH ×2 (10:07→20:09)
[2021-06-09] MEDS: GABAPENTIN 300 MG CAP PO SCH ×3 (10:07→20:08)
[2021-06-09] MEDS: FOLIC ACID 1 MG TAB PO SCH (10:07)
[2021-06-09 14:00] VITALS: BP 137/73
--- NOTE | 2021-06-09 14:18 | IPNPDOC ---
Text Note Date of Service The patient was seen on 06/09/21. NOTE Subjective: Patient is an 80-year-old male with obstructive sleep apnea, COPD, heart failure preserved ejection fraction, and alcohol use disorder who quit in March 2021 who presents with weakness, falls, confusion was found to have a calculus cholecystitis. He was seen today and is feeling better. The patient's AST, ALT, and total bilirubin continue to be elevated. Patient was unable to get his MRCP yesterday as patient has clips from hernia procedure so he could not go into the MRI machine. Patient states he is a "10/10 today" and is otherwise feeling well. Review of systems: General: Patient denies fevers HEENT: Patient denies headaches Cardiovascular: Patient denies chest pain Respiratory: Patient denies shortness of breath, cough GI: Patient denies abdominal pain, nausea, vomiting, diarrhea : Patient denies increased frequency or pain with urination Extremities: Patient denies swelling or pain in extremities Neurological: Patient denies numbness or tingling in legs Physical exam: Vitals: See below General: Alert and oriented male patient who was lying in bed when I walked in the room. Patient did not appear to be in any acute distress. HEENT: Normocephalic, atraumatic, moist mucous membranes. Neck: No lymphadenopathy or thyromegaly Cardiac: Regular rate and rhythm, no murmurs, normal S1, normal S2 Pulm: Clear to auscultation bilaterally. No wheezes, rhonchi, rales Abd: Nondistended, nontender to palpation, normal bowel sounds Ext: No edema bilateral lower extremities Labs: See below Imaging: Gallbladder ultrasound performed on 06/08/2021 was reported to show moderate to marked gallbladder wall thickening. Gallbladder distention. Sludge and gallstones. Question acute cholecystitis. Normal CBD. Findings similar to recent CT. Assessment/plan: 80-year-old male who presented with weakness, falls, confusion found to have acute cholecystitis. General surgery has been following and their recommendations are appreciated. 1. Sepsis secondary to intra-abdominal infection. Blood cultures x2 obtained. UA not suspicious for infection. Chest x-ray not suspicious for pneumonia. Patient does have acute cholecystitis and is on day 4 of Zosyn. Patient's WBCs continue to trend downwards. 2. Acute cholecystitis. This was initially thought to be a calculus cholecystitis and MRCP was ordered to evaluate however, the patient was unable to get a due to hernia clips. Ultrasound the gallbladder does show gallstones so this may have been a gallstone that has passed. We will continue to trend the patient's AST, ALT, and total bilirubin. Patient's diet has been advanced from clear liquids to low-fat diet. 3. Hypertension. Continue amlodipine. 4. Peripheral neuropathy. Continue gabapentin 5. COPD. Not in exacerbation and we will continue his home treatments. 6. Hyperlipidemia. Continue simvastatin. 7. Heart failure preserved ejection fraction. Patient is currently compensated and will monitor fluid status. IV fluids have been discontinued at this time as the patient is tolerating p.o. intake. DVT Prophylaxis: SCDs and teds Disposition: Pending improvement in the patient's AST, ALT, and total bilirubin. Possible discharge next 24 to 48 hours. VS,Fishbone, I+O VS, Fishbone, I+O Laboratory Tests 06/09/21 05:39 06/09/21 05:40 Vital Signs Date Time Temp Pulse Resp B/P (MAP) Pulse Ox O2 Delivery O2 Flow Rate FiO2 06/09/21 14:00 98.3 88 16 137/73 (94) 92 Room Air I&O- Last 24 Hours up to 6 AM 06/09/21 05:59 Intake Total 2290 ml Output Total 1625 ml Balance 665 ml LOVELY HALL DO Jun 09, 2021 14:18
[2021-06-09 18:00] VITALS: BP 137/72
[2021-06-09] MEDS: AMITRIPTYLINE 10MG TABLET PO SCH (20:08)
[2021-06-09] MEDS: CEPACOL LOZENGE PO PRN (20:08)
--- NOTE | 2021-06-09 21:02 | IPN ---
PROGRESS NOTE DATE: 06/08/2021 SUBJECTIVE: Patient overall, since yesterday/today, feels a lot better. His white count is down nicely to normal, however, his liver function tests took a significant bump and he is not complaining of as much pain or discomfort and overall feels much better. He is not having any acholic stools, although he states his urine is getting darker. PHYSICAL EXAMINATION: He still has decreasing tenderness in the right upper quadrant without significant guarding, rebound or peritoneal signs. This is much improved. He is less distended than he was previously and overall says he feels much better. IMPRESSION/PLAN: With his liver function tests increased, I ordered an MRCP, however, the patient was unable to undergo the MRCP because of previous clips for hernia repairs in the past. Thus we ordered an ultrasound, this was not back before the end of the day, but given his improvement and overall progress, I do not feel that we have any emergent urgent need for results at this time, however if and more importantly, if he shows a common bile duct that is dilated and his liver function tests are elevated in the morning, then he may need an ERCP. We will see what his follow-up labs show and we will determine our next course of action.
--- NOTE | 2021-06-09 21:30 | IPN ---
PROGRESS NOTE DATE: 06/09/2021 SUBJECTIVE: Patient states that he feels great today. His white count has dropped again and has normalized. He overall feels great, however, his liver function tests have bumped again and either he had a common bile duct stone that has passed and his liver function tests are slow to mirror his overall clinical improvement or some other etiology is present at this time. Given his improvement and overall feeling better, we discussed progressing his diet and seeing how he does over the next 24 hours. If his liver function tests are still up and not going down at that point, then consideration of an ERCP is warranted. Unfortunately we do not have GI call at this point, we may need to refer him out if that is the case and given his overall improvement, it is hard to justify it in someone who is clinically doing so well at this time. His abdominal pain and tenderness have substantially improved. He only has some minimal discomfort at most. IMPRESSION/PLAN: Patient has resolving cholecystitis and the question is whether he had a common bile duct stone or still has one or some other etiology is present here. In any case, we will continue with supportive care, increase his diet and see how we are doing in the morning.
[2021-06-09 22:00] VITALS: BP 149/72
[2021-06-10 02:00] VITALS: BP 132/69
[2021-06-10] MEDS: PIPERACILLIN/TAZOBACTAM SOD 3.375 GM in D5W MINI-BAG PLUS 50 ML IV SCH ×2 (03:32→09:05)
[2021-06-10 06:00] VITALS: BP 126/65
[2021-06-10 06:19] LABS: HEMATOCRIT 35.3 % (42.0-52.0); MEAN CORPUSCULAR HEMOGLOBIN 32.9 pg (27.0-33.0); MEAN CORPUSCULAR VOLUME 96.7 fl (80.0-96.0); PLATELET COUNT, AUTOMATED 278 10^3/uL (150-450); RED BLOOD COUNT 3.65 10^6/uL (4.30-6.10); WHITE BLOOD COUNT 8.8 10^3/uL (4.0-10.0)
[2021-06-10 06:45] LABS: ALBUMIN 1.8 GM/DL (3.2-5.2); ALT/SGPT 105 U/L (12-78); BLOOD UREA NITROGEN 3 MG/DL (7-18); CALCIUM LEVEL 7.7 MG/DL (8.8-10.2); CARBON DIOXIDE LEVEL 27 MEQ/L (21-32); CHLORIDE LEVEL 107 MEQ/L (98-107); CREATININE FOR GFR 0.61 MG/DL (0.70-1.30); GLOMERULAR FILTRATION RATE > 60.0 (>35); GLUCOSE, FASTING 153 MG/DL (70-100); POTASSIUM SERUM 3.6 MEQ/L (3.5-5.1); SODIUM LEVEL 140 MEQ/L (136-145); TOTAL PROTEIN 5.1 GM/DL (6.4-8.2)
[2021-06-10] MEDS ORDERED: AUGM500T34 PO (08:33)
[2021-06-10] MEDS: SIMVASTATIN 20 MG TAB PO SCH (09:05)
[2021-06-10] MEDS: FOLIC ACID 1 MG TAB PO SCH (09:05)
[2021-06-10] MEDS: ASPIRIN 325 MG TAB PO SCH (09:05)
[2021-06-10 09:06] VITALS: BP 138/76
[2021-06-10] MEDS: MAGNESIUM OXIDE 400MG TAB (MAG-OX) PO SCH (09:06)
[2021-06-10] MEDS: amLODIPine 5 MG TAB PO SCH (09:06)
[2021-06-10] MEDS: GABAPENTIN 300 MG CAP PO SCH (09:06)
[2021-06-10] MEDS: THIAMINE 100 MG TAB PO SCH (09:07)
[2021-06-10] MEDS: ADVAIR HFA 115/21MCG INHALER INH SCH (09:36)
[2021-06-10 10:00] VITALS: BP 108/64
--- NOTE | 2021-06-10 13:25 | DS.PDOC ---
Discharge Summary General Date of Admission Jun 06, 2021 at 00:32 Date of Discharge 06/10/2021 Attending Physician: LOVELY HALL DO Specialist/Consultants Involve: Jose Reagan Jr Discharge Summary PROCEDURES PERFORMED DURING STAY: None. ADMITTING DIAGNOSES: 1. Sepsis. 2. Acute cholecystitis 3. Fever 4. Leukocytosis 5. Falls at home 6. Hypertension 7. COPD 8. Peripheral neuropathy 9. Hypercholesterolemia 10. Congestive heart failure DISCHARGE DIAGNOSES: 1. Sepsis, resolved 2. Acute cholecystitis, improved 3. Fever 4. Leukocytosis 5. Falls at home 6. Hypertension 7. COPD 8. Peripheral neuropathy 9. Hypercholesterolemia 10. Congestive heart failure COMPLICATIONS/CHIEF COMPLAINT: Acute Cholecystitis. HISTORY OF PRESENT ILLNESS: Patient is an 80-year-old male who presented to the emergency department on 06/06/2021 with a complaint of weakness and confusion with falls x2 on 06/05/2021. Patient normally lives at home is able to take care of himself. Patient states that he has been doing well until 06/05/2021. Patient states that his legs gave out from under him twice. He fell against a coffee table and suffered some abrasions to his bilateral x-rays. Patient was noted to have a fever and a leukocytosis. CT of the abdomen was noted for hydrops of the gallbladder with thickening of the gallbladder wall with surround ing inflammation and edema. This was consistent with the acute changes of cholecystitis. The cholecystitis was initially thought to be a calculus as there was no gallstones seen. Patient was admitted for management of acute cholecystitis. HOSPITAL COURSE: Patient was initially held n.p.o. and started on IV Zosyn. Patient had an elevation of his liver enzymes on 06/08/2021 which was thought to be secondary to his cholecystitis. Throughout the rest of the patient's hospitalization is these that improved. Patient began feeling better and the patient had his diet advanced and did well with this. Patient was supposed to have an MRCP however, patient has metal clips from prior surgeries and MRI did not want to do the MRI because of the clips. Patient did have an ultrasound which did show sludge and stones in the gallbladder which may explain the elevation of liver enzymes after the gallstone has passed. Patient's liver enzymes did improve throughout his hospitalization. In discussion with the patient's general surgeon, the patient was deemed ready for discharge. Patient's antibiotics were changed from IV Zosyn to oral Augmentin. Patient was discharged with plan to follow-up with general surgery in 2 weeks for discussion for possible elective cholecystectomy. Patient was discharged on 06/10/2021. DISCHARGE MEDICATIONS: Please see below. ALLERGIES: Please see below. PHYSICAL EXAMINATION ON DISCHARGE: VITAL SIGNS: Please see below. General: Alert and oriented male patient who was resting comfortably in bed when I walked in the room. Patient did not appear to be in any acute distress. HEENT: Normocephalic, atraumatic, moist mucous membranes. Neck: No lymphadenopathy or thyromegaly Cardiac: Regular rate and rhythm, no murmurs, normal S1, normal S2 Pulm: Clear to auscultation bilaterally. No wheezes, rhonchi, rales Abd: Nondistended, nontender to palpation, normal bowel sounds Ext: No edema bilateral lower extremities LABORATORY DATA: Please see below. IMAGING: CT of the cervical spine without contrast performed on 06/05/2021 was reported to show considering motion artifact, no obvious cervical spine fracture identified. A CT of the head performed without contrast on 06/05/2021 was reported to show no acute intracranial abnormality seen. Chest x-ray performed on 06/05/2021 was reported to show no definite acute chest pathology. Chronic appearing bilateral interstitial lung changes again seen. No focal infiltrates. No pleural effusions. Right elbow x-ray performed on 06/05/2021 was reported to show no acute findings. A CT of the abdomen and pelvis with IV contrast performed on 06/05/2021 was reported to show there is hydrops of the gallbladder. There is thickening of the gallbladder wall with inflammation and edema of the gallbladder wall and inflammation surrounding the margins of the gallbladder and continuous with the duodenum. This is all consistent with acute changes of cholecystitis. Mild ileus. CT angio of the chest performed on 06/05/2021 was reported to show scattered chronic appearing interstitial lung disease similar in appearance to September 2019. No definite acute infiltrate. No pleural effusions. Distended, possibly inflamed and edematous gallbladder partially imaged, suggest correlation with CT scan and/or ultrasound. Ultrasound of the gallbladder performed on 06/08/2021 was reported to show moderate to marked gallbladder wall thickening. Gallbladder distention. Sludge and gallstones. Question acute cholecystitis. Normal CBD. Findings similar to recent CT. PROGNOSIS: Good ACTIVITY: As tolerated. DIET: Low-fat DISCHARGE PLAN: Discharge home with services DISPOSITION: Home Health Service. DISCHARGE INSTRUCTIONS: 1. Follow-up with your primary care provider within 5 to 7 days of discharge 2. Follow-up with Dr. Reagan in 2 weeks. 3. Return to the emergency department if your symptoms worsen or return 4. Continue to take Augmentin as prescribed ITEMS TO FOLLOWUP ON ON OUTPATIENT: 1. Monitoring liver enzymes. DISCHARGE CONDITION: Stable. TIME SPENT ON DISCHARGE: 35 minutes. Vital Signs/I&Os Vital Signs Date Time Temp Pulse Resp B/P (MAP) Pulse Ox O2 Delivery O2 Flow Rate FiO2 06/10/21 10:00 98.5 82 18 108/64 (79) 96 Room Air I&O- Last 24 Hours up to 6 AM 06/10/21 06:00 Intake Total 2210 ml Output Total 2300 ml Balance -90 ml Laboratory Data Labs 24H Laboratory Tests 2 06/10/21 05:50: Nucleated Red Blood Cells % (auto) 0.0, Anion Gap 6L, Glomerular Filtration Rate > 60.0, Calcium Level 7.7L, Total Bilirubin 1.0#, Aspartate Amino Transf (AST/SGOT) 97H, Alanine Aminotransferase (ALT/SGPT) 105H, Alkaline Phosphatase 194H, Total Protein 5.1L, Albumin 1.8L, Albumin/Globulin Ratio 0.5 CBC/BMP Laboratory Tests 06/10/21 05:50 Microbiology Microbiology 06/06/21 Blood Culture - Preliminary, Resulted No Growth after 72 hours. All specime... 06/05/21 Blood Culture - Preliminary, Resulted No Growth after 72 hours. All specime... 06/05/21 Respiratory Virus Panel (PCR) ([facility]) - Final, Complete Discharge Medications Scheduled Amitriptyline HCl (Amitriptyline HCl) 10 Mg Tablet, 10 MG PO QHS, (Reported) Amlodipine Besylate (Amlodipine Besylate) 5 Mg Tablet, 5 MG PO DAILY, (Reported) Amoxicillin/Potassium Clav (Augmentin 500-125 Tablet) 1 Each Tablet, 1 TAB PO BID Aspirin (Aspirin) 325 Mg Tablet, 325 MG PO DAILY, (Reported) Folic Acid (Folic Acid) 1 Mg Tablet, 1 MG PO DAILY, (Reported) Gabapentin (Gabapentin) 300 Mg Capsule, 300 MG PO TID, (Reported) MORNING, DINNER, AND NIGHT Magnesium Oxide (Magnesium Oxide) 400 Mg Tablet, 400 MG PO BID, (Reported) Multivitamins (Thera M Plus Tablet) 1 Each Tablet, 1 TAB PO DAILY, (Reported) Potassium Chloride (Potassium Chloride) 10 Meq Tablet.er, 10 MEQ PO DAILY, (Reported) Salmeterol/Fluticasone (Advair 250-50 Diskus) 14 Puff/Inhaler Aerp, 1 PUFF INH BID, (Reported) Sildenafil Citrate (Sildenafil Citrate) 100 Mg Tablet, 100 MG PO DAILY, (Reported) Simvastatin (Simvastatin) 20 Mg Tablet, 20 MG PO DAILY, (Reported) Thiamine HCl (Thiamine HCl) 100 Mg Tablet, 100 MG PO DAILY, (Reported) Scheduled PRN Calcium Carbonate (Tums) 200 Mg Tab.chew, 400 MG PO BID PRN for INDIGESTION, (Reported) Allergies Coded Allergies: No Known Allergies (Verified , 06/05/21) LOVELY HALL DO Jun 10, 2021 13:25
== END 2021-06-10 12:20 | disposition home health service (06) | DRG 872 ==
LOC: M ED 16:49 → M ED INP 06-06 00:32 → ENRESERV 06-06 02:27 → M MSPAV 06-06 03:00
PROVIDERS: ADMIT Internal Medicine; ATTEND Family Medicine
DX: A41.9 Sepsis, unspecified organism (principal); K81.0 Acute cholecystitis; I13.0 Hypertensive heart and chronic kidney disease with heart failure and stage 1 through stage 4 chronic kidney disease, or unspecified chronic kidney disease; I50.32 Chronic diastolic (congestive) heart failure; J44.9 Chronic obstructive pulmonary disease, unspecified; G62.9 Polyneuropathy, unspecified; E78.5 Hyperlipidemia, unspecified; Z79.899 Other long term (current) drug therapy; Z79.82 Long term (current) use of aspirin; Z85.828 Personal history of other malignant neoplasm of skin; Z87.891 Personal history of nicotine dependence

== ENCOUNTER → 2021-07-14 | Outpatient (CLI) | payer MEDICARE, OTHER ==
[~2021-07-14] MED LIST changes: +AMIT-253 PO; +AUGM500T34 PO; +B-1100TA2; +SILD100T PO; +THERTAB21; +TUMS500C PO
--- NOTE | 2021-07-15 11:43 | REP ---
INDICATION: ENCT FOR SURGICAL AFTERCARE FOLLOWING SURGERY. Aortobifemoral bypass ultrasound. COMPARISON: Comparison is made with prior study from June 05, 2021. There is also a comparison outside CT angiogram from May 26, 2018. TECHNIQUE: Aorto bi iliac retroperitoneal and pelvic scanning is performed with Doppler interrogation. FINDINGS: A patent aorto bi femoral vascular graft is seen. Peak systolic flow velocity measured in the distal aorta is 29 centimeters/second, monophasic waveform. The right side of the aorto bi femoral graft show some luminal narrowing but there is no observable flow jet and similar Doppler velocities are seen compared to the left side. No graft narrowing is seen on the left. Monophasic arterial waveforms are noted in the left profunda and left proximal superficial femoral artery. Very slow flow is observed in the right superficial femoral artery proximally. There is evidence of a moderate stenosis in the right profunda. Velocity chart, right side: Proximal graft 70 cm/S Mid graft 68 Distal graft 44 Common femoral artery 156 Right profundal 209 Right SFA 19-25 Velocity chart left side: Proximal graft 63 cm/S Mid graft 68 Distal graft 87 Left [employer] 53 Left profundal 115 Left proximal SFA 74 IMPRESSION: Patent aorto bi femoral graft as above. <Electronically signed by Sung Sadler > 07/15/21 [id number]
== END ==
LOC: M RAD 11:19
PROVIDERS: ATTEND Physician Assistant
DX: Z48.812 Encounter for surgical aftercare following surgery on the circulatory system (principal); Z95.820 Peripheral vascular angioplasty status with implants and grafts

== ENCOUNTER → 2021-07-15 | Outpatient (REF) | payer MEDICARE, OTHER ==
[2021-07-15 12:55] LABS: BASO # 0.1 10^3/uL (0.0-0.2); BASO % 1.1 % (0.0-1.0); EOS # 0.5 10^3/uL (0.0-0.5); EOS % 7.7 % (0.0-3.0); HEMATOCRIT 41.5 % (42.0-52.0); HEMOGLOBIN 13.3 g/dl (13.5-17.5); LYMPH # 1.4 10^3/uL (1.5-5.0); LYMPH % 22.5 % (24.0-44.0); MEAN CORPUSCULAR HEMOGLOBIN 31.6 pg (27.0-33.0); MEAN CORPUSCULAR VOLUME 98.6 fl (80.0-96.0); MONO # 0.7 10^3/uL (0.0-0.8); MONO % 11.3 % (2.0-8.0); NEUTROPHILS # 3.6 10^3/uL (1.5-8.5); NEUTROPHILS % 56.9 % (36.0-66.0); PLATELET COUNT, AUTOMATED 221 10^3/uL (150-450); RED BLOOD COUNT 4.21 10^6/uL (4.30-6.10); WHITE BLOOD COUNT 6.3 10^3/uL (4.0-10.0)
[2021-07-15 13:33] LABS: ALBUMIN 2.5 GM/DL (3.2-5.2); ALT/SGPT 15 U/L (12-78); BILIRUBIN,TOTAL 0.7 MG/DL (0.2-1.0); BLOOD UREA NITROGEN 8 MG/DL (7-18); CALCIUM LEVEL 8.8 MG/DL (8.8-10.2); CARBON DIOXIDE LEVEL 31 MEQ/L (21-32); CHLORIDE LEVEL 104 MEQ/L (98-107); CHOLESTEROL LEVEL 106 MG/DL (<200); CHOLESTEROL RISK RATIO 3.117 (<5); CREATININE FOR GFR 0.74 MG/DL (0.70-1.30); FREE T4 0.88 NG/DL (0.76-1.46); GLOMERULAR FILTRATION RATE > 60.0 (>35); GLUCOSE, FASTING 101 MG/DL (70-100); HDL CHOLESTEROL 34 MG/DL (>40); LDL CHOLESTEROL 46 MG/DL (<100); NON-HDL-C 72 MG/DL; SODIUM LEVEL 139 MEQ/L (136-145); TRIGLYCERIDES LEVEL 130 MG/DL (<150)
[2021-07-15 17:06] LABS: APPEARANCE, URINE CLEAR (CLEAR); BACTERIA, URINE AUTO NEGATIVE (NEGATIVE); BILIRUBIN, URINE AUTO NEGATIVE (NEGATIVE); BLOOD, URINE BLOOD NEGATIVE (NEGATIVE); COLOR, URINE YELLOW (YELLOW); GLUCOSE, URINE (UA) AUTO NEGATIVE (NEGATIVE); KETONE, URINE AUTO NEGATIVE (NEGATIVE); LEUKOCYTE ESTERASE, URINE AUTO NEGATIVE (NEGATIVE); NITRITE, URINE AUTO NEGATIVE (NEGATIVE); PROTEIN, URINE AUTO NEGATIVE (NEGATIVE); RBC, URINE AUTO 2 /HPF (0-3); SPECIFIC GRAVITY URINE AUTO 1.004 (1.002-1.035); SQUAMOUS EPITHELIAL CELL UR AU 0 /HPF (0-6); UROBILINOGEN, URINE AUTO 0.2 mg/dL (0.0-2.0); WBC, URINE AUTO 1 /HPF (0-3)
== END ==
LOC: M LABDRWAD 12:26
PROVIDERS: ATTEND Nurse Practitioner Family
DX: Z01.818 Encounter for other preprocedural examination (principal); I10 Essential (primary) hypertension; E78.2 Mixed hyperlipidemia; E03.9 Hypothyroidism, unspecified

== ENCOUNTER → 2021-07-22 | Outpatient (CLI) | payer MEDICARE, OTHER ==
--- NOTE | 2021-07-22 12:39 | REP ---
INDICATION: OBSTRUCTIVE PULMONARY DISEASE. COMPARISON: Comparison chest x-ray AprilJune 05, 2021. TECHNIQUE: Three views.. FINDINGS: Bilateral interstitial fibrosis pattern is again seen in the lung naidu. This is unchanged from the June 05, 2021 pattern. Mild cardiomegaly is observed. The aorta is calcific and tortuous. No pleural effusion is seen. The left hemidiaphragm remains somewhat elevated. No acute bony abnormality is seen. IMPRESSION: Fairly advanced diffuse interstitial pulmonary fibrosis. Mild cardiac enlargement. Somewhat elevated left hemidiaphragm. Findings unchanged. <Electronically signed by Sung Sadler > 07/22/21 [id number]
== END ==
LOC: M ADAMS 10:06
PROVIDERS: ATTEND Nurse Practitioner Family
DX: Z01.818 Encounter for other preprocedural examination (principal); J44.9 Chronic obstructive pulmonary disease, unspecified; J84.10 Pulmonary fibrosis, unspecified; I51.7 Cardiomegaly

== ENCOUNTER → 2021-07-23 | Outpatient (CLI) | payer MEDICARE, OTHER ==
--- NOTE | 2021-07-23 14:31 | REP ---
INDICATION: PAIN IN LEFT ARM. COMPARISON: 09/28/2011. TECHNIQUE: Three views left shoulder. FINDINGS: There is no acute fracture or dislocation. There is moderate narrowing and spurring at the acromioclavicular joint as well as at the glenohumeral joint. IMPRESSION: Moderate degenerative changes as above. <Electronically signed by Kimo Bah > 07/23/21 [id number]
--- NOTE | 2021-07-23 14:33 | REP ---
INDICATION: PAIN IN LEFT ARM COMPARISON: None. TECHNIQUE: 3 views left humerus. FINDINGS: There is no evidence of acute fracture, dislocation, or intrinsic bone disease.There are moderate degenerative changes seen of the acromioclavicular and glenohumeral joints. IMPRESSION: No fracture or dislocation. Moderate degenerative changes of the left shoulder. <Electronically signed by Kimo Bah > 07/23/21 [id number]
--- NOTE | 2021-07-23 14:34 | REP ---
INDICATION: PAIN IN LEFT ARM COMPARISON: None. TECHNIQUE: 6 views left elbow. FINDINGS: There is no evidence of acute fracture, dislocation, or intrinsic bone disease.Moderate focal soft tissue swelling over the olecranon may represent olecranon bursitis. IMPRESSION: No fracture or dislocation. Suspect olecranon bursitis. <Electronically signed by Kimo Bah > 07/23/21 [id number]
== END ==
LOC: M ADAMS 13:47
PROVIDERS: ATTEND Nurse Practitioner Family
DX: Z01.812 Encounter for preprocedural laboratory examination (principal); M79.622 Pain in left upper arm; Z20.822 Contact with and (suspected) exposure to COVID-19
CPT/HCPCS: 73030; 73060; 73080; U0003

== ENCOUNTER → 2021-07-23 | Outpatient (CLI) | payer MEDICARE, OTHER | LOC: M LABSMTC 09:21 | PROVIDERS: ATTEND Anesthesiology | DX: Z01.812 Encounter for preprocedural laboratory examination (principal); Z20.822 Contact with and (suspected) exposure to COVID-19 ==

== ENCOUNTER 2021-07-28 08:48 | Day surgery (SDC) | payer MEDICARE, OTHER ==
[~2021-07-28] VITALS: Ht 175.3 cm; Wt 93.3 kg
[~2021-07-28 08:48] MED LIST changes: +LR 1,000 ML IV ONE; +ceFAZolin SOD 1 GM in D5W MINI-BAG PLUS 50 ML IV ONE
[2021-07-28] MEDS ORDERED: BUPIVACAINE/EPIN 0.25% 30 ML VIAL As Ordered ONE (10:13)
[2021-07-28] MEDS ORDERED: MIDAZOLAM INJ 2MG/2ML VIAL (J2250 PER 1MG) As Ordered ONE (10:44)
[2021-07-28] MEDS ORDERED: PHENYLephrine 500MCG 5ML (100MCG/ML) SYRINGE As Ordered ONE ×2 (10:44→11:26)
[2021-07-28] MEDS ORDERED: ONDANSETRON 4MG/2ML VIAL As Ordered ONE (10:44)
[2021-07-28] MEDS ORDERED: LIDOCAINE 2% 100MG/5ML SDV (FOR ANES.) As Ordered ONE (10:44)
[2021-07-28] MEDS ORDERED: SUGAMMADEX SODIUM 500 MG/5 ML VIAL (BRIDION) As Ordered ONE (10:44)
[2021-07-28] MEDS ORDERED: ROCURONIUM BROMIDE 50 MG/5 ML VIAL As Ordered ONE (10:44)
[2021-07-28] MEDS ORDERED: fentaNYL 100 MCG/2 ML INJECTION (J3010) As Ordered ONE ×2 (10:44→12:16)
[2021-07-28] MEDS ORDERED: propofoL 200 MG/20 ML VIAL As Ordered ONE (10:44)
[2021-07-28] MEDS ORDERED: dexameTHASONE 4 MG/ML 1ML VIAL (J1100 PER 1MG) As Ordered ONE (10:44)
[2021-07-28] MEDS ORDERED: VASOPRESSIN INJ 20 UNITS/ML VIAL As Ordered ONE (10:49)
[2021-07-28] MEDS ORDERED: ACETAMINOPHEN 1000MG 100ML IV BTL (OFIRMEV) (J0131 PER 10MG) As Ordered ONE (10:55)
[2021-07-28] MEDS ORDERED: ePHEDrine SULFATE 25 MG/5 ML(5MG/ML) SYRINGE As Ordered ONE (11:38)
[2021-07-28] MEDS ORDERED: KETOROLAC 60MG 2ML VIAL As Ordered ONE (12:17)
[2021-07-28] MEDS ORDERED: LR 1,000 ML IV SCH (12:50)
[2021-07-28] MEDS ORDERED: fentaNYL 100 MCG/2 ML INJECTION (J3010) IV PRN (12:50)
[2021-07-28] MEDS ORDERED: oxyCODONE 5MG TAB PO PRN (12:50)
[2021-07-28] MEDS ORDERED: ONDANSETRON 4MG/2ML VIAL IV PRN (12:50)
--- NOTE | 2021-07-28 13:26 | RO ---
OPERATIVE NOTE DATE OF OPERATION: 07/28/2021 PREOPERATIVE DIAGNOSIS: History of acute cholecystitis. POSTOPERATIVE DIAGNOSIS: History of acute cholecystitis. PROCEDURES: 1. Laparoscopic lysis of adhesions. 2. Laparoscopic cholecystectomy. SURGEON: Jose Reagan Jr, MD. COMPENSATION VICE PRESIDENT: ANESTHESIA: General endotracheal anesthesia. EBL: Minimal/75 mL. FLUIDS: Crystalloid. DISPOSITION: Patient was taken to the recovery room awake, alert, hemodynamically stable BRIEF PROCEDURE SUMMARY: The patient was taken to the operating room and was given general anesthesia. After adequate anesthesia and preoperative antibiotics were given, the patient was prepped and draped in the usual sterile fashion. The patient had a previous ruptured aneurysm in the past with mesh repair of his large abdominal hernia in the remote past and thus a right subcostal incision was made and the abdomen was insufflated after placing a Veress needle into the abdominal cavity. A 5 mm trocar was placed and under direct visualization a right lateral 5 mm trocar was placed with the patient in the left side down position. There were multiple adhesions along the midline crossing over onto the left side of the abdomen and enough so that needed to take these down to adequately proceed with operative intervention. Thus, starting at the falciform ligament and working my way inferiorly and then from lateral to medially, working back and forth to dissect down toward the midline where I could see the Ethibond closure from the remote hernia repair in the past. Once this was visualized and I was able to dissect a little bit onto the right side of the incisional repair, the epigastric trocar was placed. Once this was placed the small bowel was quite tightly adherent to the midline incision. I did take this down sharply down to just below the umbilicus but given that it was not coming down as easily and concerns that we could develop an enterotomy if we proceeded on that current track, thus I placed a 10 mm trocar at the umbilicus. There was mesh in this area so I did have to precut the mesh first to get the trocar through. Once I was able to get the trocar through then I was able to proceed with the cholecystectomy after lysis of adhesions which took approximately 1-1/2 hours. The patient was placed in head-up, left side down position and the gallbladder was grasped. This was very thickened gallbladder which was contracted. I was able to grasp this, retract it superiorly; adhesions of the omentum to the gallbladder as well as gallbladder to the duodenum were taken down with Hook cautery. I was then able to mobilize the peritoneum laterally and then across the anterior surface and then medially. However, the gallbladder itself was so thickened at this point it was difficult to see the distal ending of this and thus I worked my way back on the lateral aspect, then the medial aspect and then I was able to create a nice window behind the gallbladder and see the cystic artery coming up to the gallbladder itself. Once these areas were nicely isolated the dissection continued back toward the neck of the gallbladder toward the cystic duct area. Unfortunately the tissue itself was so thickened in this area there was what appeared to be a possible common bile duct/cystic duct junction and after I was able to continue to mobilize the neck of the gallbladder which was very contracted and overall not dilated itself and I could not appreciate any stones within it, I felt that I could take this as distal as possible which appeared to be right at the neck of the gallbladder with probably a short cystic duct present and this was transected and Endoloop placed on this. Endoloop was intact and no evidence of bile leak was appreciated. There was some mild oozing from the dissection in the area of the cystic artery which then was controlled with some minimal electrocautery. The dissection continued up the gallbladder bed with electrocautery. Eventually the cystic artery was followed to a point where it traversed over to the gallbladder itself and was clipped proximally, distally and transected. The gallbladder was removed in its entirety, placed in Endo Catch bag and given the minimal oozing that had originally occurred but had stopped at the neck of the gallbladder/cystic artery area I did put some Tisseel in this area, no bleeding was appreciated, it was dry and intact, no bile leak was appreciated throughout the dissection. The trocars were removed under direct visualization after the gallbladder was removed through the umbilicus. The trocar site at the umbilicus was closed with Canelo-Junaid of #0 Vicryl and all incisions were closed with 4-0 Vicryl. Steri-Strips and a dry sterile dressing were applied. Patient was awakened, extubated, and brought to the recovery room awake, alert, and hemodynamically stable.
[2021-07-28 15:00] VITALS: BP 122/69
== END 2021-07-28 15:35 | disposition home or self-care (01) ==
LOC: M SDC 08:48
PROVIDERS: ATTEND Surgery
DX: K80.10 Calculus of gallbladder with chronic cholecystitis without obstruction (principal); K66.0 Peritoneal adhesions (postprocedural) (postinfection); I10 Essential (primary) hypertension; E78.5 Hyperlipidemia, unspecified; K21.9 Gastro-esophageal reflux disease without esophagitis; Z87.891 Personal history of nicotine dependence; J44.9 Chronic obstructive pulmonary disease, unspecified; N40.0 Benign prostatic hyperplasia without lower urinary tract symptoms; Z79.899 Other long term (current) drug therapy
CPT/HCPCS: 47562; 49329; 88304; J0131; J0690; J1100; J1885; J2250; J2370; J2405; J3010

== ENCOUNTER → 2021-10-02 | Outpatient (REF) | payer MEDICARE, OTHER ==
[~2021-10-02] MED LIST changes: -KLOR10TA76 PO; -LR 1,000 ML IV ONE; -MAGN400T3 PO; +MAGN400T33 PO; +POTA-136 PO; -ceFAZolin SOD 1 GM in D5W MINI-BAG PLUS 50 ML IV ONE
== END ==
LOC: M LAB REF 17:13
PROVIDERS: ATTEND Nurse Practitioner Family
DX: E83.42 Hypomagnesemia (principal)

== ENCOUNTER 2021-11-13 19:34 | Inpatient (IN) | payer MEDICARE, OTHER ==
[~2021-11-13] VITALS: Ht 177.8 cm; Wt 100.6 kg
[~2021-11-13 19:34] MED LIST changes: -THERTAB21; +THERTAB21 PO
[2021-11-13 20:20] LABS: BASO % 0.5 % (0.0-1.0); EOS # 0.1 10^3/uL (0.0-0.5); EOS % 1.3 % (0.0-3.0); HEMATOCRIT 31.6 % (42.0-52.0); HEMOGLOBIN 10.5 g/dl (13.5-17.5); LYMPH # 1.2 10^3/uL (1.5-5.0); MEAN CORPUSCULAR HEMOGLOBIN 30.7 pg (27.0-33.0); MEAN CORPUSCULAR HGB CONC 33.2 g/dl (32.0-36.5); MEAN CORPUSCULAR VOLUME 92.4 fl (80.0-96.0); MONO % 13.3 % (2.0-8.0); NEUTROPHILS # 5.1 10^3/uL (1.5-8.5); PLATELET COUNT, AUTOMATED 200 10^3/uL (150-450); RED BLOOD COUNT 3.42 10^6/uL (4.30-6.10); WHITE BLOOD COUNT 7.5 10^3/uL (4.0-10.0)
[2021-11-13] MEDS ORDERED: ISOVUE-370 76% 100ML VIAL As Ordered ONE (20:25)
[2021-11-13 20:48] LABS: ALBUMIN 2.9 GM/DL (3.2-5.2); BILIRUBIN,DIRECT 0.2 MG/DL (0.0-0.2); BILIRUBIN,TOTAL 0.4 MG/DL (0.2-1.0); CALCIUM LEVEL 8.5 MG/DL (8.8-10.2); CREATININE FOR GFR 1.23 MG/DL (0.70-1.30); MAGNESIUM LEVEL 1.9 MG/DL (1.8-2.4); TOTAL PROTEIN 6.3 GM/DL (6.4-8.2)
[2021-11-13 20:52] LABS: INR 1.14
[2021-11-13 20:54] LABS: PARTIAL THROMBOPLASTIN TIME 62.1 SECONDS (25.9-37.0)
[2021-11-13] MEDS ORDERED: TRAZ-252 PO (21:51)
[2021-11-13] MEDS ORDERED: HOME MED LIST COMPLETE! XX SCH (21:55)
[2021-11-13] MEDS ORDERED: PANTOPRAZOLE 40MG VIAL (C9113 PER 1) IV ONE (23:20)
[2021-11-13] MEDS ORDERED: MOM 30ML SUSPENSION UDC PO PRN (23:55)
[2021-11-13] MEDS ORDERED: ACETAMINOPHEN TAB 650MG DOSE (2X325MG) PO PRN (23:55)
[2021-11-13] MEDS ORDERED: MAALOX 30 ML SUSP *UDC PO PRN (23:55)
[2021-11-14] VITALS (11 sets, daily range): BP systolic 102–137; BP diastolic 47–73
[2021-11-14] MEDS ORDERED: ONDANSETRON 4MG/2ML VIAL IV PRN (00:05)
[2021-11-14] MEDS ORDERED: LR 1,000 ML IV SCH (00:05)
[2021-11-14] MEDS: AMITRIPTYLINE 10MG TABLET PO SCH ×2 (01:20→21:12)
[2021-11-14] MEDS: GABAPENTIN 300 MG CAP PO SCH ×4 (01:20→21:12)
[2021-11-14] MEDS: traZODone 50 MG TAB PO SCH ×2 (01:20→21:12)
[2021-11-14] MEDS: VANCOMYCIN ORAL SOL 250MG/5ML ORAL SYRINGE PO SCH ×4 (05:24→23:31)
[2021-11-14 06:30] LABS: HEMATOCRIT 24.9 % (42.0-52.0); MEAN CORPUSCULAR HEMOGLOBIN 30.7 pg (27.0-33.0); MEAN CORPUSCULAR HGB CONC 32.9 g/dl (32.0-36.5); MEAN CORPUSCULAR VOLUME 93.3 fl (80.0-96.0); PLATELET COUNT, AUTOMATED 152 10^3/uL (150-450); RED BLOOD COUNT 2.67 10^6/uL (4.30-6.10); WHITE BLOOD COUNT 5.3 10^3/uL (4.0-10.0)
[2021-11-14 06:31] LABS: HEMOGLOBIN 8.2 g/dl (13.5-17.5)
[2021-11-14 06:44] LABS: BLOOD UREA NITROGEN 25 MG/DL (7-18); CALCIUM LEVEL 7.7 MG/DL (8.8-10.2); CARBON DIOXIDE LEVEL 28 MEQ/L (21-32); CHLORIDE LEVEL 102 MEQ/L (98-107); CREATININE FOR GFR 1.05 MG/DL (0.70-1.30); GLOMERULAR FILTRATION RATE > 60.0 (>35); GLUCOSE, FASTING 128 MG/DL (70-100); POTASSIUM SERUM 3.8 MEQ/L (3.5-5.1); SODIUM LEVEL 137 MEQ/L (136-145)
[2021-11-14] MEDS: ADVAIR HFA 115/21MCG INHALER INH SCH ×2 (08:00→20:04)
[2021-11-14 08:19] LABS: HEMATOCRIT 24.8 % (42.0-52.0); HEMOGLOBIN 8.2 g/dl (13.5-17.5)
[2021-11-14] MEDS: POTASSIUM CHLORIDE 10MEQ SR TABLET PO SCH (08:28)
[2021-11-14] MEDS: SUCRALFATE 1 GM TAB PO SCH ×4 (08:28→21:12)
[2021-11-14] MEDS: SIMVASTATIN 20 MG TAB PO SCH (08:28)
[2021-11-14] MEDS: PANTOPRAZOLE 40MG VIAL (C9113 PER 1) IV SCH ×2 (08:28→23:30)
[2021-11-14] MEDS: FOLIC ACID 1 MG TAB PO SCH (08:28)
[2021-11-14] MEDS: THIAMINE 100 MG TAB PO SCH (08:28)
[2021-11-14] MEDS ORDERED: DOCUSATE SODIUM 100MG CAPSULE PO SCH (09:00)
[2021-11-14] MEDS ORDERED: amLODIPine 5 MG TAB PO SCH (09:00)
[2021-11-14 14:08] LABS: HEMATOCRIT 25.8 % (42.0-52.0); HEMOGLOBIN 8.2 g/dl (13.5-17.5)
[2021-11-15 00:38] LABS: HEMATOCRIT 27.1 % (42.0-52.0); HEMOGLOBIN 8.8 g/dl (13.5-17.5)
[2021-11-15] MEDS: VANCOMYCIN ORAL SOL 250MG/5ML ORAL SYRINGE PO SCH ×4 (05:28→17:05)
[2021-11-15 06:00] VITALS: BP 111/58
[2021-11-15 06:24] LABS: HEMATOCRIT 28.7 % (42.0-52.0); HEMOGLOBIN 9.3 g/dl (13.5-17.5); MEAN CORPUSCULAR HEMOGLOBIN 30.3 pg (27.0-33.0); MEAN CORPUSCULAR HGB CONC 32.4 g/dl (32.0-36.5); MEAN CORPUSCULAR VOLUME 93.5 fl (80.0-96.0); PLATELET COUNT, AUTOMATED 157 10^3/uL (150-450); RED BLOOD COUNT 3.07 10^6/uL (4.30-6.10); WHITE BLOOD COUNT 3.1 10^3/uL (4.0-10.0)
[2021-11-15] MEDS ORDERED: FUROSEMIDE 20MG/2ML VIAL (J1940) IV ONE (06:40)
[2021-11-15 06:44] LABS: BLOOD UREA NITROGEN 19 MG/DL (7-18); CALCIUM LEVEL 8.3 MG/DL (8.8-10.2); CARBON DIOXIDE LEVEL 28 MEQ/L (21-32); CHLORIDE LEVEL 107 MEQ/L (98-107); CREATININE FOR GFR 1.09 MG/DL (0.70-1.30); GLOMERULAR FILTRATION RATE > 60.0 (>35); GLUCOSE, FASTING 130 MG/DL (70-100); SODIUM LEVEL 141 MEQ/L (136-145)
[2021-11-15 07:44] LABS: BASOPHILS 1 % (0-1); EOSINOPHILS 6 % (0-3); LYMPHOCYTES 36 % (16-44); MONOCYTES 12 % (0-5); NEUTROPHILS 44 % (28-66)
[2021-11-15 07:47] LABS: PLATELET ESTIMATE NORMAL (NORMAL); POLYCHROMASIA 1+
[2021-11-15] MEDS: ADVAIR HFA 115/21MCG INHALER INH SCH ×2 (08:43→19:45)
[2021-11-15] MEDS: THIAMINE 100 MG TAB PO SCH (09:23)
[2021-11-15] MEDS: FOLIC ACID 1 MG TAB PO SCH (09:23)
[2021-11-15] MEDS: GABAPENTIN 300 MG CAP PO SCH ×3 (09:23→20:37)
[2021-11-15] MEDS: PANTOPRAZOLE 40MG VIAL (C9113 PER 1) IV SCH ×2 (09:23→20:37)
[2021-11-15] MEDS: SIMVASTATIN 20 MG TAB PO SCH (09:23)
[2021-11-15] MEDS: POTASSIUM CHLORIDE 10MEQ SR TABLET PO SCH (09:23)
[2021-11-15] MEDS: SUCRALFATE 1 GM TAB PO SCH ×4 (09:23→20:37)
[2021-11-15 12:31] LABS: HEMATOCRIT 30.2 % (42.0-52.0); HEMOGLOBIN 9.8 g/dl (13.5-17.5)
[2021-11-15 14:00] VITALS: BP 107/58
[2021-11-15 18:58] LABS: HEMATOCRIT 28.7 % (42.0-52.0); HEMOGLOBIN 9.3 g/dl (13.5-17.5)
[2021-11-15] MEDS: AMITRIPTYLINE 10MG TABLET PO SCH (20:37)
[2021-11-15 22:00] VITALS: BP 108/70
[2021-11-16] MEDS: VANCOMYCIN ORAL SOL 250MG/5ML ORAL SYRINGE PO SCH ×3 (00:35→13:51)
[2021-11-16 06:00] VITALS: BP 133/71
[2021-11-16 06:17] LABS: HEMATOCRIT 27.4 % (42.0-52.0); HEMOGLOBIN 8.9 g/dl (13.5-17.5); MEAN CORPUSCULAR HEMOGLOBIN 30.2 pg (27.0-33.0); MEAN CORPUSCULAR HGB CONC 32.5 g/dl (32.0-36.5); MEAN CORPUSCULAR VOLUME 92.9 fl (80.0-96.0); PLATELET COUNT, AUTOMATED 148 10^3/uL (150-450); RED BLOOD COUNT 2.95 10^6/uL (4.30-6.10); WHITE BLOOD COUNT 3.2 10^3/uL (4.0-10.0)
[2021-11-16 06:41] LABS: BLOOD UREA NITROGEN 16 MG/DL (7-18); CALCIUM LEVEL 8.4 MG/DL (8.8-10.2); CARBON DIOXIDE LEVEL 30 MEQ/L (21-32); CHLORIDE LEVEL 105 MEQ/L (98-107); CREATININE FOR GFR 1.05 MG/DL (0.70-1.30); GLOMERULAR FILTRATION RATE > 60.0 (>35); GLUCOSE, FASTING 124 MG/DL (70-100); POTASSIUM SERUM 3.8 MEQ/L (3.5-5.1); SODIUM LEVEL 139 MEQ/L (136-145)
[2021-11-16 07:43] LABS: ANISOCYTOSIS 1+; BASOPHILS 2 % (0-1); EOSINOPHILS 5 % (0-3); LYMPHOCYTES 41 % (16-44); MONOCYTES 22 % (0-5); NEUTROPHILS 30 % (28-66)
[2021-11-16 07:44] LABS: PLATELET ESTIMATE NORMAL (NORMAL)
[2021-11-16] MEDS: ADVAIR HFA 115/21MCG INHALER INH SCH (07:58)
[2021-11-16] MEDS ORDERED: SUCR1TA PO ×2 (09:29→13:20)
[2021-11-16] MEDS ORDERED: VANC250C3 PO ×2 (09:29→13:20)
[2021-11-16] MEDS ORDERED: PANT40TA29 PO ×2 (09:29→13:20)
[2021-11-16] MEDS: SIMVASTATIN 20 MG TAB PO SCH (09:50)
[2021-11-16] MEDS: SUCRALFATE 1 GM TAB PO SCH ×2 (09:50→13:51)
[2021-11-16] MEDS: GABAPENTIN 300 MG CAP PO SCH (09:51)
[2021-11-16] MEDS: PANTOPRAZOLE 40MG VIAL (C9113 PER 1) IV SCH (09:51)
[2021-11-16] MEDS: FOLIC ACID 1 MG TAB PO SCH (09:51)
[2021-11-16] MEDS: POTASSIUM CHLORIDE 10MEQ SR TABLET PO SCH (09:51)
[2021-11-16] MEDS: THIAMINE 100 MG TAB PO SCH (09:51)
[2021-11-16] MEDS ORDERED: ASPI81TA26 PO (13:21)
== END 2021-11-16 15:30 | disposition home or self-care (01) | DRG 371 ==
LOC: M ED 19:34 → INTOOBSV 19:35 → OBSVTOIN 19:35 → M ED INP 19:35 → ENRESERV 11-14 00:08 → M MSPAV 11-14 00:41 → OBSVTOIN 11-15 22:31
PROVIDERS: ADMIT Internal Medicine; ATTEND Internal Medicine Nephrology
PROC: 30233N1 Transfusion of Nonautologous Red Blood Cells into Peripheral Vein, Percutaneous Approach (ICD-10-PCS; principal; 2021-11-15)
DX: A04.72 Enterocolitis due to Clostridium difficile, not specified as recurrent (principal); K26.4 Chronic or unspecified duodenal ulcer with hemorrhage; D62 Acute posthemorrhagic anemia; A04.1 Enterotoxigenic Escherichia coli infection; I25.10 Atherosclerotic heart disease of native coronary artery without angina pectoris; Z95.5 Presence of coronary angioplasty implant and graft; I12.9 Hypertensive chronic kidney disease with stage 1 through stage 4 chronic kidney disease, or unspecified chronic kidney disease; E78.5 Hyperlipidemia, unspecified; J44.9 Chronic obstructive pulmonary disease, unspecified; K21.9 Gastro-esophageal reflux disease without esophagitis; N18.30 Chronic kidney disease, stage 3 unspecified; N40.0 Benign prostatic hyperplasia without lower urinary tract symptoms; F10.10 Alcohol abuse, uncomplicated; F41.9 Anxiety disorder, unspecified; F32.A Depression, unspecified; Z79.82 Long term (current) use of aspirin; Z79.899 Other long term (current) drug therapy

== ENCOUNTER 2021-11-17 20:40 | Inpatient (IN) | payer MEDICARE, OTHER ==
[~2021-11-17] VITALS: Ht 172.7 cm; Wt 96.8 kg
[~2021-11-17 20:40] MED LIST changes: +ASPI81TA26 PO; +PANT40TA29 PO; +SUCR1TA PO; +TRAZ-252 PO; +VANC250C3 PO
[2021-11-17 23:22] LABS: HEMATOCRIT 27.8 % (42.0-52.0); HEMOGLOBIN 9.1 g/dl (13.5-17.5); MEAN CORPUSCULAR HEMOGLOBIN 29.6 pg (27.0-33.0); MEAN CORPUSCULAR HGB CONC 32.7 g/dl (32.0-36.5); MEAN CORPUSCULAR VOLUME 90.6 fl (80.0-96.0); PLATELET COUNT, AUTOMATED 207 10^3/uL (150-450); RED BLOOD COUNT 3.07 10^6/uL (4.30-6.10); WHITE BLOOD COUNT 5.1 10^3/uL (4.0-10.0)
[2021-11-17 23:32] LABS: INR 1.03; PROTHROMBIN TIME 13.9 SECONDS (12.7-14.5)
[2021-11-17 23:34] LABS: PARTIAL THROMBOPLASTIN TIME 73.4 SECONDS (25.9-37.0)
[2021-11-18 00:10] LABS: ALBUMIN 2.8 GM/DL (3.2-5.2); ALT/SGPT 16 U/L (12-78); BILIRUBIN,DIRECT 0.1 MG/DL (0.0-0.2); BILIRUBIN,TOTAL 0.3 MG/DL (0.2-1.0); BLOOD UREA NITROGEN 12 MG/DL (7-18); CARBON DIOXIDE LEVEL 28 MEQ/L (21-32); CHLORIDE LEVEL 103 MEQ/L (98-107); CREATININE FOR GFR 0.86 MG/DL (0.70-1.30); GLOMERULAR FILTRATION RATE > 60.0 (>35); GLUCOSE, FASTING 179 MG/DL (70-100); POTASSIUM SERUM 3.8 MEQ/L (3.5-5.1); SODIUM LEVEL 139 MEQ/L (136-145); TOTAL PROTEIN 6.1 GM/DL (6.4-8.2)
--- NOTE | 2021-11-18 00:13 | REPVR ---
PROCEDURE INFORMATION: Exam: XR Chest Exam date and time: 11/17/2021 10:39 PM Age: 80 years old Clinical indication: Pain; Radiating; Additional info: Chest pain TECHNIQUE: Imaging protocol: XR of the chest. Views: 1 view. COMPARISON: DX CHEST 2 VIEW 07/22/2021 11:00 AM FINDINGS: Tubes, catheters and devices: Small electronic device is noted over the right hilum. Lungs: Possible subpleural opacities in the lung bases. No otherwise no significant change of underlying chronic interstitial lung disease. Pleural spaces: No pleural effusion. No pneumothorax. Heart/Mediastinum: Mild cardiomegaly. Bones/joints: Unremarkable. IMPRESSION: 1. Possible subpleural infiltrates in the lung bases versus artifact related to body habitus. If there is concern for pneumonia, follow-up PA and lateral radiographs are recommended. 2. Otherwise stable chronic interstitial changes. 3. Mild cardiomegaly. Electronically signed by: Javier Thacker On 11/18/2021 00:13:01 AM
[2021-11-18 01:16] LABS: ATYPICAL LYMPH 6 % (0-5); EOSINOPHILS 7 % (0-3); LYMPHOCYTES 24 % (16-44); MONOCYTES 18 % (0-5); NEUTROPHILS 45 % (28-66); PLATELET ESTIMATE NORMAL (NORMAL)
[2021-11-18] MEDS ORDERED: NS 1,000 ML IV SCH (01:30)
[2021-11-18] MEDS ORDERED: HOME MED LIST COMPLETE! XX SCH (01:30)
[2021-11-18] MEDS ORDERED: SODIUM CHLORIDE 0.9% 1000ML IV SCH (01:30)
--- NOTE | 2021-11-18 01:34 | HPEPDOC ---
General Date of Admission Date of Service: Nov 18, 2021 Attending Physician: Blair Richter Chief Complaint Gush of rectal bleeding History of Present Illness Mr. Long, an 80-year-old gentleman presented to the emergency department for severe rectal bleeding today in the form of a gush. He was discharged from the hospital yesterday. He was doing well throughout the day today until 7:30 PM. Throughout the day, he ate various foodstuffs. At about 5:30 PM, he had 2 cupc akes. At 7:30 PM, he had a gush of blood coming out of the rectum without any effort. It was painless. What he saw was dark blood. It was not bright red. It was not black either. It was not associated with nausea or vomiting. He did not have distention of abdomen. He is at present on aspirin but no anticoagulant. He admits to the history of using aspirin on empty stomach from time to time. He does not have upper abdominal pain. Recently, he was admitted to the hospital for gastrointestinal bleeding and C. difficile infection. He was started on oral vancomycin and was discharged. He was given a unit of blood transfusion on November 14, 2021. He was also found to have a duodenal bulb ulcer on imaging study. No recent or old EGD reports are available in the medical record. From the medical record, it appears that the last colonoscopy was performed in 2005. He does not have fever, chills, cough, sputum production, hemoptysis, chest pain, shortness of breath,constipation, burning in the urine, frequency of micturition, blood in the urine, headache, blurry vision, focal weakness of extremities, sensory symptoms on the face or extremities, joint pains, joint swellings, lymph node enlargement, skin rash, tongue ulcers, sore throat or symptoms of cold. Home Medications Scheduled Amitriptyline HCl (Amitriptyline HCl) 10 Mg Tablet, 10 MG PO QHS, (Reported) Aspirin (Aspirin EC) 81 Mg Tablet.dr, 1 TAB PO DAILY for pain Folic Acid (Folic Acid) 1 Mg Tablet, 1 MG PO DAILY, (Reported) Gabapentin (Gabapentin) 300 Mg Capsule, 300 MG PO TID, (Reported) MORNING, DINNER, AND NIGHT Magnesium Oxide (Magnesium Oxide) 400 Mg Tablet, 400 MG PO QHS, (Reported) Multivit,Calc,Mins/Iron/Folic (Thera-M Tablet) 1 Each Tablet, 1 TAB PO DAILY, (Reported) Pantoprazole Sodium (Pantoprazole Sodium) 40 Mg Tablet.dr, 40 MG PO BID Potassium Chloride (Potassium Chloride) 10 Meq Tablet.er, 10 MEQ PO DAILY, (Reported) Salmeterol/Fluticasone (Advair 250-50 Diskus) 14 Puff/Inhaler Aerp, 1 PUFF INH BID, (Reported) Simvastatin (Simvastatin) 20 Mg Tablet, 20 MG PO DAILY, (Reported) Sucralfate (Sucralfate) 1 Gm Tablet, 1 GM PO WMHS Thiamine HCl (Thiamine HCl) 100 Mg Tablet, 100 MG PO DAILY, (Reported) Trazodone HCl (Trazodone HCl) 50 Mg Tablet, 50 MG PO QHS, (Reported) Vancomycin Hcl (Vancomycin HCl) 250 Mg Capsule, 250 MG PO QID Scheduled PRN Calcium Carbonate (Tums) 200 Mg Tab.chew, 400 MG PO BID PRN for INDIGESTION, (Reported) Allergies Coded Allergies: No Known Allergies (Verified , 07/14/21) Past Medical History Medical History C. difficile infection Hematochezia Surgical History Thoracic aortic aneurysm surgery Family History No history of colon cancer in the family Social History * Smoker: Denies A-FIB/CHADSVASC A-FIB History Current/History of A-Fib/PAF?: No Review of Systems Other systems 10 system review negative except as stated in the history of present illness Physical Examination Other physical findings Vitals: Reviewed Examination: General: Obese body habitus. Decubitus: Supine. Oral examination: Dry oral mucosa. Head, neck and ENT: No cervical lymphadenopathy. Eyes: Moderate pallor. No icterus. Skin: No generalized skin rash. Cardiovascular: Regular rhythm. Tachycardia absent. Normal S1. No murmur. Respiratory: Air entry equal on both sides. No crackles, rhonchi or wheeze. No pleural friction rub. Abdominal: No abdominal distention. No tenderness. Bowel sounds normal. Genitourinary: No renal angle tenderness. No suprapubic tenderness. Neurologic: Conscious, alert and oriented with respect to time place and person. Joints: No tenderness or swelling of joints. Extremities: No extremity swelling. Psychiatric: Normal mood and mood-congruent affect. Vital Signs Vital Signs Date Time Temp Pulse Resp B/P (MAP) Pulse Ox O2 Delivery O2 Flow Rate FiO2 11/17/21 23:40 75 96 11/17/21 23:30 18 126/70 (88) Room Air 11/17/21 22:03 99.2 Laboratory Data Labs 24H Laboratory Tests 2 11/17/21 22:54: Neutrophils (%) (Auto) , Nucleated Red Blood Cells % (auto) 0.0, Neutrophils 45, Lymphocytes (Manual) 24, Monocytes (Manual) 18H, Eosinophils (Manual) 7H, Atypical Lymphocytes 6H, Red Blood Cell Morphology NORMAL, Platelet Estimate NORMAL, Prothrombin Time 13.9, Prothromb Time International Ratio 1.03, Activated Partial Thromboplast Time 73.4H, Anion Gap 8, Glomerular Filtration Rate > 60.0, Calcium Level 8.0L, Total Bilirubin 0.3, Direct Bilirubin 0.1, Aspartate Amino Transf (AST/SGOT) 13, Alanine Aminotransferase (ALT/SGPT) 16, Alkaline Phosphatase 112, Total Protein 6.1L, Albumin 2.8L, Albumin/Globulin Ratio 0.8 CBC/BMP Laboratory Tests 11/17/21 22:54 Assessment/Plan Painless lower GI bleeding Differential diagnosis: Fqj-vzrfvjro-gd-Treitz bleeding with rapid gastrointestinal transit time, proximal (ascending colon) diverticular bleeding, inflammatory colon disease (recent C. difficile infection and enterotoxigenic E. coli infection), AV malformations, alternative. Current hemoglobin of 9.1 close to baseline (8.9 to 9.3 grams per deciliter). Bleeding potentiated by aspirin and possibly venlafaxine. H&H to be drawn in a.m. Type and screen to be performed. 1 L bolus to be administered now. Continuous IV fluid. N.p.o. Aspirin and venlafaxine to be held for now. C. difficile infection Oral vancomycin to continue. Reactive airway disease, past history of Albuterol inhalations, as required. Fluticasone salmeterol to continue. Duodenal ulcer, recent history of CT abd pelvis notable for duodenal bulb ulceration without perforation. Protonix boluses to continue. Hypertension Amlodipine to be resumed. Hyperlipidemia Simvastatin to be resumed later. Depression/anxiety Venlafaxine to be held for now. Alcohol abuse To continue thiamine and folate. DVT prophylaxis Mechanical alone Coronavirus screening CPR status Full code Plan / VTE VTE Prophylaxis Ordered?: Yes Blair Richter Nov 18, 2021 01:34
[2021-11-18] MEDS ORDERED: ALBUTEROL 90 MCG/ACT 8GM HFA INHALER INH PRN (02:25)
[2021-11-18 02:49] LABS: RSV AMPLIFICATION NEGATIVE (NEGATIVE)
[2021-11-18 04:30] VITALS: BP 122/59
[2021-11-18 06:47] LABS: HEMATOCRIT 27.2 % (42.0-52.0); HEMOGLOBIN 8.8 g/dl (13.5-17.5); MEAN CORPUSCULAR HEMOGLOBIN 29.9 pg (27.0-33.0); MEAN CORPUSCULAR HGB CONC 32.4 g/dl (32.0-36.5); MEAN CORPUSCULAR VOLUME 92.5 fl (80.0-96.0); PLATELET COUNT, AUTOMATED 184 10^3/uL (150-450); RED BLOOD COUNT 2.94 10^6/uL (4.30-6.10); WHITE BLOOD COUNT 4.7 10^3/uL (4.0-10.0)
[2021-11-18] MEDS: ADVAIR HFA 230/21MCG INHALER INH SCH ×2 (08:00→20:00)
[2021-11-18 08:10] VITALS: BP 119/56
[2021-11-18] MEDS: PANTOPRAZOLE 40MG VIAL (C9113 PER 1) IV SCH ×2 (08:24→21:07)
--- NOTE | 2021-11-18 10:03 | IPNPDOC ---
Text Note Date of Service The patient was seen on 11/18/21. NOTE Subjective: 80-year-old male presented to the emergency room department with complaints of blood per rectum. He was recently admitted from 11/14-11/16 with a GI bleed and diagnosis of C. difficile. The bleeding had stopped but on 11/17 he felt " gush of blood" coming out of his rectum without any effort. He had no pain at the time. He saw dark-colored blood. He was seen and examined at bedside this morning. He had melanotic stool in his undergarments. He denies chest pain, shortness of breath, abdominal pain, nausea and vomiting. Review of systems: 10 point review of system was negative except for what is noted in the HPI Physical exam: General: Lying in bed, no acute distress Head/Neck/Throat: Trachea midline, mucous membranes moist Eyes: Sclera anicteric, no erythema or discharge appreciated bilaterally Thorax: Normal respiratory effort on room air, lungs clear to auscultation bilaterally, no wheezes/rales/rhonchi Cardiovascular: Normal rate, regular rhythm, normal S1, S2; no S3, S4, rubs/gallops/murmurs Abdomen: Bowel sounds present, soft/nontender/nondistended Genitourinary: No CVA tenderness, no Munson in place Musculoskeletal: Moving all extremities, no edema Skin: Warm, dry Neurologic: AAOx3, speech fluent and goal-directed, no focal deficits, grossly intact Labs: See below Imaging: Please see imaging section Assessment/plan: 80-year-old male with presented to the emergency room department with complaints of melena. #GI bleed -Possible peptic ulcer disease, CT scan from previous admission noted a duodenal bulb ulcer vs Inflammatory enterocolitis, he was enterotoxigenic and was c.diff positive vs AVM vs diverticular bleed -Continue with IV fluids, and IV pantoprazole. -There is no GI service this week therefore will talk to surgery for evaluation of upper endoscopy -Continue to monitor H/H and transfuse if hemoglobin is less than 7 -Hold aspirin for now #Normocytic anemia -Acute blood loss anemia. Continue monitor H/H. Transfuse if hemoglobin less than 7 #C. difficile -Continue with vancomycin treatment course #Hypertension -Blood pressure stable, hold amlodipine for now #Hyperlipidemia -Continue simvastatin once diet is resumed #COPD -no signs of acute exacerbation. -Continue with Advair #DVT prophylaxis -SCDs/teds VS,Fishbone, I+O VS, Fishbone, I+O Laboratory Tests 11/17/21 22:54 11/18/21 06:00 Vital Signs Date Time Temp Pulse Resp B/P (MAP) Pulse Ox O2 Delivery O2 Flow Rate FiO2 11/18/21 08:10 98.3 69 16 119/56 (77) 100 Room Air I&O- Last 24 Hours up to 6 AM 11/18/21 06:00 Intake Total 1000 ml Output Total 300 ml Balance 700 ml BRIAN ISLAS M.D. Nov 18, 2021 10:03
[2021-11-18] MEDS ORDERED: ISOVUE-370 76% 100ML VIAL As Ordered ONE (10:39)
--- NOTE | 2021-11-18 11:53 | REP ---
INDICATION: gi bleed. COMPARISON: Multiple the latest 11/13/2021 TECHNIQUE: Standard helical technique after the intravenous administration of 100 cc Isovue 370 FINDINGS: There are chronic lung base changes status quo. The liver and spleen are unchanged. The pancreas, adrenal glands, and kidneys are unchanged. There are right renal cysts and there is marked left renal atrophic change. The abdominal aorta and para-aortic regions are unchanged. The aorto bi iliac graft is unchanged. There is no change in the osseous structures. The inflammatory fatty infiltration seen adjacent to the duodenum has a stable appearance. There is no evidence of free fluid or free air. IMPRESSION: 1. Persistent and chronic changes involving the duodenum with Carol duodenal fatty infiltration as described above and previously. Whether this represents an ulcer cannot be stated by this exam. EGD is recommended. 2. Other findings as described above. <Electronically signed by Malick Cabrera > 11/18/21 [id number]
[2021-11-18 12:42] VITALS: BP 141/65
[2021-11-18] MEDS: NS 1,000 ML IV SCH ×2 (12:51→21:08)
[2021-11-18] MEDS: SUCRALFATE 1 GM TAB PO SCH ×2 (17:58→21:07)
[2021-11-18] MEDS: GABAPENTIN 300 MG CAP PO SCH ×2 (17:58→21:07)
[2021-11-18] MEDS: VANCOMYCIN ORAL SOL 250MG/5ML ORAL SYRINGE PO SCH (17:58)
--- NOTE | 2021-11-18 19:39 | ECGEPIP ---
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
[2021-11-18 20:00] VITALS: BP 133/67
--- NOTE | 2021-11-18 20:06 | CR ---
CONSULTATION DATE: 11/18/2021 HISTORY OF THE PRESENT ILLNESS: The patient is an 80-year-old male who has had several recent admissions one just around [facility] and was recently discharged on the . He had some recurrent bright red blood per rectum and returns to the Emergency Room for reevaluation. The patient has been diagnosed with C-diff infection and has had some diarrhea associated with this and mucous with his stools and is currently being re-treated for this at this time. I believe stool cultures are pending again. He has had some crampy abdominal pain. He does not complain specifically of upper GI complaints. No nausea, no vomiting. The patient does have what may be an ulcer in the duodenal bulb area, however past this, I wonder if he has a duodenal diverticulum on the other side of this ulcer area that I can see on his CAT scan. In any case, he has not had any bowel movements during the day until this afternoon and has mucous and blood in a mostly redder blood at this point. PAST MEDICAL HISTORY: The patient's past medical history is significant for: 1. History of C-diff infection. 2. History of hematochezia. 3. History of thoracic aneurysm. 4. History of coronary artery disease, status post stenting. 5. History of hypertension. 6. Hyperlipidemia. 7. Chronic obstructive pulmonary disease. 8. Gastroesophageal reflux disease. 9. Chronic kidney disease. 10. Benign prostatic hypertrophy. PAST SURGICAL HISTORY: The patient's past surgical history is significant for: 1. History of hernia repair. 2. History of cholecystectomy. 3. History of cardiac catheterization. 4. History of inguinal hernia repair. PHYSICAL EXAMINATION: GENERAL APPEARANCE: An 80-year-old male who looks stated age. HEENT: Unremarkable. NECK: Supple without adenopathy. LUNGS: Clear anteriorly. HEART: Regular. ABDOMEN: Soft, nondistended, nontender. No guarding, no rebound, no peritoneal signs are appreciated. IMPRESSION AND PLAN: The patient has a GI bleed. Most likely this is lower, given the hematochezia that he is having and most likely secondary to colitis and most likely secondary to infectious colitis. At this point my recommendation is aggressive treatment with current medications, i.e., antibiotics for a possible recurrent C-diff or an inadequately treated C-diff at this time and empirically treating him for an ulcer. We will see how he does with his medication and watch him over the ensuing 24-48 hours. If he has ongoing bleeding, the question is whether to proceed with a bowel prep and upper no apparent distress lower endoscopy.
[2021-11-18] MEDS: AMITRIPTYLINE 10MG TABLET PO SCH (21:07)
[2021-11-19] VITALS: BP 143/65
[2021-11-19] MEDS: VANCOMYCIN ORAL SOL 250MG/5ML ORAL SYRINGE PO SCH ×2 (00:26→05:53)
[2021-11-19 04:00] VITALS: BP 141/62
[2021-11-19] MEDS: NS 1,000 ML IV SCH (05:54)
[2021-11-19] MEDS: GABAPENTIN 300 MG CAP PO SCH ×3 (08:32→21:42)
[2021-11-19] MEDS: SUCRALFATE 1 GM TAB PO SCH ×4 (08:32→21:42)
[2021-11-19] MEDS: PANTOPRAZOLE 40MG VIAL (C9113 PER 1) IV SCH ×2 (08:32→21:42)
[2021-11-19] MEDS: FIDAXOMICIN 200 MG TAB (DIFICID) PO SCH ×2 (08:32→21:42)
[2021-11-19 08:45] VITALS: BP 148/70
[2021-11-19] MEDS ORDERED: FIDA200TA PO (08:57)
[2021-11-19] MEDS: ADVAIR HFA 230/21MCG INHALER INH SCH ×2 (09:00→18:18)
--- NOTE | 2021-11-19 09:40 | IPNPDOC ---
Text Note Date of Service The patient was seen on 11/19/21. NOTE Subjective: 80-year-old male presented to the emergency room department with complaints of blood per rectum. He was recently admitted from 11/14-11/16 with a GI bleed and diagnosis of C. difficile. The bleeding had stopped but on 11/17 he felt " gush of blood" coming out of his rectum without any effort. Subsequently, he had darkening of his stools. He had no pain at the time. He saw dark-colored blood. He was seen and examined at bedside this morning. He denied having abdominal pain. He did have melanotic stools again that were appreciated in his undergarments. Review of systems: 10 point review of system was negative except for what is noted in the HPI Physical exam: General: Lying in bed, no acute distress Head/Neck/Throat: Trachea midline, mucous membranes moist Eyes: Sclera anicteric, no erythema or discharge appreciated bilaterally Thorax: Normal respiratory effort on room air, lungs clear to auscultation bilaterally, no wheezes/rales/rhonchi Cardiovascular: Normal rate, regular rhythm, normal S1, S2; no S3, S4, rubs/gallops/murmurs Abdomen: Bowel sounds present, soft/nontender/nondistended Genitourinary: No CVA tenderness, no Munson in place Musculoskeletal: Moving all extremities, no edema Skin: Warm, dry Neurologic: AAOx3, speech fluent and goal-directed, no focal deficits, grossly intact Labs: See below Imaging: Please see imaging section Assessment/plan: 80-year-old male with presented to the emergency room department with complaints of hematochezia that melanotic stools #GI bleed -Possible peptic ulcer disease, CT scan from previous admission noted a duodenal bulb ulcer vs Inflammatory enterocolitis, he was enterotoxigenic and was c.diff positive vs AVM vs diverticular bleed -Continue IV pantoprazole. -Continue to monitor H/H and transfuse if hemoglobin is less than 7 -Hold aspirin for now -Appreciate surgery input #Normocytic anemia -Acute blood loss anemia. Continue monitor H/H. Transfuse if hemoglobin less than 7 #C. difficile -Change vancomycin to Dificid 200 mg twice daily #Hypertension -Blood pressure stable, hold amlodipine for now #Hyperlipidemia -Continue simvastatin once diet is resumed #COPD -no signs of acute exacerbation. -Continue with Advair #DVT prophylaxis -SCDs/teds VS,Fishbone, I+O VS, Fishbone, I+O Vital Signs Date Time Temp Pulse Resp B/P (MAP) Pulse Ox O2 Delivery O2 Flow Rate FiO2 11/19/21 04:00 97.3 60 17 141/62 (88) 97 Room Air I&O- Last 24 Hours up to 6 AM 11/19/21 06:00 Intake Total 2475 ml Output Total 3825 ml Balance -1350 ml BRIAN ISLAS M.D. Nov 19, 2021 09:40
[2021-11-19] MEDS: SIMVASTATIN 20 MG TAB PO SCH (10:46)
[2021-11-19] MEDS: THIAMINE 100 MG TAB PO SCH (10:47)
[2021-11-19] MEDS: FOLIC ACID 1 MG TAB PO SCH (10:47)
[2021-11-19 10:54] LABS: BASO % 0.9 % (0.0-1.0); EOS # 0.3 10^3/uL (0.0-0.5); EOS % 6.5 % (0.0-3.0); HEMATOCRIT 27.1 % (42.0-52.0); HEMOGLOBIN 8.7 g/dl (13.5-17.5); LYMPH # 1.3 10^3/uL (1.5-5.0); LYMPH % 29.1 % (24.0-44.0); MEAN CORPUSCULAR HEMOGLOBIN 29.6 pg (27.0-33.0); MEAN CORPUSCULAR HGB CONC 32.1 g/dl (32.0-36.5); MEAN CORPUSCULAR VOLUME 92.2 fl (80.0-96.0); MONO # 0.6 10^3/uL (0.0-0.8); MONO % 13.8 % (2.0-8.0); NEUTROPHILS # 2.2 10^3/uL (1.5-8.5); NEUTROPHILS % 49.2 % (36.0-66.0); PLATELET COUNT, AUTOMATED 193 10^3/uL (150-450); RED BLOOD COUNT 2.94 10^6/uL (4.30-6.10); WHITE BLOOD COUNT 4.4 10^3/uL (4.0-10.0)
[2021-11-19 11:25] LABS: BLOOD UREA NITROGEN 6 MG/DL (7-18); CALCIUM LEVEL 7.8 MG/DL (8.8-10.2); CARBON DIOXIDE LEVEL 27 MEQ/L (21-32); CHLORIDE LEVEL 110 MEQ/L (98-107); CREATININE FOR GFR 0.88 MG/DL (0.70-1.30); GLOMERULAR FILTRATION RATE > 60.0 (>35); GLUCOSE, FASTING 180 MG/DL (70-100); MAGNESIUM LEVEL 1.8 MG/DL (1.8-2.4); PHOSPHORUS LEVEL 1.6 MG/DL (2.5-4.9); POTASSIUM SERUM 3.4 MEQ/L (3.5-5.1); SODIUM LEVEL 141 MEQ/L (136-145)
[2021-11-19 13:20] VITALS: BP 146/70
[2021-11-19] MEDS ORDERED: POTASSIUM CHLORIDE 10MEQ SR TABLET PO ONE (15:55)
[2021-11-19 16:20] VITALS: BP 152/70
[2021-11-19] MEDS ORDERED: K-PHOS ORIGINAL (POT.ACID PHOSPHATE) 500MG TAB PO ONE (17:00)
--- NOTE | 2021-11-19 17:12 | IPN ---
PROGRESS NOTE DATE: 11/19/2021 Patient's hematocrit has been stable over the last couple days. He states that he did still have a little bit of bright red blood per rectum, and it sounds as though this is associated with his infectious colitis, the rectal bleeding that he has had, or hemorrhoids. In any case, his abdomen is soft, nontender, nondistended. He has been afebrile, and I had started him on a clear liquid diet earlier today, and since that time he has been doing well without any significant issues. IMPRESSION AND PLAN: Patient has evidence of Clostridium (C) difficile colitis. I would recommend that this get under control more before proceeding with a colonoscopy, and I anticipate a few more days of proton pump inhibitors. Carafate should adequately cover the upper gastrointestinal (GI) issue/duodenal ulcer. I would prefer not to proceed with a colonoscopy until we are sure that his C. difficile colitis has resolved and the inflammatory changes have resolved. Otherwise, there is definitely an increased risk of bleeding, infection, perforation associated with acutely inflamed colon. Thus, we will see how is doing overnight. If his hematocrit is stable, I would recommend restarting his regular diet, watching for another 24 hours, and then I would be glad to see him as an outpatient, and we can schedule both an upper and lower endoscopy in the ensuing few weeks.
[2021-11-19] MEDS: traZODone 50 MG TAB PO SCH (21:42)
[2021-11-19] MEDS: AMITRIPTYLINE 10MG TABLET PO SCH (21:42)
[2021-11-19 22:00] VITALS: BP 136/89
[2021-11-20 06:00] VITALS: BP 134/86
[2021-11-20 06:43] LABS: HEMATOCRIT 27.9 % (42.0-52.0); HEMOGLOBIN 8.8 g/dl (13.5-17.5); MEAN CORPUSCULAR HEMOGLOBIN 29.3 pg (27.0-33.0); MEAN CORPUSCULAR HGB CONC 31.5 g/dl (32.0-36.5); PLATELET COUNT, AUTOMATED 188 10^3/uL (150-450); WHITE BLOOD COUNT 5.1 10^3/uL (4.0-10.0)
[2021-11-20 07:11] LABS: BLOOD UREA NITROGEN 4 MG/DL (7-18); CARBON DIOXIDE LEVEL 27 MEQ/L (21-32); CHLORIDE LEVEL 110 MEQ/L (98-107); CREATININE FOR GFR 0.87 MG/DL (0.70-1.30); GLOMERULAR FILTRATION RATE > 60.0 (>35); GLUCOSE, FASTING 129 MG/DL (70-100); MAGNESIUM LEVEL 1.8 MG/DL (1.8-2.4); PHOSPHORUS LEVEL 1.9 MG/DL (2.5-4.9); POTASSIUM SERUM 3.5 MEQ/L (3.5-5.1); SODIUM LEVEL 141 MEQ/L (136-145)
[2021-11-20] MEDS: PANTOPRAZOLE 40MG VIAL (C9113 PER 1) IV SCH ×2 (08:30→20:45)
[2021-11-20] MEDS: FIDAXOMICIN 200 MG TAB (DIFICID) PO SCH ×2 (08:30→20:46)
[2021-11-20] MEDS: SUCRALFATE 1 GM TAB PO SCH ×4 (08:31→20:46)
[2021-11-20] MEDS: THIAMINE 100 MG TAB PO SCH (08:31)
[2021-11-20] MEDS: GABAPENTIN 300 MG CAP PO SCH ×3 (08:31→20:46)
[2021-11-20] MEDS: SIMVASTATIN 20 MG TAB PO SCH (08:31)
[2021-11-20] MEDS: FOLIC ACID 1 MG TAB PO SCH (08:31)
[2021-11-20] MEDS: ADVAIR HFA 230/21MCG INHALER INH SCH ×3 (09:45→19:27)
[2021-11-20] MEDS ORDERED: POTASSIUM CHLORIDE 10MEQ SR TABLET PO ONE (13:40)
[2021-11-20] MEDS ORDERED: MAGNESIUM OXIDE 400MG TAB (MAG-OX) PO ONE (13:40)
--- NOTE | 2021-11-20 13:51 | IPNPDOC ---
Text Note Date of Service The patient was seen on 11/20/21. NOTE Subjective: 80-year-old male presented to the emergency room department with complaints of blood per rectum. He was recently admitted from 11/14-11/16 with a GI bleed and diagnosis of C. difficile. The bleeding had stopped but on 11/17 he felt " gush of blood" coming out of his rectum without any effort. Subsequently, he had darkening of his stools. He had no pain at the time. He saw dark-colored blood. He was seen and examined at bedside this morning. He denied having abdominal pain. He had bowel movement this morning, which is still dark in color. He denied chest pain, shortness of breath, abdominal pain, nausea, vomiting, problem with urination or bowel movements. He has been tolerating a diet well. Review of systems: 10 point review of system was negative except for what is noted in the HPI Physical exam: General: Lying in bed, no acute distress Head/Neck/Throat: Trachea midline, mucous membranes moist Eyes: Sclera anicteric, no erythema or discharge appreciated bilaterally Thorax: Normal respiratory effort on room air, lungs clear to auscultation bilaterally, no wheezes/rales/rhonchi Cardiovascular: Normal rate, regular rhythm, normal S1, S2; no S3, S4, rubs/gallops/murmurs Abdomen: Bowel sounds present, soft/nontender/nondistended Genitourinary: No CVA tenderness, no Munson in place Musculoskeletal: Moving all extremities, no edema Skin: Warm, dry Neurologic: AAOx3, speech fluent and goal-directed, no focal deficits, grossly intact Labs: See below Imaging: Please see imaging section Assessment/plan: 80-year-old male with presented to the emergency room department with complaints of hematochezia that melanotic stools #GI bleed -Possible peptic ulcer disease, CT scan from previous admission noted a duodenal bulb ulcer vs Inflammatory enterocolitis, he was enterotoxigenic and was c.diff positive vs AVM vs diverticular bleed -Continue IV pantoprazole. -H/H remained stable. Continue to monitor H/H and transfuse if hemoglobin is less than 7 -Hold aspirin for now -Appreciate surgery input #Normocytic anemia -Acute blood loss anemia. Continue monitor H/H. Transfuse if hemoglobin less than 7 #C. difficile -Change vancomycin to Dificid 200 mg twice daily #Hypertension -Blood pressure stable, hold amlodipine for now #Hyperlipidemia -Continue simvastatin once diet is resumed #COPD -no signs of acute exacerbation. -Continue with Advair #DVT prophylaxis -SCDs/teds Disposition: If patient tolerates diet and hemoglobin remained stable he will be discharged home to follow-up with surgery for endoscopic evaluation as an outpatient. VS,Fishbone, I+O VS, Fishbone, I+O Laboratory Tests 11/20/21 06:30 Vital Signs Date Time Temp Pulse Resp B/P (MAP) Pulse Ox O2 Delivery O2 Flow Rate FiO2 11/20/21 06:00 97.1 82 20 134/86 (102) 96 Room Air I&O- Last 24 Hours up to 6 AM 11/20/21 06:00 Intake Total 1840 ml Output Total 2900 ml Balance -1060 ml BRIAN ISLAS M.D. Nov 20, 2021 13:51
[2021-11-20 14:00] VITALS: BP 112/53
--- NOTE | 2021-11-20 14:15 | IPN ---
PROGRESS NOTE DATE: 11/20/2021 SUBJECTIVE: The patient seems to be doing well at this point, tolerating a clear liquid diet. I had ordered a regular diet. He has not had any regular food as of yet but in general, we will see how he does overnight. If his hematocrit is stable overnight and he is tolerating a regular diet, then from a surgical standpoint, he can be discharged to home as long as his medical issues are stable. I would recommend that he undergo an upper and lower endoscopy as an outpatient in the next few weeks once his infectious colitis has resolved.
[2021-11-20] MEDS ORDERED: K-PHOS ORIGINAL (POT.ACID PHOSPHATE) 500MG TAB PO ONE (15:00)
[2021-11-20] MEDS: traZODone 50 MG TAB PO SCH (20:46)
[2021-11-20] MEDS: AMITRIPTYLINE 10MG TABLET PO SCH (20:46)
[2021-11-20 22:00] VITALS: BP 120/60
[2021-11-21 06:15] VITALS: BP 121/61
[2021-11-21 07:02] LABS: BASO % 0.7 % (0.0-1.0); EOS # 0.4 10^3/uL (0.0-0.5); HEMATOCRIT 28.1 % (42.0-52.0); HEMOGLOBIN 8.9 g/dl (13.5-17.5); LYMPH # 1.5 10^3/uL (1.5-5.0); LYMPH % 25.3 % (24.0-44.0); MEAN CORPUSCULAR HEMOGLOBIN 29.2 pg (27.0-33.0); MEAN CORPUSCULAR HGB CONC 31.7 g/dl (32.0-36.5); MEAN CORPUSCULAR VOLUME 92.1 fl (80.0-96.0); MONO # 0.7 10^3/uL (0.0-0.8); MONO % 11.7 % (2.0-8.0); NEUTROPHILS # 3.2 10^3/uL (1.5-8.5); NEUTROPHILS % 55.6 % (36.0-66.0); PLATELET COUNT, AUTOMATED 239 10^3/uL (150-450); RED BLOOD COUNT 3.05 10^6/uL (4.30-6.10); WHITE BLOOD COUNT 5.8 10^3/uL (4.0-10.0)
[2021-11-21 07:23] LABS: BLOOD UREA NITROGEN 7 MG/DL (7-18); CALCIUM LEVEL 8.3 MG/DL (8.8-10.2); CARBON DIOXIDE LEVEL 28 MEQ/L (21-32); CHLORIDE LEVEL 107 MEQ/L (98-107); CREATININE FOR GFR 0.84 MG/DL (0.70-1.30); GLOMERULAR FILTRATION RATE > 60.0 (>35); GLUCOSE, FASTING 142 MG/DL (70-100); MAGNESIUM LEVEL 1.7 MG/DL (1.8-2.4); PHOSPHORUS LEVEL 2.3 MG/DL (2.5-4.9); POTASSIUM SERUM 3.9 MEQ/L (3.5-5.1); SODIUM LEVEL 140 MEQ/L (136-145)
[2021-11-21] MEDS: ADVAIR HFA 230/21MCG INHALER INH SCH (08:09)
[2021-11-21] MEDS: SUCRALFATE 1 GM TAB PO SCH (09:03)
[2021-11-21] MEDS: THIAMINE 100 MG TAB PO SCH (09:03)
[2021-11-21] MEDS: GABAPENTIN 300 MG CAP PO SCH (09:03)
[2021-11-21] MEDS: FOLIC ACID 1 MG TAB PO SCH (09:03)
[2021-11-21] MEDS: FIDAXOMICIN 200 MG TAB (DIFICID) PO SCH (09:03)
[2021-11-21] MEDS: SIMVASTATIN 20 MG TAB PO SCH (09:03)
[2021-11-21] MEDS: PANTOPRAZOLE 40MG VIAL (C9113 PER 1) IV SCH (09:04)
[2021-11-21] MEDS ORDERED: ASPI81TA26 PO (09:53)
--- NOTE | 2021-11-21 16:31 | DS.PDOC ---
Discharge Summary General Date of Admission Nov 18, 2021 at 01:26 Date of Discharge 11/21/21 Discharge Summary DISCHARGE DIAGNOSES: GIB secondary to possibly peptic ulcer disease and infectious colitis. Normocytic anemia C. difficile Hyperlipidemia COPD COMPLICATIONS/CHIEF COMPLAINT: Hematochezia. HOSPITAL COURSE: , is a 80-year-old male who presented emergency room department on 11/18/2021 at [facility] with complaints of asymptomatic bright red blood per rectum and later he had dark bowel movements. Prior to this hospitalization he was admitted to [facility] from 11/14-11/16 with a GI bleed and diagnosis of C. difficile. There was no GI service coverage, and since the surgical service was able to scope he was deemed appropriate to admitted to the hospitalist service by administration. A CT scan of the abdomen and pelvis on 11/18. There was inflammatory fatty infiltration seen adjacent to the duodenum, and an ulcer could not be be ruled out, but stable compared to his previous CT scan that was done on 11/14 which read it as an ulcer. 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 difficile). During hospitalization, there was no bright red blood per rectum appreciated. There was melanotic stools noted. Gastroenterology felt due to his C. difficile infection endoscopic evaluation should be deferred. His hemoglobin remained stable throughout his stay and he did not require transfusions. At the time of discharge he was having soft brown bowel movements and tolerating a regular diet. He was discharged home with home services and instructed to follow-up with his primary care physician to have repeat blood work done to ensure his hemoglobin remained stable in 2 to 3 days following discharge. He was asked to follow up with Dr. Reagan to have e ndoscopic evaluation done, the date will be discussed in his next follow-up visit. Of note, patient's vancomycin was switched to Dificid (his insurance coverage for this). DISCHARGE MEDICATIONS: Please see below. ALLERGIES: Please see below. PHYSICAL EXAMINATION ON DISCHARGE: VITAL SIGNS: Please see below. General: Lying in bed, no acute distress Head/Neck/Throat: Trachea midline, mucous membranes moist Eyes: Sclera anicteric, no erythema or discharge appreciated bilaterally Thorax: Normal respiratory effort on room air, lungs clear to auscultation bilaterally, no wheezes/rales/rhonchi Cardiovascular: Normal rate, regular rhythm, normal S1, S2; no S3, S4, rubs/gallops/murmurs Abdomen: Bowel sounds present, soft/nontender/nondistended Genitourinary: No CVA tenderness, no Munson in place Musculoskeletal: Moving all extremities, no edema Skin: Warm, dry Neurologic: AAOx3, speech fluent and goal-directed, no focal deficits, grossly intact LABORATORY DATA: Please see below. IMAGING: Please see imaging section Patient asked to obtain all imaging results for his records and follow-up some if you require PROGNOSIS: Good ACTIVITY: As tolerated DIET: Regular DISPOSITION: 01 Home, Self-Care. DISCHARGE INSTRUCTIONS: Follow his primary care physician within 3 to 5 days. As a follow-up with surgical team within 3 to 5 days DISCHARGE CONDITION: Stable TIME SPENT ON DISCHARGE: 30 minutes. Vital Signs/I&Os Vital Signs Date Time Temp Pulse Resp B/P (MAP) Pulse Ox O2 Delivery O2 Flow Rate FiO2 11/21/21 06:15 98.2 68 18 121/61 (81) 98 Room Air I&O- Last 24 Hours up to 6 AM 11/21/21 06:00 Intake Total 850 ml Output Total 1400 ml Balance -550 ml Laboratory Data Labs 24H Laboratory Tests 2 11/21/21 06:30: Immature Granulocyte % (Auto) 0.7, Neutrophils (%) (Auto) 55.6, Lymphocytes (%) (Auto) 25.3, Monocytes (%) (Auto) 11.7H, Eosinophils (%) (Auto) 6.0H, Basophils (%) (Auto) 0.7, Neutrophils # (Auto) 3.2, Lymphocytes # (Auto) 1.5, Monocytes # (Auto) 0.7, Eosinophils # (Auto) 0.4, Basophils # (Auto) 0.0, Nucleated Red Blood Cells % (auto) 0.0, Anion Gap 5L, Glomerular Filtration Rate > 60.0, Calcium Level 8.3L, Phosphorus Level 2.3#L, Magnesium Level 1.7L CBC/BMP Laboratory Tests 11/21/21 06:30 Discharge Medications Scheduled Amitriptyline HCl (Amitriptyline HCl) 10 Mg Tablet, 10 MG PO QHS, (Reported) Aspirin (Aspirin EC) 81 Mg Tablet.dr, 1 TAB PO DAILY Start on 11/23/21 Fidaxomicin (Dificid) 200 Mg Tablet, 200 MG PO BID Folic Acid (Folic Acid) 1 Mg Tablet, 1 MG PO DAILY, (Reported) Gabapentin (Gabapentin) 300 Mg Capsule, 300 MG PO TID, (Reported) MORNING, DINNER, AND NIGHT Magnesium Oxide (Magnesium Oxide) 400 Mg Tablet, 400 MG PO QHS, (Reported) Multivit,Calc,Mins/Iron/Folic (Thera-M Tablet) 1 Each Tablet, 1 TAB PO DAILY, (Reported) Pantoprazole Sodium (Pantoprazole Sodium) 40 Mg Tablet.dr, 40 MG PO BID Salmeterol/Fluticasone (Advair 250-50 Diskus) 14 Puff/Inhaler Aerp, 1 PUFF INH BID, (Reported) Simvastatin (Simvastatin) 20 Mg Tablet, 20 MG PO DAILY, (Reported) Sucralfate (Sucralfate) 1 Gm Tablet, 1 GM PO [facility] Thiamine HCl (Thiamine HCl) 100 Mg Tablet, 100 MG PO DAILY, (Reported) Trazodone HCl (Trazodone HCl) 50 Mg Tablet, 50 MG PO QHS, (Reported) Allergies Coded Allergies: No Known Allergies (Verified , 07/14/21) BRIAN ISLAS M.D. Nov 21, 2021 14:52
== END 2021-11-21 12:52 | disposition home health service (06) | DRG 378 ==
LOC: M ED 20:40 → M ED INP 11-18 01:26 → ENRESERV 11-18 03:26 → M PCU 11-18 04:30 → M MSPAV 11-19 16:04
PROVIDERS: ADMIT Internal Medicine; ATTEND Internal Medicine
DX: K27.4 Chronic or unspecified peptic ulcer, site unspecified, with hemorrhage (principal); D62 Acute posthemorrhagic anemia; A04.72 Enterocolitis due to Clostridium difficile, not specified as recurrent; F10.10 Alcohol abuse, uncomplicated; I10 Essential (primary) hypertension; J44.9 Chronic obstructive pulmonary disease, unspecified; E78.5 Hyperlipidemia, unspecified; Z79.82 Long term (current) use of aspirin; Z79.899 Other long term (current) drug therapy; F41.9 Anxiety disorder, unspecified; F32.A Depression, unspecified

== ENCOUNTER → 2021-11-24 | Outpatient (REF) | payer MEDICARE, OTHER ==
[~2021-11-24] MED LIST changes: +FIDA200TA PO
[2021-11-25 12:34] LABS: BASO # 0.1 10^3/uL (0.0-0.2); BASO % 0.8 % (0.0-1.0); EOS # 0.3 10^3/uL (0.0-0.5); EOS % 2.7 % (0.0-3.0); HEMATOCRIT 31.5 % (42.0-52.0); HEMOGLOBIN 9.7 g/dl (13.5-17.5); LYMPH # 1.8 10^3/uL (1.5-5.0); LYMPH % 18.7 % (24.0-44.0); MEAN CORPUSCULAR HEMOGLOBIN 28.6 pg (27.0-33.0); MEAN CORPUSCULAR HGB CONC 30.8 g/dl (32.0-36.5); MEAN CORPUSCULAR VOLUME 92.9 fl (80.0-96.0); MONO % 10.2 % (2.0-8.0); NEUTROPHILS # 6.4 10^3/uL (1.5-8.5); NEUTROPHILS % 67.1 % (36.0-66.0); PLATELET COUNT, AUTOMATED 341 10^3/uL (150-450); RED BLOOD COUNT 3.39 10^6/uL (4.30-6.10); WHITE BLOOD COUNT 9.5 10^3/uL (4.0-10.0)
[2021-11-25 13:15] LABS: CALCIUM LEVEL 8.7 MG/DL (8.8-10.2); CREATININE FOR GFR 1.33 MG/DL (0.70-1.30); GLOMERULAR FILTRATION RATE 54.8 (>35)
== END ==
LOC: M LABDRWAD 12:17
PROVIDERS: ATTEND Nurse Practitioner Family
DX: K29.61 Other gastritis with bleeding (principal)

== ENCOUNTER → 2022-01-09 | Outpatient (CLI) | payer MEDICARE, OTHER | LOC: M LABSMTC 10:30 | PROVIDERS: ATTEND Anesthesiology | DX: Z01.812 Encounter for preprocedural laboratory examination (principal); Z20.822 Contact with and (suspected) exposure to COVID-19 ==

== ENCOUNTER 2022-01-14 11:25 | Day surgery (SDC) | payer MEDICARE, OTHER ==
[~2022-01-14] VITALS: Ht 177.8 cm; Wt 97.3 kg
[~2022-01-14 11:25] MED LIST changes: +NS 1,000 ML IV ONE
[2022-01-14] MEDS ORDERED: propofoL 200 MG/20 ML VIAL As Ordered ONE (12:23)
[2022-01-14] MEDS ORDERED: LIDOCAINE 2% MDV 20ML VIAL As Ordered ONE (12:23)
[2022-01-14] MEDS ORDERED: fentaNYL 100 MCG/2 ML INJECTION As Ordered ONE (12:24)
[2022-01-14 13:25] VITALS: BP 131/71
== END 2022-01-14 13:46 | disposition home or self-care (01) ==
LOC: M OPP 11:25
PROVIDERS: ATTEND Surgery
DX: K62.5 Hemorrhage of anus and rectum (principal); K57.30 Diverticulosis of large intestine without perforation or abscess without bleeding; K57.10 Diverticulosis of small intestine without perforation or abscess without bleeding; Z79.899 Other long term (current) drug therapy; Z95.5 Presence of coronary angioplasty implant and graft; Z87.891 Personal history of nicotine dependence
CPT/HCPCS: 43235; 45378; J3010

== ENCOUNTER → 2022-02-08 | Outpatient (REF) | payer MEDICARE, OTHER ==
[~2022-02-08] MED LIST changes: -NS 1,000 ML IV ONE
[2022-02-08 12:56] LABS: BASO # 0.1 10^3/uL (0.0-0.2); BASO % 0.8 % (0.0-1.0); EOS # 0.4 10^3/uL (0.0-0.5); HEMATOCRIT 34.2 % (42.0-52.0); HEMOGLOBIN 9.7 g/dl (13.5-17.5); LYMPH # 1.2 10^3/uL (1.5-5.0); LYMPH % 19.8 % (24.0-44.0); MEAN CORPUSCULAR HGB CONC 28.4 g/dl (32.0-36.5); MEAN CORPUSCULAR VOLUME 77.6 fl (80.0-96.0); MONO # 0.8 10^3/uL (0.0-0.8); NEUTROPHILS # 3.5 10^3/uL (1.5-8.5); NEUTROPHILS % 58.9 % (36.0-66.0); PLATELET COUNT, AUTOMATED 243 10^3/uL (150-450); RED BLOOD COUNT 4.41 10^6/uL (4.30-6.10)
[2022-02-08 13:59] LABS: ALBUMIN 3.5 GM/DL (3.2-5.2); ALT/SGPT 18 U/L (12-78); BILIRUBIN,TOTAL 0.7 MG/DL (0.2-1.0); BLOOD UREA NITROGEN 9 MG/DL (7-18); CALCIUM LEVEL 9.5 MG/DL (8.8-10.2); CARBON DIOXIDE LEVEL 30 MEQ/L (21-32); CHLORIDE LEVEL 104 MEQ/L (98-107); CHOLESTEROL LEVEL 101 MG/DL (<200); CHOLESTEROL RISK RATIO 2.589 (<5); CREATININE FOR GFR 0.92 MG/DL (0.70-1.30); FREE T4 1.07 NG/DL (0.76-1.46); GLOMERULAR FILTRATION RATE > 60.0 (>35); GLUCOSE, FASTING 140 MG/DL (70-100); HDL CHOLESTEROL 39 MG/DL (>40); LDL CHOLESTEROL 33 MG/DL (<100); NON-HDL-C 62 MG/DL; POTASSIUM SERUM 3.9 MEQ/L (3.5-5.1); SODIUM LEVEL 139 MEQ/L (136-145); TOTAL PROTEIN 7.3 GM/DL (6.4-8.2); TRIGLYCERIDES LEVEL 144 MG/DL (<150)
== END ==
LOC: M LABDRWAD 12:14
PROVIDERS: ATTEND Nurse Practitioner Family
DX: I10 Essential (primary) hypertension (principal); E78.2 Mixed hyperlipidemia; E03.9 Hypothyroidism, unspecified